=== PATIENT | female | born 1950 | race Caucasian/White ===

== ENCOUNTER 2021-08-01 10:35 | Outpatient (CLI) | payer MEDICARE, SELFPAY ==
[2021-08-01 11:05] VITALS: BP 147/76; PULSE 70; RESP 16; TEMP 36.6; O2SAT 99; BMI 22.4
[2021-08-01 11:41] VITALS: BP 112/75; PULSE 64; RESP 18; TEMP 37.4; O2SAT 98
[2021-08-01 12:38] VITALS: BP 131/86; PULSE 73; RESP 16; TEMP 37.4; O2SAT 98
== END 2021-08-01 12:40 | disposition home or self-care (01) ==
LOC: OPS 10:45
PROVIDERS: Visit Provider Nurse Practitioner Family
DX: U07.1 COVID-19 (principal)
CPT/HCPCS: 96365

== ENCOUNTER 2021-10-12 12:35 | Emergency (ER) | payer MEDICARE, SELFPAY ==
[2021-10-12 12:43] VITALS: BP 178/105; PULSE 69; RESP 16; TEMP 36.4; O2SAT 100; BMI 22.4
--- NOTE | 2021-10-12 12:51 | W.ED.EYEPROB ---
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 Patient states she was cooking maciel when the grease splattered into her eye. She states she initially had pain but this has improved. She states she chronically has very poor vision in her eye stating her vision is 2300 something but states vision does not seem to be any worse than normal. She does not wear glasses or contacts. chief complaint: eye injury Onset (ago): minute(s) Onset description: sudden Location: left eye Place: home Mechanism: other (grease splatter) Severity: mild Associated symptoms: Reports no associated symptoms Treatments Prior to Arrival: none Related Data: Patient tetanus UTD: Yes Review of Systems Eyes: Reports: eye discomfort (mild-improved); Denies: change in vision, blurry vision, photophobia, eye discharge, eye redness, floaters or seeing flashes Physical Exam Const: COMMON NORMALS: no acute distress, average body habitus, patient oriented x3, no limitations, healthy appearing, alert and well nourished HENMT: COMMON NORMALS: normocephalic and atraumatic HEAD & SCALP: normocephalic and atraumatic FACE & SINUS: other (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) Eye: COMMON NORMALS: Equal, round and reactive pupils present, EOMs intact bilaterally and conjunctivae normal GENERAL EYE: appearance normal, both eyes and all related structures and normal light reflex VISUAL ACUITY: Yes acuity normal VISUAL MARTIN: Yes peripheral vision loss PERIORBITAL: periorbital findings normal EYELID: eyelids normal CONJUNCTIVA: Yes conjunctivae normal SCLERA: sclerae normal CORNEA: Yes corneas normal and fluorescein used (do not visualize any abrasions/nova) PUPIL: Yes Equal, round and reactive pupils present DIRECT OPHTHALMOSCOPY: Yes normal light reflex OTHER: no globe injury or obvious nova noted Neuro: COMMON NORMALS: patient oriented x3 SENSORIUM/ORIENTATION: Yes alert Course Vital Signs: Vital signs: Vital Signs Temperature 97.6 F 10/12/21 12:43 Pulse Rate 69 10/12/21 12:43 Respiratory Rate 16 10/12/21 12:43 Blood Pressure 178/105 10/12/21 12:43 Pulse Oximetry 100 10/12/21 12:43 MDM - Eye Problem MDM Narrative: Medical decision making narrative: Patient reports no change in vision. She has mild discomfort. Nothing obvious on on direct visual examination and fluorescein stain exam. Will go ahead and cover with erythromycin ointment. Strict return to ED precautions given. Discharge Plan Discharge Patient Disposition: Home Clinical Impression: Thermal injury to conjunctiva of left eye Qualifiers: Encounter type: initial encounter Qualified Code(s): T26.12XA - Burn of cornea and conjunctival sac, left eye, initial encounter Condition: Stable Prescriptions: New erythromycin 5 mg/gram (0.5 %) ointment 1 applic ophthalmic (eye) Q4H 7 Days Qty: 1 RF: 0 Discharge Orders: Discharge ED (Routine); Ordered 10/12/21 Ordered By: Racheal Amador Coding Level of Care Code ED Graphic Art Sales Representative for Chg Fwd Exam Expanded Problem Focused
[2021-10-12] MEDS: erythromycin Op Oint 1 gm 1 APPLIC EYE-LEFT (13:55)
[2021-10-12] MEDS: fluorescein 1 mg Strip EYE-LEFT (13:57)
[2021-10-12] MEDS: eye irrigation 30 mL Btl EYE-LEFT (13:57)
[2021-10-12] MEDS: tetracaine 0.5% Op Soln 4 mL Btl 1 DROP EYE-LEFT (13:57)
[2021-10-12 14:01] VITALS: BP 151/86; PULSE 59; RESP 15; O2SAT 100
== END 2021-10-12 14:02 | disposition home or self-care (01) ==
PROVIDERS: Emergency Provider Physician Assistant
DX: T26.12XA Burn of cornea and conjunctival sac, left eye, initial encounter (principal); X10.2XXA Contact with fats and cooking oils, initial encounter
CPT/HCPCS: 99283

== ENCOUNTER 2022-01-25 09:42 | Inpatient (IN) | payer MEDICARE, SELFPAY ==
[2022-01-25] VITALS (30 sets, daily range): BP systolic 101–163; BP diastolic 60–110; PULSE 59–128; RESP 13–25; TEMP 36.3–37; O2SAT 92–99; BMI 21.6
--- NOTE | 2022-01-25 10:05 | ECG_ITS ---
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 Measurements Intervals [place] Rate: 126 P: CO: QRS: 35 QRSD: 94 T: 36 QT: 317 QTc: 459 Interpretive Statements ATRIAL FIBRILLATION WITH RAPID VENTRICULAR RESPONSE NONSPECIFIC ST & T-WAVE ABNORMALITY ABNORMAL RHYTHM ECG No previous ECG available for comparison Electronically Signed On 01-26-2022 5:59:51 FRONT OFFICE ASSOCIATE by Julianna Araujo M.D. [id number] f
--- NOTE | 2022-01-25 10:05 | CT_ITS ---
WS: [id number] CT HEAD NONCONTRAST HISTORY: neuro symptoms, RIGHT upper extremity weakness. TECHNIQUE: Contiguous axial imaging performed through the brain in 2.5 mm imaging. Bone and soft tiss ue windows. Sagittal and coronal reformats reviewed. All CT scans at [facility] use at least one of these dose optimization techniques: automated exposure control; mA and/or kV adjustment per pa tient size (includes targeted exams where dose is matched to clinical indication); or iterative recon struction. DLP: 839.24 mGy.cm COMPARISON: None available. No acute intracranial hemorrhage, midline shift or mass effect. Mild atrophy. Diffuse chronic microvascular ischemic changes. There are bilateral areas of more promi nent subcortical low-attenuation which in this age group is probably related to ischemic disease. No loss of the alfonso-white matter differentiation. Ventricles: Normal size with no hydrocephalus. No inferior displacement of the cerebellar tonsils. Paranasal sinuses: Small air-fluid level in the LEFT maxillary sinus and mild mucoperiosteal thickeni ng. The remaining sinuses are clear. Mastoid air cells: Well pneumatized. Calvarium and scalp: Skull is intact with no soft tissue edema or swelling. There is extensive postsurgical changes along the RIGHT face and neck from prior neck dissection. No recurrent mass identified on this examination. CT/CT head wo con* [id number] IMPRESSION: 1. No acute intracranial hemorrhage or edema. 2. Moderate chronic microvascular ischemic disease. Multifocal areas of subcort ical low attenuation. Probably all related to microvascular disease. This can b e further evaluated by MRI brain with contrast on a nonurgent basis. Further di fferentials to consider are vasculitis and demyelination apparent underlying ea rly metastatic sites.
[2022-01-25 10:07] LABS: Glucose Point of Care 99 mg/dL (70-110)
--- NOTE | 2022-01-25 10:12 | W.ED.NEUROSD ---
Documented by User: FANI Hernandez 01/25/22 13:17 HPI - Neuro Symptoms/Deficit General: Chief Complaint: Neuro Symptoms/Deficit Stated Complaint: stroke like symptoms Time Seen by Provider: 01/25/22 10:05 History of Present Illness: Patient complains about shortness of breath. Patient had an episode this morning prior last about 30 seconds where she had some difficulty talking and then that cleared up. Had some possible right arm weakness at that time but it is better now. Patient denies any recent illness. Patient has no medications that she takes in a regular basis. Patient did drink some high acting coffee which she normally does not drink and that occurred this morning. Patient has history of right mandible removal due to cyst. Had muscle from left thigh placed in jaw area to help with talking. Associated symptoms: Deny chest pain, headache(s), nausea or vomiting Review of Systems Const: Denies: fever(s), chills or body aches Eyes: Denies: eye discomfort ENMT: Denies: throat pain Card: Denies: chest pain Resp: Denies: dyspnea GI: Denies: abdominal pain, nausea or vomiting Skin/Breast: Denies: rash Neuro: Reports: other (An episode this morning where she had difficulty talking last about 30 seco); Denies: headache(s) Psych: Denies: depression or suicidal ideation PFSH ED PFSH: Surgical History (Updated 01/25/22 @ 12:17 by Flavio Schuler MD) History of carpal tunnel surgery History of mandibular surgery History of tonsillectomy Family History (Updated 01/25/22 @ 12:18 by Flavio Schuler MD) Other CAD (coronary artery disease) Cancer Social History (Updated 01/25/22 @ 12:18 by Flavio Schuler MD) Smoking and tobacco status: never smoked Alcohol intake: never NIH stroke score Score: Total Score: 2 Physical Exam Const: COMMON NORMALS: no acute distress, patient oriented x3 and alert HENMT: COMMON NORMALS: normocephalic and external ears normal HEAD & SCALP: normocephalic EXTERNAL EAR: Yes external ears normal Eye: COMMON NORMALS: Equal, round and reactive pupils present and EOMs intact bilaterally PUPIL: Yes Equal, round and reactive pupils present Neck/C-Spine: COMMON NORMALS: no JVD Resp: COMMON NORMALS: normal respiratory effort and No use of accessory muscles Cardio: COMMON NORMALS: no JVD RATE: tachycardic GI: INSPECTION: Yes normal to inspection Extremity: COMMON NORMALS: normal to inspection and full ROM Neuro: COMMON NORMALS: patient oriented x3 SENSORIUM/ORIENTATION: Yes alert SPEECH: speech normal MOTOR EXAM: 5/5 motor strength present throughout OTHER: Hews-sb-egpb movements fine, no arm drift. Good equal bilateral patent examiner strength. Psych: COMMON NORMALS: mental status grossly normal Skin: COMMON NORMALS: no rashes or lesions noted GENERAL SKIN EXAM: no rashes or lesions noted Course Vital Signs: Vital signs: Vital Signs Temperature 97.9 F 01/26/22 03:28 Pulse Rate 56 L 01/26/22 05:22 Respiratory Rate 12 01/26/22 03:28 Blood Pressure 129/81 01/26/22 03:28 Pulse Oximetry 99 01/26/22 03:28 MDM - Neuro Symptoms/Deficit Medical Decision Making Report given to Dr. Valdez Lab Data : 01/26/22 04:12 01/26/22 04:[address] 01/25/22 10:05 IMPRESSION: 1. No acute intracranial hemorrhage or edema. 2. Moderate chronic microvascular ischemic disease. Multifocal areas of subcortical low attenuation. Probably all related to microvascular disease. This can be further evaluated by MRI brain with contrast on a nonurgent basis. Further differentials to consider are vasculitis and demyelination apparent underlying early metastatic sites. Chest X-Ray 01/25/22 10:14 IMPRESSION: Unremarkable portable chest. Laboratory Results WBC 5.2 10^3/uL (4.0-10.0) 01/25/22 10:07 RBC 4.90 10^6/uL (4.1-5.3) 01/25/22 10:07 Hgb 13.5 g/dL (11.5-15.3) 01/25/22 10:07 Hct 43.6 % (37.0-47.0) 01/25/22 10:07 MCV 89.0 fl (81-99) 01/25/22 10:07 MCH 27.6 pg (28.0-34.0) L 01/25/22 10:07 MCHC 31.0 g/dL (30.0-36.0) 01/25/22 10:07 RDW 14.0 % (12.1-15.1) 01/25/22 10:07 Plt Count 191 10^3/cmm (130-400) 01/25/22 10:07 MPV 11.0 fL (7.4-10.4) H 01/25/22 10:07 Neut % (Auto) 61.6 % 01/25/22 10:07 Lymph % (Auto) 26.7 % 01/25/22 10:07 Warrick % (Auto) 9.0 % 01/25/22 10:07 Eos % (Auto) 1.5 % 01/25/22 10:07 Baso % (Auto) 1.0 % 01/25/22 10:07 Neut # (Auto) 3.21 10^3/uL (1.8-7.7) 01/25/22 10:07 Lymph # (Auto) 1.4 10^3/uL (0.8-4.8) 01/25/22 10:07 Warrick # (Auto) 0.5 10^3/uL (0.2-0.9) 01/25/22 10:07 Eos # (Auto) 0.1 10^3/uL (0.0-0.8) 01/25/22 10:07 Baso # (Auto) 0.1 10^3/uL (0.0-0.1) 01/25/22 10:07 Nucleated RBC % (auto) 0 % 01/25/22 10:07 Nucleated RBCs # 0.0 /100WBC 01/25/22 10:07 PT Cancelled 01/25/22 10:50 INR Cancelled 01/25/22 10:50 D-Dimer Cancelled 01/25/22 10:50 Sodium Cancelled 01/25/22 10:50 Potassium Cancelled 01/25/22 10:50 Chloride Cancelled 01/25/22 10:50 Carbon Dioxide Cancelled 01/25/22 10:50 Anion Gap Cancelled 01/25/22 10:50 BUN Cancelled 01/25/22 10:50 Creatinine Cancelled 01/25/22 10:50 GFR Calculation Cancelled 01/25/22 10:50 Glucose Cancelled 01/25/22 10:50 POC Glucose 99 mg/dL (70-110) 01/25/22 10:04 Calculated Osmolality Cancelled 01/25/22 10:50 Calcium Cancelled 01/25/22 10:50 Total Bilirubin Cancelled 01/25/22 10:50 AST Cancelled 01/25/22 10:50 ALT Cancelled 01/25/22 10:50 Alkaline Phosphatase Cancelled 01/25/22 10:50 Total Protein Cancelled 01/25/22 10:50 Albumin Cancelled 01/25/22 10:50 Globulin Cancelled 01/25/22 10:50 Discharge Plan Discharge Patient Disposition: Admitted As Inpatient Admit Provider: Flavio Schuler Clinical Impression: Atrial fibrillation, Transient cerebral ischemia Condition: Stable Coding Level of Care Code ED Radio Control Crane Operator for Chg Fwd Exam Comprehensive Documented by User: Jerardo Valdez DO 01/26/22 06:16 HPI - Neuro Symptoms/Deficit General: Chief Complaint: Neuro Symptoms/Deficit Stated Complaint: stroke like symptoms Time Seen by Provider: 01/25/22 10:05 History of Present Illness: Patient complains about shortness of breath. Patient had an episode this morning prior last about 30 seconds where she had some difficulty talking and then that cleared up. Had some possible right arm weakness at that time but it is better now. Patient denies any recent illness. Patient has no medications that she takes in a regular basis. Patient did drink some high acting coffee which she normally does not drink and that occurred this morning. Patient has history of right mandible removal due to cyst. Had muscle from left thigh placed in jaw area to help with talking. 71-year-old female presents to the emergency room with complaint of rapid heart rate. 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 She had a brief episode (lasted approximately 30 seconds) when this first started while she was picking skin things up outside where she felt like she could not speak well and had a little bit of weakness in her right arm that has resolved at this point. She still has the rapid heart rate and has some mild chest discomfort. She has a difficult time articulating words but son at the bedside states her enunciation worsens in public because she is self-conscious of her previous surgery. When seen initially her only complaint is the rapid heart rate and mild chest discomfort. She had some mild shortness of breath whenever she exerts herself like walking back into the house from outside generally does not feel well she is not had any vomiting or diarrhea no diaphoresis. Onset (ago): minute(s) (1) Timing confirmed by: family member Location: speech (Previously compromised underlying chronic medical issue (surgery)) and left arm (Hand) Severity: mild Quality: weak Relieving factors: time Exacerbating factors: none Context: sudden onset Associated symptoms: Reports chest pain, malaise, short of breath and weakness; Deny cough, diaphoresis, fevers/chills, headache(s), anorexia, nausea, seizures, syncope, tingling, vertigo or vomiting Review of Systems Const: Reports: malaise; Denies: fever(s), chills, body aches or diaphoresis Eyes: Denies: eye discomfort ENMT: Reports: hoarseness (Chronic); Denies: throat pain or odynophagia Card: Reports: chest pain; Denies: syncope Resp: Reports: dyspnea GI: Denies: abdominal pain, nausea or vomiting : Denies: flank pain, dysuria, urinary frequency or urinary urgency Skin/Breast: Denies: rash Neuro: Denies: headache(s) or vertigo Psych: Denies: depression PFSH ED PFSH: Surgical History (Updated 01/25/22 @ 12:17 by Flavio Schuler MD) History of carpal tunnel surgery History of mandibular surgery History of tonsillectomy Family History (Updated 01/25/22 @ 12:18 by Flavio Schuler MD) Other CAD (coronary artery disease) Cancer Social History (Updated 01/25/22 @ 12:18 by Flavio Schuler MD) Smoking and tobacco status: never smoked Alcohol intake: never NIH stroke score NIHSS: Level Of Consciousness - 1a: 0 Level Of Consciousness Questions - 1b: Both Correct Level Of Consciousness Commands - 1c: Both Correct Best Gaze - 2: Normal Visual Santamaria - 3: No Visual Loss Facial Palsy - 4: Normal Motor Arm Right - 5: No Drift Motor Arm Left - 5: No Drift Motor Leg Right - 6: No Drift Motor Leg Left - 6: No Drift Limb Ataxia - 7: Present In One Limb Sensory - 8: Normal Best Language - 9: No Aphasia Dysarthia - 10: Mild/Moderate Dysarthia (Subjective patient has underlying difficulty with speech enunciation) Extinction And Inattention - 11: 0 Score: Total Score: 2 Physical Exam Const: COMMON NORMALS: no acute distress GENERAL APPEARANCE: cooperative and comfortable ORIENTATION/CONSCIOUSNESS: Yes awake, Yes oriented to person, Yes oriented to place and Yes oriented to time HENMT: COMMON NORMALS: atraumatic HEAD & SCALP: atraumatic OTHER: Significant deformity of the mandible from previous surgery Eye: COMMON NORMALS: Equal, round and reactive pupils present, EOMs intact bilaterally, conjunctivae normal and no scleral icterus CONJUNCTIVA: Yes conjunctivae normal PUPIL: Yes Equal, round and reactive pupils present Neck/C-Spine: COMMON NORMALS: full ROM, no lymphadenopathy, supple and no JVD Resp: COMMON NORMALS: normal respiratory effort, No retractions, No use of accessory muscles and clear to auscultation bilaterally AUSCULTATION: clear to auscultation bilaterally Cardio: COMMON NORMALS: no JVD, regular rate, regular rhythm and No murmurs present (Cardio) RATE: regular rate RHYTHM: regular rhythm GI: COMMON NORMALS: Soft to palpation and No hepatosplenomegaly present AUSCULTATION: Yes normoactive bowel sounds PALPATION: Yes Soft to palpation, No Tenderness to palpation present (GI), No Guarding due to palpation present (GI) and Yes No hepatosplenomegaly present Extremity: COMMON NORMALS: normal to inspection, capillary refill normal, no clubbing, cyanosis or edema, no calf tenderness and no pedal edema Neuro: SENSORIUM/ORIENTATION: Yes oriented to person, Yes oriented to place and Yes oriented to time Skin: COMMON NORMALS: no rashes or lesions noted GENERAL SKIN EXAM: no rashes or lesions noted Course Vital Signs: Vital signs: Vital Signs Temperature 97.9 F 01/26/22 03:28 Pulse Rate 56 L 01/26/22 05:22 Respiratory Rate 12 01/26/22 03:28 Blood Pressure 129/81 01/26/22 03:28 Pulse Oximetry 99 01/26/22 03:28 MDM - Neuro Symptoms/Deficit Medical Decision Making Report given to Dr. Valdez Initially started Cardizem for rate control. When I first seen the patient she had difficult time speaking son related that this was typical for her. They related that the weakness in the right arm into the speech lasted only [address] Campo seen the patient he was concerned that some of these symptoms were still present. I reexamined the patient she does have some weakness very slight with patent examiner in the right arm. Requestioned the patient regarding her speech as well as her son who is at the bedside. He feels it is at her baseline. I do think it is improved since I first seen the patient. Repeat exam was approximately 2 to 2-1/2 hours after initially seen her. In either event at most.at baseline she has a stroke score of 2 which would not qualify her for intervention and she is already improving. CT of the head was negative. Interestingly the remainder of her stroke score exam was negative, did not feel she had any ataxia in the right arm and no arm drift although there was a very slight weakness in the right arm compared to the left the other point was for speech which is difficult because of her altered anatomy with the mandible. I did call and discussed with Oniel stroke on-call they did not feel that she would qualify did not recommend any kind of intervention. They did recommend not anticoagulating her for atrial fibrillation beyond aspirin until she was discharged. Discussed this with Dr. Schuler. Patient will be admitted on IV Cardizem for rate control and further evaluation and work-up. Oniel also recommended against CTA since her stroke score at very worst was only 2 and she would not be a candidate for any kind of embolectomy. Stroke alert was not initiated when the patient first arrived as the patient was relating there was only 30 seconds of symptoms and they had resolved. Medical Records I reviewed the patient's medical records. Lab Data I reviewed the patient's lab results. : 01/26/22 04:12 01/26/22 04:[address] 01/25/22 10:05 IMPRESSION: 1. No acute intracranial hemorrhage or edema. 2. Moderate chronic microvascular ischemic disease. Multifocal areas of subcortical low attenuation. Probably all related to microvascular disease. This can be further evaluated by MRI brain with contrast on a nonurgent basis. Further differentials to consider are vasculitis and demyelination apparent underlying early metastatic sites. Chest X-Ray 01/25/22 10:14
--- NOTE | 2022-01-25 10:14 | XR_ITS ---
WS: [id number] PORTABLE CHEST HISTORY: sob COMPARISON: 10/14/2013 Lungs are clear and well expanded. No pleural effusion or pneumothorax. Cardiac size: Normal. Mediastinum/Aorta: Minimal atherosclerotic plaque in the thoracic aorta. No osseous abnormality seen. XR/XR chest 1V portable [id number] IMPRESSION: Unremarkable portable chest.
[2022-01-25 10:24] LABS: Basophils # 0.1 10^3/uL (0.0-0.1); Eosinophils # 0.1 10^3/uL (0.0-0.8); Eosinophils % 1.5 %; Hematocrit 43.6 % (37.0-47.0); Hemoglobin 13.5 g/dL (11.5-15.3); Lymphocytes # 1.4 10^3/uL (0.8-4.8); Lymphocytes % 26.7 %; Mean Corpuscular Hemoglobin 27.6 pg (28.0-34.0); Monocytes # 0.5 10^3/uL (0.2-0.9); Neutrophils # 3.21 10^3/uL (1.8-7.7); Neutrophils % 61.6 %; Nucleated Red Blood Cells % 0 %; Platelet Count 191 10^3/cmm (130-400); White Blood Count 5.2 10^3/uL (4.0-10.0)
--- NOTE | 2022-01-25 10:24 | PC.PHAR ---
PT STATES SHE TAKES NO RX MEDICATIONS
--- NOTE | 2022-01-25 11:14 | USCV_ITS ---
Mary Izquierdo Age: 71 Gender: F : 1950 Exam Date: 01/25/2022 14:48 Ordering Phys: Flavio Schuler MD Technologist: Ga Heath [place] [facility] [place]: afib BP: 163 / 87 HR: 74 Rhythm: Atrial fibrillation Technical Quality: Adequate MEASUREMENTS (Male / Female) Normal Values 2D ECHO LV Diastolic Diameter PLAX 3.6 cm 4.2 - 5.9 / 3.9 - 5.3 cm LV Systolic Diameter PLAX 2.4 cm IVS Diastolic Thickness 1.0 cm 0.6 - 1.0 / 0.6 - 0.9 cm IVS Systolic Thickness 1.2 cm LVPW Diastolic Thickness 0.9 cm 0.6 - 1.0 / 0.6 - 0.9 cm LVPW Systolic Thickness 1.2 cm LVOT Diameter 2.0 cm LV Ejection Fraction 2D Teich 62.3 % LV Ejection Fraction MOD 2C 74.0 % LV Ejection Fraction 2C AL 77.6 % LA Diameter 3.0 cm LA Width 3.2 cm LA Height 3.9 cm RA Width 3.6 cm RA Height 4.2 cm Aorta at Sinotubular Diameter 2.1 cm M-MODE Aortic Annulus Diameter 2.9 cm LA Ao Ratio MM 1.1 DOPPLER AV Peak Velocity 104.0 cm/s LVOT Peak Velocity 73.0 cm/s AV Area Cont Eq vti 2.1 cm squared AV Area Cont Eq pk 2.2 cm squared TR Peak Velocity 330.5 cm/s TR Peak Gradient 43.7 mmHg TR Mean Velocity 299.1 cm/s TR Mean Gradient 36.0 mmHg TR Velocity Time Integral 94.7 cm RV Acceleration Time 0.1 s RV Ejection Time 0.3 s RV AcT/ET 0.4 FINDINGS Left Ventricle Normal left ventricular size. LV systolic function is normal with EF of 55-60%. No regional wall motion abnormalities. Diastolic function is indeterminate because of atrial fibrillation Right Ventricle The right ventricle is normal in size and function. Right Atrium The right atrium is normal in size. Left Atrium The left atrium is normal in size. Mitral Valve Structurally normal mitral valve without significant stenosis or prolapse. There is mild mitral regurgitation. Aortic Valve Structurally normal aortic valve without significant sclerosis or stenosis. There is mild aortic regurgitation. Tricuspid Valve Structurally normal tricuspid valve without significant stenosis or regurgitation. Insufficient TR jet to calculate RVSP Pulmonic Valve Not well-visualized Pericardium Normal pericardium without effusion. Aorta Normal ascending aorta dimension. CONCLUSIONS LV systolic function is normal with EF 55 to 60%. Diastolic function is indeterminate because of atrial fibrillation. Mild mitral regurgitation noted. Mild aortic regurgitation. No comparison studies are available Kurt Jimenes MD (Electronically Signed) Final Date: 26 January 2022 11:30 S
[2022-01-25] MEDS: dilTIAZem ER (24HR) 120 mg Capsule PO (11:50)
--- NOTE | 2022-01-25 12:15 | PM.HP ---
Providers/Chief Complaint Admitting Physician: Flavio Schuler MD Chief Complaint: stroke like symptoms History of Present Illness Mary Izquierdo is a 71 year old female who presents to the emergency department with 2 complaints. The first complaint was feelings of palpitations yesterday, as well as today with heart fluttering. She reports at 830 today she also noted difficulty moving her right upper extremity and some difficulty speaking. She states it is since improved with her speaking although her right upper extremity is still weak. She denies any headache, nausea, vomiting, fever. She denies any previous history of atrial fibrillation, heart rhythm abnormality, or heart problems in general. She states overall she is healthy. She denies any chest discomfort. She is not short of breath currently. Blood glucose was checked and normal. In the emergency department he was started on a Cardizem drip. I have ordered for an aspirin to be given. Review of Systems General: Reports: 10 or more systems reviewed and unremarkable except in HPI and below Const: Denies: fever(s) or fatigue ENMT: Denies: throat pain Card: Reports: palpitations; Denies: chest pain or edema Resp: Denies: dyspnea GI: Denies: abdominal pain, nausea, hematochezia or melena : Denies: flank pain Musc: Denies: neck pain or extremity swelling Skin/Breast: Denies: rash Neuro: Reports: weakness in extremities and Slurred speech present; Denies: headache(s) Psych: Denies: anxiety or depression Endo: Denies: polyuria Placido/Lymph: Denies: easy bruising All/Imm: Denies: urticaria Medications/Allergies Home Medications Medication Instructions Recorded Confirmed Last Taken Type acetaminophen 500 mg tablet 1,000 mg PO Q6H PRN 01/25/22 01/25/22 01/24/22 History Allergies Allergy/AdvReac Type Severity Reaction Status Date / Time No Known Allergies Allergy Verified 01/25/22 10:24 PFSH Acute PFSH: Surgical History (Updated 01/25/22 @ 12:17 by Flavio Schuler MD) History of carpal tunnel surgery History of mandibular surgery History of tonsillectomy Family History (Updated 01/25/22 @ 12:18 by Flavio Schuler MD) Other CAD (coronary artery disease) Cancer Social History (Updated 01/25/22 @ 12:18 by Flavio Schuler MD) Smoking and tobacco status: never smoked Alcohol intake: never Other [facility]ESS [facility] information: Supplemental [facility] Information: 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 Right mandibular reconstruction noted. Son is present and reports that facial droop is unchanged. Oropharynx is clear. Neck is supple no lymphadenopathy or thyromegaly Cardiovascular irregular, irregular with accelerated rate, no murmur Lungs clear no wheezing or crackles Abdomen is soft nontender positive bowel sounds. No obvious organomegaly exam is deferred Extremities no cyanosis clubbing or edema, cap refill brisk Skin no rash Neuro: Right facial droop is noted but this is old. Speech is slurred but son present reports some of this is baseline. He reports she is mildly affected currently. Right upper extremity is weak compared to left, 4/5. Lower extremities appear to be of normal strength. I did not check gait. No cerebellar dysfunction. Overall NIH stroke score score of 2 was given by the emergency department physician. Data : 01/25/22 10:07 01/25/22 11:50 Other data: INR 0.99 CMP pending TSH ordered Chest x-ray negative CT head moderate microvascular disease EKG demonstrates atrial fibrillation, rapid ventricular rate, normal axis, nonspecific ST-T wave changes. A&P Assessment and plan (1) CVA (cerebral vascular accident): Patient with acute CVA, new onset atrial fibrillation. Aspirin 325 mg p.o. now on daily Plan on anticoagulation at discharge. This was confirmed through [facility] through emergency department physician. They did not want full anticoagulation started on admission. Check lipid profile, start statin Stroke education Speech therapy evaluation, PT and OT evaluations Echocardiogram, carotid duplex Consider MRI as an outpatient Status: Acute (2) Atrial fibrillation: Cardizem drip initiated in the emergency department Cardizem p.o. was given Wean off Cardizem as tolerated Try to allow permissive hypertension as well. Consider beta-tomas but as she has already had diltiazem CD orally we will hold off on this for now as permissive hypertension needs to be allowed for. Echocardiogram is already ordered Status: Acute Plan Full code Lovenox will suffice for DVT prophylaxis Attestations Medical Necessity Statement*: Will need greater than 2 midnight stay secondary to CVA, atrial fibrillation with rapid ventricular rate Coding Level of Care Code Acute Manager Corporate for [facility] Fwd Diagnoses CVA (cerebral vascular accident) I63.9 Atrial fibrillation I48.91
[2022-01-25 12:19] LABS: INR 0.99 (0.8-1.2)
[2022-01-25 12:20] LABS: Magnesium 2.2 mg/dL (1.7-2.3)
[2022-01-25 12:21] LABS: D Dimer 0.61 ug/mIFEU (0-0.59)
[2022-01-25 12:39] LABS: Add Urine Microscopic? YES; Bilirubin Urine Neg (Negative); Blood Urine 2+ (Negative); Glucose Urine UA Norm (Normal); Ketones Urine Negative (Negative); Leukocyte Esterase Urine Negative (Negative); Nitrate Urine Negative (Negative); Protein Urine Neg (Negative); Sulfosalicylic Acid Urine Negative (Negative); Urine Appearance Clear (CLEAR); Urine Color Yellow (Yellow); Urobilinogen Urine Neg (Negative); pH Urine 8 (5-7)
[2022-01-25 12:40] LABS: Add Urine Culture? Yes; Bacteria Urine 2+ /hpf; RBC Urine 0-4 /hpf (0-2); Squamous Epithelial Cell Urine RARE /hpf (0-5); WBC Urine 0-4 /hpf (0-5)
[2022-01-25 12:42] LABS: Alanine Aminotransferase 10 U/L (0-33); Alkaline Phosphatase 92 IU/L (35-105); Blood Urea Nitrogen 17 mg/dL (8-23); Calcium 9.2 mg/dL (8.5-10.5); Carbon Dioxide 18 mmol/L (22-29); Chloride 108 mmol/L (98-107); Globulin 2.9 g/dL (1.3-4.6); Glomerular Filtration Rate 98.8 mL/min (90-130); Glucose 101 mg/dL (65-115); Osmolality Calculated 292 mOsm/kg (285-295); Sodium 140 mmol/L (136-145); Thyroid Stimulating Hormone 2.42 uIU/mL (0.27-4.20); Total Bilirubin 0.6 mg/dL (0.15-1.2); Total Protein 6.9 g/dL (6.6-8.7)
[2022-01-25 12:43] LABS: Aspartate Amino Transferase 17 U/L (0-32)
[2022-01-25 12:57] LABS: Troponin(5th) Baseline 12 ng/L (0-10)
[2022-01-25] MEDS: aspirin 81 mg Chew Tablet 324 MG PO (13:07)
--- NOTE | 2022-01-25 14:22 | ECG_ITS ---
[facility] Test Date: 2022-01-25 Pat Name: Mary Izquierdo Department: Room: 103 Gender: Female Cat Skinner: : 1950 Requested By: Flavio Erazo Order Number: [id number] Haroon MD: Julianna Araujo M.D. Measurements Intervals [place] Rate: 71 P: [place]: QRS: 27 QRSD: 85 T: 38 QT: 409 QTc: 446 Interpretive Statements ATRIAL FLUTTER/TACHYCARDIA ABNORMAL RHYTHM ECG Compared to ECG 01/25/2022 10:17:39 Atrial fibrillation no longer present T-wave abnormality no longer present Electronically Signed On 01-26-2022 6:05:26 BIOMEDICAL ENGINEERING SUPERVISOR by Julianna Araujo M.D. [id number]
[2022-01-25 14:34] LABS: Troponin 5 2HR 17.25 ng/L (0-10)
[2022-01-25 14:43] LABS: Troponin 5 2HR Delta 5.25 ABS# (0-10)
[2022-01-25] MEDS: enoxaparin 40 mg/0.4 mL Syringe SUBCUT (15:16)
--- NOTE | 2022-01-25 18:22 | ECG_ITS ---
[facility] Test Date: 2022-01-25 Pat Name: Mary Izquierdo Department: Room: 103 Gender: Female Technical Education Teacher: : 1950 Requested By: Flavio Erazo Order Number: [id number] Haroon MD: Julianna Araujo M.D. Measurements Intervals [place] Rate: 74 P: [place]: QRS: 28 QRSD: 93 T: 37 QT: 404 QTc: 450 Interpretive Statements ATRIAL FLUTTER/TACHYCARDIA MODERATE ST DEPRESSION [0.05+ mV ST DEPRESSION] Compared to ECG 01/25/2022 16:42:30 ST (T wave) deviation now present Electronically Signed On 01-26-2022 6:04:11 COMPUTATIONAL THEORY SCIENTIST by Julianna Araujo M.D. [id number]
[2022-01-25 19:30] LABS: Troponin 5 6HR 18.62 ng/L (0-10)
[2022-01-25 19:32] LABS: Troponin 5 6HR Delta 6.62 ng/L (0-12)
[2022-01-25] MEDS: atorvastatin 40 mg Tablet PO (19:37)
--- NOTE | 2022-01-25 22:59 | PC.NURSE ---
Patient is currently in SR heart rate 60s. Cardizem drip shut off at this time per protocol.
[2022-01-26] VITALS (8 sets, daily range): BP systolic 115–142; BP diastolic 70–81; PULSE 55–65; RESP 12–18; TEMP 36.1–36.6; O2SAT 95–99
--- NOTE | 2022-01-26 01:06 | PC.NURSE ---
Patient is currently resting in bed with eyes closed.
[2022-01-26 05:09] LABS: Basophils % 0.7 %; Eosinophils # 0.2 10^3/uL (0.0-0.8); Eosinophils % 2.8 %; Hematocrit 41.6 % (37.0-47.0); Hemoglobin 13.3 g/dL (11.5-15.3); Lymphocytes # 1.5 10^3/uL (0.8-4.8); Lymphocytes % 27.2 %; Mean Corpuscular Hemoglobin 28.5 pg (28.0-34.0); Mean Corpuscular Volume 89.3 fl (81-99); Mean Platelet Volume 10.2 fL (7.4-10.4); Monocytes # 0.6 10^3/uL (0.2-0.9); Monocytes % 11.4 %; Neutrophils # 3.08 10^3/uL (1.8-7.7); Neutrophils % 57.5 %; Nucleated Red Blood Cells % 0 %; Platelet Count 194 10^3/cmm (130-400); Red Blood Count 4.66 10^6/uL (4.1-5.3); Red Cell Distribution Width 14.1 % (12.1-15.1); White Blood Count 5.4 10^3/uL (4.0-10.0)
[2022-01-26 05:24] LABS: Cholesterol 188 mg/dL (0-200); HDL Cholesterol 57 mg/dL (60-100); LDL Cholesterol Calculated 118 mg/dL (50-129); LDL HDL Ratio 2.07 RATIO (0.00-3.22); Triglycerides 63 mg/dL (0-150)
[2022-01-26 05:26] LABS: Estmated Average Glucose 100; Hemoglobin A1C 5.1 % (4.0-6.0)
[2022-01-26 05:27] LABS: Alanine Aminotransferase 9 U/L (0-33); Albumin Level 4.2 g/dL (3.5-5.2); Alkaline Phosphatase 93 IU/L (35-105); Aspartate Amino Transferase 14 U/L (0-32); Blood Urea Nitrogen 16 mg/dL (8-23); Calcium 9.5 mg/dL (8.5-10.5); Carbon Dioxide 27 mmol/L (22-29); Chloride 102 mmol/L (98-107); Globulin 2.7 g/dL (1.3-4.6); Glomerular Filtration Rate 61.9 mL/min (90-130); Glucose 98 mg/dL (65-115); Osmolality Calculated 285 mOsm/kg (285-295); Sodium 137 mmol/L (136-145); Total Protein 6.9 g/dL (6.6-8.7)
--- NOTE | 2022-01-26 06:00 | USCV_ITS ---
FeleciaMary pepe Age: 71 Gender: F : 1950 Exam Date: 01/26/2022 13:00 Ordering Phys: Flavio Schuler MD Technologist: Rachell Jordan Exam Location: [facility] Indication: CVA Risk Factors: Previous Vascular Surgery: Right Brachial BP: / Left Brachial BP: / Right Left Velocity (cm/s) Spectral Plaque Velocity (cm/s) Spectral Plaque Syst/Diast Broadening Syst/Diast Broadening 70.60/ 18.70 Prox CCA 91.40 / 22.20 71.70/ 17.60 Mid CCA 81.20 / 18.80 52.50/ 14.10 Distal CCA 70.90 / 16.20 56.20/ 13.30 Prox ICA 57.90 / 19.30 69.50/ 24.90 Mid ICA 60.90 / 17.50 77.40/ 20.60 Distal ICA 69.90 / 24.20 52.60 ECA 49.10 1.08 ICA/CCA 0.83 Antegrade Vertebral Antegrade 48.10/ 16.20 cm/s 34.10/ 5.90 cm/s Tri Subclavian Bi 51.60 92.00 FINDINGS Comparison: none available. No significant elevation of systolic or diastolic velocities. Waveforms are normal. Mild bilateral scattered calcified plaque and intimal thickening throughout the common carotid arteries and extending through the bifurcation. Antegrade vertebral arteries. CONCLUSIONS Bilateral ICA stenosis less than 50%. Dr. Alyx Francisco DO (Electronically Signed) Final Date: 26 January 2022 13:37 S
[2022-01-26] MEDS: aspirin 325 mg Tablet PO (08:24)
[2022-01-26] MEDS: metoprolol succinate ER (24 HR) 25 mg Tablet 12.5 MG PO (08:24)
--- NOTE | 2022-01-26 09:06 | P.PN_ITS ---
Subjective Subjective: Mary reports she is doing okay today. No palpitations or chest discomfort. Thinks her right upper extremity may be moving a little bit better. Denies any speech difficulties this morning. Medications: Reviewed: Yes Vitals/I&O/Wt Last Vital Signs Temp 97.8 F 01/26/22 07:54 Pulse 59 L 01/26/22 07:54 Resp 18 01/26/22 07:54 BP 142/77 01/26/22 07:54 Pulse Ox 99 01/26/22 07:54 01/25/22 01/26/22 01/26/22 22:59 06:59 14:59 Intake Total 346.834 / 371.859 240 / 240 Balance 346.834 / 371.859 240 / 240 Weight last 48 hrs Weight 58.967 kg Weight 58.967 kg Physical Exam Narrative: General exam is a white female, no distress alert and conversive. Telemetry indicates she is converted to sinus rhythm Neck is supple no lymphadenopathy or thyromegaly Cardiovascular regular rate and rhythm without murmur Lungs clear no wheezing or crackles Abdomen is soft nontender positive bowel sounds. No obvious organomegaly Extremities no cyanosis clubbing or edema, cap refill brisk Neurologic: Strength slightly reduced right upper extremity, otherwise normal. Any facial droop is hard to estimate considering her prior surgery. Certainly her speech is more clear than yesterday. Data : 01/26/22 04:12 01/26/22 04:12 Micro: Microbiology 01/25/22 11:58 Urine Culture - Preliminary Urine,Clean Catch Gram Negative Rods A&P Assessment and plan (1) CVA (cerebral vascular accident): Patient with acute CVA, new onset atrial fibrillation. Aspirin 325 mg p.o. now on daily Plan on anticoagulation at discharge. This was confirmed through [place] neurology through emergency department physician. They did not want full anticoagulation started on admission. Continue statin Stroke education Speech therapy evaluation, PT and OT evaluations Echocardiogram, carotid duplex pending Consider MRI as an outpatient. This can be done through neurology clinic. She should follow-up within 2 weeks. TSH was checked and normal Troponin slightly elevated as expected with atrial fibrillation with rapid ventricular rate Status: Acute (2) Atrial fibrillation: Cardizem drip initiated in the emergency department Cardizem p.o. was given She has now converted and Cardizem was discontinued Will place on Toprol-XL 12.5 mg once daily. This dose should be increased as tolerated by heart rate and blood pressure to 25 mg daily. Since she is just now 24 hours out from CVA, still trying to allow some permissive hypertension. Await echocardiogram Status: Acute Plan It appears her urine is growing gram-negative rods. On review of systems yesterday I did not hear about any symptomatology for UTI. I will confirm this with the patient today and if she is not symptomatic we will not start antibiotics. Full code Lovenox will suffice for DVT prophylaxis Attestations Medical Necessity Statement*: Needs continued hospitalization for adjustment of medication and close monitoring of atrial fibrillation with rapid ventricular rate, further evaluation of stroke with echocardiogram and carotid duplex and therapy evaluations. Coding Level of Care Code Acute Precast Concrete Ironworker for [facility] Paredes Diagnoses CVA (cerebral vascular accident) I63.9 Atrial fibrillation I48.91
[2022-01-26] MEDS: enoxaparin 40 mg/0.4 mL Syringe SUBCUT (15:12)
[2022-01-26] MEDS: atorvastatin 40 mg Tablet PO (20:42)
[2022-01-27] VITALS (7 sets, daily range): BP systolic 113–143; BP diastolic 71–76; PULSE 58–69; RESP 10–23; O2SAT 98–100
--- NOTE | 2022-01-27 01:28 | PC.NURSE ---
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
[2022-01-27 04:50] LABS: Basophils # 0.1 10^3/uL (0.0-0.1); Basophils % 1.1 %; Eosinophils # 0.2 10^3/uL (0.0-0.8); Eosinophils % 3.3 %; Hemoglobin 12.6 g/dL (11.5-15.3); Lymphocytes # 1.6 10^3/uL (0.8-4.8); Lymphocytes % 35.7 %; Mean Corpuscular HGB Conc 31.5 g/dL (30.0-36.0); Mean Corpuscular Volume 88.9 fl (81-99); Mean Platelet Volume 10.8 fL (7.4-10.4); Monocytes # 0.5 10^3/uL (0.2-0.9); Monocytes % 11.5 %; Neutrophils # 2.19 10^3/uL (1.8-7.7); Neutrophils % 48.2 %; Nucleated Red Blood Cells % 0 %; Platelet Count 186 10^3/cmm (130-400); Red Cell Distribution Width 13.9 % (12.1-15.1); White Blood Count 4.5 10^3/uL (4.0-10.0)
[2022-01-27 05:14] LABS: Anion Gap 11.8 (5-19); Blood Urea Nitrogen 23 mg/dL (8-23); Calcium 8.9 mg/dL (8.5-10.5); Carbon Dioxide 27 mmol/L (22-29); Chloride 107 mmol/L (98-107); Glomerular Filtration Rate 61.9 mL/min (90-130); Glucose 94 mg/dL (65-115); Osmolality Calculated 295 mOsm/kg (285-295); Potassium 4.8 mmol/L (3.5-5.1); Sodium 141 mmol/L (136-145)
--- NOTE | 2022-01-27 07:59 | PC.NURSE ---
Patient right facial droop and garbled speech related to previously removed right mandible
[2022-01-27] MEDS: aspirin 325 mg Tablet PO (09:00)
[2022-01-27] MEDS: metoprolol succinate ER (24 HR) 25 mg Tablet 12.5 MG PO (09:00)
--- NOTE | 2022-01-27 10:53 | P.DS_ITS ---
Discharge Providers Date of Admission: 01/25/22 11:18 Date of Discharge: January 27, 2022 Attending Provider at Admission: Flavio Schuler MD Attending Provider at Discharge: Carlos Hawk MD Consults: Tele Neurology Diagnoses at Discharge Discharge Diagnosis (1) CVA (cerebral vascular accident): Status: Acute (2) Atrial fibrillation: Status: Acute Reason for Visit Reason for Visit: stroke like symptoms Brief History: History as per HPI: Mary Izquierdo is a 71 year old female who presents to the emergency department with 2 complaints.? The first complaint was feelings of palpitations yesterday, as well as today with heart fluttering.? She reports at 830 today she also noted difficulty moving her right upper extremity and some difficulty speaking.? She states it is since improved with her speaking although her right upper extremity is still weak.? She denies any headache, nausea, vomiting, fever.? She denies any previous history of atrial fibrillation, heart rhythm abnormality, or heart problems in general.? She states overall she is healthy.? She denies any chest discomfort.? She is not short of breath currently.? Blood glucose was checked and normal. Hospital Course Hospital Course Patient went to the hospital for further evaluation and management of acute CVA, atrial fibrillation with rapid ventricular response. On admission she was sta rted on Cardizem drip which was later transitioned over to oral rate limiting metoprolol. She worked well with physical therapy and has been constantly improving. Patient is back to baseline neurologically. Her hospitalization was otherwise unremarkable. She is been discharged hemodynamically stable condition with home exercise program. She is advised to take aspirin 325 mg daily for next 1 week. From 02/03 she is to stop aspirin and take Eliquis 5 mg twice daily. She is advised to follow-up with neurology within next 2 weeks. She is also advised to follow-up with primary care provider within next 1 week. Physical Exam Narrative: General exam is a white female, no distress alert and conversive. Telemetry indicates she is converted to sinus rhythm Neck is supple no lymphadenopathy or thyromegaly Cardiovascular regular rate and rhythm without murmur Lungs clear no wheezing or crackles Abdomen is soft nontender positive bowel sounds. No obvious organomegaly Extremities no cyanosis clubbing or edema, cap refill brisk Neurologic: Strength slightly reduced right upper extremity, otherwise normal. Any facial droop is hard to estimate considering her prior surgery. Certainly her speech is more clear than yesterday. Discharge Data Studies Completed and Pending Completed Studies During Hospitalization Category Date Time Status CT head wo con* [id number] Stat Cat Scan 01/25/22 10:05 Completed CXRP [XR chest 1V portable [id number]] Stat Exams 01/25/22 10:14 Completed CV carotid duplex BI* [id number] Routine Ultrasound 01/26/22 06:00 Completed CV. echo complete* [id number] Routine Ultrasound 01/25/22 11:14 Completed Pending at discharge Category Date Time Status Urine Culture Stat Lab 01/25/22 11:58 Results Radiology Impressions Head CT 01/25/22 10:05 IMPRESSION: 1. No acute intracranial hemorrhage or edema. 2. Moderate chronic microvascular ischemic disease. Multifocal areas of subcortical low attenuation. Probably all related to microvascular disease. This can be further evaluated by MRI brain with contrast on a nonurgent basis. Further differentials to consider are vasculitis and demyelination apparent underlying early metastatic sites. Chest X-Ray 01/25/22 10:14 IMPRESSION: Unremarkable portable chest. Laboratory Results WBC 4.5 10^3/uL (4.0-10.0) 01/27/22 04:08 RBC 4.50 10^6/uL (4.1-5.3) 01/27/22 04:08 Hgb 12.6 g/dL (11.5-15.3) 01/27/22 04:08 Hct 40.0 % (37.0-47.0) 01/27/22 04:08 MCV 88.9 fl (81-99) 01/27/22 04:08 MCH 28.0 pg (28.0-34.0) 01/27/22 04:08 MCHC 31.5 g/dL (30.0-36.0) 01/27/22 04:08 RDW 13.9 % (12.1-15.1) 01/27/22 04:08 Plt Count 186 10^3/cmm (130-400) 01/27/22 04:08 MPV 10.8 fL (7.4-10.4) H 01/27/22 04:08 Neut % (Auto) 48.2 % 01/27/22 04:08 Lymph % (Auto) 35.7 % 01/27/22 04:08 [place] % (Auto) 11.5 % 01/27/22 04:08 Eos % (Auto) 3.3 % 01/27/22 04:08 Baso % (Auto) 1.1 % 01/27/22 04:08 Neut # (Auto) 2.19 10^3/uL (1.8-7.7) 01/27/22 04:08 Lymph # (Auto) 1.6 10^3/uL (0.8-4.8) 01/27/22 04:08 [place] # (Auto) 0.5 10^3/uL (0.2-0.9) 01/27/22 04:08 Eos # (Auto) 0.2 10^3/uL (0.0-0.8) 01/27/22 04:08 Baso # (Auto) 0.1 10^3/uL (0.0-0.1) 01/27/22 04:08 Nucleated RBC % (auto) 0 % 01/27/22 04:08 Nucleated RBCs # 0.0 /100WBC 01/27/22 04:08 PT 13.40 SECONDS (12.1-14.9) 01/25/22 11:50 INR 0.99 (0.8-1.2) 01/25/22 11:50 D-Dimer 0.61 ug/mIFEU (0-0.59) H 01/25/22 11:50 Sodium 141 mmol/L (136-145) 01/27/22 04:08 Potassium 4.8 mmol/L (3.5-5.1) 01/27/22 04:08 Chloride 107 mmol/L (98-107) 01/27/22 04:08 Carbon Dioxide 27 mmol/L (22-29) 01/27/22 04:08 Anion Gap 11.8 (5-19) 01/27/22 04:08 BUN 23 mg/dL (8-23) 01/27/22 04:08 Creatinine 0.9 mg/dL (0.5-0.9) 01/27/22 04:08 GFR Calculation 61.9 mL/min (90-130) L 01/27/22 04:08 Glucose 94 mg/dL (65-115) 01/27/22 04:08 POC Glucose 99 mg/dL (70-110) 01/25/22 10:04 Estimat Average Glucose 100 01/26/22 04:12 Hemoglobin A1c 5.1 % (4.0-6.0) 01/26/22 04:12 Calculated Osmolality 295 mOsm/kg (285-295) 01/27/22 04:08 Calcium 8.9 mg/dL (8.5-10.5) 01/27/22 04:08 Magnesium 2.2 mg/dL (1.7-2.3) 01/25/22 11:50 Total Bilirubin 1.0 mg/dL (0.15-1.2) 01/26/22 04:12 AST 14 U/L (0-32) 01/26/22 04:12 ALT 9 U/L (0-33) 01/26/22 04:12 Alkaline Phosphatase 93 IU/L (35-105) 01/26/22 04:12 Troponin T Baseline 12 ng/L (0-10) H 01/25/22 11:50 Troponin T 120 Minute 17.25 ng/L (0-10) H 01/25/22 13:56 Delta Troponin T 5.25 ABS# (0-10) 01/25/22 13:56 Troponin T Hi Sens 6Hr 18.62 ng/L (0-10) H 01/25/22 18:59 Troponin T Hi Sens 6Hr Delta 6.62 ng/L (0-12) 01/25/22 18:59 Total Protein 6.9 g/dL (6.6-8.7) 01/26/22 04:12 Albumin 4.2 g/dL (3.5-5.2) 01/26/22 04:12 Globulin 2.7 g/dL (1.3-4.6) 01/26/22 04:12 Triglycerides 63 mg/dL (0-150) 01/26/22 04:12 Cholesterol 188 mg/dL (0-200) 01/26/22 04:12 LDL Cholesterol, Calc 118 mg/dL (50-129) 01/26/22 04:12 HDL Cholesterol 57 mg/dL (60-100) L 01/26/22 04:12 LDL/HDL Ratio 2.07 RATIO (0.00-3.22) 01/26/22 04:12 Cholesterol/HDL Ratio 3.30 mg/dL (0.0-4.40) 01/26/22 04:12 TSH 2.42 uIU/mL (0.27-4.20) 01/25/22 11:50 Urine Color Yellow (Yellow) 01/25/22 11:58 Urine Appearance Clear (CLEAR) 01/25/22 11:58 Urine pH 8 (5-7) H 01/25/22 11:58 Ur Specific [place] 1.010 (1.005-1.030) 01/25/22 11:58 Urine Protein Neg (Negative) 01/25/22 11:58 Urine Glucose (UA) Norm (Normal) 01/25/22 11:58 Urine Ketones Negative (Negative) 01/25/22 11:58 Urine Blood 2+ (Negative) H 01/25/22 11:58 Urine Nitrate Negative (Negative) 01/25/22 11:58 Urine Bilirubin Neg (Negative) 01/25/22 11:58 Prot Sulfosalicylic Acd Negative (Negative) 01/25/22 11:58 Urine Urobilinogen Neg mg/dL (Negative) 01/25/22 11:58 Ur Leukocyte Esterase Negative (Negative) 01/25/22 11:58 Urine RBC 0-4 /hpf (0-2) H 01/25/22 11:58 Urine WBC 0-4 /hpf (0-5) H 01/25/22 11:58 Ur Squamous Epith Cells Rare /hpf (0-5) 01/25/22 11:58 Amorphous Sediment Not Reportable 01/25/22 11:58 Urine Bacteria 2+ /hpf (NONE) H 01/25/22 11:58 Vitals Last Vital Signs Temp 97.0 F L 01/26/22 16:06 Pulse 69 01/27/22 07:58 Resp 14 01/27/22 07:58 BP 128/76 01/27/22 07:58 Pulse Ox 100 01/27/22 07:58 Discharge Plan Discharge Patient Disposition: Home Condition: Stable Prescriptions: New atorvastatin 40 mg Tablet 40 mg PO BEDTIME 30 Days Qty: 30 0RF aspirin 325 mg Tablet 325 mg PO DAILY 7 Days Qty: 7 0RF metoprolol succinate 25 mg Tablet Extended Release 24 Hr 12.5 mg PO DAILY 30 Days Qty: 30 0RF Eliquis 5 mg tablet 5 mg PO BID Qty: 60 0RF Continued Tylenol Ex Str Rapid Release 500 mg Tablet 1,000 mg PO Q6H PRN (Reason: Pain) 0RF Discharge Orders: Discharge Order (Routine); Ordered 01/27/22 Ordered By: Carlos Hawk Referrals: Yasmin Escobedo MD [Physician] - 2 weeks Discharge Diet: Cardiac Discharge Activity: Resume usual activity Patient Instructions: Opioid Safety Activity Restrictions/Additional Instructions: Take aspirin 325 mg daily for 1 week. Take till 02/02. From 02/03 stop aspirin take Eliquis 5 mg once morning once evening. Follow-up with neurologist within next 2 weeks. Discharge Attestations Time Spent in Discharge Care*: greater than 30 min Specific Discharge Activities: educating patient, discussing with pcp/other providers, discussing with rifle case repairer/social workers/dc planners, documenting/other paperwork and evaluating patient/reviewing data Status at Discharge: Cognitive status at discharge: cognitively intact , Behavioral status at discharge: cooperative , Functional status at discharge: independent ambulation , Overall status at discharge: patient is back to baseline Quality Metrics Clinical Quality Measures [ No reported AMI, CVA or VTE this stay] Coding Level of Care Code Acute Chg FW DC note Diagnoses CVA (cerebral vascular accident) I63.9 Atrial fibrillation I48.91
--- NOTE | 2022-01-27 14:00 | PC.NURSE ---
This nurse agrees with all documentation and medication administration by Swathi SINHA
--- NOTE | 2022-01-27 14:30 | PC.NURSE ---
Discharge Note Patient discharged to home via private vehicle accompanied by family. Discharge instructions reviewed with patient and/or motor vehicle representative. Mobile pharmacy medications and/or prescriptions provided. Belongings/home medications returned.
== END 2022-01-27 14:32 | disposition home or self-care (01) | DRG 308 ==
LOC: ER 10:22 → CSU 12:12
PROVIDERS: Nurse Practitioner Family; Admitting Provider Internal Medicine; Emergency Provider Family Medicine; Visit Provider Student in an Organized Health Care Education/Training Program
DX: I48.91 Unspecified atrial fibrillation (principal); I63.9 Cerebral infarction, unspecified; R29.702 NIHSS score 2
CPT/HCPCS: 36415; 36416; 70450; 71045; 80048; 80053; 80061; 81001; 82962; 83036; 83735; 84443; 84484; 85025; 85378; 85610; 87077; 87086; 87186; 92523; 92610; 93005; 93306; 93880; 96365; 96366; 96372; 96375; 97116; 97161; 97165; 99285; J1650; J3490

== ENCOUNTER → 2022-02-05 13:56 | Outpatient (BNVA) | payer MEDICARE, SELFPAY | PROVIDERS: PCP Family Medicine; Visit Provider Nurse Practitioner | DX: I48.91 Unspecified atrial fibrillation (principal); Z86.73 Personal history of transient ischemic attack (TIA), and cerebral infarction without residual deficits; Z79.01 Long term (current) use of anticoagulants | CPT/HCPCS: 99204 ==

== ENCOUNTER 2022-04-26 10:01 | Emergency (ER) | payer MEDICARE, SELFPAY ==
[2022-04-26 10:12] VITALS: PULSE 57; RESP 16; O2SAT 100; BMI 23.0
[2022-04-26 10:25] VITALS: BP 188/87
--- NOTE | 2022-04-26 10:29 | ECG_ITS ---
[facility] Test Date: 2022-04-26 Pat Name: Mary Izquierdo Department: Room: Gender: Female Critical Care Unit Manager: : 1950 Requested By: Racheal Amador Order Number: [id number] Haroon MD: Norris Brown M.D. Measurements Intervals [place] Rate: 47 P: 73 OR: 150 QRS: 43 QRSD: 96 T: 45 QT: 456 QTc: 405 Interpretive Statements SINUS BRADYCARDIA POSSIBLE RIGHT VENTRICULAR CONDUCTION DELAY [RSR (QR) IN V1/V2] Compared to ECG 01/25/2022 18:32:04 Atrial flutter no longer present ST (T wave) deviation no longer present Electronically Signed On 04-26-2022 15:20:10 CDT by Norris Brown M.D. [id number]
--- NOTE | 2022-04-26 10:29 | XRR_ITS ---
PROCEDURE INFORMATION: Exam: XR Chest Exam date and time: 04/26/2022 10:37 AM Age: 71 years old Clinical indication: Pain; Angina pectoris; Additional info: Chest pain TECHNIQUE: Imaging protocol: XR of the chest. Views: 1 view. COMPARISON: CR XR chest 1V portable [id number] 01/25/2022 10:27 AM FINDINGS: Lungs: No focal airspace disease. Pleural spaces: Unremarkable. No pleural effusion. No pneumothorax. Heart/Mediastinum: Cardiomediastinal silhouette is within normal limits. Bones/joints: Unremarkable. XR/XR chest 1V portable [id number] IMPRESSION: No acute cardiopulmonary abnormality.
--- NOTE | 2022-04-26 10:29 | W.ED.GENADLT ---
Documented by User: MIHIR Shotr 04/26/22 13:23 HPI - General Adult General: Chief complaint: General Medical Stated complaint: states to have high bp Time Seen by Provider: 04/26/22 10:22 Source: patient Mode of arrival: ambulatory Limitations: no limitations History of Present Illness: Patient is a 71-year-old female who presents to ED today with a complaint of elevated blood pressure readings. Patient states has a history of hypertension and states she treats with metoprolol 25mg daily. She states her blood pressure normally runs roughly 120s/70s. She states last night she felt like crap thus decided to take her blood pressure and states systolic readings were in the 170s. She states she woke up this morning and they were in the 180s. Patient does not complain of any headache or visual changes. She does report some chest pains last night and some shortness of breath. No complaints of swelling, orthopnea, or PND. PMH is significant for atrial fibrillation, HTN, and previous CVA. Associated symptoms: Reports chest pain and dyspnea; Deny headache(s), malaise, nausea, rash, palpitations, syncope or vomiting Review of Systems Const: Reports: fatigue; Denies: fever(s), chills, body aches or malaise Eyes: Denies: change in vision, blurry vision, blind spots, photophobia, floaters or seeing flashes Card: Reports: chest pain; Denies: palpitations, irregular heart rhythm, edema, swelling of feet/ankles, lightheadedness, syncope or pre-syncope Resp: Reports: dyspnea; Denies: productive cough, non-productive cough, wheezing, pain on inspiration, hemoptysis or chest congestion GI: Denies: abdominal pain, nausea or vomiting Musc: Denies: neck pain, back pain, extremity pain or joint pain Skin/Breast: Denies: rash Neuro: Denies: headache(s), sensory changes or dizziness PFSH ED PFSH: Surgical History History of carpal tunnel surgery History of mandibular surgery History of tonsillectomy Family History Other CAD (coronary artery disease) Cancer Social History Smoking and tobacco status: never smoked Alcohol intake: never Physical Exam Const: COMMON NORMALS: no acute distress, patient oriented x3, no limitations, alert and well nourished GENERAL APPEARANCE: cooperative ORIENTATION/CONSCIOUSNESS: Yes awake, Yes oriented to person, Yes oriented to place and Yes oriented to time HENMT: COMMON NORMALS: normocephalic and atraumatic HEAD & SCALP: normal to inspection, normocephalic and atraumatic FACE & SINUS: other (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) OTHER: R eye drooping, 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 Neck/C-Spine: COMMON NORMALS: full ROM and no lymphadenopathy GENERAL: Yes normal visual inspection Chest: COMMONS NORMALS: normal inspection of the chest and normal palpation of entire chest wall Resp: COMMON NORMALS: normal respiratory effort and clear to auscultation bilaterally AUSCULTATION: clear to auscultation bilaterally Cardio: COMMON NORMALS: regular rate and regular rhythm RATE: regular rate RHYTHM: regular rhythm GI: COMMON NORMALS: Normal to inspection, nondistended, normoactive bowel sounds present, Soft to palpation and non-tender PALPATION: Yes Soft to palpation : COMMON NORMALS: Yes no CVA tenderness BLADDER/KIDNEY EXAM: Yes no CVA tenderness Back/Pelvis: COMMON NORMALS: no CVA tenderness, thoracic and lumbar spine normal to inspection, no thoracic nor lumbar tenderness and thoraco-lumbar ROM normal Extremity: COMMON NORMALS: normal to inspection and full ROM GENERAL: Yes normal exam except as noted Neuro: BRITTANY COMA SCALE: document GCS findings Shushan coma scale eye opening: Spontaneous Shushan coma scale verbal response: Orientated Brittany coma scale motor response: Obey commands Shushan coma scale total score: 15 COMMON NORMALS: patient oriented x3 and moves all extremities SENSORIUM/ORIENTATION: Yes alert, Yes oriented to person, Yes oriented to place and Yes oriented to time OTHER: reports some mild chronic R UE sensory changes from previous CVA Skin: COMMON NORMALS: no rashes or lesions noted GENERAL SKIN EXAM: no rashes or lesions noted Course Vital Signs: Vital signs: Vital Signs Pulse Rate 58 L 04/26/22 13:37 Respiratory Rate 14 04/26/22 13:37 Blood Pressure 161/78 04/26/22 13:37 Pulse Oximetry 100 04/26/22 13:37 MDM - General Adult Medical Decision Making Patient is not having any chest pain or shortness of breath here. She arrives with a blood pressure of 188/87. She was given a small amount of IV medications and upon re-examination blood pressure is down in the 150s/80s. Patient feels good and would like to go home. Her blood work is unremarkable. Her baseline troponin is 9 with a 2 hr of 9.02. CXR is normal. UA is suspicious for a UTI with 3+ blood, 2+ leuks, 5-10 WBCs, and 1+ bacteria. We will culture and place patient on antibiotics. Recommend she continue her normal dose of the metoprolol. I do not want to make any adjustments to this as she is mildly bradycardic here. Discussed with patient extensively if her blood pressure continues to run high at home I want her to begin taking 2.5mg enlapril. I want her to keep a detailed BP log to discuss with PCP. Patient verbalizes understanding of current plan. Lab Data : 04/26/22 10:30 04/26/22 10:30 Radiology Impressions Chest X-Ray 04/26/22 10:29 IMPRESSION: No acute cardiopulmonary abnormality. Laboratory Results WBC 4.8 10^3/uL (4.0-10.0) 04/26/22 10:30 RBC 4.24 10^6/uL (4.1-5.3) 04/26/22 10:30 Hgb 12.2 g/dL (11.5-15.3) 04/26/22 10:30 Hct 36.1 % (37.0-47.0) L 04/26/22 10:30 MCV 85.1 fl (81-99) 04/26/22 10:30 MCH 28.8 pg (28.0-34.0) 04/26/22 10:30 MCHC 33.8 g/dL (30.0-36.0) 04/26/22 10:30 RDW 13.7 % (12.1-15.1) 04/26/22 10:30 Plt Count 153 10^3/cmm (130-400) 04/26/22 10:30 MPV 10.7 fL (7.4-10.4) H 04/26/22 10:30 Neut % (Auto) 57.3 % 04/26/22 10:30 Lymph % (Auto) 31.2 % 04/26/22 10:30 [place] % (Auto) 9.4 % 04/26/22 10:30 Eos % (Auto) 1.3 % 04/26/22 10:30 Baso % (Auto) 0.6 % 04/26/22 10:30 Neut # (Auto) 2.73 10^3/uL (1.8-7.7) 04/26/22 10:30 Lymph # (Auto) 1.5 10^3/uL (0.8-4.8) 04/26/22 10:30 [place] # (Auto) 0.5 10^3/uL (0.2-0.9) 04/26/22 10:30 Eos # (Auto) 0.1 10^3/uL (0.0-0.8) 04/26/22 10:30 Baso # (Auto) 0.0 10^3/uL (0.0-0.1) 04/26/22 10:30 Nucleated RBC % (auto) 0 % 04/26/22 10:30 Nucleated RBCs # 0.0 /100WBC 04/26/22 10:30 Sodium 140 mmol/L (136-145) 04/26/22 10:30 Potassium 4.1 mmol/L (3.5-5.1) 04/26/22 10:30 Chloride 106 mmol/L (98-107) 04/26/22 10:30 Carbon Dioxide 18 mmol/L (22-29) L 04/26/22 10:30 Anion Gap 20.1 (5-19) H 04/26/22 10:30 BUN 19 mg/dL (8-23) 04/26/22 10:30 Creatinine 0.7 mg/dL (0.5-0.9) 04/26/22 10:30 GFR Calculation 82.7 mL/min (90-130) L 04/26/22 10:30 Glucose 81 mg/dL (65-115) 04/26/22 10:30 Calculated Osmolality 291 mOsm/kg (285-295) 04/26/22 10:30 Calcium 9.0 mg/dL (8.5-10.5) 04/26/22 10:30 Total Bilirubin 1.1 mg/dL (0.15-1.2) 04/26/22 10:30 AST 18 U/L (0-32) 04/26/22 10:30 ALT 10 U/L (0-33) 04/26/22 10:30 Alkaline Phosphatase 96 IU/L (35-105) 04/26/22 10:30 Troponin T Baseline 9 ng/L (0-10) 04/26/22 10:30 Troponin T 120 Minute 9.02 ng/L (0-10) 04/26/22 12:48 Delta Troponin T 0.02 ABS# (0-10) 04/26/22 12:48 Total Protein 7.0 g/dL (6.6-8.7) 04/26/22 10:30 Albumin 4.0 g/dL (3.5-5.2) 04/26/22 10:30 Globulin 3.0 g/dL (1.3-4.6) 04/26/22 10:30 Urine Color Yellow (Yellow) 04/26/22 12:23 Urine Appearance Clear (CLEAR) 04/26/22 12:23 Urine pH 7 (5-7) 04/26/22 12:23 Ur Specific [place] 1.005 (1.005-1.030) 04/26/22 12:23 Urine Protein Neg (Negative) 04/26/22 12:23 Urine Glucose (UA) Norm (Normal) 04/26/22 12:23 Urine Ketones Negative (Negative) 04/26/22 12:23 Urine Blood 3+ (Negative) H 04/26/22 12:23 Urine Nitrate Negative (Negative) 04/26/22 12:23 Urine Bilirubin Neg (Negative) 04/26/22 12:23 Urine Urobilinogen Norm mg/dL (Negative) 04/26/22 12:23 Ur Leukocyte Esterase 2+ (Negative) H 04/26/22 12:23 Urine RBC 0-4 /hpf (0-2) H 04/26/22 12:23 Urine WBC 5-10 /hpf (0-5) H 04/26/22 12:23 Ur Squamous Epith Cells 0-4 /hpf (0-5) H 04/26/22 12:23 Amorphous Sediment Not Reportable 04/26/22 12:23 Urine Bacteria 1+ /hpf (NONE) H 04/26/22 12:23 EKG Data EKG 1: EKG interpretation date: 04/26/22 EKG interpretation time: 10:48 Interpretation: Sinus bradycardia Rate [address] elevation or depression changes noted Computer generated interpretation: Chest X-Ray 04/26/22 10:29 IMPRESSION: No acute cardiopulmonary abnormality. EKG 2: EKG interpretation date: 04/26/22 EKG interpretation time: 12:18 Interpretation: Sinus bradycardia Rate 50 No acute changes were noted from EKG performed earlier on same visit Computer generated interpretation: Chest X-Ray 04/26/22 10:29 IMPRESSION: No acute cardiopulmonary abnormality. Discharge Plan Discharge Patient Disposition: Home Clinical Impression: Acute cystitis with hematuria Hypertension Qualifiers: Hypertension type: unspecified Qualified Code(s): I10 - Essential (primary) hypertension Condition: Stable Prescriptions: New enalapril maleate 2.5 mg tablet 2.5 mg PO DAILY Qty: 20 0RF cephalexin 500 mg capsule 500 mg PO Q6H 7 Days Qty: 28 0RF No Action Eliquis 5 mg tablet 5 mg PO BID Qty: 60 2RF atorvastatin 40 mg tablet 40 mg PO BEDTIME 30 Days Qty: 30 2RF metoprolol succinate 25 mg tablet extended release 24 hr 12.5 mg PO DAILY 30 Days Qty: 30 2RF Discharge Orders: Discharge ED (Routine); Ordered 04/26/22 Ordered By: Racheal Amador Referrals: Murali Ryan DO [Primary Care Provider] - Patient Instructions: Urinary Tract Infection in Women (DC), Hypertension (ED) Activity Restrictions/Additional Instructions: As we discussed please contact your primary care provider as soon as possible to schedule a follow-up visit for further evaluation. Please keep a detailed blood pressure log checking your blood pressure 2-3 times daily. If blood pressure continues to run over 140 systolic (top number) or over 90 diastolic (bottom number) you can begin taking 2.5mg of the enalapril you were prescribed today in addition to your normal medications. If blood pressure is lower than this just continue your normal medication regimen. We will start you on antibiotics as your UA was suspicious for a urinary tract infection. As we discussed we will culture urine for definitive results. Coding Level of Care Code ED Barrel Rifler Broach for Chg Fwd Exam Comprehensive Documented by User: Jerardo Valdez DO 04/26/22 16:56 HPI - General Adult General: Chief complaint: General Medical Stated complaint: states to have high bp Time Seen by Provider: 04/26/22 10:22 PFSH ED PFSH: Surgical History History of carpal tunnel surgery History of mandibular surgery History of tonsillectomy Family History Other CAD (coronary artery disease) Cancer Social History Smoking and tobacco status: never smoked Alcohol intake: never Physical Exam Neuro: BRITTANY COMA SCALE: document GCS findings Brittany coma scale total score: 15 Course Vital Signs: Vital signs: Vital Signs Pulse Rate 58 L 04/26/22 13:37 Respiratory Rate 14 04/26/22 13:37 Blood Pressure 161/78 04/26/22 13:37 Pulse Oximetry 100 04/26/22 13:37 MDM - General Adult Medical Decision Making Patient is not having any chest pain or shortness of breath here. She arrives with a blood pressure of 188/87. She was given a small amount of IV medications and upon re-examination blood pressure is down in the 150s/80s. Patient feels good and would like to go home. Her blood work is unremarkable. Her baseline troponin is 9 with a 2 hr of 9.02. CXR is normal. UA is suspicious for a UTI with 3+ blood, 2+ leuks, 5-10 WBCs, and 1+ bacteria. We will culture and place patient on antibiotics. Recommend she continue her normal dose of the metoprolol. I do not want to make any adjustments to this as she is mildly bradycardic here. Discussed with patient extensively if her blood pressure continues to run high at home I want her to begin taking 2.5mg enlapril. I want her to keep a detailed BP log to discuss with PCP. Patient verbalizes understanding of current plan. Chart reviewed and patient discussed with midlevel. Agree with assessment and plan. Lab Data : 04/26/22 10:30 04/26/22 10:30 Radiology Impressions Chest X-Ray 04/26/22 10:29 IMPRESSION: No acute cardiopulmonary abnormality. Laboratory Results WBC 4.8 10^3/uL (4.0-10.0) 04/26/22 10:30 RBC 4.24 10^6/uL (4.1-5.3) 04/26/22 10:30 Hgb 12.2 g/dL (11.5-15.3) 04/26/22 10:30 Hct 36.1 % (37.0-47.0) L 04/26/22 10:30 MCV 85.1 fl (81-99) 04/26/22 10:30 MCH 28.8 pg (28.0-34.0) 04/26/22 10:30 MCHC 33.8 g/dL (30.0-36.0) 04/26/22 10:30 RDW 13.7 % (12.1-15.1) 04/26/22 10:30 Plt Count 153 10^3/cmm (130-400) 04/26/22 10:30 MPV 10.7 fL (7.4-10.4) H 04/26/22 10:30 Neut % (Auto) 57.3 % 04/26/22 10:30 Lymph % (Auto) 31.2 % 04/26/22 10:30 [place] % (Auto) 9.4 % 04/26/22 10:30 Eos % (Auto) 1.3 % 04/26/22 10:30 Baso % (Auto) 0.6 % 04/26/22 10:30 Neut # (Auto) 2.73 10^3/uL (1.8-7.7) 04/26/22 10:30 Lymph # (Auto) 1.5 10^3/uL (0.8-4.8) 04/26/22 10:30 [place] # (Auto) 0.5 10^3/uL (0.2-0.9) 04/26/22 10:30 Eos # (Auto) 0.1 10^3/uL (0.0-0.8) 04/26/22 10:30 Baso # (Auto) 0.0 10^3/uL (0.0-0.1) 04/26/22 10:30 Nucleated RBC % (auto) 0 % 04/26/22 10:30 Nucleated RBCs # 0.0 /100WBC 04/26/22 10:30 Sodium 140 mmol/L (136-145) 04/26/22 10:30 Potassium 4.1 mmol/L (3.5-5.1) 04/26/22 10:30 Chloride 106 mmol/L (98-107) 04/26/22 10:30 Carbon Dioxide 18 mmol/L (22-29) L 04/26/22 10:30 Anion Gap 20.1 (5-19) H 04/26/22 10:30 BUN 19 mg/dL (8-23) 04/26/22 10:30 Creatinine 0.7 mg/dL (0.5-0.9) 04/26/22 10:30 GFR Calculation 82.7 mL/min (90-130) L 04/26/22 10:30 Glucose 81 mg/dL (65-115) 04/26/22 10:30 Calculated Osmolality 291 mOsm/kg (285-295) 04/26/22 10:30 Calcium 9.0 mg/dL (8.5-10.5) 04/26/22 10:30 Total Bilirubin 1.1 mg/dL (0.15-1.2) 04/26/22 10:30 AST 18 U/L (0-32) 04/26/22 10:30 ALT 10 U/L (0-33) 04/26/22 10:30 Alkaline Phosphatase 96 IU/L (35-105) 04/26/22 10:30 Troponin T Baseline 9 ng/L (0-10) 04/26/22 10:30 Troponin T 120 Minute 9.02 ng/L (0-10) 04/26/22 12:48 Delta Troponin T 0.02 ABS# (0-10) 04/26/22 12:48 Total Protein 7.0 g/dL (6.6-8.7) 04/26/22 10:30 Albumin 4.0 g/dL (3.5-5.2) 04/26/22 10:30 Globulin 3.0 g/dL (1.3-4.6) 04/26/22 10:30 Urine Color Yellow (Yellow) 04/26/22 12:23 Urine Appearance Clear (CLEAR) 04/26/22 12:23 Urine pH 7 (5-7) 04/26/22 12:23 Ur Specific [place] 1.005 (1.005-1.030) 04/26/22 12:23 Urine Protein Neg (Negative) 04/26/22 12:23 Urine Glucose (UA) Norm (Normal) 04/26/22 12:23 Urine Ketones Negative (Negative) 04/26/22 12:23 Urine Blood 3+ (Negative) H 04/26/22 12:23 Urine Nitrate Negative (Negative) 04/26/22 12:23 Urine Bilirubin Neg (Negative) 04/26/22 12:23 Urine Urobilinogen Norm mg/dL (Negative) 04/26/22 12:23 Ur Leukocyte Esterase 2+ (Negative) H 04/26/22 12:23 Urine RBC 0-4 /hpf (0-2) H 04/26/22 12:23 Urine WBC 5-10 /hpf (0-5) H 04/26/22 12:23 Ur Squamous Epith Cells 0-4 /hpf (0-5) H 04/26/22 12:23 Amorphous Sediment Not Reportable 04/26/22 12:23 Urine Bacteria 1+ /hpf (NONE) H 04/26/22 12:23 EKG Data EKG 1: Computer generated interpretation: Chest X-Ray 04/26/22 10:29 IMPRESSION: No acute cardiopulmonary abnormality. EKG 2: Computer generated interpretation: Chest X-Ray 04/26/22 10:29 IMPRESSION: No acute cardiopulmonary abnormality. Discharge Plan Discharge Patient Disposition: Home Clinical Impression: Acute cystitis with hematuria Hypertension Qualifiers: Hypertension type: unspecified Qualified Code(s): I10 - Essential (primary) hypertension Condition: Stable Prescriptions: New enalapril maleate 2.5 mg tablet 2.5 mg PO DAILY Qty: 20 0RF cephalexin 500 mg capsule 500 mg PO Q6H 7 Days Qty: 28 0RF No Action Eliquis 5 mg tablet 5 mg PO BID Qty: 60 2RF atorvastatin 40 mg tablet 40 mg PO BEDTIME 30 Days Qty: 30 2RF metoprolol succinate 25 mg tablet extended release 24 hr 12.5 mg PO DAILY 30 Days Qty: 30 2RF Discharge Orders: Discharge ED (Routine); Ordered 04/26/22 Ordered By: Racheal Amador Referrals: Murali Ryan, [Primary Care Provider] - Patient Instructions: Urinary Tract Infection in Women (DC), Hypertension (ED) Activity Restrictions/Additional Instructions: As we discussed please contact your primary care provider as soon as possible to schedule a follow-up visit for further evaluation. Please keep a detailed blood pressure log checking your blood pressure 2-3 times daily. If blood pressure continues to run over 140 systolic (top number) or over 90 diastolic (bottom number) you can begin taking 2.5mg of the enalapril you were prescribed today in addition to your normal medications. If blood pressure is lower than this just continue your normal medication regimen. We will start you on antibiotics as your UA was suspicious for a urinary tract infection. As we discussed we will culture urine for definitive results. Coding Level of Care Code ED Barrel Rifler Broach for Jonhg Fwd Exam Comprehensive
[2022-04-26 10:40] VITALS: BP 166/80
[2022-04-26 10:45] LABS: Basophils % 0.6 %; Eosinophils # 0.1 10^3/uL (0.0-0.8); Eosinophils % 1.3 %; Hematocrit 36.1 % (37.0-47.0); Hemoglobin 12.2 g/dL (11.5-15.3); Lymphocytes # 1.5 10^3/uL (0.8-4.8); Lymphocytes % 31.2 %; Mean Corpuscular HGB Conc 33.8 g/dL (30.0-36.0); Mean Corpuscular Hemoglobin 28.8 pg (28.0-34.0); Mean Corpuscular Volume 85.1 fl (81-99); Mean Platelet Volume 10.7 fL (7.4-10.4); Monocytes # 0.5 10^3/uL (0.2-0.9); Monocytes % 9.4 %; Neutrophils # 2.73 10^3/uL (1.8-7.7); Neutrophils % 57.3 %; Nucleated Red Blood Cells % 0 %; Platelet Count 153 10^3/cmm (130-400); Red Blood Count 4.24 10^6/uL (4.1-5.3); Red Cell Distribution Width 13.7 % (12.1-15.1); White Blood Count 4.8 10^3/uL (4.0-10.0)
[2022-04-26 11:14] LABS: Troponin(5th) Baseline 9 ng/L (0-10)
[2022-04-26 12:15] LABS: Alanine Aminotransferase 10 U/L (0-33); Alkaline Phosphatase 96 IU/L (35-105); Anion Gap 20.1 (5-19); Aspartate Amino Transferase 18 U/L (0-32); Blood Urea Nitrogen 19 mg/dL (8-23); Carbon Dioxide 18 mmol/L (22-29); Chloride 106 mmol/L (98-107); Glomerular Filtration Rate 82.7 mL/min (90-130); Glucose 81 mg/dL (65-115); Osmolality Calculated 291 mOsm/kg (285-295); Potassium 4.1 mmol/L (3.5-5.1); Sodium 140 mmol/L (136-145); Total Bilirubin 1.1 mg/dL (0.15-1.2)
--- NOTE | 2022-04-26 12:29 | ECG_ITS ---
[facility] Test Date: 2022-04-26 Pat Name: Mary Izquierdo Department: Room: Gender: Female Quality Inspector: : 1950 Requested By: Racheal Amador Order Number: [id number] Haroon MD: Norris Brown M.D. Measurements Intervals [place] Rate: 50 P: 70 MT: 152 QRS: 41 QRSD: 96 T: 52 QT: 464 QTc: 426 Interpretive Statements SINUS BRADYCARDIA POSSIBLE RIGHT VENTRICULAR CONDUCTION DELAY [RSR (QR) IN V1/V2] Compared to ECG 04/26/2022 10:48:18 No significant changes Electronically Signed On 04-26-2022 15:24:57 CDT by Norris Brown M.D. [email or web address]
[2022-04-26] MEDS: enalaprilat 1.25 mg/mL Inj 0.625 MG IVP (12:30)
[2022-04-26 12:31] VITALS: BP 168/83; PULSE 57; O2SAT 99
[2022-04-26 13:02] VITALS: BP 156/84; PULSE 52; O2SAT 100
[2022-04-26 13:04] LABS: Glucose Urine UA Norm (Normal); Ketones Urine Negative (Negative); Protein Urine Neg (Negative); Specific Gravity, Urine 1.005 (1.005-1.030); Urine Appearance Clear (CLEAR); Urine Color Yellow (Yellow); pH Urine 7 (5-7)
[2022-04-26 13:05] LABS: Add Urine Microscopic? YES; Bilirubin Urine Neg (Negative); Blood Urine 3+ (Negative); Leukocyte Esterase Urine 2+ (Negative); Nitrate Urine Negative (Negative); RBC Urine 0-4 /hpf (0-2); Squamous Epithelial Cell Urine 0-4 /hpf (0-5); Urobilinogen Urine Norm (Negative)
[2022-04-26 13:06] LABS: Add Urine Culture? Yes; Bacteria Urine 1+ /hpf
[2022-04-26 13:18] LABS: Troponin 5 2HR 9.02 ng/L (0-10)
[2022-04-26 13:37] VITALS: BP 161/78; PULSE 58; RESP 14; O2SAT 100
[2022-04-26 13:54] LABS: Troponin 5 2HR Delta 0.02 ABS# (0-10)
== END 2022-04-26 13:43 | disposition home or self-care (01) ==
PROVIDERS: Emergency Provider Physician Assistant; PCP Family Medicine
DX: N30.01 Acute cystitis with hematuria (principal); I10 Essential (primary) hypertension; Z79.01 Long term (current) use of anticoagulants
CPT/HCPCS: 36415; 71045; 80053; 81001; 84484; 85025; 87077; 87086; 87186; 93005; 96374; 99284; J3490

== ENCOUNTER → 2022-04-30 16:40 | Outpatient (BNVA) | payer MEDICARE, SELFPAY | PROVIDERS: PCP Family Medicine; Visit Provider Family Medicine | DX: I48.91 Unspecified atrial fibrillation (principal); I63.9 Cerebral infarction, unspecified; N30.01 Acute cystitis with hematuria; I10 Essential (primary) hypertension | CPT/HCPCS: 81000 ==

== ENCOUNTER 2022-06-27 12:26 | Outpatient (CLI) | payer MEDICARE, SELFPAY ==
--- NOTE | 2022-06-27 13:30 | MR_ITS ---
WS: [id number] MRA HEAD TECHNIQUE: Axial 3-D TOF images obtained with axial images and axial, sagittal, and coronal 2-D refor matted images. CLINICAL INFORMATION: I63.9 - Cerebral infarction, unspecified COMPARISON: None. FINDINGS: Dominant RIGHT distal vertebral artery. Distal LEFT vertebral artery is not visualized. Basilar arter y is patent. Normal vascularity to the VARITYPE OPERATOR territory bilaterally. Both ICAs are patent at the skull base. Normal vascularity to the AKSHAT and MCA territories bilaterally . No evidence of flow-limiting stenosis or aneurysm. MR/MR angio head wo con [id number] IMPRESSION: 1. Normal intracranial MRA. 2. No flow-limiting stenosis or aneurysm. 3. RIGHT dominant vertebral artery. Distal LEFT vertebral artery is not visual ized.
--- NOTE | 2022-06-27 13:45 | MR_ITS ---
WS: [id number] MRI HEAD WITHOUT CONTRAST TECHNIQUE: Sagittal T1, T2 axial, T2 axial FLAIR, axial and coronal T1 images, axial susceptibility w eighted imaging, axial diffusion weighted images, and coronal T2 images were obtained. CLINICAL INFORMATION: I63.9 - Cerebral infarction, unspecified COMPARISON: CT January 25, 2022 FINDINGS: Prior postoperative changes radical neck dissection with resection of the RIGHT mandible. 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 Surgical clips result in susceptibility artifact in the infratemp oral fossa and graduate nurse space. Paranasal sinuses are well aerated. Mild mucosal thickening RIGHT ma stoid air cells. No evidence of restricted diffusion to suggest acute ischemia. Ventricular system and basal cisterns are patent. Some images degraded by susceptibility artifact from surgical clips. Moderate patchy supratentorial white matter changes in a periventricular and subcortical distribution as described on the prior CT. This is nonspecific in a patient this age but differential considerati ons include hypertension, diabetes, vasculitis, prior sequela of radiation therapy and less likely de myelinating disease. Normal corpus callosum. No thinning of the corpus callosum. Mild small vessel ch anges in the evelyne. Normal posterior fossa. Normal vascular flow voids at the skull base. No extra-axi al fluid collections. No mass or mass effect. No hemosiderin on susceptibly weighted images. Normal optic chiasm and pituitary infundibulum. Mild s ymmetric atrophy temporal lobes and hippocampal formations. MR/MR head wo con* [id number] IMPRESSION: 1. No evidence of restricted diffusion to suggest acute ischemia. 2. Moderate patchy supratentorial subcortical and periventricular white matter changes nonspecific but can be seen with hypertension, diabetes, small vessel disease, vasculitis, sequelae of prior radiation therapy, and less likely demye linating disease. 3. Mild parenchymal volume loss. No atrophy of the corpus callosum. 4. Prior postoperative changes resection of the RIGHT mandible with history of prior neck dissection. Surgical clips infratemporal fossa degrades some images due to susceptibility artifact. 5. No hemosiderin on susceptibly weighted images. 6. No other remarkable findings.
== END 2022-06-27 12:27 | disposition home or self-care (01) ==
LOC: RAD 12:27
PROVIDERS: PCP Family Medicine; Visit Provider Nurse Practitioner
DX: I63.9 Cerebral infarction, unspecified (principal)
CPT/HCPCS: 70544; 70551

== ENCOUNTER → 2023-03-19 09:01 | Outpatient (BNVA) | payer MEDICARE, SELFPAY | PROVIDERS: PCP Family Medicine; Visit Provider Family Medicine | DX: I10 Essential (primary) hypertension (principal); I48.91 Unspecified atrial fibrillation; E78.2 Mixed hyperlipidemia | CPT/HCPCS: 80053; 80061; 84439; 84443; 85025 ==

== ENCOUNTER → 2023-05-22 11:19 | Outpatient (BNVA) | payer MEDICARE, SELFPAY | PROVIDERS: PCP Family Medicine; Visit Provider Family Medicine | DX: R74.8 Abnormal levels of other serum enzymes (principal); R79.89 Other specified abnormal findings of blood chemistry | CPT/HCPCS: 80053; 84439; 84443 ==

== ENCOUNTER 2023-10-14 13:11 | Outpatient (CLI) | payer MEDICARE, SELFPAY ==
--- NOTE | 2023-10-14 13:18 | MM_ITS ---
WS: [id number] BILATERAL 3D TOMOSYNTHESIS DIGITAL SCREENING MAMMOGRAPHY WITH CAD CLINICAL INFORMATION: Z12.39 - Encounter for other screening for malignant neop... HISTORY: Screening mammogram. No current complaints. COMPARISON: New baseline TECHNIQUE: Bilateral CC and MLO views. FINDINGS: Scattered fibroglandular densities bilaterally. No suspicious focal mass, asymmetry, calcifications, or architectural distortion. No evidence of malignancy. Vascular calcifications. Incidental punctate calcifications. IMPRESSION: MM/[place] [id number] BI-RADS: 2-Benign FOLLOW UP: 1 Year Follow-up Recommend return to annual screening mammography.
== END 2023-10-14 13:12 | disposition home or self-care (01) ==
LOC: RAD 13:12
PROVIDERS: PCP Family Medicine; Visit Provider Family Medicine
DX: Z12.31 Encounter for screening mammogram for malignant neoplasm of breast (principal)
CPT/HCPCS: 77063; 77067

== ENCOUNTER 2024-02-14 10:27 | Emergency (ER) | payer MEDICARE, SELFPAY ==
[2024-02-14 10:32] VITALS: BP 117/91; PULSE 115; RESP 17; O2SAT 98
--- NOTE | 2024-02-14 10:40 | XR_ITS ---
WS: [id number] Exam: XR chest 1V [id number] Date/Time of Exam: 02/14/2024 10:45 AM Reason For Exam: shortness of breath Comparison 04/26/2022. The lungs are hyperinflated and clear. Normal cardiomediastinal silhouette. No pleural effusions. IMPRESSION: 1. No acute cardiopulmonary process. 2. Pulmonary hyperinflation.
--- NOTE | 2024-02-14 10:41 | ED_ITS ---
HPI - Arrhythmia/Palpitations 2 General: Chief Complaint: Arrhythmia/Palpitations Stated Complaint: High HR Time Seen by Provider: 02/14/24 10:37 History of Present Illness: 73-year-old female with a history of hea d neck cancer status post surgery (she says this was a benign tumor that required surgery only) and atrial fibrillation on Eliquis and metoprolol who presents to the emergency room with a high heart rate. She says heart rate was as high as the 180s earlier. Down into the 1 teens on presentation here. She says she does have some trouble drinking and might be a little bit dehydrated. She has had some congestion and mild cough. No fevers. No malaise. No chest pain. No shortness of breath. No abdominal pain. No nausea, no vomiting or diarrhea. Review of Systems 2 Narrative: Constitutional symptoms: Negative except as documented in HPI. Skin symptoms: Negative except as documented in HPI. Eye symptoms: Negative except as documented in HPI. ENMT symptoms: Negative except as documented in HPI. Respiratory symptoms: Negative except as documented in HPI. Cardiovascular symptoms: Negative except as documented in HPI. Gastrointestinal symptoms: Negative except as documented in HPI. Genitourinary symptoms: Negative except as documented in HPI. Musculoskeletal symptoms: Negative except as documented in HPI. Neurologic symptoms: Negative except as documented in HPI. Psychiatric symptoms: Negative except as documented in HPI. Endocrine symptoms: Negative except as documented in HPI. PFSH ED 2 PFSH: Medical History CVA (cerebral vascular accident) Transient cerebral ischemia Surgical History History of carpal tunnel surgery History of mandibular surgery History of tonsillectomy Family History Other CAD (coronary artery disease) Cancer Social History Smoking and tobacco/nicotine status: never used tobacco/nicotine Alcohol intake: never Female Reproductive History: Spontaneous abortions: No Physical Exam 2 Narrative: EXAM NARRATIVE: General: Alert, no acute distress. Skin: Warm, dry. Head: Normocephalic, atraumatic. Neck: Supple, trachea midline. Eye: Extraocular movements are intact. Ears, nose, mouth and throat: mucosa moist. Cardiovascular: Tachycardic, irregularly irregular, Normal peripheral perfusion. Respiratory: Lungs are clear to auscultation, respirations are non-labored, breath sounds are equal, Symmetrical chest wall expansion. Gastrointestinal: Soft, Nontender, Non distended, Normal bowel sounds. Musculoskeletal: Normal ROM, no deformity. Neurological: Alert and oriented, No focal neurological deficit observed. Psychiatric: Cooperative, appropriate mood & affect. Course 2 Vital Signs: Vital signs: Vital Signs Pulse Rate 115 H 02/14/24 10:32 Respiratory Rate 17 02/14/24 10:32 Blood Pressure 117/91 02/14/24 10:32 Pulse Oximetry 98 02/14/24 10:32 Oxygen Delivery Me thod Room Air 02/14/24 10:32 MDM - Arrhythmia/Palpitations Medical Decision Making Medical decision making: Differential diagnosis including but not limited to and based on the above HPI, review of systems and physical exam: In this patient with atrial fibrillation and tachycardia would have concern for underlying infection causing the tachycardia also dehydration given her limited p.o. intake of fluids secondary to her head neck cancer. Also rule out any cardiac strain. EKG, chest x-ray, basic lab work and urinalysis were ordered. Orders placed to evaluate differential diagnosis based on the above differential, HPI and physical exam Lab Review: Laboratory results were reviewed and interpreted by myself the emergency room physician. White count is 4.6. Hemoglobin is 13.5. All within normal limits. BUN and creatinine are 16 and 0.7. This might indicate some mild dehydration. Fluids were given. Patient has influenza. She has been sick for about 2 days she said. Urinalysis positive for infection. Chest x-ray: No acute process. No infiltrate. No pneumothorax. No cardiomegaly. This was reviewed and interpreted by myself the ER physician. EKG: Time 10:37 AM rate 118. Atrial fibrillation with rapid ventricular response, No ST-T changes, no ectopy, This was reviewed and interpreted by myself the ER physician at 10:42 AM. Cardiac monitoring. 1300 p.m. Patient has converted to sinus rhythm. Heart rate is around 60. Reexamination: Patient says she feels much better. Heart rate is down in the 60s and sinus. No increased work of breathing. Lab Data 02/14/24 11:21 02/14/24 11:21 Laboratory Results WBC 4.60 10^3/uL (3.29-11.43) 02/14/24 11:21 RBC 4.73 10^6/uL (3.85-5.65) 02/14/24 11:21 Hgb 13.50 g/dL (11.27-16.99) 02/14/24 11:21 Hct 42.1 % (36-47) 02/14/24 11:21 MCV 89.0 fl (85-98) 02/14/24 11:21 MCH 28.5 pg (27-33) 02/14/24 11:21 MCHC 32.1 g/dL (30-55) 02/14/24 11:21 RDW 14.0 % (12.1-15.1) 02/14/24 11:21 Plt Count 134 10^3/cmm (157-399) L 02/14/24 11:21 MPV 10.1 fL (7.4-10.4) 02/14/24 11:21 Neut % (Auto) 65.7 % 02/14/24 11:21 Lymph % (Auto) 14.8 % 02/14/24 11:21 Canadian % (Auto) 18.9 % 02/14/24 11:21 Eos % (Auto) 0.2 % 02/14/24 11:21 Baso % (Auto) 0.4 % 02/14/24 11:21 Neut # (Auto) 3.02 10^3/uL (1.8-7.7) 02/14/24 11:21 Lymph # (Auto) 0.7 10^3/uL (0.8-4.8) L 02/14/24 11:21 [place] # (Auto) 0.9 10^3/uL (0.2-0.9) 02/14/24 11:21 Eos # (Auto) 0.0 10^3/uL (0.0-0.8) 02/14/24 11:21 Baso # (Auto) 0.0 10^3/uL (0.0-0.1) 02/14/24 11:21 Nucleated RBC % (auto) 0 % 02/14/24 11:21 Nucleated RBCs # 0.0 /100WBC 02/14/24 11:21 Sodium 137 mmol/L (136-145) 02/14/24 11:21 Potassium 3.9 mmol/L (3.5-5.1) 02/14/24 11:21 Chloride 101 mmol/L (98-107) 02/14/24 11:21 Carbon Dioxide 24 mmol/L (22-29) 02/14/24 11:21 Anion Gap 15.9 (5-19) 02/14/24 11:21 BUN 16 mg/dL (8-23) 02/14/24 11:21 Creatinine 0.7 mg/dL (0.5-0.9) 02/14/24 11:21 GFR Calculation Not Reportable 02/14/24 11:21 Glucose 93 mg/dL (65-115) 02/14/24 11:21 Calculated Osmolality 285 mOsm/kg (285-295) 02/14/24 11:21 Calcium 9.1 mg/dL (8.5-10.5) 02/14/24 11:21 Magnesium 1.8 mg/dL (1.7-2.3) 02/14/24 11:21 TSH 0.81 uIU/mL (0.27-4.20) 02/14/24 11:21 Urine Color Yellow (Yellow) 02/14/24 12:53 Urine Appearance Sl hazy (CLEAR) A 02/14/24 12:53 Urine pH 6.5 (5-7) 02/14/24 12:53 Ur Specific Webber 1.005 (1.005-1.030) 02/14/24 12:53 Urine Protein Neg (Negative) 02/14/24 12:53 Urine Glucose (UA) Norm (Normal) 02/14/24 12:53 Urine Ketones 1+ (Negative) H 02/14/24 12:53 Urine Blood 3+ (Negative) H 02/14/24 12:53 Urine Nitrate Negative (Negative) 02/14/24 12:53 Urine Bilirubin Neg (Negative) 02/14/24 12:53 Urine Urobilinogen Neg mg/dL (Negative) 02/14/24 12:53 Ur Leukocyte Esterase Negative (Negative) 02/14/24 12:53 Urine RBC 5-10 /hpf (0-2) H 02/14/24 12:53 Urine WBC 10-15 /hpf (0-5) H 02/14/24 12:53 Ur Squamous Epith Cells 0-4 /hpf (0-5) H 02/14/24 12:53 Amorphous Sediment Not Reportable 02/14/24 12:53 Urine Bacteria 3+ /hpf (NONE) H 02/14/24 12:53 Influenza Type A Ag positive (Negative) H 02/14/24 12:15 Influenza Type B Ag negative (Negative) 02/14/24 12:15 All radiology interpretation(s) finalized by discharge Other Data Assessment and plan: Atrial fibrillation with rapid ventricular response -Patient has converted to sinus rhythm with fluids only. Did not require medications. Influenza A -Home on Tamiflu. Dehydration -1 L normal saline bolus in the emergency room. Urinary tract infection -IV Rocephin in the emergency room. Home on Omnicef. Discharge - Discharged home - Discussed findings and plan with patient. Answered any questions. - All laboratory values were reviewed and interpreted personally by myself, the ER physician - All imaging was reviewed and interpreted personally by myself, the ER physician. - Evaluation and treatment of this problem were appropriate in the emergency setting Discharge Plan Discharge Patient Disposition: Home Clinical Impression: Atrial fibrillation with rapid ventricular response, Influenza A, Dehydration, Urinary tract infection Condition: Stable Prescriptions: New Tamiflu 75 mg capsule 75 mg PO BID 5 Days Qty: 10 0RF cefdinir 300 mg capsule 300 mg PO BID 5 Days Qty: 10 0RF No Action Vitamin C 500 mg Tablet 500 mg PO DAILY atorvastatin 40 mg tablet 40 mg PO BEDTIME metoprolol succinate 25 mg tablet extended release 24 hr 12.5 mg PO DAILY Eliquis 5 mg tablet 5 mg PO BID Discharge Orders: Discharge ED (Routine); Ordered 02/14/24 Ordered By: Dariana Negrete Referrals: Murali Ryan DO [Primary Care Provider] - (You have been screened and evaluated and felt safe for discharge. Health conditions do change or evolve sometimes and as such it is important that you follow up with your Primary Doctor to be re checked, 3-5 days is a general good time frame for follow up. You are always welcome to return to the ED for re assessment if your symptoms are worsening or you have new concerns) Discharge Diet: Usual diet Discharge Activity: Resume usual activity Patient Instructions: A-fib (Atrial Fibrillation) (ED), Influenza (ED), Opioid Safety, Pain Management Coding Level of Care Code ED Regular Senior Care Provider for Remi Paredes
[2024-02-14 11:28] LABS: Basophils % 0.4 %; Eosinophils % 0.2 %; Hematocrit 42.1 % (36-47); Lymphocytes # 0.7 10^3/uL (0.8-4.8); Lymphocytes % 14.8 %; Mean Corpuscular HGB Conc 32.1 g/dL (30-55); Mean Corpuscular Hemoglobin 28.5 pg (27-33); Mean Platelet Volume 10.1 fL (7.4-10.4); Monocytes # 0.9 10^3/uL (0.2-0.9); Monocytes % 18.9 %; Neutrophils # 3.02 10^3/uL (1.8-7.7); Neutrophils % 65.7 %; Nucleated Red Blood Cells % 0 %; Platelet Count 134 10^3/cmm (157-399); Red Blood Count 4.73 10^6/uL (3.85-5.65)
[2024-02-14 11:58] LABS: Anion Gap 15.9 (5-19); Blood Urea Nitrogen 16 mg/dL (8-23); Calcium 9.1 mg/dL (8.5-10.5); Carbon Dioxide 24 mmol/L (22-29); Chloride 101 mmol/L (98-107); Creatinine Clr Calc Pharmacy 59.3337; Glucose 93 mg/dL (65-115); Magnesium 1.8 mg/dL (1.7-2.3); Osmolality Calculated 285 mOsm/kg (285-295); Potassium 3.9 mmol/L (3.5-5.1); Sodium 137 mmol/L (136-145); Thyroid Stimulating Hormone 0.81 uIU/mL (0.27-4.20)
[2024-02-14] MEDS: sodium chloride 0.9% 1,000 ML 999 ML IV (12:01)
[2024-02-14 12:36] LABS: Influenza A by IFA positive (Negative); Influenza B by IFA negative (Negative)
[2024-02-14 13:37] LABS: Protein Urine Neg (Negative); Specific Gravity, Urine 1.005 (1.005-1.030); Urine Appearance SL Hazy (CLEAR); Urine Color Yellow (Yellow); pH Urine 6.5 (5-7)
[2024-02-14 13:38] LABS: Add Urine Culture? Yes; Bacteria Urine 3+ /hpf; Bilirubin Urine Neg (Negative); Blood Urine 3+ (Negative); Glucose Urine UA Norm (Normal); Ketones Urine 1+ (Negative); Leukocyte Esterase Urine Negative (Negative); Nitrate Urine Negative (Negative); Squamous Epithelial Cell Urine 0-4 /hpf (0-5); Urobilinogen Urine Neg (Negative)
[2024-02-14 14:29] LABS: Adenovirus Not Detected (NOT DETECT); Chlamydia Pneumoniae Not Detected (NOT DETECT); Coronavirus 229E,HKU1,NL63,OC4 Not Detected (NOT DETECT); Human Metapneumovirus Not Detected (NOT DETECT); Human Rhinovirus/Enterovirus Not Detected (NOT DETECT); Influenza A Detected (NOT DETECT); Influenza A H1 Not Detected (NOT DETECT); Influenza A H1-2009 Not Detected (NOT DETECT); Influenza A H3 Detected (NOT DETECT); Influenza B Not Detected (NOT DETECT); Mycoplasma Pneumoniae Not Detected (NOT DETECT); Parainfluenza Virus Type 1 Not Detected (NOT DETECT); Parainfluenza Virus Type 2 Not Detected (NOT DETECT); Parainfluenza Virus Type 3 Not Detected (NOT DETECT); Parainfluenza Virus Type 4 Not Detected (NOT DETECT); Respiratory Syncytial Virus A Not Detected (NOT DETECT); Respiratory Syncytial Virus B Not Detected (NOT DETECT); SARS-COV-2 Not Detected (NOT DETECT)
[2024-02-14 14:44] LABS: Influenza A Detected (NOT DETECT); Influenza A H1 Not Detected (NOT DETECT); Influenza A H1-2009 Not Detected (NOT DETECT); Influenza A H3 Detected (NOT DETECT); Influenza B Not Detected (NOT DETECT); Results from Genmark
[2024-02-14 15:18] VITALS: BP 131/82; PULSE 63; RESP 18; O2SAT 100
== END 2024-02-14 15:23 | disposition home or self-care (01) ==
PROVIDERS: Emergency Provider Emergency Medicine; PCP Family Medicine
DX: I48.20 Chronic atrial fibrillation, unspecified (principal); J10.1 Influenza due to other identified influenza virus with other respiratory manifestations; E86.0 Dehydration; N39.0 Urinary tract infection, site not specified; Z79.01 Long term (current) use of anticoagulants; Z86.73 Personal history of transient ischemic attack (TIA), and cerebral infarction without residual deficits; Z11.52 Encounter for screening for COVID-19
CPT/HCPCS: 71045; 80048; 81001; 83735; 84443; 85025; 87077; 87086; 87186; 87631; 87635; 87804; 96365; 99284; J0696; J7030

== ENCOUNTER 2024-07-06 22:39 | Emergency (ER) | payer MEDICARE, SELFPAY ==
[2024-07-06 22:51] VITALS: BP 156/93; PULSE 68; RESP 16; TEMP 36.5; O2SAT 98; BMI 23.0
--- NOTE | 2024-07-06 22:54 | ECG_ITS ---
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 Measurements Intervals [place] Rate: 64 P: 50 TN: 158 QRS: 53 QRSD: 89 T: 52 QT: 380 QTc: 394 Interpretive Statements SINUS RHYTHM Compared to ECG 04/26/2022 12:18:06 Sinus bradycardia no longer present Electronically Signed On 07-07-2024 23:36:32 CDT by Cb Clark M.D. [id number]
--- NOTE | 2024-07-06 22:58 | XRR_ITS ---
PROCEDURE INFORMATION: Exam: XR Chest Exam date and time: 07/06/2024 11:23 PM Age: 74 years old Clinical indication: Other: Palpatations; Additional info: Palpitations TECHNIQUE: Imaging protocol: Radiologic exam of the chest. Views: 1 view. COMPARISON: CR XR chest 1V [id number] 02/14/2024 11:02 AM FINDINGS: Lungs: No consolidation. Pleural spaces: No large pleural effusion. No pneumothorax. Heart/Mediastinum: No cardiomegaly. Bones/joints: No acute abnormality. XR/XR chest 1V portable [id number] IMPRESSION: No acute findings.
--- NOTE | 2024-07-06 23:13 | ED_ITS ---
HPI - Arrhythmia/Palpitations 2 General: Chief Complaint: Arrhythmia/Palpitations Stated Complaint: High heart rate Time Seen by Provider: 07/06/24 22:51 Source: patient Mode of arrival: ambulatory Limitations: no limitations History of Present Illness: Patient is a 74-year-old female with past medical history of atrial fibrillation who presents the emergency department complaining of palpitations beginning tonight. Beginning at around 1999, patient began taking her heart rate as she was having palpitations, found readings to be anywhere between 80-193. She states that she had been working outside previously all day. She is not having any chest pain, shortness of breath, or any symptoms other than the palpitations. She has not had any recent new medications or medication changes. She does see cardiology and is on anticoagulation. MD complaint: rapid heart beat Onset (ago): hour(s) Duration: intermittent Context: other (Exertion earlier today) Arrhythmia history: atrial fibrillation Associated symptoms: Reports no associated symptoms; Deny nausea or vomiting Related Data Home Medications Medication Instructions Recorded Confirmed ascorbic acid (vitamin C) 500 mg 500 mg PO DAILY 02/14/24 05/20/24 tablet (Vitamin C) Previous Rx's Medication Instructions Recorded apixaban 5 mg tablet (Eliquis) 5 mg PO BID #30 tabs 05/20/24 atorvastatin 40 mg tablet 40 mg PO BEDTIME #90 tabs 05/20/24 metoprolol succinate 25 mg 12.5 mg (1/2 x 25 mg) PO DAILY #45 05/20/24 tablet,extended release 24 hr tabs Allergies Allergy/AdvReac Type Severity Reaction Status Date / Time No Known Allergies Allergy Verified 05/20/24 08:10 Review of Systems 2 General: Reports: 10 or more systems reviewed and unremarkable except in HPI and below Const: Denies: fever(s), chills or fatigue Eyes: Denies: change in vision ENMT: Denies: throat pain, ear or mastoid pain or nasal discharge Card: Reports: palpitations; Denies: chest pain, swelling of feet/ankles or lightheadedness Resp: Denies: dyspnea, productive cough or wheezing GI: Denies: abdominal pain, nausea, vomiting, diarrhea or constipation : Denies: flank pain, difficulty voiding, dysuria or urinary frequency Musc: Denies: neck pain, back pain or joint pain Skin/Breast: Denies: rash Neuro: Denies: headache(s), numbness in extremities or weakness in extremities PFSH ED 2 PFSH: Medical History Transient cerebral ischemia CVA (cerebral vascular accident) Surgical History History of carpal tunnel surgery History of mandibular surgery History of tonsillectomy Family History Other CAD (coronary artery disease) Cancer Social History Smoking and tobacco/nicotine status: never used tobacco/nicotine Alcohol intake: never Female Reproductive History: Spontaneous abortions: No Physical Exam 2 Const: COMMON NORMALS: no acute distress and no limitations GENERAL APPEARANCE: cooperative, comfortable and well developed O RIENTATION/CONSCIOUSNESS: Yes awake HENMT: COMMON NORMALS: normocephalic, atraumatic and hearing grossly normal bilaterally HEAD & SCALP: normocephalic and atraumatic Eye: COMMON NORMALS: Equal, round and reactive pupils present, EOMs intact bilaterally and conjunctivae normal CONJUNCTIVA: Yes conjunctivae normal P UPIL: Yes Equal, round and reactive pupils present Neck/C-Spine: COMMON NORMALS: full ROM, supple and no JVD Resp: COMMON NORMALS: normal respiratory effort, No retractions, No use of accessory muscles and clear to auscultation bilaterally AUSCULTATION: clear to auscultation bilaterally Cardio: COMMON NORMALS: no JVD, regular rate, regular rhythm, No clicks present (Cardio), No murmurs present (Cardio) and No rub (Cardio) RATE: r egular rate RHYTHM: regular rhythm GI: COMMON NORMALS: Normal to inspection, nondistended, normoactive bowel sounds present, Soft to palpation and non-tender AUSCULTATION: Yes normoactive bowel sounds PALPATION: Yes Soft to palpation RECTAL EXAM: d eferred Extremity: COMMON NORMALS: normal to inspection, full ROM and capillary refill normal Psych: COMMON NORMALS: mental status grossly normal and Normal thought process present THOUGHT PROCESS: Normal thought process present Skin: COMMON NORMALS: no rashes or lesions noted GENERAL SKIN EXAM: no rashes or lesions noted Course 2 Vital Signs: Vital signs: Vital Signs Temperature 97.7 F 07/06/24 22:51 Pulse Rate 67 07/06/24 23:16 Respiratory Rate 18 07/06/24 23:16 Blood Pressure 156/93 07/06/24 23:16 Pulse Oximetry 100 07/06/24 23:16 Oxygen Delivery Me thod Room Air 07/06/24 23:16 MDM - Arrhythmia/Palpitations Medical Decision Making Patient presented to the emergency department with palpitations beginning tonight. History of A-fib, on blood thinner and reports history of stroke. On arrival her heart rate was noted to be normal in the 60s, and actually did appear to be in normal sinus rhythm. Her EKG on arrival was reviewed with Dr. Centeno, did show normal sinus rhythm rate of 64 with no arrhythmias or acute ST segment changes. She showed me a log of her heart rates she had been taken at home, and over the span of an hour or so found it to range anywhere from 80-193. Other than the palpitations, she had no other accompanying symptoms. Along with the EKG, basic blood work was obtained and essentially unremarkable, TSH was noted to be slightly elevated. Chest x-ray unremarkable at this time. Magnesium was also normal. She has no recent medication changes to note. Due to her negative workup, she is to follow-up with primary care later this week to go over her visit and discuss any necessary medication changes. Additionally, she is given very strict return precautions such that if she has worsening of her palpitations or any accompanying symptoms whatsoever to come back for further evaluation here in the emergency department. Otherwise she is to continue her meds at home, and will be discharged home at this time. Lab Data 07/06/24 23:20 07/06/24 23:20 Laboratory Results WBC 6.19 10^3/uL (3.29-11.43) 07/06/24 23:20 RBC 4.13 10^6/uL (3.85-5.65) 07/06/24 23:20 Hgb 12.00 g/dL (11.27-16.99) 07/06/24 23:20 Hct 38.4 % (36-47) 07/06/24 23:20 MCV 93.0 fl (85-98) 07/06/24 23:20 MCH 29.1 pg (27-33) 07/06/24 23:20 MCHC 31.3 g/dL (30-55) 07/06/24 23:20 RDW 13.9 % (12.1-15.1) 07/06/24 23:20 Plt Count 158 10^3/cmm (157-399) 07/06/24 23:20 MPV 10.6 fL (7.4-10.4) H 07/06/24 23:20 Neut % (Auto) 54.5 % 07/06/24 23:20 Lymph % (Auto) 29.1 % 07/06/24 23:20 Bath % (Auto) 13.1 % 07/06/24 23:20 Eos % (Auto) 2.3 % 07/06/24 23:20 Baso % (Auto) 0.8 % 07/06/24 23:20 Neut # (Auto) 3.38 10^3/uL (1.8-7.7) 07/06/24 23:20 Lymph # (Auto) 1.8 10^3/uL (0.8-4.8) 07/06/24 23:20 Bath # (Auto) 0.8 10^3/uL (0.2-0.9) 07/06/24 23:20 Eos # (Auto) 0.1 10^3/uL (0.0-0.8) 07/06/24 23:20 Baso # (Auto) 0.1 10^3/uL (0.0-0.1) 07/06/24 23:20 Nucleated RBC % (auto) 0 % 07/06/24 23:20 Nucleated RBCs # 0.0 /100WBC 07/06/24 23:20 Sodium 139 mmol/L (136-145) 07/06/24 23:20 Potassium 3.7 mmol/L (3.5-5.1) 07/06/24 23:20 Chloride 106 mmol/L (98-107) 07/06/24 23:20 Carbon Dioxide 23 mmol/L (22-29) 07/06/24 23:20 Anion Gap 13.7 (5-19) 07/06/24 23:20 BUN 20 mg/dL (8-23) 07/06/24 23:20 Creatinine 1.0 mg/dL (0.5-0.9) H 07/06/24 23:20 GFR Calculation Not Reportable 07/06/24 23:20 Glucose 92 mg/dL (65-115) 07/06/24 23:20 Calculated Osmolality 290 mOsm/kg (285-295) 07/06/24 23:20 Calcium 8.6 mg/dL (8.5-10.5) 07/06/24 23:20 Magnesium 2.2 mg/dL (1.7-2.3) 07/06/24 23:20 Total Bilirubin 0.7 mg/dL (0.15-1.2) 07/06/24 23:20 AST 34 U/L (0-32) H 07/06/24 23:20 ALT 21 U/L (0-33) 07/06/24 23:20 Alkaline Phosphatase 107 U/L (35-105) H 07/06/24 23:20 Total Protein 6.8 g/dL (6.6-8.7) 07/06/24 23:20 Albumin 3.8 g/dL (3.5-5.2) 07/06/24 23:20 Globulin 3.0 g/dL (1.3-4.6) 07/06/24 23:20 TSH 5.23 uIU/mL (0.27-4.20) H 07/06/24 23:20 All radiology interpretation(s) finalized by discharge Discharge Plan Discharge Patient Disposition: Home Clinical Impression: Atrial fibrillation Qualifiers: Atrial fibrillation type: longstanding persistent Qualified Code(s): I48.11 - Longstanding persistent atrial fibrillation Condition: Stable Prescriptions: No Action Eliquis 5 mg tablet 5 mg PO BID Qty: 30 11RF atorvastatin 40 mg tablet 40 mg PO BEDTIME Qty: 90 3RF metoprolol succinate 25 mg tablet extended release 24 hr 12.5 mg PO DAILY Qty: 45 3RF Vitamin C 500 mg Tablet 500 mg PO DAILY Discharge Orders: Discharge ED (Routine); Ordered 07/07/24 Ordered By: Jv Andrew Referrals: Murali Ryan DO [Primary Care Provider] - Discharge Diet: Usual diet Discharge Activity: Increase activity as tolerated Patient Instructions: A-fib (Atrial Fibrillation) (ED) Activity Restrictions/Additional Instructions: Continue medications at home. Please follow-up with primary care later this week as discussed to go over your ED visit and lab results. Return if you develop any recurrence of palpitations, chest pain, breathing difficulties, or other concerning symptoms you may have. Coding Level of Care Code ED Crm Coordinator for Remi Paredes
[2024-07-06 23:16] VITALS: BP 156/93; PULSE 67; RESP 18; O2SAT 100
[2024-07-06 23:27] LABS: Basophils # 0.1 10^3/uL (0.0-0.1); Basophils % 0.8 %; Eosinophils # 0.1 10^3/uL (0.0-0.8); Eosinophils % 2.3 %; Hematocrit 38.4 % (36-47); Lymphocytes # 1.8 10^3/uL (0.8-4.8); Lymphocytes % 29.1 %; Mean Corpuscular HGB Conc 31.3 g/dL (30-55); Mean Corpuscular Hemoglobin 29.1 pg (27-33); Mean Platelet Volume 10.6 fL (7.4-10.4); Monocytes # 0.8 10^3/uL (0.2-0.9); Monocytes % 13.1 %; Neutrophils # 3.38 10^3/uL (1.8-7.7); Neutrophils % 54.5 %; Nucleated Red Blood Cells % 0 %; Platelet Count 158 10^3/cmm (157-399); Red Blood Count 4.13 10^6/uL (3.85-5.65); Red Cell Distribution Width 13.9 % (12.1-15.1); White Blood Count 6.19 10^3/uL (3.29-11.43)
[2024-07-07 00:01] LABS: Alanine Aminotransferase 21 U/L (0-33); Albumin Level 3.8 g/dL (3.5-5.2); Alkaline Phosphatase 107 U/L (35-105); Anion Gap 13.7 (5-19); Aspartate Amino Transferase 34 U/L (0-32); Blood Urea Nitrogen 20 mg/dL (8-23); Calcium 8.6 mg/dL (8.5-10.5); Carbon Dioxide 23 mmol/L (22-29); Chloride 106 mmol/L (98-107); Creatinine Clr Calc Pharmacy 45.1901; Glucose 92 mg/dL (65-115); Magnesium 2.2 mg/dL (1.7-2.3); Osmolality Calculated 290 mOsm/kg (285-295); Potassium 3.7 mmol/L (3.5-5.1); Sodium 139 mmol/L (136-145); Thyroid Stimulating Hormone 5.23 uIU/mL (0.27-4.20); Total Bilirubin 0.7 mg/dL (0.15-1.2); Total Protein 6.8 g/dL (6.6-8.7)
[2024-07-07 00:30] VITALS: BP 152/90; PULSE 66; RESP 16; TEMP 36.5; O2SAT 98
== END 2024-07-07 00:31 | disposition home or self-care (01) ==
PROVIDERS: Emergency Provider Physician Assistant; PCP Family Medicine
DX: I48.11 Longstanding persistent atrial fibrillation (principal); Z79.01 Long term (current) use of anticoagulants; Z86.73 Personal history of transient ischemic attack (TIA), and cerebral infarction without residual deficits
CPT/HCPCS: 71045; 80053; 83735; 84443; 85025; 93005; 99284

== ENCOUNTER 2024-09-01 13:32 | Emergency (ER) | payer MEDICARE, SELFPAY ==
--- NOTE | 2024-09-01 13:38 | XRR_ITS ---
PROCEDURE INFORMATION: Exam: XR Chest Exam date and time: 09/01/2024 2:10 PM Age: 74 years old Clinical indication: Cough and dyspnea; Additional info: Dyspnea/cough TECHNIQUE: Imaging protocol: Radiologic exam of the chest. Views: 1 view. COMPARISON: CR XR chest 1V portable [id number] 07/06/2024 11:23 PM FINDINGS: Lungs: Similar increased lung volumes. No consolidation. Pleural spaces: No pleural effusion. No pneumothorax. Heart/Mediastinum: No cardiomegaly. Bones/joints: No acute findings. XR/XR chest 1V portable [id number] IMPRESSION: No acute chest findings.
[2024-09-01 13:42] VITALS: BP 152/85; PULSE 72; RESP 16; TEMP 36.6; O2SAT 100; BMI 23.0
--- NOTE | 2024-09-01 13:45 | ECG_ITS ---
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 Measurements Intervals [place] Rate: 67 P: 66 MT: 161 QRS: 65 QRSD: 85 T: 59 QT: 388 QTc: 410 Interpretive Statements SINUS RHYTHM POSSIBLE RIGHT VENTRICULAR CONDUCTION DELAY [RSR (QR) IN V1/V2] Compared to ECG 07/06/2024 22:54:14 No significant changes Electronically Signed On 09-02-2024 01:08:13 CDT by Cb Clark M.D. [id number]
[2024-09-01 14:27] LABS: Basophils % 0.5 %; Eosinophils # 0.1 10^3/uL (0.0-0.8); Eosinophils % 1.5 %; Hematocrit 42.8 % (36-47); Lymphocytes # 1.4 10^3/uL (0.8-4.8); Lymphocytes % 23.5 %; Mean Corpuscular HGB Conc 30.1 g/dL (30-55); Mean Corpuscular Hemoglobin 28.5 pg (27-33); Mean Corpuscular Volume 94.5 fl (85-98); Mean Platelet Volume 10.4 fL (7.4-10.4); Monocytes # 0.7 10^3/uL (0.2-0.9); Monocytes % 11.2 %; Neutrophils # 3.82 10^3/uL (1.8-7.7); Neutrophils % 63.1 %; Nucleated Red Blood Cells % 0 %; Platelet Count 169 10^3/cmm (157-399); Red Blood Count 4.53 10^6/uL (3.85-5.65); Red Cell Distribution Width 13.9 % (12.1-15.1); White Blood Count 6.05 10^3/uL (3.29-11.43)
[2024-09-01 14:50] LABS: Alanine Aminotransferase 28 U/L (0-33); Albumin Level 4.1 g/dL (3.5-5.2); Alkaline Phosphatase 136 U/L (35-105); Anion Gap 12.6 (5-19); Aspartate Amino Transferase 34 U/L (0-32); Blood Urea Nitrogen 16 mg/dL (8-23); Calcium 8.6 mg/dL (8.5-10.5); Carbon Dioxide 25 mmol/L (22-29); Chloride 107 mmol/L (98-107); Creatinine Clr Calc Pharmacy 56.4877; Globulin 3.3 g/dL (1.3-4.6); Glucose 95 mg/dL (65-115); Osmolality Calculated 293 mOsm/kg (285-295); Potassium 3.6 mmol/L (3.5-5.1); Sodium 141 mmol/L (136-145); Total Bilirubin 1.1 mg/dL (0.15-1.2); Total Protein 7.4 g/dL (6.6-8.7)
[2024-09-01 16:38] VITALS: BP 167/84; PULSE 57; RESP 15; O2SAT 100
--- NOTE | 2024-09-01 16:41 | ED_ITS ---
HPI - Arrhythmia/Palpitations 2 General: Chief Complaint: Arrhythmia/Palpitations Stated Complaint: high BP - has a fib Time Seen by Provider: 09/01/24 16:05 History of Present Illness: 74-year-old female presents emergency ro om complaining of rapid heart rate has a history of atrial fibrillation. She is on metoprolol 12 and half milligrams once daily she has not changed the dose recently. She takes in the morning she is also on Eliquis. Earlier today she had heart rate up in the 160s and 180s it resolved spontaneously and on arrival here heart rate is controlled in the 60s. She is asymptomatic she never had any chest pain with that blood pressure is slightly elevated today. Related Data Home Medications Medication Instructions Recorded Confirmed ascorbic acid (vitamin C) 500 mg 500 mg PO DAILY 02/14/24 07/21/24 tablet (Vitamin C) Previous Rx's Medication Instructions Recorded apixaban 5 mg tablet (Eliquis) 5 mg PO BID #30 tabs 05/20/24 atorvastatin 40 mg tablet 40 mg PO BEDTIME #90 tabs 05/20/24 metoprolol succinate 25 mg 12.5 mg (1/2 x 25 mg) PO DAILY #45 05/20/24 tablet,extended release 24 hr tabs amlodipine 2.5 mg tablet 2.5 mg PO DAILY #30 tabs 09/01/24 Allergies Allergy/AdvReac Type Severity Reaction Status Date / Time No Known Allergies Allergy Verified 07/21/24 09:55 Review of Systems 2 Const: Denies: fever(s) or chills Card: Reports: palpitations; Denies: chest pain Resp: Denies: dyspnea GI: Denies: abdominal pain : Denies: dysuria, urinary frequency or urinary urgency Musc: Denies: neck pain or back pain Skin/Breast: Denies: rash PFSH ED 2 PFSH: Medical History Transient cerebral ischemia CVA (cerebral vascular accident) Surgical History History of carpal tunnel surgery History of mandibular surgery History of tonsillectomy Family History Other CAD (coronary artery disease) Cancer Social History Smoking and tobacco/nicotine status: never used tobacco/nicotine Alcohol intake: never Female Reproductive History: Spontaneous abortions: No Physical Exam 2 Const: GENERAL APPEARANCE: cooperative ORIENTATION/CONSCIOUSNESS: Yes awake, Yes oriented to person, Yes oriented to place and Yes oriented to time HENMT: COMMON NORMALS: normocephalic, atraumatic and hearing grossly normal bilaterally HEAD & SCALP: normocephalic and atraumatic Resp: COMMON NORMALS: normal respiratory effort, No retractions, No use of accessory muscles and clear to auscultation bilaterally AUSCULTATION: clear to auscultation bilaterally Cardio: COMMON NORMALS: regular rate, regular rhythm and No murmurs present (Cardio) RATE: regular rate RHYTHM: regular rhythm GI: COMMON NORMALS: Soft to palpation and No hepatosplenomegaly present A USCULTATION: Yes normoactive bowel sounds PALPATION: Yes Soft to palpation, No Tenderness to palpation present (GI), No Guarding due to palpation present (GI) and Yes No hepatosplenomegaly present Extremity: COMMON NORMALS: normal to inspection, capillary refill normal, no clubbing, cyanosis or edema, no calf tenderness and no pedal edema Neuro: SENSORIUM/ORIENTATION: Yes oriented to person, Yes oriented to place and Yes oriented to time Skin: COMMON NORMALS: no rashes or lesions noted GENERAL SKIN EXAM: no rashes or lesions noted Course 2 Vital Signs: Vital signs: Vital Signs Temperature 97.9 F 09/01/24 13:42 Pulse Rate 56 L 09/01/24 17:12 Respiratory Rate 16 09/01/24 17:12 Blood Pressure 149/83 09/01/24 17:12 Pulse Oximetry 100 09/01/24 17:12 Oxygen Delivery Me thod Room Air 09/01/24 16:38 MDM - Arrhythmia/Palpitations Medical Decision Making Rate well-controlled at this time she has not had any chest pain. She has known history of atrial fibrillation she is actually bradycardic at this time but still remains mildly hypertensive will start on amlodipine 2.5 mg once daily continue the same dose of metoprolol. Set her up for an outpatient 72-hour Holter monitor and follow-up with her primary care doctor. Return if she has further problems. Medical Records I reviewed the patient's medical records. Lab Data I reviewed the patient's lab results. 09/01/24 14:18 09/01/24 14:18 Radiology Impressions Chest X-Ray 09/01/24 13:38 IMPRESSION: No acute chest findings. Laboratory Results WBC 6.05 10^3/uL (3.29-11.43) 09/01/24 14:18 RBC 4.53 10^6/uL (3.85-5.65) 09/01/24 14:18 Hgb 12.90 g/dL (11.27-16.99) 09/01/24 14:18 Hct 42.8 % (36-47) 09/01/24 14:18 MCV 94.5 fl (85-98) 09/01/24 14:18 MCH 28.5 pg (27-33) 09/01/24 14:18 MCHC 30.1 g/dL (30-55) 09/01/24 14:18 RDW 13.9 % (12.1-15.1) 09/01/24 14:18 Plt Count 169 10^3/cmm (157-399) 09/01/24 14:18 MPV 10.4 fL (7.4-10.4) 09/01/24 14:18 Neut % (Auto) 63.1 % 09/01/24 14:18 Lymph % (Auto) 23.5 % 09/01/24 14:18 [place] % (Auto) 11.2 % 09/01/24 14:18 Eos % (Auto) 1.5 % 09/01/24 14:18 Baso % (Auto) 0.5 % 09/01/24 14:18 Neut # (Auto) 3.82 10^3/uL (1.8-7.7) 09/01/24 14:18 Lymph # (Auto) 1.4 10^3/uL (0.8-4.8) 09/01/24 14:18 [place] # (Auto) 0.7 10^3/uL (0.2-0.9) 09/01/24 14:18 Eos # (Auto) 0.1 10^3/uL (0.0-0.8) 09/01/24 14:18 Baso # (Auto) 0.0 10^3/uL (0.0-0.1) 09/01/24 14:18 Nucleated RBC % (auto) 0 % 09/01/24 14:18 Nucleated RBCs # 0.0 /100WBC 09/01/24 14:18 Sodium 141 mmol/L (136-145) 09/01/24 14:18 Potassium 3.6 mmol/L (3.5-5.1) 09/01/24 14:18 Chloride 107 mmol/L (98-107) 09/01/24 14:18 Carbon Dioxide 25 mmol/L (22-29) 09/01/24 14:18 Anion Gap 12.6 (5-19) 09/01/24 14:18 BUN 16 mg/dL (8-23) 09/01/24 14:18 Creatinine 0.8 mg/dL (0.5-0.9) 09/01/24 14:18 GFR Calculation Not Reportable 09/01/24 14:18 Glucose 95 mg/dL (65-115) 09/01/24 14:18 Calculated Osmolality 293 mOsm/kg (285-295) 09/01/24 14:18 Calcium 8.6 mg/dL (8.5-10.5) 09/01/24 14:18 Total Bilirubin 1.1 mg/dL (0.15-1.2) 09/01/24 14:18 AST 34 U/L (0-32) H 09/01/24 14:18 ALT 28 U/L (0-33) 09/01/24 14:18 Alkaline Phosphatase 136 U/L (35-105) H 09/01/24 14:18 Total Protein 7.4 g/dL (6.6-8.7) 09/01/24 14:18 Albumin 4.1 g/dL (3.5-5.2) 09/01/24 14:18 Globulin 3.3 g/dL (1.3-4.6) 09/01/24 14:18 All radiology interpretation(s) finalized by discharge Discharge Plan Discharge Patient Disposition: Home Clinical Impression: Essential hypertension Atrial fibrillation Qualifiers: Atrial fibrillation type: longstanding persistent Qualified Code(s): I48.11 - Longstanding persistent atrial fibrillation Condition: Stable Prescriptions: New amlodipine 2.5 mg tablet 2.5 mg PO DAILY Qty: 30 0RF No Action Eliquis 5 mg tablet 5 mg PO BID Qty: 30 11RF atorvastatin 40 mg tablet 40 mg PO BEDTIME Qty: 90 3RF metoprolol succinate 25 mg tablet extended release 24 hr 12.5 mg PO DAILY Qty: 45 3RF Vitamin C 500 mg Tablet 500 mg PO DAILY Discharge Orders: Discharge ED (Routine); Ordered 09/01/24 Ordered By: Jerardo Valdez Referrals: Murali Ryan, DO [Primary Care Provider] - Discharge Diet: Usual diet Discharge Activity: Resume usual activity Patient Instructions: Opioid Safety, Pain Management Activity Restrictions/Additional Instructions: Thank you for choosing [facility] for your healthcare needs today. It is very important that you follow up as instructed or that you return to the Emergency Department should you have concerns or if your condition changes or worsens in any way. You were seen today with complaint of rapid heart rate and elevated blood pressure. Blood pressures time you were seen was elevated your heart rate was actually low. You reported earlier in the day having a markedly elevated heart rate in 160s to 180s. This can happen occasionally people with atrial fibrillation we need to monitor you. Will put you on a 72-hour Holter monitor and follow-up with your primary care doctor. For now would keep on the same dose of metoprolol since increasing it may make you heart rate goes too slow. Will add amlodipine 2.5 mg once daily to help control your blood pressure better you should follow-up with your primary care doctor within the week. Case management make arrangements for the Holter monitor. Coding Level of Care Code ED Graphics Coordinator for Remi Paredes
[2024-09-01 17:12] VITALS: BP 149/83; PULSE 56; RESP 16; O2SAT 100
--- NOTE | 2024-09-03 07:48 | DCPLANNER ---
messaged heart care for er f/u
== END 2024-09-01 17:16 | disposition home or self-care (01) ==
PROVIDERS: Emergency Provider Family Medicine; PCP Family Medicine
DX: I48.11 Longstanding persistent atrial fibrillation (principal); I10 Essential (primary) hypertension; Z79.01 Long term (current) use of anticoagulants; Z86.73 Personal history of transient ischemic attack (TIA), and cerebral infarction without residual deficits
CPT/HCPCS: 36415; 71045; 80053; 85025; 93005; 99285

== ENCOUNTER → 2024-09-07 14:00 | Outpatient (BNVA) | payer MEDICARE, SELFPAY | PROVIDERS: PCP Family Medicine; Visit Provider Internal Medicine Cardiovascular Disease | DX: I48.11 Longstanding persistent atrial fibrillation (principal); I48.92 Unspecified atrial flutter; I48.91 Unspecified atrial fibrillation; I49.1 Atrial premature depolarization; I49.3 Ventricular premature depolarization; I47.10 Supraventricular tachycardia, unspecified | CPT/HCPCS: 93242 ==

== ENCOUNTER 2024-11-02 08:57 | Inpatient (IN) | payer MEDICARE, SELFPAY ==
[2024-11-02] VITALS (14 sets, daily range): BP systolic 118–157; BP diastolic 72–107; PULSE 64–125; RESP 13–21; TEMP 36.5–36.9; O2SAT 96–100; BMI 23.1
--- NOTE | 2024-11-02 09:09 | XRR_ITS ---
PROCEDURE INFORMATION: Exam: XR Chest Exam date and time: 11/02/2024 9:24 AM Age: 74 years old Clinical indication: Pain; Angina pectoris; Additional info: Chest pain TECHNIQUE: Imaging protocol: Radiologic exam of the chest. Views: 1 view. COMPARISON: CR XR chest 1V portable [id number] 09/01/2024 2:10 PM FINDINGS: Lungs: The lungs are hyperinflated. No focal consolidation is appreciated. Pleural spaces: Unremarkable. No pleural effusion. No pneumothorax. Heart/Mediastinum: Heart size is normal. There is calcified plaque involving the aorta. Bones/joints: Unremarkable. XR/XR chest 1V portable [id number] IMPRESSION: 1. Lung hyperinflation.
--- NOTE | 2024-11-02 09:12 | ECG_ITS ---
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 Measurements Intervals [place] Rate: 125 P: 0 DC: 0 QRS: 48 QRSD: 84 T: 44 QT: 293 QTc: 422 Interpretive Statements ATRIAL FLUTTER/TACHYCARDIA WITH RAPID VENTRICULAR RESPONSE ABNORMAL RHYTHM ECG Compared to ECG 09/01/2024 13:35:43 Sinus rhythm no longer present Electronically Signed On 11-02-2024 19:23:02 JAVA SUPPORT ENGINEER by Cb Clark M.D. [id number]
--- NOTE | 2024-11-02 10:33 | ED_ITS ---
HPI - Arrhythmia/Palpitations 2 General: Chief Complaint: Arrhythmia/Palpitations Stated Complaint: high heart rate Time Seen by Provider: 11/02/24 09:49 History of Present Illness: 71-year-old female presents emergency ro om with complaint of rapid irregular heart rate. Has had similar problems in the past she has history of atrial fibrillation is on metoprolol and Eliquis. She has not had any recent medication changes, has not missed any doses. She denies any chest pain. No shortness of breath or leg swelling Related Data Home Medications Medication Instructions Recorded Confirmed ascorbic acid (vitamin C) 500 mg 500 mg PO DAILY 02/14/24 11/02/24 tablet (Vitamin C) Previous Rx's Medication Instructions Recorded apixaban 5 mg tablet (Eliquis) 5 mg PO BID #30 tabs 05/20/24 atorvastatin 40 mg tablet 40 mg PO BEDTIME #90 tabs 05/20/24 metoprolol succinate 25 mg 12.5 mg (1/2 x 25 mg) PO DAILY #45 05/20/24 tablet,extended release 24 hr tabs Allergies Allergy/AdvReac Type Severity Reaction Status Date / Time No Known Allergies Allergy Verified 09/09/24 08:38 Review of Systems 2 Const: Denies: fever(s) or chills Card: Reports: palpitations and irregular heart rhythm; Denies: chest pain, edema, swelling of feet/ankles, dyspnea on exertion or orthopnea Resp: Denies: dyspnea GI: Denies: abdominal pain : Denies: dysuria, urinary frequency or urinary urgency Musc: Denies: neck pain or back pain Skin/Breast: Denies: rash PFSH ED 2 PFSH: Medical History Transient cerebral ischemia CVA (cerebral vascular accident) Surgical History History of carpal tunnel surgery History of mandibular surgery History of tonsillectomy Family History Other CAD (coronary artery disease) Cancer Social History Smoking and tobacco/nicotine status: never used tobacco/nicotine Alcohol intake: never Female Reproductive History: Spontaneous abortions: No Physical Exam 2 Const: COMMON NORMALS: no acute distress GENERAL APPEARANCE: cooperative and comfortable ORIENTATION/CONSCIOUSNESS: Yes awake, Yes oriented to person, Yes oriented to place and Yes oriented to time HENMT: COMMON NORMALS: normocephalic, atraumatic and hearing grossly normal bilaterally HEAD & SCALP: normocephalic and atraumatic Resp: COMMON NORMALS: normal respiratory effort, No retractions, No use of accessory muscles and clear to auscultation bilaterally AUSCULTATION: clear to auscultation bilaterally Cardio: COMMON NORMALS: No murmurs present (Cardio) RATE: tachycardic R HYTHM: abnormal rhythm irregularly irregular GI: COMMON NORMALS: Soft to palpation and No hepatosplenomegaly present A USCULTATION: Yes normoactive bowel sounds PALPATION: Yes Soft to palpation, No Tenderness to palpation present (GI), No Guarding due to palpation present (GI) and Yes No hepatosplenomegaly present Extremity: COMMON NORMALS: normal to inspection, capillary refill normal, no clubbing, cyanosis or edema, no calf tenderness and no pedal edema Neuro: SENSORIUM/ORIENTATION: Yes oriented to person, Yes oriented to place and Yes oriented to time Skin: COMMON NORMALS: no rashes or lesions noted GENERAL SKIN EXAM: no rashes or lesions noted Course 2 Vital Signs: Vital signs: Vital Signs Temperature 98.1 F 11/02/24 09:14 Pulse Rate 64 11/02/24 11:37 Respiratory Rate 17 11/02/24 11:37 Blood Pressure 121/84 11/02/24 11:37 Pulse Oximetry 99 11/02/24 11:37 Oxygen Delivery Me thod Room Air 11/02/24 09:14 MDM - Arrhythmia/Palpitations Medical Decision Making Persistent a flutter. Rate did improved with Cardizem will admit the patient for medication adjustments. Currently on Cardizem 5 mg an hour discussed with hospitalist orders written Medical Records I reviewed the patient's medical records. Lab Data I reviewed the patient's lab results. 11/02/24 10:42 11/02/24 10:50 Radiology Impressions Chest X-Ray 11/02/24 09:09 IMPRESSION: 1. Lung hyperinflation. Laboratory Results WBC 5.42 10^3/uL (3.29-11.43) 11/02/24 10:42 RBC 4.48 10^6/uL (3.85-5.65) 11/02/24 10:42 Hgb 12.80 g/dL (11.27-16.99) 11/02/24 10:42 Hct 40.2 % (36-47) 11/02/24 10:42 MCV 89.7 fl (85-98) 11/02/24 10:42 MCH 28.6 pg (27-33) 11/02/24 10:42 MCHC 31.8 g/dL (30-55) 11/02/24 10:42 RDW 13.9 % (12.1-15.1) 11/02/24 10:42 Plt Count 157 10^3/cmm (157-399) 11/02/24 10:42 MPV 10.1 fL (7.4-10.4) 11/02/24 10:42 Neut % (Auto) 64.9 % 11/02/24 10:42 Lymph % (Auto) 19.6 % 11/02/24 10:42 [place] % (Auto) 11.1 % 11/02/24 10:42 Eos % (Auto) 3.5 % 11/02/24 10:42 Baso % (Auto) 0.7 % 11/02/24 10:42 Neut # (Auto) 3.52 10^3/uL (1.8-7.7) 11/02/24 10:42 Lymph # (Auto) 1.1 10^3/uL (0.8-4.8) 11/02/24 10:42 [place] # (Auto) 0.6 10^3/uL (0.2-0.9) 11/02/24 10:42 Eos # (Auto) 0.2 10^3/uL (0.0-0.8) 11/02/24 10:42 Baso # (Auto) 0.0 10^3/uL (0.0-0.1) 11/02/24 10:42 Nucleated RBC % (auto) 0 % 11/02/24 10:42 Nucleated RBCs # 0.0 /100WBC 11/02/24 10:42 Sodium 142 mmol/L (136-145) 11/02/24 10:50 Potassium 4.2 mmol/L (3.5-5.1) 11/02/24 10:50 Chloride 108 mmol/L (98-107) H 11/02/24 10:50 Carbon Dioxide 25 mmol/L (22-29) 11/02/24 10:50 Anion Gap 13.2 (5-19) 11/02/24 10:50 BUN 19 mg/dL (8-23) 11/02/24 10:50 Creatinine 0.8 mg/dL (0.5-0.9) 11/02/24 10:50 GFR Calculation Not Reportable 11/02/24 10:50 Glucose 90 mg/dL (65-115) 11/02/24 10:50 Calculated Osmolality 296 mOsm/kg (285-295) H 11/02/24 10:50 Calcium 9.1 mg/dL (8.5-10.5) 11/02/24 10:50 Total Bilirubin 0.9 mg/dL (0.15-1.2) 11/02/24 10:50 AST 33 U/L (0-32) H 11/02/24 10:50 ALT 23 U/L (0-33) 11/02/24 10:50 Alkaline Phosphatase 113 U/L (35-105) H 11/02/24 10:50 Troponin T Baseline 15 ng/L (0-10) H 11/02/24 10:50 Troponin T 120 Minute 14.35 ng/L (0-10) H 11/02/24 13:01 Delta Troponin T -0.65 ABS# (0-10) L 11/02/24 13:01 NT-Pro-B Natriuret Pep 3352 pg/mL (0-125) H 11/02/24 10:50 Total Protein 6.3 g/dL (6.6-8.7) L 11/02/24 10:50 Albumin 3.8 g/dL (3.5-5.2) 11/02/24 10:50 Globulin 2.5 g/dL (1.3-4.6) 11/02/24 10:50 All radiology interpretation(s) finalized by discharge Discharge Plan Discharge Patient Disposition: Admitted As Inpatient Clinical Impression: Atrial fibrillation Condition: Stable Prescriptions: No Action Eliquis 5 mg tablet 5 mg PO BID Qty: 30 11RF atorvastatin 40 mg tablet 40 mg PO BEDTIME Qty: 90 3RF metoprolol succinate 25 mg tablet extended release 24 hr 12.5 mg PO DAILY Qty: 45 3RF ascorbic acid (vitamin C) [Vitamin C] 500 mg Tablet 500 mg PO DAILY Referrals: Murali Ryan DO [Primary Care Provider] - Patient Instructions: Opioid Safety, Pain Management Coding Level of Care Code ED Secretary Bookkeeper for Remi Paredes
[2024-11-02 11:04] LABS: Basophils % 0.7 %; Eosinophils # 0.2 10^3/uL (0.0-0.8); Eosinophils % 3.5 %; Hematocrit 40.2 % (36-47); Lymphocytes # 1.1 10^3/uL (0.8-4.8); Lymphocytes % 19.6 %; Mean Corpuscular HGB Conc 31.8 g/dL (30-55); Mean Corpuscular Hemoglobin 28.6 pg (27-33); Mean Corpuscular Volume 89.7 fl (85-98); Mean Platelet Volume 10.1 fL (7.4-10.4); Monocytes # 0.6 10^3/uL (0.2-0.9); Monocytes % 11.1 %; Neutrophils # 3.52 10^3/uL (1.8-7.7); Neutrophils % 64.9 %; Nucleated Red Blood Cells % 0 %; Platelet Count 157 10^3/cmm (157-399); Red Blood Count 4.48 10^6/uL (3.85-5.65); Red Cell Distribution Width 13.9 % (12.1-15.1); White Blood Count 5.42 10^3/uL (3.29-11.43)
[2024-11-02] MEDS: dilTIAZem 5 mg/mL SDV 5 mL 20 MG IVP (11:06)
[2024-11-02] MEDS: dilTIAZem 100 MG in sodium chloride 0.9% (add-van) 100 ML IV (11:15)
[2024-11-02 11:26] LABS: Troponin(5th) Baseline 15 ng/L (0-10)
[2024-11-02 11:35] LABS: Alanine Aminotransferase 23 U/L (0-33); Albumin Level 3.8 g/dL (3.5-5.2); Alkaline Phosphatase 113 U/L (35-105); Anion Gap 13.2 (5-19); Aspartate Amino Transferase 33 U/L (0-32); Blood Urea Nitrogen 19 mg/dL (8-23); Calcium 9.1 mg/dL (8.5-10.5); Carbon Dioxide 25 mmol/L (22-29); Chloride 108 mmol/L (98-107); Creatinine Clr Calc Pharmacy 56.6672; Globulin 2.5 g/dL (1.3-4.6); Glucose 90 mg/dL (65-115); NT Pro B Type Natriuretic Pept 3352 pg/mL (0-125); Osmolality Calculated 296 mOsm/kg (285-295); Potassium 4.2 mmol/L (3.5-5.1); Sodium 142 mmol/L (136-145); Total Bilirubin 0.9 mg/dL (0.15-1.2); Total Protein 6.3 g/dL (6.6-8.7)
--- NOTE | 2024-11-02 12:22 | ECG_ITS ---
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 Measurements Intervals [place] Rate: 76 P: 0 CT: 0 QRS: 30 QRSD: 86 T: 28 QT: 382 QTc: 431 Interpretive Statements normal sinus rhythm with a borderline first-degree block POSSIBLE RIGHT VENTRICULAR CONDUCTION DELAY [RSR (QR) IN V1/V2] MODERATE ST DEPRESSION [0.05+ mV ST DEPRESSION] Compared to ECG 11/02/2024 09:12:09 ST (T wave) deviation now present Electronically Signed On 11-02-2024 19:30:49 FREIGHT CAR REPAIRER by Cb Clark M.D. [id number]
[2024-11-02 13:31] LABS: Troponin 5 2HR 14.35 ng/L (0-10)
[2024-11-02 13:32] LABS: Troponin 5 2HR Delta -0.65 ABS# (0-10)
--- NOTE | 2024-11-02 15:13 | ECG_ITS ---
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 Measurements Intervals [place] Rate: 88 P: 81 [place]: 221 QRS: 20 QRSD: 90 T: 36 QT: 381 QTc: 462 Interpretive Statements SINUS RHYTHM WITH FIRST DEGREE AV BLOCK WITH OCCASIONAL SUPRAVENTRICULAR PREMATURE COMPLEXES POSSIBLE RIGHT VENTRICULAR CONDUCTION DELAY [RSR (QR) IN V1/V2] MODERATE ST DEPRESSION [0.05+ mV ST DEPRESSION] Compared to ECG 11/02/2024 12:22:34 First degree AV block now present Atrial flutter no longer present ST (T wave) deviation still present Electronically Signed On 11-02-2024 19:31:00 CHANNEL REBUILDER by Cb Clark M.D. [email or web address]/[id number]
[2024-11-02 17:22] LABS: Procalcitonin 0.04 ng/mL (0-0.5); Thyroid Stimulating Hormone 2.22 uIU/mL (0.27-4.20); Vitamin B12 354 pg/mL (232-1245)
[2024-11-02] MEDS: apixaban 5 mg Tablet PO (17:22)
[2024-11-02] MEDS: metoprolol tartrate 25 mg Tablet PO (17:22)
--- NOTE | 2024-11-02 17:24 | P.HP_ITS ---
Providers/Chief Complaint 2 Admitting Physician: Carlos Hawk MD Primary Care Provider: Murali Ryan DO Chief Complaint: high heart rate History of Present Illness Mary Izquierdo is a 74 year old female with past medical history of atrial fibrillation on Eliquis, hypertension presents to the ER today because of palpitations was started earlier today morning afflicted with difficulty in breathing. Patient states usually her heart rate runs in 60s but on and off she gets palpitations from before. She denies of any nausea, vomiting, headache. Has never had a formal diagnosis of COPD as she is never able to complete a pulmonary function test but does complain of difficulty in breathing on exertion specially going up stairs. In the ER she was started on Cardizem drip. Currently on Cardizem drip of 10 with a heart rate of 80 bpm saturating 100% on room air. Review of Systems 2 General: Reports: 10 or more systems reviewed and unremarkable except in HPI and below Const: Denies: fever(s), chills, body aches, change in appetite, change in weight, malaise, night sweats, diaphoresis, change in sleep pattern, daytime sleepiness or snoring Eyes: Denies: change in vision, blurry vision, photophobia, eye discomfort or eye discharge ENMT: Denies: throat pain, enlarged tonsils, hoarseness, mouth pain, oral sores, dry mouth, tinnitus, nasal congestion or post nasal drip Card: Denies: chest pain, palpitations, irregular heart rhythm, edema, swelling of feet/ankles, lightheadedness, syncope, pre-syncope, dyspnea on exertion, orthopnea, leg pain with exertion or acrocyanosis Resp: Denies: dyspnea, productive cough, non-productive cough, wheezing, stridor, pain on inspiration, change in phlegm color, hemoptysis or chest congestion GI: Denies: abdominal pain, nausea, vomiting, hematemesis, coffee ground emesis, dysphagia, heartburn, diarrhea, constipation, bloating, GI cramping, change in bowel habits, pain on defecation, hematochezia or melena : Denies: flank pain, dysuria, urinary frequency, urinary urgency, urinary hesitancy, nocturia or hematuria Musc: Denies: neck pain, back pain, extremity pain, joint pain, joint swelling, joint redness, joint stiffness or limited range of motion Neuro: Denies: headache(s), numbness in extremities, weakness in extremities, sensory changes, lack of coordination, difficulty walking, frequent falls, dizziness, vertigo, confusion, Slurred speech present, difficulty communicating thoughts or seizure-like activity Psych: Denies: anxiety, depression, mood swings, panic attacks, hopelessness or irritability Endo: Denies: polyuria, polydipsia, tired all the time, cold intolerance, excessive sweating, flushing or heat intolerance Placido/Lymph: Denies: easy bruising or easy bleeding All/Imm: Denies: tongue swelling, facial swelling or acute wheezing Medications/Allergies Home Medications Medication Instructions Recorded Confirmed Last Taken Type ascorbic acid (vitamin C) 500 mg 500 mg PO DAILY 02/14/24 11/02/24 11/01/24 History tablet (Vitamin C) apixaban 5 mg tablet (Eliquis) 5 mg PO BID #30 tabs 05/20/24 11/02/24 11/02/24 Rx atorvastatin 40 mg tablet 40 mg PO BEDTIME #90 tabs 05/20/24 11/02/24 11/01/24 Rx metoprolol succinate 25 mg 12.5 mg (1/2 x 25 mg) PO DAILY #45 05/20/24 11/02/24 11/02/24 Rx tablet,extended release 24 hr tabs Allergies Allergy/AdvReac Type Severity Reaction Status Date / Time No Known Allergies Allergy Verified 09/09/24 08:38 PFSH Acute 2 PFSH: Medical History (Updated 11/02/24 @ 17:27 by Carlos Hawk MD) Atrial fibrillation with rapid ventricular response Transient cerebral ischemia CVA (cerebral vascular accident) Surgical History History of carpal tunnel surgery History of mandibular surgery History of tonsillectomy Family History Other CAD (coronary artery disease) Cancer Social History Smoking and tobacco/nicotine status: never used tobacco/nicotine Alcohol intake: never Female Reproductive History: Spontaneous abortions: No Vitals/I&O/Wt Last Vital Signs Temp 97.7 F 11/02/24 16:34 Pulse 120 H 11/02/24 16:34 Resp 20 H 11/02/24 16:34 BP 142/95 11/02/24 16:34 Pulse Ox 100 11/02/24 16:34 O2 Del Method Room Air 11/02/24 16:34 11/02/24 11/02/24 11/02/24 06:59 14:59 22:59 Intake Total 3.375 / 3.375 15.25 / 18.625 Balance 3.375 / 3.375 15..625 Weight last 48 hrs Weight 61.235 kg Physical Exam 2 Narrative: General: No acute distress, AO x3, dehydrated HEENT: PERRLA, pupils bilaterally equal and reactive Chest: Normal vesicular breath sounds, no added sounds, equal good air entry bilaterally CVS: S1-S2 irregularly irregular, soft pansystolic murmur at apex, no tachycardia, no gallops, no rubs Abdomen: Soft, nontender, no organomegaly, bowel sounds present Neuro: No focal deficits, no facial deformity, AO x3, power 5/5 in all limbs Data 11/02/24 10:42 11/02/24 10:50 A&P Assessment and plan (1) Atrial fibrillation with rapid ventricular response: Currently rate controlled on Cardizem drip. Restart home dose of metoprolol 25 mg twice daily. Wean down Cardizem drip keeping heart rate below 100. Will try to uptitrate dose of metoprolol depending on blood pressures to control A-fib. Check TSH, echocardiogram. Continue with Eliquis 5 mg twice daily. (2) Essential hypertension: Goal blood pressure less than 140/90 mmHg. Metoprolol as above. Will try to uptitrate keeping blood pressures below goal. (3) Dyspnea on exertion: Past history. Most likely undiagnosed COPD. Patient unable to do PFT because of her facial deformity. Check echocardiogram as above. Supplementation keeping saturation over 88%. Plan Full code Eliquis will be sufficient for DVT prophylaxis Protonix OPD prophylaxis Cardiac diet Attestations 2 Medical Necessity Statement*: admission for than 2 midnights for management of A-fib with RVR as patient remains on Cardizem drip. Diagnoses Atrial fibrillation with rapid ventricular response I48.91 Essential hypertension I10 Dyspnea on exertion R06.09
[2024-11-02 17:33] LABS: Iron 56 ug/dL (37-145); Percent Saturation 17.3 % (20-50); Total Iron Binding Capacity 323 mcg/dl; Unsaturated Iron Binding 267 ug/dL (112-347)
[2024-11-02 17:34] LABS: Troponin 5 6HR 12.22 ng/L (0-10); Troponin 5 6HR Delta -2.78 ng/L (0-12)
[2024-11-02] MEDS: atorvastatin 40 mg Tablet PO (20:41)
[2024-11-03] VITALS: BP 111/74; PULSE 61; RESP 16; TEMP 36.4; O2SAT 98
[2024-11-03 04:00] VITALS: BP 105/71; PULSE 68; RESP 21; TEMP 36.7; O2SAT 98
[2024-11-03 04:41] LABS: Basophils % 0.5 %; Eosinophils # 0.2 10^3/uL (0.0-0.8); Eosinophils % 4.3 %; Hematocrit 39.8 % (36-47); Lymphocytes # 1.4 10^3/uL (0.8-4.8); Mean Corpuscular HGB Conc 31.7 g/dL (30-55); Mean Corpuscular Hemoglobin 28.4 pg (27-33); Mean Corpuscular Volume 89.6 fl (85-98); Mean Platelet Volume 10.8 fL (7.4-10.4); Monocytes # 0.9 10^3/uL (0.2-0.9); Neutrophils # 3.01 10^3/uL (1.8-7.7); Nucleated Red Blood Cells % 0 %; Platelet Count 180 10^3/cmm (157-399); Red Blood Count 4.44 10^6/uL (3.85-5.65); White Blood Count 5.57 10^3/uL (3.29-11.43)
[2024-11-03 04:56] LABS: Estmated Average Glucose 100; Hemoglobin A1C 5.1 % (4.0-6.0)
[2024-11-03 05:02] LABS: Chol HDL Ratio 2.74 mg/dL (0.0-4.40); Cholesterol 115 mg/dL (0-200); HDL Cholesterol 42 mg/dL (60-100); LDL Cholesterol Calculated 63 mg/dL (50-129); Triglycerides 49 mg/dL (0-150)
[2024-11-03 05:05] LABS: Alanine Aminotransferase 20 U/L (0-33); Albumin Level 3.5 g/dL (3.5-5.2); Alkaline Phosphatase 108 U/L (35-105); Anion Gap 13.1 (5-19); Aspartate Amino Transferase 31 U/L (0-32); Blood Urea Nitrogen 19 mg/dL (8-23); Calcium 9.2 mg/dL (8.5-10.5); Carbon Dioxide 26 mmol/L (22-29); Chloride 108 mmol/L (98-107); Creatinine Clr Calc Pharmacy 50.3709; Glucose 98 mg/dL (65-115); Osmolality Calculated 298 mOsm/kg (285-295); Phosphorus 4.4 mg/dL (2.5-4.5); Potassium 4.1 mmol/L (3.5-5.1); Sodium 143 mmol/L (136-145); Total Bilirubin 1.1 mg/dL (0.15-1.2); Total Protein 6.5 g/dL (6.6-8.7)
[2024-11-03 05:22] LABS: Folate Level 15.7 ng/mL (4.8-37.3)
[2024-11-03 05:55] VITALS: PULSE 61
[2024-11-03 07:18] VITALS: BP 110/70; PULSE 66; RESP 15; TEMP 36.8; O2SAT 100
[2024-11-03] MEDS: pantoprazole DR 40 mg Tablet PO (07:59)
[2024-11-03] MEDS: metoprolol tartrate 25 mg Tablet PO (07:59)
[2024-11-03] MEDS: apixaban 5 mg Tablet PO (07:59)
--- NOTE | 2024-11-03 08:22 | USCV_ITS ---
Mary Izquierdo Age: 74 Gender: F : 1950 Exam Date: 11/03/2024 09:24 Ordering Phys: Carlos Hawk MD Technologist: [place] [facility] [place]: chest pain afib BP: 110 / 70 HR: 75 Rhythm: Sinus Technical Quality: Adequate MEASUREMENTS (Male / Female) Normal Values 2D ECHO LV Diastolic Diameter PLAX 3.6 cm 4.2 - 5.9 / 3.9 - 5.3 cm IVS Diastolic Thickness 1.3 cm 0.6 - 1.0 / 0.6 - 0.9 cm IVS Systolic Thickness 1.4 cm LVPW Diastolic Thickness 1.3 cm 0.6 - 1.0 / 0.6 - 0.9 cm LVPW Systolic Thickness 1.5 cm LVOT Diameter 2.5 cm LV Ejection Fraction 2D Teich 62.6 % LV Ejection Fraction MOD 4C 61.3 % LV Ejection Fraction MOD 2C 74.0 % LV Ejection Fraction 2C AL 74.7 % LA Diameter 3.9 cm RA Systolic Volume 4C AL 47.1 ml RA Systolic Volume 4C MOD 47.1 ml LA Sys Volume AL 98.0 cm cubed LA Sys Volume Index AL 58.6 cm cubed/m squared Aorta at Sinotubular Diameter 3.1 cm M-MODE LA Ao Ratio MM 1.1 AV Cusp Separation MM 1.9 cm DOPPLER LVOT Peak Velocity 75.0 cm/s MV Peak Velocity 119.0 cm/s MV Area PHT 4.5 cm squared Mitral E to A Ratio 2.9 TV Peak Velocity 286.5 cm/s TR Peak Velocity 305.0 cm/s TR Peak Gradient 37.2 mmHg TV Peak E Velocity 117.0 cm/s PV Peak Velocity 72.0 cm/s FINDINGS Left Ventricle Normal left ventricular size and systolic function, EF 68%.no regional wall motion abnormalities. Right Ventricle The right ventricle is normal in size and function. Right Atrium Mildly increased right atrial size. Left Atrium Severe left atrial enlargement Mitral Valve Mild mitral valve regurgitation. Aortic Valve Thickened aortic valve. Mild aortic valve regurgitation. Tricuspid Valve Trace tricuspid valve regurgitation. Estimated pulmonary artery peak systolic pressure 40 mmHg Pulmonic Valve No gross abnormalities noted Pericardium Normal pericardium without effusion. Aorta Normal ascending aorta dimension. IVC Inferior vena cava not visualized. CONCLUSIONS Normal left ventricular size and systolic function, EF 68%.no regional wall motion abnormalities. Severe left atrial enlargement. Mildly increased right atrial size. Mild mitral valve regurgitation. Thickened aortic valve. Mild aortic valve regurgitation. Trace tricuspid valve regurgitation. Estimated pulmonary artery peak systolic pressure 40 mmHg. There is no pericardial effusion. There are no intracardiac masses. Compared to the study from 02/04/2022, there is significant increase in the size of the left atrium. Dr Cb Clark MD [facility] (Electronically Signed) Final Date: 03 November 2024 22:34 S
--- NOTE | 2024-11-03 10:01 | PC.CHAP ---
Pastoral Care Encounter/Spiritual Assessment Type of Contact [] Declined systems testing laboratory technician visit [] Patient/Family/Request visit [] Outpatient visit [] Follow-up visit [] Physician referral [] Code/Alert [x] Routine visit [] Staff referral [] Actively dying [] Patient sleeping [] Family support [] [] Out of room [] Palliative care [] [] Receiving care in room [] Pre-surgical visit [] Trauma [] Long length of stay [] ICU visit [] Other: Relational/Emotional Strength [x] Patient feels connected with others/family/visitors/staff [] Distress [] Loneliness/isolation [] Abandonment Spirituality of Patient [x] Person of Anat [] Attends Rastafari of their Anat [x] Believes in Prayer [] Reads Bible or Mandaeism materials [] There are Spiritual issues to be addressed Building Rental Manager Interventions [x] Prayer [x] Active listening [] Non-anxious presence [x] Spiritual/emotional support [] Crisis/trauma care [] Spiritual counseling [] Bereavement support [] Provided bereavement packet [] Provided Bible/devotional materials [] Provided toy/stuffed animal, coloring book to patient or family member [] Provided Communion [] Anointing/[place] [] Salvation [x] Completed spiritual assessment [] Other: Impact on Illness or Injury [] Angry [] Fearful [] Anxious [] Often cries [] Exhaustion [] Unable to work [] Unable to attend gnosticist [] Unable to walk/stand [] Unable to read [] Unable to drive [] Unable to eat/drink [] Unable to sleep [] Unable to be with family [] Patient intubated [] Other: Summary Time spent with patient 5 min
--- NOTE | 2024-11-03 10:43 | P.DS_ITS ---
Discharge Providers Date of Admission: 11/02/24 14:21 Date of Discharge: November 03, 2024 Attending Provider at Admission: Carlos Hawk MD Attending Provider at Discharge: Carlos Hawk MD Primary Care Provider: Murali Ryan DO Diagnoses at Discharge Discharge Diagnosis (1) Atrial fibrillation with rapid ventricular response: Status: Acute (2) Essential hypertension: Status: Acute (3) Dyspnea on exertion: Status: Acute Reason for Visit Reason for Visit: high heart rate Hospital Course Hospital Course Mary Izquierdo is a 74 year old female with past medical history of atrial fibrillation on Eliquis, hypertension presents to the ER today because of palpitations was started earlier today morning afflicted with difficulty in br eathing. Patient states usually her heart rate runs in 60s but on and off she gets palpitations from before. She denies of any nausea, vomiting, headache. Has never had a formal diagnosis of COPD as she is never able to complete a pulmonary function test but does complain of difficulty in breathing on exertion specially going up stairs. In the ER she was started on Cardizem drip. Currently on Cardizem drip of 10 with a heart rate of 80 bpm saturating 100% on room air. Patient was started on a higher dose of metoprolol which she takes at home. Patient improved faster than expected and after initiation of metoprolol her heart rate improved and Cardizem drip was weaned off. Her heart rate has remained stable on oral metoprolol. She denies of having any difficulty in breathing or cough. Echocardiogram has been done but results are awaited. She has been discharged hemodynamically stable condition on higher dose of metoprolol 25 mg twice daily daily. She is to follow-up with a primary care provider within next 1 week to 10 days. Physical Exam Narrative: General: No acute distress, AO x3, HEENT: PERRLA, pupils bilaterally equal and reactive Chest: Normal vesicular breath sounds, no added sounds, equal good air entry bilaterally CVS: S1-S2 irregularly irregular, soft pansystolic murmur at apex, no tachycardia, no gallops, no rubs Abdomen: Soft, nontender, no organomegaly, bowel sounds present Neuro: No focal deficits, no facial deformity, AO x3, power 5/5 in all limbs Discharge Data Studies Completed and Pending Completed Studies During Hospitalization Category Date Time Status XR chest 1V portable [id number] Urgent Exams 11/02/24 09:09 Completed Pending at discharge Category Date Time Status Urinalysis Routine Lab 11/03/24 06:39 Ordered CV. echo complete* [id number] Routine Ultrasound 11/03/24 08:22 Taken Radiology Impressions Chest X-Ray 11/02/24 09:09 IMPRESSION: 1. Lung hyperinflation. Laboratory Results WBC 5.57 10^3/uL (3.29-11.43) 11/03/24 03:40 RBC 4.44 10^6/uL (3.85-5.65) 11/03/24 03:40 Hgb 12.60 g/dL (11.27-16.99) 11/03/24 03:40 Hct 39.8 % (36-47) 11/03/24 03:40 MCV 89.6 fl (85-98) 11/03/24 03:40 MCH 28.4 pg (27-33) 11/03/24 03:40 MCHC 31.7 g/dL (30-55) 11/03/24 03:40 RDW 14.0 % (12.1-15.1) 11/03/24 03:40 Plt Count 180 10^3/cmm (157-399) 11/03/24 03:40 MPV 10.8 fL (7.4-10.4) H 11/03/24 03:40 Neut % (Auto) 54.0 % 11/03/24 03:40 Lymph % (Auto) 25.0 % 11/03/24 03:40 Blair % (Auto) 16.0 % 11/03/24 03:40 Eos % (Auto) 4.3 % 11/03/24 03:40 Baso % (Auto) 0.5 % 11/03/24 03:40 Neut # (Auto) 3.01 10^3/uL (1.8-7.7) 11/03/24 03:40 Lymph # (Auto) 1.4 10^3/uL (0.8-4.8) 11/03/24 03:40 Blair # (Auto) 0.9 10^3/uL (0.2-0.9) 11/03/24 03:40 Eos # (Auto) 0.2 10^3/uL (0.0-0.8) 11/03/24 03:40 Baso # (Auto) 0.0 10^3/uL (0.0-0.1) 11/03/24 03:40 Nucleated RBC % (auto) 0 % 11/03/24 03:40 Nucleated RBCs # 0.0 /100WBC 11/03/24 03:40 Sodium 143 mmol/L (136-145) 11/03/24 03:40 Potassium 4.1 mmol/L (3.5-5.1) 11/03/24 03:40 Chloride 108 mmol/L (98-107) H 11/03/24 03:40 Carbon Dioxide 26 mmol/L (22-29) 11/03/24 03:40 Anion Gap 13.1 (5-19) 11/03/24 03:40 BUN 19 mg/dL (8-23) 11/03/24 03:40 Creatinine 0.9 mg/dL (0.5-0.9) 11/03/24 03:40 GFR Calculation Not Reportable 11/03/24 03:40 Glucose 98 mg/dL (65-115) 11/03/24 03:40 Estimat Average Glucose 100 11/03/24 03:40 Hemoglobin A1c 5.1 % (4.0-6.0) 11/03/24 03:40 Calculated Osmolality 298 mOsm/kg (285-295) H 11/03/24 03:40 Calcium 9.2 mg/dL (8.5-10.5) 11/03/24 03:40 Phosphorus 4.4 mg/dL (2.5-4.5) 11/03/24 03:40 Magnesium 2.0 mg/dL (1.7-2.3) 11/03/24 03:40 Iron 56 ug/dL (37-145) 11/02/24 10:50 TIBC 323 mcg/dl 11/02/24 10:50 % Saturation 17.3 % (20-50) L 11/02/24 10:50 Unsat Iron Binding 267 ug/dL (112-347) 11/02/24 10:50 Total Bilirubin 1.1 mg/dL (0.15-1.2) 11/03/24 03:40 AST 31 U/L (0-32) 11/03/24 03:40 ALT 20 U/L (0-33) 11/03/24 03:40 Alkaline Phosphatase 108 U/L (35-105) H 11/03/24 03:40 Troponin T Baseline 15 ng/L (0-10) H 11/02/24 10:50 Troponin T 120 Minute 14.35 ng/L (0-10) H 11/02/24 13:01 Delta Troponin T -0.65 ABS# (0-10) L 11/02/24 13:01 Troponin T Hi Sens 6Hr 12.22 ng/L (0-10) H 11/02/24 17:01 Troponin T Hi Sens 6Hr Delta -2.78 ng/L (0-12) L 11/02/24 17:01 NT-Pro-B Natriuret Pep 3352 pg/mL (0-125) H 11/02/24 10:50 Total Protein 6.5 g/dL (6.6-8.7) L 11/03/24 03:40 Albumin 3.5 g/dL (3.5-5.2) 11/03/24 03:40 Globulin 3.0 g/dL (1.3-4.6) 11/03/24 03:40 Triglycerides 49 mg/dL (0-150) 11/03/24 03:40 Cholesterol 115 mg/dL (0-200) 11/03/24 03:40 LDL Cholesterol, Calc 63 mg/dL (50-129) 11/03/24 03:40 HDL Cholesterol 42 mg/dL (60-100) L 11/03/24 03:40 LDL/HDL Ratio 1.50 RATIO (0.00-3.22) 11/03/24 03:40 Cholesterol/HDL Ratio 2.74 mg/dL (0.0-4.40) 11/03/24 03:40 Vitamin B12 354 pg/mL (232-1245) 11/02/24 10:50 Folate 15.7 ng/mL (4.8-37.3) 11/03/24 03:40 Procalcitonin 0.04 ng/mL (0-0.5) 11/02/24 10:50 TSH 2.22 uIU/mL (0.27-4.20) 11/02/24 10:50 Vitals Last Vital Signs Temp 98.2 F 11/03/24 07:18 Pulse 66 11/03/24 07:18 Resp 15 11/03/24 07:18 BP 110/70 11/03/24 07:18 Pulse Ox 100 11/03/24 07:18 O2 Del Method Room Air 11/03/24 07:18 Discharge Plan Discharge Patient Disposition: Home Condition: Stable Prescriptions: New metoprolol tartrate 25 mg Tablet 25 mg PO BID@0900,2100 Qty: 60 0RF Continued Eliquis 5 mg tablet 5 mg PO BID Qty: 30 11RF atorvastatin 40 mg tablet 40 mg PO BEDTIME Qty: 90 3RF ascorbic acid (vitamin C) [Vitamin C] 500 mg Tablet 500 mg PO DAILY Discontinued metoprolol succinate 25 mg tablet extended release 24 hr 12.5 mg PO DAILY Qty: 45 3RF Discharge Orders: Discharge Order (Routine); Ordered 11/03/24 Ordered By: Carlos Hawk Referrals: Murali Ryan DO [Primary Care Provider] - 7-10 days (We have notified your physician's clinic of the need for a follow-up appointment to be scheduled. If you have not heard from them within the next 2 business days, please call them directly. ) Discharge Diet: Cardiac Discharge Activity: Resume usual activity and Increase activity as tolerated Patient Instructions: Metoprolol (By mouth) (Lopressor, Toprol XL), A-fib (Atrial Fibrillation) (DC), Dyspnea (DC), Hypertension (DC), Opioid Safety, Pain Management Discharge Attestations Time Spent in Discharge Care*: greater than 30 min Specific Discharge Activities: educating patient, discussing with pcp/other providers, discussing with case packer and sealer/social workers/dc planners, documenting/other paperwork and evaluating patient/reviewing data Status at Discharge: Cognitive status at discharge: cognitively intact , Behavioral status at discharge: cooperative , Functional status at discharge: independent ambulation , Overall status at discharge: patient is back to baseline Quality Metrics Clinical Quality Measures [ No reported AMI, CVA or VTE this stay] Coding Level of Care Code 95342 Total time (in minutes) for Discharge: 60 Diagnoses Atrial fibrillation with rapid ventricular response I48.91 Essential hypertension I10 Dyspnea on exertion R06.09
[2024-11-03 10:52] VITALS: BP 113/68; PULSE 68; RESP 12; TEMP 36.4; O2SAT 99
[2024-11-03 11:30] VITALS: BP 113/68; PULSE 64; RESP 18; O2SAT 99
--- NOTE | 2024-11-03 11:32 | PC.NURSE ---
Patient discharged to home. Instruction provided regarding follow up needs and medication changes. New Rx transmitted to [facility]. Patient verbalized complete understanding. Patient taken by wheelchair to private vehicle. Patient denies pain or needs. No distress observed.
== END 2024-11-03 11:31 | disposition home or self-care (01) | DRG 310 ==
LOC: ER 14:09 → ER IP 14:22 → CSU 15:10
PROVIDERS: Physician Assistant; Admitting Provider Student in an Organized Health Care Education/Training Program; Emergency Provider Family Medicine; PCP Family Medicine; Visit Provider Student in an Organized Health Care Education/Training Program
DX: I48.91 Unspecified atrial fibrillation (principal); I10 Essential (primary) hypertension; J44.9 Chronic obstructive pulmonary disease, unspecified; Z79.01 Long term (current) use of anticoagulants; Z86.73 Personal history of transient ischemic attack (TIA), and cerebral infarction without residual deficits
CPT/HCPCS: 36415; 71045; 80053; 80061; 82607; 82746; 83036; 83540; 83550; 83735; 83880; 84100; 84145; 84443; 84484; 85025; 93005; 93306; 94664; 96365; 96375; 99285; J3490

== ENCOUNTER → 2024-11-24 15:04 | Outpatient (BNVA) | payer MEDICARE, SELFPAY | PROVIDERS: PCP Family Medicine; Visit Provider Internal Medicine Cardiovascular Disease | DX: I48.11 Longstanding persistent atrial fibrillation (principal); I10 Essential (primary) hypertension; I08.0 Rheumatic disorders of both mitral and aortic valves; I27.20 Pulmonary hypertension, unspecified; R13.10 Dysphagia, unspecified | CPT/HCPCS: 99214 ==

== ENCOUNTER 2025-05-24 12:59 | Observation (INO) | payer MEDICARE, SELFPAY ==
[2025-05-24] VITALS (12 sets, daily range): BP systolic 102–171; BP diastolic 60–98; PULSE 42–170; RESP 17–23; TEMP 36.3–36.8; O2SAT 98–100; BMI 24.9
--- OUTSIDE RECORDS SUMMARY | 2025-05-24 13:07 | XMS_ITS | Clinical Summary ---
Author Organization [facility] Address [address] Pretty: Epic Prelude ADT ENDY STRONG [address] Care Team Providers Care Client Support Manager Name Role Phone Unavailable Primary Care Provider Unavailabl e Allergies No known active allergies Medications Eliquis 5 mg tablet Take 5 mg by mouth 2 times daily. 05/22/2023 Active atorvastatin (LIPITOR) 40 mg tablet Take 40 mg by mouth. 04/30/2022 Active metoprolol succinate (TOPROL XL) 25 mg Extended Release 24 hour tablet Take 12.5 mg by mouth. 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 SVT (supraventricular tachycardia) 09/27/2013 Oliguria 09/27/2013 Resolved Problems Problem Noted Date Diagnosed Date Resolved Date Fistula 07/12/2014 10/31/2017 Ameloblastoma, malignant 09/10/2013 Immunizations Immunization Administration Dates Next Due Influenza Seasonal Unspecified Formulation IM Influenza Vaccine Split 3+ Yrs PF IM 10/06/2013 Pneumococcal conjugate, unspecified formulation 08/19/2014 Family History Medical History Relation Name Comments Heart Disease Father Heart Failure Father High Cholesterol Father Hypertension Father Stroke Father Arthritis-rheumatoid Mother Relation Name Status Comments Father Mother Social History Tobacco Use Types Packs/Day Years Used Date Smoking Tobacco: Never Smokeless Tobacco: Never Alcohol Use Standard Drinks/Week Comments No 0 (1 standard drink = 0.6 oz pur e alcohol) Comments Unknown Sex and Gender Information Value Date Recorded Sex Assigned at Not on file Legal Sex Female 1:00 AM CRIMINAL INVESTIGATIVE AGENT Gender Identity Not on file Sexual Orientation Not on file Last Filed Vital Signs Vital Sign Reading Time Taken Comments Blood Pressure 112/70 08/15/2023 10:53 AM CDT Pulse 60 08/15/2023 10:53 AM CDT Temperature 36.4 C (97.6 F) 10/24/2017 2:51 PM CRIMINAL INVESTIGATIVE AGENT Respiratory Rate 16 10/24/2017 4:00 PM CRIMINAL INVESTIGATIVE AGENT Oxygen Saturation 99% 08/15/2023 10:53 AM CDT Inhaled Oxygen Concentration - - Weight 63.5 kg (140 lb) 08/15/2023 10:53 AM CDT Height 170.2 cm (5' 7 ) 08/15/2023 10:53 AM CDT Body Mass Index 21.93 08/15/2023 10:53 AM CDT Plan of Treatment Health Maintenance Due Date Last Done Comments DTAP/TDAP/TD VACCINES (1 - Tdap) 1970 BREAST CANCER SCREENING 1991 COLORECTAL SCREENING 1996 Colorectal Cancer Screening 1996 FIT-DNA Q 3 years 1996 FIT/FOBT Q 1 year 1996 Flex Sig/CT Colonography Q 5 years 1996 ZOSTER VACCINE (1 of 2) 2001 OSTEOPOROSIS SCREENING 2016 PNEUMOCOCCAL VACCINE 50+ YEA RS (2 of 2 - PPSV23) 09/03/2019 09/03/2018, 08/19/2014 INFLUENZA VACCINE (#1) 2025 8, 08/19/2014, 10/06/2013 RSV VACCINE (60+ or ) (1 - 1-dose 75+ series) 2026 Medical Devices Implanted Type Area Steel Rod Buster Device Identifier Shelf Expiration Date Model / Serial / Lot Tube Vent Sanders Modified-T 1.32x4.80mm [id number] - [id number] Implanted:Qty: 1 on 03/19/2014 by Harpal Hills MD Ear Right: Ear GYRUS E[employer] 11/19/2022 [id number] / / [id number] Weight Gold Eyelid 1.2 Gm Gold-12 - Sna Implanted:Qty: 1 on 12/30/2013 by Harpal Hills MD Eye Right: Eyelid [employer] 07/19/2017 GOLD-12 / NA / [id number] Description:upper eyelid Tube Feed Kangaroo 12fr 45in [id number] - [id number] Implanted:Qty: 1 on 09/23/2013 Feeding Device [employer] [id number] / / [id number] 16 Fr Peter G Tube-10/04/2013 Implanted:10/04 by Ming Davila MD (Quantity not on file) Feeding Device N/A: Stomach LEIDY TRISTAN [facility] 07/04/2016 / / [id number] Dermamatrix Acelluar 4x7cm 86065 - [id number] Implanted:Qty: 1 on 12/08/2015 by Lon Barragan MD Other Right: Face MUSCULOSKELETAL TRANSPLANT FOU 01/22/2016 [id number] / [id number] / N/A Description:free implant per rep. Plate Adaption Matrixmidface .503.316 - [id number] Implanted:Qty: 1 on 09/23/2013 by Harpal Hills MD Plate Right: Mandible SYNTHES-STRATEC- MAXIFACIAL 04.503.316 / / [id number] Description:pricing per invo ice recd 09/28 Screw Matrixmidface Sd 8mm .503.228 - [id number] Implanted:Qty: 6 on 09/23/2013 by Harpal Hills MD Screw Right: Mandible SYNTHES-STRATEC- MAXIFACIAL 04.503.228. 01 / / [id number] Sealant Floseal W/ Adptr 10ml [id number] - [id number] Implanted:Qty: 1 on 11/13/2013 by Harpal Hills MD Sealant Right: Nose PARNELL- BIOSCIENCE 12/19/2014 [id number] / / [id number] Tube Trach Cuf Lopre Sz 6 6dct - [id number] Implanted:Qty: 1 on 09/23/2013 Trach Neck COVIDIEN- MALLINCKRODT CHEM 03/22/2018 6DCT / / [id number] Explanted Type Area Steel Rod Buster Device Identifier Shelf Expiration Date Model / Serial / Lot Plate Box Matrixmidface .503.361 - [id number] Implanted:Qty: 1 on 09/23/2013 by Harpal Hills MD Explanted:Qty: 1 on 10/24/2017 by Lon Barragan MD Plate Right: Mandible SYNTHES-STRATEC - MAXIFACIAL 04.503.36 50 [id number] Screw Matrixmidface Sd 6mm 04503. - [id number] Explanted:Qty: 1 Screw SYNTHES-STRATEC - MAXIFACIAL .503.22 6.01 / Screw Matrixmidface Sd 6mm [id number] - [id number] Implanted:Qty: 2 on 09/23/2013 by Harpal Hills MD Explanted:Qty: 2 on 10/24/2017 by Lon Barragan MD Screw Right: Mandible SYNTHES-STRATEC - MAXIFACIAL .503.22 6.50 [id number] Insurance MEDICARE PART A AND B Advance Directives For more information, please contact: [phone] Documents on File Type Date Recorded Patient Software Developer Consultant Expl anation Advance Directive POA 09/23/2013 6:03 AM
--- OUTSIDE RECORDS SUMMARY | 2025-05-24 13:07 | XMS_ITS | Encounter Summary ---
Author Organization [facility] Address [address] [place] [address] Care Team Providers Care Butcher Meat Name Role Phone Najma, Kaleigh Uziel BURGOS Primary Care Provider [phone] Reason for Referral * Outpatient Services (Routine) - Closed Specialty Diagnoses / Procedures Referred By Contac t Referred To Contact Diagnoses Mass of mandible Procedures MRI SOFT TISSUE NECK W WO CONTRAST Harpal Hills MD NO ADDRESS ON FILE [employer] [place] [address] [place] [address] Phone: tel: fax: Referral ID Status Reason Start Date Expiration Date V isits Requested Visits Authorized [id number] Closed MON View CTS to Schedule (SGF) 09/07/2013 10/08/2014 1 1 Encounter Details Date Type Department Care Team (Late st Contact Info) Description 09/07/2013 Ancillary Orders [facility] [place] [address] [place] [address] Harpal Hills MD NO ADDRESS ON FILE Mass of mandible (Primary Dx) Social History Tobacco Use Types Packs/Day Years Used Date Smoking Tobacco: Never Alcohol Use Standard Drinks/Week Comments No 0 (1 standard drink = 0.6 oz pur e alcohol) Comments Unknown Sex and Gender Information Value Date Recorded Sex Assigned at Not on file Legal Sex Female 9:54 AM CDT Gender Identity Not on file Sexual Orientation Not on file Occupation Industry Job Start Date Job End Date Not on file Not on file Not on file Not on file documented as of this encounter Plan of Treatment Not on file documented as of this encounter Results * MRI SOFT TISSUE NECK W WO CONTRAST (09/07/2013 11:11 AM CDT) Anatomical Region Laterality Modality Neck Magnetic Resonan ce 09/07/2013 10:1 0 AM CDT Impressions 09/08/2013 12:58 AM CDT IMPRESSION: See report below. Exam: MRI SOFT TISSUE NECK W WO CONTRAST Date/Time of Exam: Sep 07, 2013 11:11:30 AM Reason For Exam: Swelling, mass, or lump in head and neck. Technique: MRI of the soft tissues of the neck was performed prior to and following the administration of intravenous contrast. Contrast: 7.5 mL of Gadavist were given. Correlation is made to CT from 09/02/2013. A large mass is again seen in the right director toxicology space noted to be both medial and lateral to the right mandibular ramus. There is some erosion of the anterior ramus in greatest dimensions, the mass measures approximately 7.0 cm AP x 4.0 cm transverse x 8 cm in height. Lesion shows heterogeneous enhancement. The lesion erodes into the posterolateral wall of the right maxillary sinus. The lesion has a multiseptated appearance with what appears to represent multiple fibrous bands creating septi within the lesion. Correlation with CT shows that the cortex of the right maxillary sinus appears maintained suggesting that this lesion is slow growing. Additionally, CT suggests expansion of the right mandible suggesting that the lesion may arise from the mandible. No extension into the skull base or along the trigeminal nerve is seen. The mandibular body appears spared. No adenopathy is seen in the neck. Remainder of the neck is unremarkable. Impression: Heterogeneous mass involving the right director toxicology space and mandible. The appearance suggests that the lesion is slow growing. A plexiform neurofibroma is a strong consideration. Schwannoma should also be considered. This does not have the appearance typical appearance of lymphoma. A lymphangioma/hemangioma lesion would be unlikely in a patient of this age. PHYLICIA/yolanda - uploaded from [employer] - Narrative Procedure Note Levy Dodge MD - 09/08/2013 IMPRESSION IMPRESSION: See report below. Exam: MRI SOFT TISSUE NECK W WO CONTRAST Date/Time of Exam: Sep 07, 2013 11:11:30 AM Reason For Exam: Swelling, mass, or lump in head and neck. Technique: MRI of the soft tissues of the neck was performed prior to and following the administration of intravenous contrast. Contrast: 7.5 mL of Gadavist were given. Correlation is made to CT from 09/02/2013. A large mass is again seen in the right director toxicology space noted to be both medial and lateral to the right mandibular ramus. There is some erosion of the anterior ramus in greatest dimensions, the mass measures approximately 7.0 cm AP x 4.0 cm transverse x 8 cm in height. Lesion shows heterogeneous enhancement. The lesion erodes into the posterolateral wall of the right maxillary sinus. The lesion has a multiseptated appearance with what appears to represent multiple fibrous bands creating septi within the lesion. Correlation with CT shows that the cortex of the right maxillary sinus appears maintained suggesting that this lesion is slow growing. Additionally, CT suggests expansion of the right mandible suggesting that the lesion may arise from the mandible. No extension into the skull base or along the trigeminal nerve is seen. The mandibular body appears spared. No adenopathy is seen in the neck. Remainder of the neck is unremarkable. Impression: Heterogeneous mass involving the right director toxicology space and mandible. The appearance suggests that the lesion is slow growing. A plexiform neurofibroma is a strong consideration. Schwannoma should also be considered. This does not have the appearance typical appearance of lymphoma. A lymphangioma/hemangioma lesion would be unlikely in a patient of this age. PHYLICIA/yolanda - uploaded from [employer] - us Harpal Hills MD MR ORDERABLES Final R esult documented in this encounter Visit Diagnoses Diagnosis Mass of mandible- Primary Swelling, mass, or lump in head and neck Mass of mandible Swelling, mass, or lump in head and neck documented in this encounter Care Teams Butcher Meat Relationship Specialty Start Date End Date Kaleigh Yao DO [address] [place] [address] PCP - General Family Practice 1/16/14 10/9/19 documented as of this encounter
--- OUTSIDE RECORDS SUMMARY | 2025-05-24 13:07 | XMS_ITS | Clinical Summary ---
Author Organization [facility] Address [address] [place] [address] Care Team Providers Care Field Hauler Name Role Phone Unavailable Primary Care Provider Unavailabl e Allergies No known active allergies Medications artificial tear, hypromellose, 0.5 % solutionIndica tions:dry eye Administer 1 Drop in right eye see administration instructions. 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 Oliguria 09/27/2013 SVT (supraventricular tachycardia) 09/27/2013 Resolved Problems Problem Noted Date Diagnosed [...] drink = 0.6 oz pur e alcohol) Rarely Comments No Sex and Gender Information Value Date Recorded Sex Assigned at Not on file Legal Sex Female 9:54 AM CDT Gender Identity Not on file Sexual Orientation Not on file Occupation Industry Job Start Date Job End Date Not on file Not on file Not on file Not on file Not on file Not on file Not on file Not on file Last Filed Vital Signs Vital Sign Reading Time Taken Comments Blood Pressure 162/78 12/13/2020 2:13 PM NATURAL RESOURCE SPECIALIST Pulse 80 12/13/2020 2:13 PM NATURAL RESOURCE SPECIALIST Temperature 36.4 C (97.6 F) 10/24/2017 2:51 PM NATURAL RESOURCE SPECIALIST Respiratory Rate 16 10/24/2017 4:00 PM NATURAL RESOURCE SPECIALIST Oxygen Saturation 100% 10/24/2017 4:00 PM NATURAL RESOURCE SPECIALIST Inhaled Oxygen Concentration - - Weight 59.9 kg (132 lb) 12/13/2020 2:13 PM NATURAL RESOURCE SPECIALIST Height 170.2 cm (5' 7 ) 12/13/2020 2:13 PM NATURAL RESOURCE SPECIALIST Body Mass Index 20.67 12/13/2020 2:13 PM NATURAL RESOURCE SPECIALIST Plan of Treatment Health Maintenance Due Date [...] series) 2026 Medical Devices Implanted Type Area Crew Mess Attendant Device Identifier Shelf Expiration Date Model / Serial / Lot Tube Vent Sanders Modified-T 1.32x4.80mm [id number] - [id number] Implanted:Qty: 1 on 03/19/2014 by Harpal Hills MD at [facility] Ear Right: Ear G[employer] 11/19/2022 [id number] / / [id number] Weight Gold Eyelid 1.2 Gm Gold-12 - Sna Implanted:Qty: 1 on 12/30/2013 by Harpal Hills MD at [facility] Eye Right: Eyelid [employer] 07/19/2017 GOLD-12 / NA / [id number] Description:upper eyelid Tube Feed Kangaroo 12fr 45in [id number] - [id number] Implanted:Qty: 1 on 09/23/2013 at [facility] Feeding Device COVIDIEN- RUP[employer] [place] [id number] / / [id number] 16 Fr Peter G Tube-10/04/2013 Implanted:10/04 by Ming Davila MD (Quantity not on file) Explanted:(Ezio tity not on file) Feeding Device N/A: Stomach [facility]IDY [facility] 07/04/2016 / / [id number] Dermamatrix Acelluar 4x7cm 98580 - [id number] Implanted:Qty: 1 on 12/08/2015 by Lon Barrgaan MD at [facility] Other Right: Face MUSCULOSKELETAL TRANSPLANT FOU 01/22/2016 [id number] / [id number] / N/A Description:free implant per rep. Plate Adaption Matrixmidface 503.316 - [id number] Implanted:Qty: 1 on 09/23/2013 by Harpal Hills MD at [facility] Plate Right: Mandible SYNTHES-STRATEC- MAXIFACIAL 503.316 / / [id number] Description:pricing per invo ice recd 09/28 Screw Matrixmidface Sd 8mm 503.228 - [id number] Implanted:Qty: 6 on 09/23/2013 by Harpal Hills MD at [facility] Screw Right: Mandible SYNTHES-STRATEC- MAXIFACIAL .503.228. [id number] Sealant Floseal W/ Adptr 10ml [id number] - [id number] Implanted:Qty: 1 on 11/13/2013 by Harpal Hills MD at [facility] Sealant Right: Nose PARNELL- BIOSCIENCE 12/19/2014 [id number] / / [id number] Tube Trach Cuf Lopre Sz 6 6dct - [id number] Implanted:Qty: 1 on 09/23/2013 at [facility] Trach Neck COVIDIEN- MALLINCKRODT CHEM 03/22/2018 6DCT / / [id number] Explanted Type Area Crew Mess Attendant Device Identifier Shelf Expiration Date Model / Serial / Lot Plate Box Matrixmidface 04.503.361 - [id number] Implanted:Qty: 1 on 09/23/2013 by Harpal Hills MD at [facility] Explanted:Qty: 1 on 10/24/2017 by Lon Barragan MD at [facility] Plate Right: Mandible SYNTHES-STRATEC - MAXIFACIAL 04.503.36 1 50 [id number] Screw Matrixmidface Sd 6mm 04503.226 - [id number] Explanted:Qty: 1 at [facility] Screw SYNTHES-STRATEC - MAXIFACIAL 503.22 6.01 / / Screw Matrixmidface Sd 6mm 503.226 - [id number] Implanted:Qty: 2 on 09/23/2013 by Harpal Hills MD at [facility] Explanted:Qty: 2 on 10/24/2017 by Lon Barragan MD at [facility] Screw Right: Mandible SYNTHES-STRATEC - MAXIFACIAL .503.22 6.01 / [id number] Insurance MEDICARE PART A AND B MEDICARE PART A AND B Advance Directives For more information, please contact: [phone] Documents on File Type Date Recorded Patient Stage Electrician Expl anation Advance Directive Living Will 10/23/2017 10:01 AM Advance Directive POA 10/23/2017 10:00 AM * Full Code (Latest Code Status on File) Date Activated Date Inactivated Comments 10/24/2017 1:24 PM 10/24/2017 6:43 PM * Full Code Date Activated Date Inactivated Comments 10/24/2017 1:23 PM 10/24/2017 1:24 PM * Full Code Date Activated Date Inactivated Comments 10/24/2017 1:12 PM 10/24/2017 1:23 PM * Full Code Date Activated Date Inactivated Comments 12/08/2015 12:36 PM 12/08/2015 6:50 PM * Full Code Date Activated Date Inactivated Comments 12/08/2015 10:01 AM 12/08/2015 12:36 PM
--- OUTSIDE RECORDS SUMMARY | 2025-05-24 13:07 | XMS_ITS | Data Portability ---
Author Organization [facility] [facility] Address [address] [place] [address] Care Team Providers Care Genetic Scientist Name Role Phone EVELINA BROWN Primary Care Provider Assessment No assessment recorded. Plan of Treatment Reminders Order Date Submit Date Provider Last Modified By Organization Details Last Modified Time Details Appointments None record ed. Lab None record ed. Referral None record ed. Procedures None record ed. Surgeries None record ed. Imaging None record ed. Medication Orders None record ed. Patient TargetsNo targets recorded. Patient Instructions Encounter Date Encounter Id Patient Instructions Last Modified By Organization Details Last Modified Time 06/18/2019 [id number] controlling your asthma: care instructions [email or web address] Not available 06/20/2019 22:31:25 learning about asthma vsalloum Not available 06/20/2019 22:31:25 Reason for Referral None Reported. Results Created Date Observation Date Name Description Value Unit Range Abnormal Flag Note LastModifiedBy Organization Detail LastModifiedTime 06/16/20 19 06/15/2019 CT, chest , w/ contr ast No observ ation record ed. [facility] [address] [place], [address], 06/18/2019 13:15:44 12/17/19 20 12/17/2019 CT, chest , w/ contr ast No observ ation record ed. [facility] [address] [place], [address], 01/05/2020 18:01:20 Result Notes None recorded. Problems Name Problem SNOMED Code Status Onset Date Resolution Date Notes Provider Name and Address Organization Details Recorded Time Hypertensive disorder 26056401 Active 2018 Nika freed [facility] 9 12:04:09 Problem Notes None recorded. Procedures Surgical History Date Name Laterality Status Provider Name and Address Organization Details Recorded Time 11/18/18 91 Carpal Tunnel Surgery completed Dustin Lara [place] [facility] 05/22/2019 22:17:30 Tonsillectomy completed Dustin [facility] 05/22/2019 22:17:17 Imaging Results None recorded. Procedure Notes None recorded. Medical Equipment None Reported. Allergies No known drug allergies Medications Name Sig Start Date Stop Date Status Note LastModified by Organization Details LastModified Time albuterol sulfate 2.5 mg/3 mL (0.083 %) solution for nebulization Inhale 3 mL every 6 hours by nebulizatio n route as needed for 30 days. 2018 active Not Available Not Available Not Avai lable hydrochlorot hiazide 25 mg tablet Take 1 tablet every day by oral route. active Not Available Not Available No t Available lisinopril 40 mg tablet Take 1 tablet every day by oral route. active Not Available Not Available No t Available Vitals Date Recorded Body height Body mass index (BMI) Body weight Respiratory rate Oxygen saturation Oxygen saturation in Arterial blood by Pulse oximetry Heart rate Systolic And Diastolic Provider Name and Address Organization Details Last Updated DateTime 0 162.56 cm 21.8 kg/m2 42092.2 3 g 16 /min 98 % 98 % 62 /min 154/89 mm[Hg] Margarita Osman [facility] 0 11:31:42 Date Recorded Body height Body mass index (BMI) Body weight Oxygen saturation Oxygen saturation in Arterial blood by Pulse oximetry Heart rate Systolic And Diastolic Provider Name and Address Organization Details Last Updated DateTime 9 162.56 cm 21.5 kg/m2 44812.0 5 g 100 % 100 % 64 /min 138/82 mm[Hg] Sharmila Womack [facility] [facility] 9 15:55:38 Date Recorded Oxygen saturation Oxygen saturation in Arterial blood by Pulse oximetry Oxygen saturation Oxygen saturation in Arterial blood by Pulse oximetry Oxygen saturation Oxygen saturation in Arterial blood by Pulse oximetry Provider Name and Address Organization Details Last Updated DateTime 9 99 % 99 % 93 % 93 % 99 % 99 % Dustin [facility] - [facility] 9 17:33:28 Date Recorded Body height Body mass index (BMI) Body weight Oxygen saturation Oxygen saturation in Arterial blood by Pulse oximetry Heart rate Systolic And Diastolic Provider Name and Address Organization Details Last Updated DateTime 9 162.56 cm 21.6 kg/m2 34224.5 6 g 98 % 98 % 56 /min 115/76 mm[Hg] Nika [facility] - [facility] 9 12:04:20 Social History Question Answer Notes LastModified by Organizat ion Details LastModified Time Tobacco Smoking Status Never Smoker [facility] - [facility] [place] 05/22/2019 22:17:38 What Was The Date Of Your Most Recent Tobacco Screening? 01/22/2020 [email or web address] Information not available 01/22/2020 Sex: Unknown Functional Status Question Answer Note LastModified by Organization D etails LastModified Time Are you currently employed? No Information not available 06/18/2019 What is your occupation? Retired Information not available 06/18/2019 Mental Status None recorded. Family History Relationship Description Onset Age of this Age Resolved Age Notes LastModified by Organization Details LastModified Time Mother Essential hypertension bestanya Not available 03/2019 22:18:16 Mother Arthritis rheuma toid bestanya Not available 05/22/2019 22:18:36 Father Essential hypertension bestanya Not available 03/2019 22:18:47 Father Heart disease bestanya Not available 2018 22:18:58 Paternal Grandfather Heart disease bestanya Not available 2018 22:19:17 Notes:Stroke-mother and fath er Medical History Condition Response Hypertension Y Gynecological HistoryNo gynecological history recorded. Obstetrics History GPAL:G 0 P 0 0 0 0 Immunizations Vaccine Type Date Status Note Provider Nam e and Address Organization Details Recorded Time Influenza, split virus, quadrivalent, preservative 8 completed [facility] - [facility] [place] 05/22/2019 22:19:41 Pneumococcal conjugate PCV 13 10/17/201 8 completed [facility] 05/22/2019 22:20:01 Past Encounters Encounter ID Performer Location Encounter Start Date Encounter Closed Date Diagnosis/Indication Diagnosis SNOMED-CT Code Diagnosis ICD10 Code Diagnosis Note [id number] Billy Piedra MD [facility] [address] [place] [phone] 06/01/2019 15:48:12 06/01/2019 17:12:48 Dyspnea on exertion 49781459 R06.09 This started 4 to 5 months ago. Cardiac evaluation was done and was unremarkab le. Spirometry was attempted at Dr. Brown's office. This was unsuccessf ul due to her prior jaw surgery. Chest x-ray from March 25 was reviewed. This was significan t for hyperinfla donnell lung field, blunting of the right costophren ic angle and pleural thickening . Her oxygen saturation was 100% today. Check exercise oximetry. Her dyspnea is of unclear etiology. Check CT of the chest. Cannot rule out increased stress as a contributi ng factor to her dyspnea. I will see her back after CT chest is completed. Abnormal f indings on diagnostic imaging of lung 608811419 R91.8 Chest x-ray from March 25 was reviewed. This was significan t for blunting of the right costophren ic angle and pleural thickening . Findings are of unclear etiology. Schedule CT of the chest. Essential hypertension 02855162 I10 She is taking lisinopril and hydrochlor othiazide. Her blood pressure is well controlled [id number] Billy Piedra MD [facility] [address] [place] [id number] 06/18/2019 11:56:47 06/18/2019 12:27:10 Dyspnea on exertion 59226119 R06.09 This started 4 to 5 months ago. Cardiac evaluation was done and was unremarkab le. Spirometry was attempted at Dr. Brown's office. This was unsuccessf ul due to her prior jaw surgery. Chest x-ray from March 25 was significan t for hyperinfla donnell lung field, blunting of the right costophren ic angle and pleural thickening . Her oxygen saturation was 98% today. Her dyspnea is of unclear etiology. Cannot rule out deconditio vernon, cannot rule out underlying reactive airway disease/as thma. I will order a nebulizer with albuterol breathing treatment. Daily exercises were recommende d Essential hypertension 49393245 I10 She is taking lisinopril and hydrochlor othiazide. Her blood pressure is well controlled Multiple n odules of lung 449384566 R91.8 CT chest from May 2019 was reviewed. This showed a 6 mm solid nodule in the left costophren ic angle with additional scattered 2 to 3 mm nodules in both upper lobes. The patient has a history of secondhand smoking. I will schedule a repeat CT chest in 6 months. Asthma 466811952 J45.90 9 order a nebulizer with albuterol breathing treatment. [id number] MIHIR Montemayor [facility] [address] [place] [address] 01/22/2020 11:17:13 01/22/2020 12:16:08 Dyspnea on exertion 62412622 R06.09 Spirometry was attempted in the past but was unsuccessf ul due to her prior jaw surgery. Chest x-ray from March 25 was significan t for hyperinfla donnell lung field, blunting of the right costophren ic angle and pleural thickening . Her oxygen saturation was 98% today. Cannot rule out deconditio vernon, cannot rule out underlying reactive airway disease/as thma. She did find benefit in using albuterol nebulizer medication . She is doing relatively well and has not needed the albuterol in several months. Essential hypertension 44112412 I10 She is taking lisinopril and hydrochlor othiazide. Her blood pressure is well controlled Multiple n odules of lung 229864782 R91.8 CT chest from May 2019 was reviewed. This showed a 6 mm solid nodule in the left costophren ic angle with additional scattered 2 to 3 mm nodules in both upper lobes. Repeat CT of the chest on December 17, 2019 shows stable pulmonary nodules many of which represent calcified granulomas and are benign. Consider additional follow-up CT at 18 to 24 months. No acute abnormalit y of the chest. I reviewed the results with the patient's today. The patient has a history of secondhand smoking. Asthma 723041320 J45.90 9 Continue as needed albuterol breathing treatment. Health Concerns Section Related Observation LastModified by Organization Fely ls LastModified Time None Recorded Concern Status LastModified by Organization Details LastModified Time None Recorded Advance Directives Directive None Recorded Payers Insurance Date Sequence Insurance Name Policy Number Policy Hayes Covered Member ID Hayes Member ID Guarantor Name 01/19/2020 1 [place] Mary Izquierdo [id number] Mary Izquierdo Notes Date Note Type Note Provider Name and Address Organization Details Recorded Time 06/01/2019 text/html Mrs. Izquierdo is a 68-year-old female patient with a past medical history significant for essential hypertension, history of ameloblastoma status post jaw surgery. Mrs. Izquierdo has no known history of pulmonary disease. While she never smoked, she has a history of secondhand smoking. Mrs. Izquierdo is here today for evaluation of her shortness of breath. Her shortness of breath started 4 to 5 months ago. It had no particular trigger. She has shortness of breath walking up the stairs. She also has trouble getting air in. Cardiac evaluation was done and was unremarkable. Her shortness of breath is worse in hot, humid weather. This is not associated to chronic cough, chest pain, wheezing, hemoptysis, orthopnea or swelling in her lower extremities. She has a prior history of DVT and PE in 2012. This occurred in a postoperative setting. She was prescribed an albuterol rescue inhaler. She was not able to afford it. Spirometry was attempted at Dr. Rivera's office. Due to her Jaw surgery, she was not able to perform the test. Mrs. Izquierdo has been under some increased stress at home lately. Chest x-ray from March 25 was significant for blunting of the right costophrenic angle and pleural thickening. [facility] 06/01/2019 17:33:31 06/18/2019 text/html Mrs. Izquierdo is a 69-year-old female patient with a past medical history significant for essential hypertension, history of ameloblastoma status post jaw surgery. Mrs. Izquierdo has no known history of pulmonary disease. While she never smoked, she has a history of secondhand smoking. I recently saw Mrs. Izquierdo for evaluation of her shortness of breath. Her shortness of breath started 4 to 5 months ago. It had no particular trigger. She has shortness of breath walking up the stairs and in hot weather. She also has trouble getting air in. Cardiac evaluation was done and was unremarkable. This is not associated to chronic cough, chest pain, wheezing, hemoptysis, orthopnea or swelling in her lower extremities. She has a prior history of DVT and PE in 2012. This occurred in a postoperative setting. She was prescribed an albuterol rescue inhaler. She was not able to afford it. Spirometry was attempted at Dr. Rivera's office. Due to her Jaw surgery, she was not able to perform the test. Mrs. Izquierdo has been under some increased stress at home lately. Chest x-ray from March 25 was significant for blunting of the right costophrenic angle and pleural thickening. CT chest was done Billy Piedra MD [address], [place], [address], [facility] - [facility] [place] 06/20/2019 22:31:29 01/22/2020 text/html Mrs. Izquierdo is a 69-year-old female patient with a past medical history significant for essential hypertension, history of ameloblastoma status post jaw surgery. Mrs. Izquierdo has no known history of pulmonary disease. While she never smoked, she has a history of secondhand smoking.. She has a prior history of DVT and PE in 2012 that occurred in a postoperative setting. She was prescribed an albuterol rescue inhaler. She was not able to afford it. Spirometry was attempted at Dr. Rivera's office. Due to her Jaw surgery, she was not able to perform the test. Chest x-ray from March 25 was significant for blunting of the right costophrenic angle and pleural thickening. CT chest was done showed a 6 mm solid nodule in the left costophrenic angle with additional scattered 2 to 3 mm nodules in both upper lobes. She had a repeat CT scan in November that revealed stable pulmonary nodules many of which represent calcified granulomas and are benign. No acute abnormality of the chest. At her last office visit she was prescribed a nebulizer with albuterol breathing treatments. She is here today for follow-up. She denies cough. She denies hemoptysis. She denies dyspnea at rest. She has some dyspnea with over exertion. She denies wheezing. She denies paroxysmal nocturnal dyspnea or orthopnea. She denies nasal congestion. She denies nocturnal symptoms. She denies chest pain or tightness. She denies fever or chills. She has not used the albuterol nebulizer medication for the past several months. Although when she does need it she finds it beneficial when she has shortness of breath. She denies new health issues, hospitalizations, or surgeries since her last office visit. [facility] 01/22/2020 12:14:01 OBGyn Episode No OBEpisode recorded.
--- NOTE | 2025-05-24 13:13 | XRR_ITS ---
PROCEDURE INFORMATION: Exam: XR Chest Exam date and time: 05/24/2025 1:31 PM Age: 74 years old Clinical indication: Cough and dyspnea; Fast heart rate; Additional info: Dyspnea/cough TECHNIQUE: Imaging protocol: Radiologic exam of the chest. Views: 1 view. COMPARISON: CR XR chest 1V portable [id number] 11/02/2024 9:24 AM FINDINGS: Tubes, catheters and devices: Overlying monitor leads. Postsurgical clips right neck. Lungs: Suggestion of hyperinflated lungs, as noted with prior exam. Minimal scarring. No infiltrate or consolidation. Pleural spaces: No significant pleural effusion. No pneumothorax. Heart/Mediastinum: Unremarkable. No cardiomegaly. Vasculature: Arteriosclerosis thoracic aorta. Bones/joints: Visualized osseous structures show no acute abnormality. Other findings: No significant change with prior exam. XR/XR chest 1V portable [id number] IMPRESSION: Suggestion of hyperinflated lungs, as noted with prior exam. No acute findings or significant change with prior exam.
--- NOTE | 2025-05-24 13:23 | W.ED.ARRPALP ---
HPI - Arrhythmia/Palpitations General: Chief Complaint: Arrhythmia/Palpitations Stated Complaint: fast hr, dizzy Time Seen by Provider: 05/24/25 13:13 History of Present Illness: 74-year-old female presents emergency room complaining of rapid heart rate for the last 2 days she been dizzy lightheaded shortness of breath with exertion she denies any chest pain. Patient has known history of atrial fibrillation and is on metoprolol for that she has taken all of her medications. She also on apixaban. Related Data Home Medications ?Medication ?Instructions ?Recorded ?Confirmed ascorbic acid (vitamin C) 500 mg 500 mg PO DAILY PRN when remembers 02/14/24 06/02/25 tablet (Vitamin C) Previous Rx's ?Medication ?Instructions ?Recorded apixaban 5 mg tablet (Eliquis) 5 mg PO BID #30 tabs 05/20/24 atorvastatin 40 mg tablet 40 mg PO BEDTIME #90 tabs 05/20/24 albuterol sulfate 90 mcg/actuation 1 inh inhalation QID PRN shortness 02/22/25 aerosol inhaler of breath or wheezing #8.5 grams aspirin 81 mg tablet,delayed 81 mg PO DAILY #30 tabs 06/01/25 release pantoprazole 40 mg tablet,delayed 40 mg PO DAILY #30 tabs 06/01/25 release amiodarone 200 mg tablet (Pacerone) 400 mg (2 x 200 mg) PO DAILY #180 06/02/25 tabs metoprolol tartrate 25 mg tablet 12.5 mg (1/2 x 25 mg) PO 06/02/25 BID@0900,2100 #45 tabs Allergies Allergy/AdvReac Type Severity Reaction Status Date / Time No Known Allergies Allergy Verified 06/02/25 16:12 Review of Systems Const: Denies: fever(s) or chills Card: Reports: palpitations, irregular heart rhythm and dyspnea on exertion; Denies: chest pain or swelling of feet/ankles Resp: Denies: dyspnea GI: Denies: abdominal pain : Denies: dysuria, urinary frequency or urinary urgency Musc: Denies: neck pain or back pain Skin/Breast: Denies: rash PFSH ED PFSH: Medical History Pulmonary hypertension History of echocardiogram 10/2024 EF68%, Mild MR, Mild AR, Trace TR, severe LAE, mild LORNE, normal RA, estimated PAP 40mmHg Difficult airway for intubation related to prior head and neck surgery 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 is yellowish in color due to muscle used in reconstruction Mild pulmonary hypertension with mild AR, mild MR History of pulmonary embolism 2012, post-operative from surgery for mandibular neoplasm and immobility related to surgery, had DVT as well Oropharyngeal dysphagia chronic, 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 from prior extensive right mandibular 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, primary difficulty is for water/thin liquids Essential hypertension Mixed dyslipidemia Longstanding persistent atrial fibrillation 1st identified in 01/2022, on eliquis and metoprolol Transient cerebral ischemia CVA (cerebral vascular accident) 01/2022 mild right hemiparesis and dysarthria Surgical History History of neck dissection related to mandibular neoplasm History of carpal tunnel surgery History of mandibular 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), treated with surgical removal, 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, muscle from left thigh used in reconstruction, multiple surgeries starting in 2012 History of tonsillectomy Family History Sister CAD (coronary artery disease) Other Cancer Social History Smoking and tobacco/nicotine status: never used tobacco/nicotine Alcohol intake: never Female Reproductive History: Spontaneous abortions: No Physical Exam Const: GENERAL APPEARANCE: cooperative ORIENTATION/CONSCIOUSNESS: Yes awake, Yes oriented to person, Yes oriented to place and Yes oriented to time HENMT: COMMON NORMALS: normocephalic, atraumatic and hearing grossly normal bilaterally HEAD & SCALP: normocephalic and atraumatic Resp: COMMON NORMALS: normal respiratory effort, No retractions, No use of accessory muscles and clear to auscultation bilaterally AUSCULTATION: clear to auscultation bilaterally Cardio: COMMON NORMALS: No murmurs present (Cardio) RATE: tachycardic RHYTHM: abnormal rhythm irregularly irregular GI: COMMON NORMALS: Soft to palpation and No hepatosplenomegaly present AUSCULTATION: Yes normoactive bowel sounds PALPATION: Yes Soft to palpation, No Tenderness to palpation present (GI), No Guarding due to palpation present (GI) and Yes No hepatosplenomegaly present Extremity: COMMON NORMALS: normal to inspection, capillary refill normal, no clubbing, cyanosis or edema, no calf tenderness and no pedal edema Neuro: SENSORIUM/ORIENTATION: Yes oriented to person, Yes oriented to place and Yes oriented to time Skin: COMMON NORMALS: no rashes or lesions noted GENERAL SKIN EXAM: no rashes or lesions noted Course Vital Signs: Vital signs: Vital Signs Temperature 97.7 F 05/25/25 11:55 Pulse Rate 62 05/25/25 14:11 Respiratory Rate 18 05/25/25 14:11 Blood Pressure 151/72 05/25/25 14:11 Pulse Oximetry 100 05/25/25 14:11 Oxygen Delivery Me thod Room Air 05/24/25 19:38 MDM - Arrhythmia/Palpitations Medical Decision Making Presents in A-fib with RVR. She is currently on anticoagulation. Started on diltiazem. Discussed with hospitalist orders written for admission Medical Records I reviewed the patient's medical records. Lab Data I reviewed the patient's lab results. 05/24/25 13:18 05/25/25 02:07 Radiology Impressions Chest X-Ray 05/24/25 13:13 IMPRESSION: Suggestion of hyperinflated lungs, as noted with prior exam. No acute findings or significant change with prior exam. Laboratory Results WBC 6.46 10^3/uL (3.29-11.43) 05/24/25 13:18 RBC 4.96 10^6/uL (3.85-5.65) 05/24/25 13:18 Hgb 13.80 g/dL (11.27-16.99) 05/24/25 13:18 Hct 44.1 % (36-47) 05/24/25 13:18 MCV 88.9 fl (85-98) 05/24/25 13:18 MCH 27.8 pg (27-33) 05/24/25 13:18 MCHC 31.3 g/dL (30-55) 05/24/25 13:18 RDW 14.6 % (12.1-15.1) 05/24/25 13:18 Plt Count 208 10^3/cmm (157-399) 05/24/25 13:18 MPV 10.6 fL (7.4-10.4) H 05/24/25 13:18 Neut % (Auto) 54.3 % 05/24/25 13:18 Lymph % (Auto) 30.7 % 05/24/25 13:18 [place] % (Auto) 12.8 % 05/24/25 13:18 Eos % (Auto) 1.5 % 05/24/25 13:18 Baso % (Auto) 0.5 % 05/24/25 13:18 Neut # (Auto) 3.51 10^3/uL (1.8-7.7) 05/24/25 13:18 Lymph # (Auto) 2.0 10^3/uL (0.8-4.8) 05/24/25 13:18 [place] # (Auto) 0.8 10^3/uL (0.2-0.9) 05/24/25 13:18 Eos # (Auto) 0.1 10^3/uL (0.0-0.8) 05/24/25 13:18 Baso # (Auto) 0.0 10^3/uL (0.0-0.1) 05/24/25 13:18 Nucleated RBC % (auto) 0 % 05/24/25 13:18 Nucleated RBCs # 0.0 /100WBC 05/24/25 13:18 Sodium 141 mmol/L (136-145) 05/24/25 13:18 Potassium 4.3 mmol/L (3.5-5.1) 05/24/25 13:18 Chloride 106 mmol/L (98-107) 05/24/25 13:18 Carbon Dioxide 25 mmol/L (22-29) 05/24/25 13:18 Anion Gap 14.3 (5-19) 05/24/25 13:18 BUN 17 mg/dL (8-23) 05/24/25 13:18 Creatinine 0.9 mg/dL (0.5-0.9) 05/24/25 13:18 GFR Calculation Not Reportable 05/24/25 13:18 Glucose 97 mg/dL (65-115) 05/24/25 13:18 Calculated Osmolality 293 mOsm/kg (285-295) 05/24/25 13:18 Calcium 9.4 mg/dL (8.5-10.5) 05/24/25 13:18 Total Bilirubin 1.1 mg/dL (0.15-1.2) 05/24/25 13:18 AST 26 U/L (0-32) 05/24/25 13:18 ALT 15 U/L (0-33) 05/24/25 13:18 Alkaline Phosphatase 116 U/L (35-105) H 05/24/25 13:18 Total Protein 7.7 g/dL (6.6-8.7) 05/24/25 13:18 Albumin 3.9 g/dL (3.5-5.2) 05/24/25 13:18 Globulin 3.8 g/dL (1.3-4.6) 05/24/25 13:18 Lipase 22 U/L (13-60) 05/24/25 13:18 All radiology interpretation(s) finalized by discharge Discharge Plan Discharge Patient Disposition: Admitted As Inpatient Admit Provider: Debra Beckett Clinical Impression: Atrial fibrillation with rapid ventricular response, Essential hypertension, Elevated liver enzymes, Chronic anticoagulation, History of mandibular surgery, History of benign ameloblastoma of mandible Condition: Stable Discharge Diet: Usual diet Discharge Activity: Resume usual activity Coding Level of Care Code ED German Tutor for Remi Paredes
[2025-05-24 13:27] LABS: Hematocrit 44.1 % (36-47); Hemoglobin 13.80 g/dL (11.27-16.99); Mean Corpuscular HGB Conc 31.3 g/dL (30-55); Mean Corpuscular Hemoglobin 27.8 pg (27-33); Mean Corpuscular Volume 88.9 fl (85-98); Nucleated Red Blood Cells % 0 %; Platelet Count 208 10^3/cmm (157-399); Red Blood Count 4.96 10^6/uL (3.85-5.65); White Blood Count 6.46 10^3/uL (3.29-11.43)
[2025-05-24] MEDS: dilTIAZem 5 mg/mL SDV 5 mL 20 MG IVP (13:27)
--- NOTE | 2025-05-24 13:39 | ECG_ITS ---
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 Measurements Intervals [place] Rate: 43 P: 88 GA: 165 QRS: 50 QRSD: 90 T: 48 QT: 427 QTc: 362 Interpretive Statements SINUS BRADYCARDIA POSSIBLE RIGHT VENTRICULAR CONDUCTION DELAY [RSR (QR) IN V1/V2] Compared to ECG 11/02/2024 15:13:03 Sinus rhythm no longer present First degree AV block no longer present ST (T wave) deviation no longer present Electronically Signed On 05-25-2025 08:37:45 CDT by Kurt Jimenes M.D. [email or web address]
[2025-05-24 13:44] LABS: Alanine Aminotransferase 15 U/L (0-33); Albumin Level 3.9 g/dL (3.5-5.2); Alkaline Phosphatase 116 U/L (35-105); Anion Gap 14.3 (5-19); Aspartate Amino Transferase 26 U/L (0-32); Blood Urea Nitrogen 17 mg/dL (8-23); Calcium 9.4 mg/dL (8.5-10.5); Carbon Dioxide 25 mmol/L (22-29); Chloride 106 mmol/L (98-107); Creatinine Clr Calc Pharmacy 51.9655; Globulin 3.8 g/dL (1.3-4.6); Glucose 97 mg/dL (65-115); Lipase 22 U/L (13-60); Osmolality Calculated 293 mOsm/kg (285-295); Potassium 4.3 mmol/L (3.5-5.1); Sodium 141 mmol/L (136-145); Total Protein 7.7 g/dL (6.6-8.7)
--- NOTE | 2025-05-24 14:25 | P.HP_ITS ---
Providers/Chief Complaint 2 Admitting Physician: Debra Beckett MD Primary Care Provider: Murali Ryan DO Chief Complaint: fast hr, dizzy History of Present Illness Mary Izquierdo is a 74 year old female who presented after noticing rapid heart rates beginning last night. She took a nap yesterday afternoon/evening, awakening around 9 p.m. She noted her heart rate was 175 bpm and proceeded to take her scheduled metoprolol tartrate 25 mg. She later went back to sleep and this morning, upon awakening at 5 a.m. noted her heart rate was still elevated, so took her morning dose of metoprolol early. She was having palpitations and a little bit of dizziness with persistent tachycardia so, per animal humane agent supervisor instructions, she self-administered an extra 25 mg metoprolol about an hour and a half later. Heart rates briefly declined but continued to fluctuate quite a bit along with variable blood pressures, prompting ED visit. On arrival in the ER her heart rate was noted to be in the 170s. She received one 20 mg push dose of IV Cardizem with resolution of tachycardia though noted to have bradycardia with heart rates into the 40s and 50s. When her heart rate was up she reported episodes of forceful heartbeat as noted but denies any chest pain. She experiences intermittent shortness of breath/tightness, often when blood pressure is low. She has chronic sinus drainage from the right side and a related cough. Additionally she has chronic dysphagia and dehydration risk due to vocal-cord paralysis and esophageal narrowing from prior extensive head neck surgery involving the right mandible in 2012. Ms. Leblanc reports water is hardest to swallow, requiring multiple swallows or use of a straw. She does better with milk or carbonated beverages. She notes some persistent balance issues since a stroke in 2021. She mows her yard and was outside for holiday activities but took breaks when she felt like she needed to. No fever, recent infection, or bleeding reported. She does have a history of paroxysmal atrial fibrillation originally diagnosed in 2021. She has on chronic anticoagulation in addition to beta-blockade and follows with Dr. Buckner regularly. Last hospitalization for atrial fibrillation was in October 2024 when beta-blockade dosing was changed from 12.5 mg daily of metoprolol succinate to 25 mg twice daily of metoprolol tartrate. She had been doing well on this dosing regimen until today. Review of Systems 2 General: Reports: Other (ROS as per HPI or as otherwise noted here) Const: Denies: fever(s) ENMT: Reports: nasal discharge and post nasal drip Card: Reports: palpitations, lightheadedness and dyspnea on exertion; Denies: chest pain Resp: Reports: productive cough and non-productive cough; Denies: wheezing, stridor, pain on inspiration or hemoptysis GI: Reports: dysphagia; Denies: change in bowel habits or hematochezia : Denies: difficulty voiding Musc: Denies: joint pain Skin/Breast: Reports: other (Has removed 2 ticks this summer); Denies: rash Neuro: Reports: difficulty walking and dizziness; Denies: frequent falls Placido/Lymph: Denies: easy bleeding Medications/Allergies Home Medications ?Medication ?Instructions ?Recorded ?Confirmed ?Last Taken ?Type ascorbic acid (vitamin C) 500 mg 500 mg PO DAILY PRN w hen remembers 02/14/24 05/24/25 11/01/24 History tablet (Vitamin C) apixaban 5 mg tablet (Eliquis) 5 mg PO BID #30 tabs 05/24/25 05/24/25 Rx atorvastatin 40 mg tablet 40 mg PO BEDTIME #90 tabs 05/24/25 05/23/25 Rx metoprolol tartrate 25 mg tablet 25 mg PO BID@0900,210 0 #60 tabs 11/09/24 05/24/25 05/24/25 Rx albuterol sulfate 90 mcg/actuation 1 inh inhalation QI D PRN shortness 02/22/25 05/24/25 Unknown Rx aerosol inhaler of breath or wheezing #8.5 g julius Allergies Allergy/AdvReac Type Severity Reaction Status Date / Time No Known Allergies Allergy Verified 05/24/25 13:11 PFSH Acute 2 PFSH: Medical History (Updated 05/24/25 @ 19:59 by Debra Beckett MD) Pulmonary hypertension History of echocardiogram 10/2024 EF68%, Mild MR, Mild AR, Trace TR, severe LAE, mild LORNE, normal RA, estimated PAP 40mmHg Difficult airway for intubation related to prior head and neck surgery 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 is yellowish in color due to muscle used in reconstruction Mild pulmonary hypertension with mild AR, mild MR History of pulmonary embolism 2012, post-operative from surgery for mandibular neoplasm and immobility related to surgery, had DVT as well Dysphagia chronic, 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 from prior extensive right mandibular 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, primary difficulty is for water/thin liquids Essential hypertension Mixed dyslipidemia Atrial fibrillation 1st identified in 01/2022, on eliquis and metoprolol Transient cerebral ischemia CVA (cerebral vascular accident) 01/2022 mild right hemiparesis and dysarthria Surgical History (Updated 05/24/25 @ 15:27 by Debra Beckett MD) History of neck dissection related to mandibular neoplasm History of carpal tunnel surgery History of mandibular 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), treated with surgical removal, 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, muscle from left thigh used in reconstruction, multiple surgeries starting in 2012 History of tonsillectomy Family History (Updated 05/24/25 @ 20:18 by Debra Beckett MD) Sister CAD (coronary artery disease) Other Cancer Social History Smoking and tobacco/nicotine status: never used tobacco/nicotine Alcohol intake: never Female Reproductive History: Spontaneous abortions: No Vitals/I&O/Wt Last Vital Signs Temp 97.3 F L 05/24/25 13:01 Pulse 45 L 05/24/25 14:19 BP 102/60 05/24/25 14:19 Pulse Ox 98 05/24/25 14:19 O2 Del Method Room Air 05/24/25 14:19 Weight last 48 hrs Weight 65.771 kg Physical Exam 2 Narrative: Patient is awake and alert. Able to provide history. She has chronic face and neck changes related to extensive surgery on the right mandibular area and right neck. Normocephalic otherwise. Extraocular movements are intact. Oropharynx with dry mucous membranes. The right cheek area is yellowish in color related to reconstruction. Lungs are clear without any rales rhonchi or wheezes noted. No upper airway noises appreciated. Cardiovascular exam currently reveals a regular bradycardic rhythm in the 40s. No murmurs or rubs. Abdomen is soft, nontender with positive bowel sounds. No pitting edema. Handgrip is equal bilaterally. Gait not currently assessed. Data 05/24/25 13:18 05/24/25 13:18 Other Labs: Radiology Impressions Chest X-Ray 05/24/25 13:13 IMPRESSION: Suggestion of hyperinflated lungs, as noted with prior exam. No acute findings or significant change with prior exam. Laboratory Results WBC 6.46 10^3/uL (3.29-11.43) 05/24/25 13:18 RBC 4.96 10^6/uL (3.85-5.65) 05/24/25 13:18 Hgb 13.80 g/dL (11.27-16.99) 05/24/25 13:18 Hct 44.1 % (36-47) 05/24/25 13:18 MCV 88.9 fl (85-98) 05/24/25 13:18 MCH 27.8 pg (27-33) 05/24/25 13:18 MCHC 31.3 g/dL (30-55) 05/24/25 13:18 RDW 14.6 % (12.1-15.1) 05/24/25 13:18 Plt Count 208 10^3/cmm (157-399) 05/24/25 13:18 MPV 10.6 fL (7.4-10.4) H 05/24/25 13:18 Neut % (Auto) 54.3 % 05/24/25 13:18 Lymph % (Auto) 30.7 % 05/24/25 13:18 [place] % (Auto) 12.8 % 05/24/25 13:18 Eos % (Auto) 1.5 % 05/24/25 13:18 Baso % (Auto) 0.5 % 05/24/25 13:18 Neut # (Auto) 3.51 10^3/uL (1.8-7.7) 05/24/25 13:18 Lymph # (Auto) 2.0 10^3/uL (0.8-4.8) 05/24/25 13:18 [place] # (Auto) 0.8 10^3/uL (0.2-0.9) 05/24/25 13:18 Eos # (Auto) 0.1 10^3/uL (0.0-0.8) 05/24/25 13:18 Baso # (Auto) 0.0 10^3/uL (0.0-0.1) 05/24/25 13:18 Nucleated RBC % (auto) 0 % 05/24/25 13:18 Nucleated RBCs # 0.0 /100WBC 05/24/25 13:18 Sodium 141 mmol/L (136-145) 05/24/25 13:18 Potassium 4.3 mmol/L (3.5-5.1) 05/24/25 13:18 Chloride 106 mmol/L (98-107) 05/24/25 13:18 Carbon Dioxide 25 mmol/L (22-29) 05/24/25 13:18 Anion Gap 14.3 (5-19) 05/24/25 13:18 BUN 17 mg/dL (8-23) 05/24/25 13:18 Creatinine 0.9 mg/dL (0.5-0.9) 05/24/25 13:18 GFR Calculation Not Reportable 05/24/25 13:18 Glucose 97 mg/dL (65-115) 05/24/25 13:18 Calculated Osmolality 293 mOsm/kg (285-295) 05/24/25 13:18 Calcium 9.4 mg/dL (8.5-10.5) 05/24/25 13:18 Total Bilirubin 1.1 mg/dL (0.15-1.2) 05/24/25 13:18 AST 26 U/L (0-32) 05/24/25 13:18 ALT 15 U/L (0-33) 05/24/25 13:18 Alkaline Phosphatase 116 U/L (35-105) H 05/24/25 13:18 Total Protein 7.7 g/dL (6.6-8.7) 05/24/25 13:18 Albumin 3.9 g/dL (3.5-5.2) 05/24/25 13:18 Globulin 3.8 g/dL (1.3-4.6) 05/24/25 13:18 Lipase 22 U/L (13-60) 05/24/25 13:18 Other data: PRIOR Laboratory Tests 11/03/24 03:40 Triglycerides 49 Cholesterol 115 HDL Cholesterol 42 L 11/02/24 10:50 TSH 2.22 A&P Assessment and plan (1) Atrial fibrillation with rapid ventricular response: Recurrent symptomatic AFib with HR up to 175 bpm last night, only minimally responsive to extra metoprolol taken at home but after Cardizem administered in the emergency room has developed bradycardia, though not currently symptomatic bradycardia. Not known to have tachybrady syndrome. Initial episode of atrial fibrillation identified in 2021. Had a 3-day event monitor in fall 2023 but no other cardiac testing beyond echo that I have discerned or determined from history. Has a sister who has had intervention (stents) for coronary artery disease. Has a remote history of DVT and PE but has been on full anticoagulation with Eliquis because of her history of atrial fibrillation. Has dyspnea at times and has used an inhaler rarely. Has chronic nasal/sinus drainage on the right side and both vocal cord paralysis and esophageal issues that could be contributing factors to shortness of breath. - Admit to telemetry overnight for continuous rhythm and rate monitoring - Will hydrate - Continue home oral metoprolol 25 mg BID if blood pressure and heart rate will allow; parameters for holding provided - Continue Eliquis for stroke prophylaxis - Will do limited echo to discern if any changes in ejection fraction from prior and check cardiac enzymes - Had lipid panel with low HDL checked and TSH that was normal in October 2024 when hospitalized with similar presentation - Consult/touch base with Dr. Buckner (her animal humane agent supervisor); she has follow-up with him already scheduled 16 of this month - No medication changes planned at this time unless recurrent RVR, symptomatic bradycardia or other findings identified that would warrant such (2) Dysphagia: Dysphagia secondary to postoperative oropharyngeal structural changes and vocal cord paralysis . Has chronic difficulty swallowing water and some solids; risk of dehydration and aspiration and known difficult intubation. She describes her swallowing being easier in the morning than in the afternoon though other neurological changes do not follow the same pattern. I do wonder if dysphagia and potential silent aspiration are not contributors to development of A-fib with RVR. - Speech therapy evaluation while inpatient for swallowing evaluation - Will provide a soft mechanical diet and try slightly thickened liquids along with straw for all beverages unless otherwise directed by speech therapy - Problem list updated to include known difficult intubation - Briefly reviewed aspiration precautions and hydration strategies with patient - Follows in [place] for her postoperative changes related to ameloblastoma of the mandible. May benefit from consideration for EGD with esophageal dilatation which she plans to discuss with them at her next follow-up. (3) Essential hypertension: Chronically on beta-blockade. Has widely fluctuating blood pressures at times and tends to feel more short of breath, symptomatic when pressures are on the lower side. Looking at echocardiogram done in October of this year she had elevated pulmonary artery pressures estimated around 40 mmHg along with some left atrial enlargement. Some degree of pulmonary hypertension contributing. May be from pulmonary effects of her previous extensive mandible and neck surgery impacting oral pharyngeal airway. On full anticoagulation and does not describe recent changes in chronic respiratory symptoms or new pulmonary findings that might suggest embolic etiology for this finding though it is within the differential. - Currently continuing usual beta-blockade dosing - Monitor blood pressures for need to adjust medication management - Might consider addition of loraine inhibitor though will need follow up labs (4) Mixed dyslipidemia: Chronically on atorvastatin that was initiated around the time she had a stroke back in 2021. - Continue home dosing of atorvastatin (5) Chronic anticoagulation: Chronically on Eliquis due to history of atrial fibrillation. Has a remote history of DVT/PE in 2012 that was secondary to prolonged surgical procedure and immobility at that time. Describes dyspnea on exertion but no hemoptysis, pleuritic chest pain, lower extremity edema or hypoxemia. Compliant with anticoagulation. - Continue Eliquis Plan Observation admission for now VTE prophylaxis: on eliquis Antibiotics: none Pending studies: Telemetry: ordered due to afib with rvr and subsequent bradycardia Johnson: not currently indicated Line(s): peripheral IVs Disposition plan: Home with outpatient follow up to PCP anticipated. Has an already scheduled appointment with Dr. Buckner on June 02 at 3:15 PM. May benefit from thickened liquids/dysphagia diet. Code Status: Full Code Supportive care otherwise Findings, concerns and plans were discussed with patient and she was given an opportunity to ask questions PDMP PDMP Reviewed: Not Reviewed Attestations 2 Medical Necessity Statement*: Currently anticipate a stay less than two midnights in this patient with a history of atrial fibrillation presented with atrial fibrillation with rapid ventricular response. She developed bradycardia after medication administration in the emergency room in the setting of having had 2 doses of rate controlling agents at home. She was symptomatic with initial presentation of tachycardia though improved with the bradycardia. She has had quite variable blood pressures and heart rates in the last 24 hours or so as evidence from record that she brought from home showing systolic pressures from 70s to 170s. Here her systolic pressures have ranged from 100s to 170s and heart rate has been 40s to 170s. Comorbid conditions as outlined above may be contributing to episodes of atrial fibrillation with rapid ventricular response but the lability of heart rate and blood pressure today merit at least overnight monitoring, described management and limited additional evaluation as noted primarily to evaluate a bit further for potentially reversible causes of current presentation. Coding Level of Care Code 55976 High Time for a total of 80 minutes, includes reviewing past or interval history, examining/interviewing patient, placing orders, discussing plan of care with staff and documenting encounter Diagnoses Atrial fibrillation with rapid ventricular response I48.91 Oropharyngeal dysphagia R13.12 Dysphagia type: oropharyngeal phase Essential hypertension I10 Mixed dyslipidemia E78.2 Chronic anticoagulation Z79.01
--- NOTE | 2025-05-24 20:14 | USCV_ITS ---
Mary Izquierdo Age: 74 Gender: F : 1950 Exam Date: 05/24/2025 22:14 Ordering Phys: Debra Beckett MD Technologist: LAURI Exam Location: [facility] [place] Indication: tachybrady, afib, sob, Want to know if EF reduced from last echo in 10/2024 BP: 155 / 95 HR: Rhythm: Sinus Technical Quality: Adequate MEASUREMENTS (Male / Female) Normal Values 2D ECHO LV Diastolic Diameter PLAX 3.6 cm 4.2 - 5.9 / 3.9 - 5.3 cm IVS Diastolic Thickness 1.2 cm 0.6 - 1.0 / 0.6 - 0.9 cm IVS Systolic Thickness 1.5 cm LVPW Diastolic Thickness 1.2 cm 0.6 - 1.0 / 0.6 - 0.9 cm LVPW Systolic Thickness 1.4 cm LV Ejection Fraction 2D Teich 66.6 % LV Ejection Fraction MOD 4C 64.1 % LV Ejection Fraction MOD 2C 56.5 % LV Ejection Fraction 2C AL 57.8 % FINDINGS Left Ventricle Normal left ventricular size and systolic function, EF 66%.no regional wall motion abnormalities. Right Ventricle Normal right ventricular size and systolic function. Right Atrium Mildly increased right atrial size. Left Atrium Moderately increased left atrial size. Mitral Valve No gross abnormalities noted Aortic Valve No gross abnormalities noted Tricuspid Valve Structurally normal tricuspid valve. Pulmonic Valve Pulmonic valve not well visualized. Pericardium No pericardial effusion. Aorta Normal aortic annulus size. IVC Inferior vena cava not visualized. CONCLUSIONS Normal left ventricular size and systolic function, EF 66%.no regional wall motion abnormalities. Mildly increased right atrial size. Moderately increased left atrial size. No gross valvular abnormalities. There is no pericardial effusion. There are no intracardiac masses. Compared to the study from 11/03/2024, there may not be any significant change in the 2D findings Revised copy of the report from 05/24/2025 Dr Cb Clark MD [facility] (Electronically Signed) Final Date: 26 May 2025 00:10 Amended: 26 May 2025 00:12 C
[2025-05-24] MEDS: sodium chlor 0.9% + KCl 20 mEq 20 MEQ/1,000 ML BAG 75 MEQ IV (20:35)
[2025-05-24 21:53] LABS: Troponin(5th) Baseline 10 ng/L (0-10)
--- NOTE | 2025-05-24 21:53 | ECG_ITS ---
[facility] Test Date: 2025-05-24 Pat Name: Mary Izquierdo Department: Room: 111 Gender: Female Load Builder: : 1950 Requested By: Debra Beckett Order Number: [id number] Haroon MD: Kurt Jimenes M.D. Measurements Intervals [place] Rate: 54 P: 75 DE: 164 QRS: 76 QRSD: 100 T: 53 QT: 463 QTc: 441 Interpretive Statements SINUS BRADYCARDIA POSSIBLE RIGHT VENTRICULAR CONDUCTION DELAY [RSR (QR) IN V1/V2] MODERATE ST DEPRESSION [0.05+ mV ST DEPRESSION] Compared to ECG 05/24/2025 13:39:52 ST (T wave) deviation now present Electronically Signed On 05-25-2025 08:23:56 CDT by Kurt Jimenes M.D. [email or web address]
[2025-05-25] VITALS (7 sets, daily range): BP systolic 126–151; BP diastolic 68–73; PULSE 49–68; RESP 14–18; TEMP 36.4–36.7; O2SAT 96–100
[2025-05-25 00:30] LABS: Troponin 5 2HR 12.92 ng/L (0-10); Troponin 5 2HR Delta 2.92 ABS# (0-10)
[2025-05-25 03:12] LABS: Troponin 5 6HR 13.83 ng/L (0-10); Troponin 5 6HR Delta 3.83 ng/L (0-12)
[2025-05-25 03:15] LABS: Magnesium 2.2 mg/dL (1.7-2.3)
[2025-05-25 03:17] LABS: Anion Gap 14.0 (5-19); Blood Urea Nitrogen 19 mg/dL (8-23); Calcium 8.7 mg/dL (8.5-10.5); Carbon Dioxide 23 mmol/L (22-29); Chloride 111 mmol/L (98-107); Creatinine Clr Calc Pharmacy 58.4612; Glucose 77 mg/dL (65-115); Osmolality Calculated 299 mOsm/kg (285-295); Potassium 4.0 mmol/L (3.5-5.1); Sodium 144 mmol/L (136-145)
[2025-05-25] MEDS: sodium chlor 0.9% + KCl 20 mEq 20 MEQ/1,000 ML BAG 75 MEQ IV (08:39)
--- NOTE | 2025-05-25 10:00 | ECG_ITS ---
[facility] Date: 2025-05-25 Pat Name: Mary Izquierdo Department: Room: 108 Gender: Female Casting Sorter: : 1950 Requested By: Debra Beckett Order Number: [id number] Haroon MD: Cb Clark M.D. Measurements Intervals [place] Rate: 55 P: 76 [place]: 148 QRS: 38 QRSD: 93 T: 38 QT: 458 QTc: 442 Interpretive Statements SINUS BRADYCARDIA Compared to ECG 05/24/2025 21:53:14 ST (T wave) deviation no longer present Electronically Signed On 05-25-2025 17:20:28 CDT by Cb Clark M.D. [email or web address]
--- NOTE | 2025-05-25 10:16 | PC.CHAP ---
Pastoral Care Encounter/Spiritual Assessment Type of Contact [] Declined cycle touring guide visit [] Patient/Family/Request visit [] Outpatient visit [] Follow-up visit [] Physician referral [] Code/Alert [x] Routine visit [] Staff referral [] Actively dying [] Patient sleeping [] Family support [] [] Out of room [] Palliative care [] [] Receiving care in room [] Pre-surgical visit [] Trauma [] Long length of stay [] ICU visit [] Other: Relational/Emotional Strength [x] Patient feels connected with others/family/visitors/staff [] Distress [] Loneliness/isolation [] Abandonment Spirituality of Patient [x] Person of Anat [] Attends Pentecostal of their Anat [x] Believes in Prayer [] Reads Bible or Church materials [] There are Spiritual issues to be addressed Insurance Attorney Interventions [x] Prayer [x] Active listening [] Non-anxious presence [x] Spiritual/emotional support [] Crisis/trauma care [] Spiritual counseling [] Bereavement support [] Provided bereavement packet [] Provided Bible/devotional materials [] Provided toy/stuffed animal, coloring book to patient or family member [] Provided Communion [] Anointing/[place] [] Salvation [x] Completed spiritual assessment [] Other: Impact on Illness or Injury [] Angry [] Fearful [] Anxious [] Often cries [] Exhaustion [] Unable to work [] Unable to attend rastafarian [] Unable to walk/stand [] Unable to read [] Unable to drive [] Unable to eat/drink [] Unable to sleep [] Unable to be with family [] Patient intubated [] Other: Summary Time spent with patient 5 min
--- NOTE | 2025-05-25 12:50 | PM.DCS ---
Discharge Providers Date of Admission: 05/24/25 14:44 Date of Discharge: May 25, 2025 Attending Provider at Admission: Debra Beckett MD Attending Provider at Discharge: Debra Beckett MD Primary Care Provider: Murali Ryan DO Diagnoses at Discharge Discharge Diagnosis 1. Atrial fibrillation with rapid ventricular response: 2. Oropharyngeal dysphagia: 3. Essential hypertension: 4. Mixed dyslipidemia: 5. Chronic anticoagulation: Reason for Visit Reason for Visit: fast hr, dizzy Brief History: Mary Izquierdo is a 74 year old female who presented after noticing rapid heart rates beginning last night. She took a nap yesterday afternoon/evening, awakening around 9 p.m. She noted her heart rate was 175 bpm and proceeded to take her scheduled metoprolol tartrate 25 mg. She later went back to sleep and this morning, upon awakening at 5 a.m. noted her heart rate was still elevated, so took her morning dose of metoprolol early. She was having palpitations and a little bit of dizziness with persistent tachycardia so, per airset molder instructions, she self-administered an extra 25 mg metoprolol about an hour and a half later. Heart rates briefly declined but continued to fluctuate quite a bit along with variable blood pressures, prompting ED visit. On arrival in the ER her heart rate was noted to be in the 170s. She received one 20 mg push dose of IV Cardizem with resolution of tachycardia though noted to have bradycardia with heart rates into the 40s and 50s. When her heart rate was up she reported episodes of forceful heartbeat as noted but denies any chest pain. She experiences intermittent shortness of breath/tightness, often when blood pressure is low. She has chronic sinus drainage from the right side and a related cough. Additionally she has chronic dysphagia and dehydration risk due to vocal-cord paralysis and esophageal narrowing from prior extensive head neck surgery involving the right mandible in 2012. Ms. Leblanc reports water is hardest to swallow, requiring multiple swallows or use of a straw. She does better with milk or carbonated beverages. She notes some persistent balance issues since a stroke in 2021. She mows her yard and was outside for holiday activities but took breaks when she felt like she needed to. No fever, recent infection, or bleeding reported. She does have a history of paroxysmal atrial fibrillation originally diagnosed in 2021. She has on chronic anticoagulation in addition to beta-blockade and follows with Dr. Buckner regularly. Last hospitalization for atrial fibrillation was in October 2024 when beta-blockade dosing was changed from 12.5 mg daily of metoprolol succinate to 25 mg twice daily of metoprolol tartrate. She had been doing well on this dosing regimen until today. Hospital Course Hospital Course Patient was admitted overnight. She did not require further dosing of medications for rate control of A-fib with RVR. She maintained sinus bradycardia in the 40s to 50s through the evening hours. Heart rate did improve to upper 50s to low 60s and she was administered metoprolol 12.5 mg the morning after admission. She has thus far tolerated this dosing with stable blood pressures and sinus bradycardia in the mid 50s to low 60s predominantly. Serial cardiac enzymes were checked and there was no significant troponin delta. She does have a sister who has known coronary artery disease with stents and a history of atrial fibrillation. No reports of any chest pain or EKG changes beyond rhythm abnormalities. Limited echocardiogram to evaluate for change in ejection fraction was completed but not read at the time of disposition. I did review the case with patient's airset molder, Dr. Buckner. My concern is that she may be developing tachybradycardia syndrome given variable blood pressures and heart rates recorded by her prior to admission as well as those seen here. She had a 3-day Holter monitor back in the fall but with findings noted would benefit from a longer study to help determine next steps in overall management. Considerations include medication management as well as possibility of pacemaker. I have reviewed these possibilities with patient and family and gave them an opportunity to ask questions. She herself hopes that she does not have to have a pacemaker as her sister had a challenging time when she had to get one. Discussed that everyone's experience can be different and that the ultimate goal is to be able to safely prescribe medications to manage her heart rate without impacting her blood pressure or contributing to development of bradycardia which she does understand. For now we will decrease metoprolol to 12.5 twice daily at home and have her keep a log to take to follow-up visits. With her chronic dysphagia particularly for liquids and known partial vocal cord paralysis related to her extensive postsurgical changes, I do wonder about the possibility of silent aspiration or even paroxysms of coughing from aspiration as a potential contributor to both episodes of atrial fibrillation with rapid ventricular response as well as mild pulmonary hypertension previously noted. Order placed for outpatient speech therapy evaluation. She did not have subjective improvement with thickening of thin liquids during hospital stay. Discharge Data Studies Completed and Pending Completed Studies During Hospitalization Category Date Time Status XR chest 1V portable [id number] Stat Exams 05/24/25 13:13 Completed Pending at discharge Category Date Time Status CV. echo limited 16524 Routine Ultrasound 05/24/25 20:14 Taken, REPORT PENDING Radiology Impressions Chest X-Ray 05/24/25 13:13 IMPRESSION: Suggestion of hyperinflated lungs, as noted with prior exam. No acute findings or significant change with prior exam. Laboratory Results WBC 6.46 10^3/uL (3.29-11.43) 05/24/25 13:18 RBC 4.96 10^6/uL (3.85-5.65) 05/24/25 13:18 Hgb 13.80 g/dL (11.27-16.99) 05/24/25 13:18 Hct 44.1 % (36-47) 05/24/25 13:18 MCV 88.9 fl (85-98) 05/24/25 13:18 MCH 27.8 pg (27-33) 05/24/25 13:18 MCHC 31.3 g/dL (30-55) 05/24/25 13:18 RDW 14.6 % (12.1-15.1) 05/24/25 13:18 Plt Count 208 10^3/cmm (157-399) 05/24/25 13:18 MPV 10.6 fL (7.4-10.4) H 05/24/25 13:18 Neut % (Auto) 54.3 % 05/24/25 13:18 Lymph % (Auto) 30.7 % 05/24/25 13:18 [place] % (Auto) 12.8 % 05/24/25 13:18 Eos % (Auto) 1.5 % 05/24/25 13:18 Baso % (Auto) 0.5 % 05/24/25 13:18 Neut # (Auto) 3.51 10^3/uL (1.8-7.7) 05/24/25 13:18 Lymph # (Auto) 2.0 10^3/uL (0.8-4.8) 05/24/25 13:18 [place] # (Auto) 0.8 10^3/uL (0.2-0.9) 05/24/25 13:18 Eos # (Auto) 0.1 10^3/uL (0.0-0.8) 05/24/25 13:18 Baso # (Auto) 0.0 10^3/uL (0.0-0.1) 05/24/25 13:18 Nucleated RBC % (auto) 0 % 05/24/25 13:18 Nucleated RBCs # 0.0 /100WBC 05/24/25 13:18 D-Dimer 0.29 ug/mLFEU (0-0.59) 05/25/25 02:07 Sodium 144 mmol/L (136-145) 05/25/25 02:07 Potassium 4.0 mmol/L (3.5-5.1) 05/25/25 02:07 Chloride 111 mmol/L (98-107) H 05/25/25 02:07 Carbon Dioxide 23 mmol/L (22-29) 05/25/25 02:07 Anion Gap 14.0 (5-19) 05/25/25 02:07 BUN 19 mg/dL (8-23) 05/25/25 02:07 Creatinine 0.7 mg/dL (0.5-0.9) 05/25/25 02:07 GFR Calculation Not Reportable 05/25/25 02:07 Glucose 77 mg/dL (65-115) 05/25/25 02:07 Calculated Osmolality 299 mOsm/kg (285-295) H 05/25/25 02:07 Calcium 8.7 mg/dL (8.5-10.5) 05/25/25 02:07 Magnesium 2.2 mg/dL (1.7-2.3) 05/25/25 02:07 Total Bilirubin 1.1 mg/dL (0.15-1.2) 05/24/25 13:18 AST 26 U/L (0-32) 05/24/25 13:18 ALT 15 U/L (0-33) 05/24/25 13:18 Alkaline Phosphatase 116 U/L (35-105) H 05/24/25 13:18 Troponin T Baseline 10 ng/L (0-10) 05/24/25 21:15 Troponin T 120 Minute 12.92 ng/L (0-10) H 05/25/25 00:00 Delta Troponin T 2.92 ABS# (0-10) 05/25/25 00:00 Troponin T Hi Sens 6Hr 13.83 ng/L (0-10) H 05/25/25 02:07 Troponin T Hi Sens 6Hr Delta 3.83 ng/L (0-12) 05/25/25 02:07 Total Protein 7.7 g/dL (6.6-8.7) 05/24/25 13:18 Albumin 3.9 g/dL (3.5-5.2) 05/24/25 13:18 Globulin 3.8 g/dL (1.3-4.6) 05/24/25 13:18 Lipase 22 U/L (13-60) 05/24/25 13:18 Vitals Last Vital Signs Temp 97.7 F 05/25/25 11:55 Pulse 56 L 05/25/25 11:55 Resp 18 05/25/25 11:55 BP 151/72 05/25/25 11:55 Pulse Ox 96 05/25/25 11:55 O2 Del Method Room Air 05/24/25 19:38 Discharge Plan Discharge Patient Disposition: Home Condition: Stable Prescriptions: New metoprolol tartrate 25 mg Tablet 12.5 mg PO BID@0900,2100 Qty: 0 0RF Rx Instructions: Take half of a 25mg tablet (12.5mg) twice per day 12 hours apart until otherwise directed Continued Eliquis 5 mg tablet 5 mg PO BID Qty: 30 11RF atorvastatin 40 mg tablet 40 mg PO BEDTIME Qty: 90 3RF albuterol sulfate 90 mcg/actuation HFA aerosol inhaler 1 inh inhalation QID PRN (Reason: shortness of breath or wheezing) Qty: 8.5 1RF ascorbic acid (vitamin C) [Vitamin C] 500 mg Tablet 500 mg PO DAILY PRN (Reason: when remembers) Patient Comments: does not consistently take Discontinued metoprolol tartrate 25 mg tablet 25 mg PO BID@0900,2100 Qty: 60 5RF Discharge Order = DC NOW: Discharge Order (Routine); Ordered 05/25/25 Ordered By: Debra Beckett Other Ambulatory Orders: Speech Language Pathology Eval and Treat Outpatient (Order) Timeframe: 2 Weeks Facility: [facility] - Location: [facility] [employer] Ordered By: Debra Beckett MCT/Event Monitor 30 Days (Routine) Timeframe: 20250525 Facility: [facility] - Location: Radiology Ordered By: Debra Beckett Referrals: Murali Ryan DO [Primary Care Provider, [facility]] - 06/01/25 10:15 am Discharge Diet: Usual diet Discharge Activity: Resume usual activity Patient Instructions: Opioid Safety, Patient Portal & John Instructions Patient's Health Concerns: Palpitations/low and high heart rates Low and high blood pressures Shortness of breath Difficulty swallowing Assessment: Atrial fibrillation with RVR upon admission (peak 170s) Sinus bradycardia upon resolution of afib with RVR (40s-50s) Variable blood pressures (70s-170s systolic) in patient with high blood pressure Chronic dysphagia and 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 Chronic anticoagulation with apixaban Plan of Treatment: 30 day event monitor has been ordered Decrease metoprolol tartrate to 12.5mg twice per day for now Continue to monitor blood pressure and heart rate, bring log with you to clinic Echo report will need to be followed up Outpatient speech evaluation ordered given increasing issues with swallowing Keep usual follow up with post-ameloblastoma management specialists in [place] Keep follow up with Dr Buckner as scheduled (he is aware of plans) Keep follow up with Dr Ryan as scheduled Goals: 1) For heart rate and blood pressure to return to normal without major intervention or frequent medication changes needed 2) Improved swallowing, hydration Discharge Attestations Time Spent in Discharge Care*: greater than 30 min Specific Discharge Activities: educating patient, educating and/or supporting family/caregiver, discussing with pcp/other providers, documenting/other paperwork and evaluating patient/reviewing data Status at Discharge: Cognitive status at discharge: cognitively intact, Behavioral status at discharge: cooperative, Functional status at discharge: independent ambulation, Overall status at discharge: patient is not back to baseline Quality Metrics Clinical Quality Measures [ No reported AMI, CVA or VTE this stay] Coding Level of Care Code 80811 Total time (in minutes) for Discharge: 65 Diagnoses Atrial fibrillation with rapid ventricular response I48.91 Oropharyngeal dysphagia R13.12 Dysphagia type: oropharyngeal phase Essential hypertension I10 Mixed dyslipidemia E78.2 Chronic anticoagulation Z79.01
--- NOTE | 2025-05-25 14:37 | PC.NURSE ---
event monitor placed and instructions given.pt verb understanding of instructions
--- NOTE | 2025-05-25 14:55 | PC.NURSE ---
discharge instructions given and explained.pt verb understanding of instructions
== END 2025-05-25 14:56 | disposition home or self-care (01) ==
LOC: ER 13:49 → ER IP 14:44 → CSU 18:14
PROVIDERS: Admitting Provider Hospitalist; Emergency Provider Family Medicine; PCP Family Medicine; Visit Provider Hospitalist
DX: I48.91 Unspecified atrial fibrillation (principal); R13.12 Dysphagia, oropharyngeal phase; I10 Essential (primary) hypertension; E78.2 Mixed hyperlipidemia; Z79.01 Long term (current) use of anticoagulants; Z86.73 Personal history of transient ischemic attack (TIA), and cerebral infarction without residual deficits
CPT/HCPCS: 36415; 71045; 80048; 80053; 83690; 83735; 84484; 85025; 85378; 93005; 93308; 96361; 96365; 96366; 96375; 99285; G0378; J3480; J3490; J9999

== ENCOUNTER 2025-05-26 11:03 | Emergency (ER) | payer MEDICARE, SELFPAY ==
--- OUTSIDE RECORDS SUMMARY | 2025-05-26 11:08 | XMS_ITS | Clinical Summary ---
Author Organization [facility] Address [address] [place] [address] Care Team Providers Care Counter Stitcher Name Role Phone Unavailable Primary Care Provider [...] Comments Blood Pressure 162/78 12/13/2020 2:13 PM HOUSE CLEANER Pulse 80 12/13/2020 2:13 PM HOUSE CLEANER Temperature 36.4 C (97.6 F) 10/24/2017 2:51 PM HOUSE CLEANER Respiratory Rate 16 10/24/2017 4:00 PM HOUSE CLEANER Oxygen Saturation 100% 10/24/2017 4:00 PM HOUSE CLEANER Inhaled Oxygen Concentration - - Weight 59.9 kg (132 lb) 12/13/2020 2:13 PM HOUSE CLEANER Height 170.2 cm (5' 7 ) 12/13/2020 2:13 PM HOUSE CLEANER Body Mass Index 20.67 12/13/2020 2:13 PM HOUSE CLEANER Plan of Treatment Health Maintenance Due Date [...] series) 2026 Medical Devices Implanted Type Area Color Paste Mixer Device Identifier Shelf Expiration Date Model / Serial / Lot Tube Vent Sanders Modified-T 1.32x4.80mm [id number] - [id number] Implanted:Qty: 1 on 03/19/2014 by Harpal Hills MD at [facility] Ear Right: Ear [employer] 11/19/2022 [id number] / / [id number] Weight Gold Eyelid 1.2 Gm Gold-12 - Sna Implanted:Qty: 1 on 12/30/2013 by Harpal Hills MD at [facility] Eye Right: Eyelid [employer] 07/19/2017 GOLD-12 / NA / [id number] Description:upper eyelid Tube Feed Kangaroo 12fr 45in [id number] - [id number] Implanted:Qty: 1 on 09/23/2013 at [facility] Feeding Device COVIDIEN- [employer] [id number] / / [id number] 16 Fr Peter G Tube-10/04/2013 Implanted:10/04 by Ming Davila MD (Quantity not on file) Explanted:(Ezio tity not on file) Feeding Device N/A: Stomach [facility]IDY [facility] 07/04/2016 / / [id number] Dermamatrix Acelluar 4x7cm 22752 - [id number] Implanted:Qty: 1 on 12/08/2015 by Lon Barragan MD at [facility] Other Right: Face MUSCULOSKELETAL TRANSPLANT FOU 01/22/2016 [id number] / [id number] / N/A Description:free implant per rep. Plate Adaption Matrixmidface 503.316 - [id number] Implanted:Qty: 1 on 09/23/2013 by Harpal Hills MD at [facility] Plate Right: Mandible SYNTHES-STRATEC- MAXIFACIAL 503.316 / / [id number] Description:pricing per invo ice recd 09/28 Screw Matrixmidface Sd 8mm 503.228 - [id number] Implanted:Qty: 6 on 09/23/2013 by Harpal Hills MD at [facility] Screw Right: Mandible SYNTHES-STRATEC- MAXIFACIAL .503.228. [id number] Sealant Floseal W/ Adptr 10ml [id number] - [id number] Implanted:Qty: 1 on 11/13/2013 by Harpal Hills MD at [facility] Sealant Right: Nose PARNELL- BIOSCIENCE 12/19/2014 [id number] / / [id number] Tube Trach Cuf Lopre Sz 6 6dct - [id number] Implanted:Qty: 1 on 09/23/2013 at [facility] Trach Neck COVIDIEN- MALLINCKRODT CHEM 03/22/2018 6DCT / / [id number] Explanted Type Area Color Paste Mixer Device Identifier Shelf Expiration Date Model / Serial / Lot Plate Box Matrixmidface 04.503.361 - [id number] Implanted:Qty: 1 on 09/23/2013 by Harpal Hills MD at [facility] Explanted:Qty: 1 on 10/24/2017 by Lon Barragan MD at [facility] Plate Right: Mandible SYNTHES-STRATEC - MAXIFACIAL 04.503.36 1 50 [id number] Screw Matrixmidface Sd 6mm 04503.226 - [id number] Explanted:Qty: 1 at [facility] Screw SYNTHES-STRATEC - MAXIFACIAL 503.22 6.01 / / Screw Matrixmidface Sd 6mm 503.226 - [id number] Implanted:Qty: 2 on 09/23/2013 by Harpal Hills MD at [facility] Explanted:Qty: 2 on 10/24/2017 by Lon Barragan MD at [facility] Screw Right: Mandible SYNTHES-STRATEC - MAXIFACIAL .503.22 6.01 / 50 [id number] Insurance MEDICARE PART A AND B MEDICARE PART A AND B Advance Directives For more information, please contact: [phone] Documents on File Type Date Recorded Patient Dragline Operator Expl anation Advance Directive Living Will 10/23/2017 [...]
--- OUTSIDE RECORDS SUMMARY | 2025-05-26 11:08 | XMS_ITS | Clinical Summary ---
Author Organization [facility] Address [address] Pretty: Epic Prelude ADT ENDY STRONG [address] Care Team Providers Care Interior Decorator Paperhanging Name Role Phone Unavailable Primary Care Provider [...] on file Legal Sex Female 1:00 AM COOLER SERVICE SUPERVISOR Gender Identity Not on file Sexual Orientation Not on file Last Filed Vital Signs Vital Sign Reading Time Taken Comments Blood Pressure 112/70 08/15/2023 10:53 AM CDT Pulse 60 08/15/2023 10:53 AM CDT Temperature 36.4 C (97.6 F) 10/24/2017 2:51 PM COOLER SERVICE SUPERVISOR Respiratory Rate 16 10/24/2017 4:00 PM COOLER SERVICE SUPERVISOR Oxygen Saturation 99% 08/15/2023 10:53 AM CDT [...] series) 2026 Medical Devices Implanted Type Area Clipping Marker Device Identifier Shelf Expiration Date Model / Serial / Lot Tube Vent Sanders Modified-T 1.32x4.80mm [id number] - [id number] Implanted:Qty: 1 on 03/19/2014 by Harpal Hills MD Ear Right: Ear GYRUS E[employer] 11/19/2022 [id number] / / [id number] Weight Gold Eyelid 1.2 Gm Gold-12 - Sna Implanted:Qty: 1 on 12/30/2013 by Harpal Hills MD Eye Right: Eyelid IOP [employer] 07/19/2017 GOLD-12 / NA / [id number] Description:upper eyelid Tube Feed Kangaroo 12fr 45in [id number] - [id number] Implanted:Qty: 1 on 09/23/2013 Feeding Device [employer] [id number] / / [id number] 16 Fr Peter G Tube-10/04/2013 Implanted:10/04 by Ming Davila MD (Quantity not on file) Feeding Device N/A: Stomach LEIDY TRISTAN [facility] 07/04/2016 / / [id number] Dermamatrix Acelluar 4x7cm 47537 - [id number] Implanted:Qty: 1 on 12/08/2015 by Lon Barragan MD Other Right: Face MUSCULOSKELETAL TRANSPLANT FOU 01/22/2016 [id number] / [id number] / N/A Description:free implant per rep. Plate Adaption Matrixmidface .503.316 - [id number] Implanted:Qty: 1 on 09/23/2013 by Harpal Hills MD Plate Right: Mandible SYNTHES-STRATEC- MAXIFACIAL 04.503.316 / / [id number] Description:pricing per invo ice recd 09/28 Screw Matrixmidface Sd 8mm .503.228 - [id number] Implanted:Qty: 6 on 09/23/2013 by Harpal Hills MD Screw Right: Mandible SYNTHES-STRATEC- MAXIFACIAL 04.503.228. 01 / / [id number] Sealant Floseal W/ Adptr 10ml [id number] - [id number] Implanted:Qty: 1 on 11/13/2013 by Harpal Hills MD Sealant Right: Nose PARNELL- BIOSCIENCE 12/19/2014 [id number] / / [id number] Tube Trach Cuf Lopre Sz 6 6dct - [id number] Implanted:Qty: 1 on 09/23/2013 Trach Neck COVIDIEN- MALLINCKRODT CHEM 03/22/2018 6DCT / / [id number] Explanted Type Area Clipping Marker Device Identifier Shelf Expiration Date Model / Serial / Lot Plate Box Matrixmidface .503.361 - [id number] Implanted:Qty: 1 on 09/23/2013 by Harpal Hills MD Explanted:Qty: 1 on 10/24/2017 by Lon Barragan MD Plate Right: Mandible SYNTHES-STRATEC - MAXIFACIAL 04.503.36 50 [id number] Screw Matrixmidface Sd 6mm 04503. - [id number] Explanted:Qty: 1 Screw SYNTHES-STRATEC - MAXIFACIAL .503.22 6.01 / Screw Matrixmidface Sd 6mm [id number] - [id number] Implanted:Qty: 2 on 09/23/2013 by Harpal Hills MD Explanted:Qty: 2 on 10/24/2017 by Lon Barragan MD Screw Right: Mandible SYNTHES-STRATEC - MAXIFACIAL .503.22 6.50 27400 Insurance MEDICARE PART A AND B Advance Directives For more information, please contact: [phone] Documents on File Type Date Recorded Patient Document Control Supervisor Expl anation Advance Directive POA 09/23/2013 6:03 AM
--- OUTSIDE RECORDS SUMMARY | 2025-05-26 11:08 | XMS_ITS | Encounter Summary ---
Author Organization [facility] Address [address] [place] [address] Care Team Providers Care Telesales Supervisor Name Role Phone Najma, Kaleigh Uziel BURGOS Primary Care Provider [phone] Reason for Referral * Outpatient Services (Routine) - Closed Specialty Diagnoses / Procedures Referred By Contac t Referred To Contact Diagnoses Mass of mandible Procedures MRI SOFT TISSUE NECK W WO CONTRAST Harpal Hills MD NO ADDRESS ON FILE JDLab Lynd [address] [facility] [address] [place] [address] Phone: tel: fax: Referral ID Status Reason Start Date Expiration Date V isits Requested Visits Authorized [id number] Closed NHN View CTS to Schedule (SGF) 09/07/2013 10/08/2014 1 1 Encounter Details Date Type Department Care Team (Late st Contact Info) Description 09/07/2013 Ancillary Orders JDLab Lynd [address] [facility] [address] [place] [address] Harpal Hills MD NO ADDRESS [...] mass is again seen in the right small piece cutter space noted to be both medial and [...] unremarkable. Impression: Heterogeneous mass involving the right small piece cutter space and mandible. The appearance suggests that the lesion is slow growing. A plexiform neurofibroma is a strong consideration. Schwannoma should also be considered. This does not have the appearance typical appearance of lymphoma. A lymphangioma/hemangioma lesion would be unlikely in a patient of this age. PHYLICIA/yolanda - uploaded from [employer] - Narrative Procedure Note Levy Dodge MD [...] mass is again seen in the right small piece cutter space noted to be both medial and [...] unremarkable. Impression: Heterogeneous mass involving the right small piece cutter space and mandible. The appearance suggests that the lesion is slow growing. A plexiform neurofibroma is a strong consideration. Schwannoma should also be considered. This does not have the appearance typical appearance of lymphoma. A lymphangioma/hemangioma lesion would be unlikely in a patient of this age. PHYLICIA/yolanda - uploaded from [employer] - us Harpal Hills MD MR ORDERABLES Final R esult documented in this encounter Visit Diagnoses Diagnosis Mass of mandible- Primary Swelling, mass, or lump in head and neck Mass of mandible Swelling, mass, or lump in head and neck documented in this encounter Care Teams Telesales Supervisor Relationship Specialty Start Date End Date Kaleigh Yao DO [address] [place] [address] PCP - General Family Practice 1/16/14 10/9/19 documented as of this encounter
--- OUTSIDE RECORDS SUMMARY | 2025-05-26 11:09 | XMS_ITS | Data Portability ---
Author Organization [facility] Address [address] [place] [address] Care Team Providers Care Parts Designer Name Role Phone EVELINA BROWN Primary Care Provider [phone] Assessment No assessment recorded. Plan of Treatment [...] By Organization Details Last Modified Time 06/18/2019 61136 controlling your asthma: care instructions [email or web address] Not available 06/20/2019 22:31:25 learning about asthma [email or web address] Not available 06/20/2019 22:31:25 Reason for Referral None Reported. Results Created Date Observation Date Name Description Value Unit Range Abnormal Flag Note LastModifiedBy Organization Detail LastModifiedTime 06/16/20 19 06/15/2019 CT, chest , w/ contr ast No observ ation record ed. [facility] [address] [place], [address], 06/18/2019 13:15:44 12/17/19 20 12/17/2019 CT, chest , w/ contr ast No observ ation record ed. [facility] [address] [place], [address], 01/05/2020 18:01:20 Result Notes None recorded. Problems Name Problem SNOMED Code Status Onset Date Resolution Date Notes Provider Name and Address Organization Details Recorded Time Hypertensive disorder 48058489 Active 2018 Nika freed [place] [facility] [place] 9 12:04:09 Problem Notes None recorded. Procedures Surgical History Date Name Laterality Status Provider Name and Address Organization Details Recorded Time 11/18/18 91 Carpal Tunnel Surgery completed Dustin Lara [place] [facility] 05/22/2019 22:17:30 Tonsillectomy completed Dustin [facility] - [facility] [place] 05/22/2019 22:17:17 Imaging Results None recorded. Procedure [...] Updated DateTime 0 162.56 cm 21.8 kg/m2 16696.2 3 g 16 /min 98 % 98 % 62 /min 154/89 mm[Hg] Margarita Osman [facility] 0 11:31:42 Date Recorded Body height Body mass index (BMI) Body weight Oxygen saturation Oxygen saturation in Arterial blood by Pulse oximetry Heart rate Systolic And Diastolic Provider Name and Address Organization Details Last Updated DateTime 9 162.56 cm 21.5 kg/m2 86827.0 5 g 100 % 100 % 64 /min 138/82 mm[Hg] Sharmila Womack [facility] [place] 9 15:55:38 Date Recorded Oxygen saturation Oxygen saturation in Arterial blood by Pulse oximetry Oxygen saturation Oxygen saturation in Arterial blood by Pulse oximetry Oxygen saturation Oxygen saturation in Arterial blood by Pulse oximetry Provider Name and Address Organization Details Last Updated DateTime 9 99 % 99 % 93 % 93 % 99 % 99 % Dustin [facility] - [facility] [place] 9 17:33:28 Date Recorded Body height Body mass index (BMI) Body weight Oxygen saturation Oxygen saturation in Arterial blood by Pulse oximetry Heart rate Systolic And Diastolic Provider Name and Address Organization Details Last Updated DateTime 9 162.56 cm 21.6 kg/m2 98946.5 6 g 98 % 98 % 56 /min 115/76 mm[Hg] Nika [facility] - [facility] [place] 9 12:04:20 Social History Question Answer Notes LastModified by Organizat ion Details LastModified Time Tobacco Smoking Status Never Smoker [facility] - [facility] [place] 05/22/2019 22:17:38 What Was The Date Of Your Most Recent Tobacco Screening? 01/22/2020 [email or web address] Information not available 01/22/2020 Sex: Unknown Functional Status Question Answer Note LastModified by Organization D etails LastModified Time Are you currently employed? 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 Retired [email or web address] Information not available 06/18/2019 Mental Status None [...] [facility] [place] 05/22/2019 22:19:41 Pneumococcal conjugate PCV 13 10/17/201 8 completed AMY [facility] - [facility] 05/22/2019 22:20:01 Past Encounters Encounter ID Performer Location Encounter Start Date Encounter Closed Date Diagnosis/Indication Diagnosis SNOMED-CT Code Diagnosis ICD10 Code Diagnosis Note [id number] Billy Piedra MD [facility] [address] [place] [address] 06/01/2019 15:48:12 06/01/2019 17:12:48 Dyspnea on exertion 73106702 R06.09 This started 4 to 5 months [...] f indings on diagnostic imaging of lung 139497073 R91.8 Chest x-ray from March 25 was reviewed. This was significan t for blunting of the right costophren ic angle and pleural thickening . Findings are of unclear etiology. Schedule CT of the chest. Essential hypertension 05977864 I10 She is taking lisinopril and hydrochlor othiazide. Her blood pressure is well controlled [id number] Billy Piedra MD [facility] [address] [place] [id number] 06/18/2019 11:56:47 06/18/2019 12:27:10 Dyspnea on exertion 97325452 R06.09 This started 4 to 5 months [...] Daily exercises were recommende d Essential hypertension 81434664 I10 She is taking lisinopril and hydrochlor othiazide. Her blood pressure is well controlled Multiple n odules of lung 309408684 R91.8 CT chest from May 2019 was reviewed. This showed a 6 mm solid nodule in the left costophren ic angle with additional scattered 2 to 3 mm nodules in both upper lobes. The patient has a history of secondhand smoking. I will schedule a repeat CT chest in 6 months. Asthma 911023193 J45.90 9 order a nebulizer with albuterol breathing treatment. [id number] MIHIR Montemayor [facility] [address] [place] [address] 01/22/2020 11:17:13 01/22/2020 12:16:08 Dyspnea on exertion 20441385 R06.09 Spirometry was attempted in the past [...] the albuterol in several months. Essential hypertension 58915913 I10 She is taking lisinopril and hydrochlor othiazide. Her blood pressure is well controlled Multiple n odules of lung 669911486 R91.8 CT chest from May 2019 was [...] has a history of secondhand smoking. Asthma 122406522 J45.90 9 Continue as needed albuterol breathing treatment. Health Concerns Section Related Observation LastModified by Organization Fely ls LastModified Time None Recorded Concern Status LastModified by Organization Details LastModified Time None Recorded Advance Directives Directive None Recorded Payers Insurance Date Sequence Insurance Name Policy Number Policy Hayes Covered Member ID Hayes Member ID Guarantor Name 01/19/2020 1 [place] Mary Izquierdo [id number] Mary Izquierdo Notes Date Note Type [...] CT chest was done Billy Piedra MD [address], [place], [address], [facility] [place] - [facility] 06/20/2019 22:31:29 01/22/2020 text/html Mrs. Izquierdo is [...]
[2025-05-26 11:10] VITALS: BP 152/108; PULSE 113; RESP 18; TEMP 36.8; O2SAT 98; BMI 24.9
--- NOTE | 2025-05-26 11:18 | ECG_ITS ---
[facility] Test Date: 2025-05-26 Pat Name: Mary Izquierdo Department: Room: Gender: Female Entry Driver Operator: : 1950 Requested By: Renay Pimentel Order Number: [id number] Haroon MD: Cb Clark M.D. Measurements Intervals [place] Rate: 118 P: 154 GA: 158 QRS: 29 QRSD: 86 T: 34 QT: 312 QTc: 437 Interpretive Statements SINUS TACHYCARDIA ABNORMAL RHYTHM ECG Compared to ECG 05/25/2025 09:46:00 Sinus bradycardia no longer present Electronically Signed On 05-26-2025 20:01:57 CDT by Cb Clark M.D. [email or web address]
--- NOTE | 2025-05-26 11:19 | W.ED.ARRPALP ---
HPI - Arrhythmia/Palpitations General: Chief Complaint: Arrhythmia/Palpitations Stated Complaint: high hr Time Seen by Provider: 05/26/25 11:07 Source: patient Mode of arrival: ambulatory Limitations: no limitations History of Present Illness: 74-year-old female with history of A-fib she had recently been admitted and was discharged yesterday. She is on metoprolol states that she started having some tachycardia overnight and today her heart rate here is 110 she denies any chest pain denies any shortness of breath. She denies any worse improving factors. Associated symptoms: Deny nausea or vomiting Related Data Home Medications ?Medication ?Instructions ?Recorded ?Confirmed ascorbic acid (vitamin C) 500 mg 500 mg PO DAILY PRN when remembers 02/14/24 05/24/25 tablet (Vitamin C) Previous Rx's ?Medication ?Instructions ?Recorded apixaban 5 mg tablet (Eliquis) 5 mg PO BID #30 tabs 05/20/24 atorvastatin 40 mg tablet 40 mg PO BEDTIME #90 tabs 05/20/24 albuterol sulfate 90 mcg/actuation 1 inh inhalation QID PRN shortness 02/22/25 aerosol inhaler of breath or wheezing #8.5 grams metoprolol tartrate 25 mg tablet 12.5 mg (1/2 x 25 mg) PO 05/25/25 BID@0900,2100 #0 tabs Allergies Allergy/AdvReac Type Severity Reaction Status Date / Time No Known Allergies Allergy Verified 05/24/25 13:11 Review of Systems Const: Denies: fever(s), chills, body aches or change in appetite ENMT: Denies: throat pain or dental pain Card: Reports: palpitations and irregular heart rhythm; Denies: chest pain Resp: Denies: dyspnea GI: Denies: abdominal pain, nausea, vomiting or diarrhea Musc: Denies: neck pain or back pain Skin/Breast: Denies: rash Neuro: Denies: headache(s) PFSH ED PFSH: Medical History Pulmonary hypertension History of echocardiogram 10/2024 EF68%, Mild MR, Mild AR, Trace TR, severe LAE, mild LORNE, normal RA, estimated PAP 40mmHg Difficult airway for intubation related to prior head and neck surgery 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 is yellowish in color due to muscle used in reconstruction Mild pulmonary hypertension with mild AR, mild MR History of pulmonary embolism 2012, post-operative from surgery for mandibular neoplasm and immobility related to surgery, had DVT as well Oropharyngeal dysphagia chronic, 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 from prior extensive right mandibular 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, primary difficulty is for water/thin liquids Essential hypertension Mixed dyslipidemia Atrial fibrillation 1st identified in 01/2022, on eliquis and metoprolol Transient cerebral ischemia CVA (cerebral vascular accident) 01/2022 mild right hemiparesis and dysarthria Surgical History History of neck dissection related to mandibular neoplasm History of carpal tunnel surgery History of mandibular 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), treated with surgical removal, 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, muscle from left thigh used in reconstruction, multiple surgeries starting in 2012 History of tonsillectomy Family History (Updated 05/24/25 @ 20:19 by Debra Beckett MD) Sister CAD (coronary artery disease) Other Cancer Social History Smoking and tobacco/nicotine status: never used tobacco/nicotine Alcohol intake: never Female Reproductive History: Spontaneous abortions: No Physical Exam Const: COMMON NORMALS: no acute distress, patient oriented x3 and healthy appearing HENMT: COMMON NORMALS: normocephalic and atraumatic HEAD & SCALP: normocephalic and atraumatic Eye: COMMON NORMALS: conjunctivae normal CONJUNCTIVA: Yes conjunctivae normal Neck/C-Spine: COMMON NORMALS: full ROM and supple Chest: COMMONS NORMALS: normal inspection of the chest Resp: COMMON NORMALS: normal respiratory effort Cardio: COMMON NORMALS: No murmurs present (Cardio) RATE: tachycardic GI: COMMON NORMALS: Normal to inspection, nondistended, normoactive bowel sounds present, Soft to palpation, non-tender and no masses PALPATION: Yes Soft to palpation Extremity: COMMON NORMALS: normal to inspection and full ROM Neuro: COMMON NORMALS: patient oriented x3, moves all extremities and no focal motor deficits Psych: COMMON NORMALS: mental status grossly normal, Normal thought process present and cooperative THOUGHT PROCESS: Normal thought process present Skin: COMMON NORMALS: no rashes or lesions noted and no wounds GENERAL SKIN EXAM: no rashes or lesions noted Course Vital Signs: Vital signs: Vital Signs Temperature 98.2 F 05/26/25 11:10 Pulse Rate 62 05/26/25 12:30 Respiratory Rate 16 05/26/25 12:30 Blood Pressure 114/68 05/26/25 12:30 Pulse Oximetry 94 05/26/25 12:30 Oxygen Delivery Me thod Room Air 05/26/25 12:12 MDM - Arrhythmia/Palpitations Medical Decision Making Patient presents here with A-fib heart rates much improved after Cardizem heart rates now in the 70s patient stable for discharge follow-up PCP return if worsening. Medical Records I reviewed the patient's medical records. Lab Data I reviewed the patient's lab results. 05/26/25 11:38 05/26/25 11:38 Laboratory Results WBC 5.57 10^3/uL (3.29-11.43) 05/26/25 11:38 Corrected WBC Cancelled 05/26/25 11:18 RBC 4.55 10^6/uL (3.85-5.65) 05/26/25 11:38 Hgb 12.60 g/dL (11.27-16.99) 05/26/25 11:38 Hct 40.4 % (36-47) 05/26/25 11:38 MCV 88.8 fl (85-98) 05/26/25 11:38 MCH 27.7 pg (27-33) 05/26/25 11:38 MCHC 31.2 g/dL (30-55) 05/26/25 11:38 RDW 14.7 % (12.1-15.1) 05/26/25 11:38 Plt Count 190 10^3/cmm (157-399) 05/26/25 11:38 MPV 10.6 fL (7.4-10.4) H 05/26/25 11:38 Gran % Cancelled 05/26/25 11:18 Neut % (Auto) 63.3 % 05/26/25 11:38 Lymph % (Auto) 23.0 % 05/26/25 11:38 Yuba % (Auto) 10.8 % 05/26/25 11:38 Eos % (Auto) 2.0 % 05/26/25 11:38 Baso % (Auto) 0.7 % 05/26/25 11:38 Neut # (Auto) 3.53 10^3/uL (1.8-7.7) 05/26/25 11:38 Lymph # (Auto) 1.3 10^3/uL (0.8-4.8) 05/26/25 11:38 Yuba # (Auto) 0.6 10^3/uL (0.2-0.9) 05/26/25 11:38 Eos # (Auto) 0.1 10^3/uL (0.0-0.8) 05/26/25 11:38 Baso # (Auto) 0.0 10^3/uL (0.0-0.1) 05/26/25 11:38 Absolute Gran (auto) Cancelled 05/26/25 11:18 Nucleated RBC % (auto) 0 % 05/26/25 11:38 Nucleated RBCs # 0.0 /100WBC 05/26/25 11:38 Sodium 140 mmol/L (136-145) 05/26/25 11:38 Potassium 4.0 mmol/L (3.5-5.1) 05/26/25 11:38 Chloride 107 mmol/L (98-107) 05/26/25 11:38 Carbon Dioxide 20 mmol/L (22-29) L 05/26/25 11:38 Anion Gap 17.0 (5-19) 05/26/25 11:38 BUN 18 mg/dL (8-23) 05/26/25 11:38 Creatinine 0.8 mg/dL (0.5-0.9) 05/26/25 11:38 GFR Calculation Not Reportable 05/26/25 11:38 Glucose 91 mg/dL (65-115) 05/26/25 11:38 Calculated Osmolality 291 mOsm/kg (285-295) 05/26/25 11:38 Calcium 9.1 mg/dL (8.5-10.5) 05/26/25 11:38 Total Bilirubin 1.1 mg/dL (0.15-1.2) 05/26/25 11:38 AST 30 U/L (0-32) 05/26/25 11:38 ALT 15 U/L (0-33) 05/26/25 11:38 Alkaline Phosphatase 108 U/L (35-105) H 05/26/25 11:38 Total Protein 7.1 g/dL (6.6-8.7) 05/26/25 11:38 Albumin 3.8 g/dL (3.5-5.2) 05/26/25 11:38 Globulin 3.3 g/dL (1.3-4.6) 05/26/25 11:38 TSH 2.61 uIU/mL (0.27-4.20) 05/26/25 11:38 No radiology studies performed this visit Discharge Plan Discharge Patient Disposition: Home Clinical Impression: Atrial fibrillation Qualifiers: Atrial fibrillation type: longstanding persistent Qualified Code(s): I48.11 - Longstanding persistent atrial fibrillation Condition: Stable Prescriptions: No Action Eliquis 5 mg tablet 5 mg PO BID Qty: 30 11RF atorvastatin 40 mg tablet 40 mg PO BEDTIME Qty: 90 3RF albuterol sulfate 90 mcg/actuation HFA aerosol inhaler 1 inh inhalation QID PRN (Reason: shortness of breath or wheezing) Qty: 8.5 1RF ascorbic acid (vitamin C) [Vitamin C] 500 mg Tablet 500 mg PO DAILY PRN (Reason: when remembers) Patient Comments: does not consistently take metoprolol tartrate 25 mg Tablet 12.5 mg PO BID@0900,2100 Qty: 0 0RF Rx Instructions: Take half of a 25mg tablet (12.5mg) twice per day 12 hours apart until otherwise directed Discharge Orders: Discharge ED (Routine); Ordered 05/26/25 Ordered By: Renay Pimentel Referrals: Murali Ryan DO [Primary Care Provider, [facility]] Discharge Diet: Advance as tolerated Discharge Activity: Resume usual activity Patient Instructions: A-fib (Atrial Fibrillation) (ED) Print Language: Persian Coding Level of Care Code ED Handyperson for Remi Paredes
[2025-05-26 11:42] VITALS: BP 104/67; PULSE 90; O2SAT 95
[2025-05-26] MEDS: dilTIAZem 5 mg/mL SDV 5 mL 15 MG IVP (11:42)
[2025-05-26 11:54] LABS: Hematocrit 40.4 % (36-47); Hemoglobin 12.60 g/dL (11.27-16.99); Mean Corpuscular HGB Conc 31.2 g/dL (30-55); Mean Corpuscular Hemoglobin 27.7 pg (27-33); Mean Corpuscular Volume 88.8 fl (85-98); Nucleated Red Blood Cells % 0 %; Platelet Count 190 10^3/cmm (157-399); Red Blood Count 4.55 10^6/uL (3.85-5.65); White Blood Count 5.57 10^3/uL (3.29-11.43)
[2025-05-26 12:12] VITALS: PULSE 77; RESP 16; O2SAT 94
[2025-05-26 12:22] LABS: Alanine Aminotransferase 15 U/L (0-33); Albumin Level 3.8 g/dL (3.5-5.2); Alkaline Phosphatase 108 U/L (35-105); Anion Gap 17.0 (5-19); Aspartate Amino Transferase 30 U/L (0-32); Blood Urea Nitrogen 18 mg/dL (8-23); Calcium 9.1 mg/dL (8.5-10.5); Carbon Dioxide 20 mmol/L (22-29); Chloride 107 mmol/L (98-107); Creatinine Clr Calc Pharmacy 58.4612; Globulin 3.3 g/dL (1.3-4.6); Glucose 91 mg/dL (65-115); Osmolality Calculated 291 mOsm/kg (285-295); Potassium 4.0 mmol/L (3.5-5.1); Sodium 140 mmol/L (136-145); Thyroid Stimulating Hormone 2.61 uIU/mL (0.27-4.20); Total Protein 7.1 g/dL (6.6-8.7)
[2025-05-26 12:30] VITALS: BP 114/68; PULSE 62; RESP 16; O2SAT 94
== END 2025-05-26 12:38 | disposition home or self-care (01) ==
PROVIDERS: Emergency Provider Emergency Medicine; PCP Family Medicine
DX: I48.11 Longstanding persistent atrial fibrillation (principal); Z79.01 Long term (current) use of anticoagulants; I10 Essential (primary) hypertension; Z86.73 Personal history of transient ischemic attack (TIA), and cerebral infarction without residual deficits
CPT/HCPCS: 36415; 80053; 84443; 85025; 93005; 96374; 99284; J3490

== ENCOUNTER 2025-05-27 20:49 | Inpatient (IN) | payer MEDICARE, SELFPAY ==
[2025-05-27] VITALS (17 sets, daily range): BP systolic 128–147; BP diastolic 76–108; PULSE 105–127; RESP 14–20; TEMP 36.6; O2SAT 97–100; BMI 24.9
--- OUTSIDE RECORDS SUMMARY | 2025-05-27 21:12 | XMS_ITS | Clinical Summary ---
Author Organization [facility] Address [address] 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 SPEAKING INSTRUCTOR Gender Identity Not on file Sexual Orientation Not on file Last Filed Vital Signs Vital Sign Reading Time Taken Comments Blood Pressure 112/70 08/15/2023 10:53 AM CDT Pulse 60 08/15/2023 10:53 AM CDT Temperature 36.4 C (97.6 F) 10/24/2017 2:51 PM PUBLIC SPEAKING INSTRUCTOR Respiratory Rate 16 10/24/2017 4:00 PM PUBLIC SPEAKING INSTRUCTOR Oxygen Saturation 99% 08/15/2023 10:53 AM CDT [...] series) 2026 Medical Devices Implanted Type Area Test Fixture Designer Device Identifier Shelf Expiration Date Model / Serial / Lot Tube Vent Sanders Modified-T 1.32x4.80mm [id number] - [id number] Implanted:Qty: 1 on 03/19/2014 by Harpal Hills MD Ear Right: Ear GYRUS ENT 11/19/2022 [id number] / / [id number] Weight Gold Eyelid 1.2 Gm Gold-12 - Sna Implanted:Qty: 1 on 12/30/2013 by Harpal Hills MD Eye Right: Eyelid IOP INC 07/19/2017 GOLD-12 / NA / [id number] Description:upper eyelid Tube Feed Kangaroo 12fr 45in [id number] - [id number] Implanted:Qty: 1 on 09/23/2013 Feeding Device [employer] [id number] / / [id number] 16 Fr Peter G Tube-10/04/2013 Implanted:10/04 by Ming Davila MD (Quantity not on file) Feeding Device N/A: Stomach LEIDY [facility]STAN [facility] 07/04/2016 / / [id number] Dermamatrix Acelluar 4x7cm 38534 - [id number] Implanted:Qty: 1 on 12/08/2015 by Lon Barragan MD Other Right: Face MUSCULOSKELETAL TRANSPLANT FOU 01/22/2016 [id number] / [id number] / N/A Description:free implant per rep. Plate Adaption Matrixmidface .503.316 - [id number] Implanted:Qty: 1 on 09/23/2013 by Harpal Hills MD Plate Right: Mandible SYNTHES-STRATEC- MAXIFACIAL 04.503.316 / / [id number] Description:pricing per invo ice recd 09/28 Screw Matrixmidface Sd 8mm .503.228 - [id number] Implanted:Qty: 6 on 09/23/2013 by Harpal Hills MD Screw Right: Mandible SYNTHES-STRATEC- MAXIFACIAL 04.503.228. 01 / / [id number] Sealant Floseal W/ Adptr 10ml 0662491 - [id number] Implanted:Qty: 1 on 11/13/2013 by Harpal Hills MD Sealant Right: Nose PARNELL- BIOSCIENCE 12/19/2014 [id number] / / [id number] Tube Trach Cuf Lopre Sz 6 6dct - [id number] Implanted:Qty: 1 on 09/23/2013 Trach Neck COVIDIEN- MALLINCKRODT CHEM 03/22/2018 6DCT / / [id number] Explanted Type Area Test Fixture Designer Device Identifier Shelf Expiration Date Model / Serial / Lot Plate Box Matrixmidface .503.361 - [id number] Implanted:Qty: 1 on 09/23/2013 by Harpal Hills MD Explanted:Qty: 1 on 10/24/2017 by Lon Barragan MD Plate Right: Mandible SYNTHES-STRATEC - MAXIFACIAL 04.503.36 50 [id number] Screw Matrixmidface Sd 6mm 04503. - [id number] Explanted:Qty: 1 Screw SYNTHES-STRATEC - MAXIFACIAL .503.22 6.01 / Screw Matrixmidface Sd 6mm [id number] - [id number] Implanted:Qty: 2 on 09/23/2013 by Harpal Hills MD Explanted:Qty: 2 on 10/24/2017 by Lon Barragan MD Screw Right: Mandible SYNTHES-STRATEC - MAXIFACIAL .503.22 6.50 10333 Insurance MEDICARE PART A AND B Advance Directives For more information, please contact: [phone] Documents on File Type Date Recorded Patient Pharmacy Buyer Expl anation Advance Directive POA 09/23/2013 6:03 AM
--- OUTSIDE RECORDS SUMMARY | 2025-05-27 21:12 | XMS_ITS | Encounter Summary ---
Author Organization [facility] Address [address] [place] [address] Care Team Providers Care Parking Lot Chauffeur Name Role Phone Najma, Kaleigh Uziel BURGOS Primary Care Provider [phone] Reason for Referral * Outpatient Services (Routine) - Closed Specialty Diagnoses / Procedures Referred By Contac t Referred To Contact Diagnoses Mass of mandible Procedures MRI SOFT TISSUE NECK W WO CONTRAST Harpal Hills MD NO ADDRESS ON FILE [employer] [employer] [facility] [address] [facility] [place] [address] Phone: tel: fax: Referral ID Status Reason Start Date Expiration Date V isits Requested Visits Authorized [id number] Closed NJN View CTS to Schedule (SGF) 09/07/2013 10/08/2014 1 1 Encounter Details Date Type Department Care Team (Late st Contact Info) Description 09/07/2013 Ancillary Orders [facility] [address] [facility] [address] [place] [address] Harpal Hills MD NO ADDRESS [...] mass is again seen in the right packaging mechanic space noted to be both medial and [...] unremarkable. Impression: Heterogeneous mass involving the right packaging mechanic space and mandible. The appearance suggests that the lesion is slow growing. A plexiform neurofibroma is a strong consideration. Schwannoma should also be considered. This does not have the appearance typical appearance of lymphoma. A lymphangioma/hemangioma lesion would be unlikely in a patient of this age. PHYLICIA/yolanda - uploaded from [employer] - Narrative Procedure Note Levy Dodge MD [...] mass is again seen in the right packaging mechanic space noted to be both medial and [...] unremarkable. Impression: Heterogeneous mass involving the right packaging mechanic space and mandible. The appearance suggests that the lesion is slow growing. A plexiform neurofibroma is a strong consideration. Schwannoma should also be considered. This does not have the appearance typical appearance of lymphoma. A lymphangioma/hemangioma lesion would be unlikely in a patient of this age. PHYLICIA/yolanda - uploaded from [employer] - us Harpal Hills MD MR ORDERABLES Final R esult documented in this encounter Visit Diagnoses Diagnosis Mass of mandible- Primary Swelling, mass, or lump in head and neck Mass of mandible Swelling, mass, or lump in head and neck documented in this encounter Care Teams Parking Lot Chauffeur Relationship Specialty Start Date End Date Kaleigh Yao DO [address] [place] [address] PCP - General Family Practice 1/16/14 10/9/19 documented as of this encounter
--- OUTSIDE RECORDS SUMMARY | 2025-05-27 21:12 | XMS_ITS | Data Portability ---
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 Results Created Date Observation Date Name Description Value Unit Range Abnormal Flag Note LastModifiedBy Organization Detail LastModifiedTime 06/16/20 19 06/15/2019 CT, chest , w/ contr ast No observ ation record ed. [facility] [address] [place], [address], 06/18/2019 13:15:44 12/17/19 20 12/17/2019 CT, chest , w/ contr ast No observ ation record ed. [facility] [address] [place], [address], 01/05/2020 18:01:20 Result Notes None recorded. Problems Name Problem SNOMED Code Status Onset Date Resolution Date Notes Provider Name and Address Organization Details Recorded Time Hypertensive disorder 04085396 Active 2018 Nika freed [place] [facility] [place] 9 12:04:09 Problem Notes None recorded. Procedures Surgical History Date Name Laterality Status Provider Name and Address Organization Details Recorded Time 11/18/18 91 Carpal Tunnel Surgery completed Dustin Lara [place] - [facility] [place] 05/22/2019 22:17:30 Tonsillectomy completed Dustin [facility] - [facility] [place] 05/22/2019 22:17:17 Imaging Results None recorded. Procedure [...] Updated DateTime 0 162.56 cm 21.8 kg/m2 26445.2 3 g 16 /min 98 % 98 % 62 /min 154/89 mm[Hg] Margarita Osman [place] - [facility] [place] 0 11:31:42 Date Recorded Body height Body mass index (BMI) Body weight Oxygen saturation Oxygen saturation in Arterial blood by Pulse oximetry Heart rate Systolic And Diastolic Provider Name and Address Organization Details Last Updated DateTime 9 162.56 cm 21.5 kg/m2 72290.0 5 g 100 % 100 % 64 /min 138/82 mm[Hg] Sharmila Womack [place] - [facility] [place] 9 15:55:38 Date Recorded Oxygen saturation Oxygen saturation in Arterial blood by Pulse oximetry Oxygen saturation Oxygen saturation in Arterial blood by Pulse oximetry Oxygen saturation Oxygen saturation in Arterial blood by Pulse oximetry Provider Name and Address Organization Details Last Updated DateTime 9 99 % 99 % 93 % 93 % 99 % 99 % Dustin [facility] - [facility] [place] 9 17:33:28 Date Recorded Body height Body mass index (BMI) Body weight Oxygen saturation Oxygen saturation in Arterial blood by Pulse oximetry Heart rate Systolic And Diastolic Provider Name and Address Organization Details Last Updated DateTime 9 162.56 cm 21.6 kg/m2 40010.5 6 g 98 % 98 % 56 /min 115/76 mm[Hg] Nika [facility] - [facility] [place] 9 12:04:20 Social History Question Answer Notes LastModified by Organizat ion Details LastModified Time Tobacco Smoking Status Never Smoker AMY [facility] - [facility] [place] 05/22/2019 22:17:38 What Was The Date Of Your Most Recent Tobacco Screening? 01/22/2020 [email or web address] Information not available 01/22/2020 Sex: Unknown Functional Status Question Answer Note LastModified by Organization D etails LastModified Time Are you currently employed? No [email or web address] Information not available 06/18/2019 What is your occupation? Retired [email or web address] Information not available 06/18/2019 Mental Status None [...] AMY [facility] - [facility] [place] 05/22/2019 22:19:41 Pneumococcal conjugate PCV 13 10/17/201 8 completed AMY [facility] - [facility] 05/22/2019 22:20:01 Past Encounters Encounter ID Performer Location Encounter Start Date Encounter Closed Date Diagnosis/Indication Diagnosis SNOMED-CT Code Diagnosis ICD10 Code Diagnosis Note [id number] Billy Piedra MD [place] [facility] [address] [place] [address] 06/01/2019 15:48:12 06/01/2019 17:12:48 Dyspnea on exertion 44638542 R06.09 This started 4 to 5 months [...] f indings on diagnostic imaging of lung 390177446 R91.8 Chest x-ray from March 25 was reviewed. This was significan t for blunting of the right costophren ic angle and pleural thickening . Findings are of unclear etiology. Schedule CT of the chest. Essential hypertension 82157189 I10 She is taking lisinopril and hydrochlor othiazide. Her blood pressure is well controlled [id number] Billy Piedra MD [place] [facility] [address] [place] [phone] 3 06/18/2019 11:56:47 06/18/2019 12:27:10 Dyspnea on exertion 14348761 R06.09 This started 4 to 5 months [...] Daily exercises were recommende d Essential hypertension 65365307 I10 She is taking lisinopril and hydrochlor othiazide. Her blood pressure is well controlled Multiple n odules of lung 451417863 R91.8 CT chest from May 2019 was reviewed. This showed a 6 mm solid nodule in the left costophren ic angle with additional scattered 2 to 3 mm nodules in both upper lobes. The patient has a history of secondhand smoking. I will schedule a repeat CT chest in 6 months. Asthma 065658142 J45.90 9 order a nebulizer with albuterol breathing treatment. [id number] MI[address]IR [facility] [place] [facility] [address] [place] [address] 01/22/2020 11:17:13 01/22/2020 12:16:08 Dyspnea on exertion 85230385 R06.09 Spirometry was attempted in the past [...] the albuterol in several months. Essential hypertension 96030540 I10 She is taking lisinopril and hydrochlor othiazide. Her blood pressure is well controlled Multiple n odules of lung 207165185 R91.8 CT chest from May 2019 was [...] has a history of secondhand smoking. Asthma 470103092 J45.90 9 Continue as needed albuterol breathing treatment. Health Concerns Section Related Observation LastModified by Organization Fely ls LastModified Time None Recorded Concern Status LastModified by Organization Details LastModified Time None Recorded Advance Directives Directive None Recorded Payers Insurance Date Sequence Insurance Name Policy Number Policy Hayes Covered Member ID Hayes Member ID Guarantor Name 01/19/2020 1 [place] Mary Izquierdo [id number] Mary Izquierdo Notes Date Note Type [...] CT chest was done Billy Piedra MD [address], [place], [address], [facility] - [facility] [place] 06/20/2019 22:31:29 01/22/2020 text/html Mrs. Izquierdo is [...]
--- OUTSIDE RECORDS SUMMARY | 2025-05-27 21:12 | XMS_ITS | Clinical Summary ---
Author Organization [facility] Address [address] [place] [address] Care Team Providers Care Sign Maintenance Name Role Phone Unavailable Primary Care Provider [...] Comments Blood Pressure 162/78 12/13/2020 2:13 PM ESCROW AGENT Pulse 80 12/13/2020 2:13 PM ESCROW AGENT Temperature 36.4 C (97.6 F) 10/24/2017 2:51 PM ESCROW AGENT Respiratory Rate 16 10/24/2017 4:00 PM ESCROW AGENT Oxygen Saturation 100% 10/24/2017 4:00 PM ESCROW AGENT Inhaled Oxygen Concentration - - Weight 59.9 kg (132 lb) 12/13/2020 2:13 PM ESCROW AGENT Height 170.2 cm (5' 7 ) 12/13/2020 2:13 PM ESCROW AGENT Body Mass Index 20.67 12/13/2020 2:13 PM ESCROW AGENT Plan of Treatment Health Maintenance Due Date [...] series) 2026 Medical Devices Implanted Type Area Tabulating Supervisor Device Identifier Shelf Expiration Date Model / Serial / Lot Tube Vent Asnders Modified-T 1.32x4.80mm [id number] - [id number] Implanted:Qty: 1 on 03/19/2014 by Harpal Hills MD at [facility] Ear Right: Ear GYRUS ENT 11/19/2022 750909 / / [id number] Weight Gold Eyelid 1.2 Gm Gold-12 - Sna Implanted:Qty: 1 on 12/30/2013 by Harpal Hills MD at [facility] Eye Right: Eyelid IOP INC 07/19/2017 GOLD-12 / NA / [id number] Description:upper eyelid Tube Feed Kangaroo 12fr 45in [id number] - [id number] Implanted:Qty: 1 on 09/23/[address] [facility] Feeding Device COVIDIEN- [employer]UP[employer] CO [id number] / / [id number] 16 Fr Peter G Tube-10/04/2013 Implanted:10/04 by Ming Davila MD (Quantity not on file) Explanted:(Ezio tity not on file) Feeding Device N/A: Stomach LEIDY TRISTAN [facility] 07/04/2016 / / [id number] Dermamatrix Acelluar 4x7cm 10461 - [id number] Implanted:Qty: 1 on 12/08/2015 by Lon Barragan MD at [facility] Other Right: Face MUSCULOSKELETAL TRANSPLANT FOU 01/22/2016 485094 / [id number] 018 / N/A Description:free implant per rep. Plate Adaption Matrixmidface 503.316 - [id number] Implanted:Qty: 1 on 09/23/2013 by Harpal Hills MD at [facility] Plate Right: Mandible SYNTHES-STRATEC- MAXIFACIAL 503.316 / / [id number] Description:pricing per invo ice recd 09/28 Screw Matrixmidface Sd 8mm 503.228 - [id number] Implanted:Qty: 6 on 09/23/2013 by Harapl Hills MD at [facility] Screw Right: Mandible SYNTHES-STRATEC- MAXIFACIAL .503.228. [id number] Sealant Floseal W/ Adptr 10ml 7691829 - [id number] Implanted:Qty: 1 on 11/13/2013 by Harpal Hills MD at [facility] Sealant Right: Nose PARNELL- BIOSCIENCE 12/19/2014 [id number] / / [id number] Tube Trach Cuf Lopre Sz 6 6dct - [id number] Implanted:Qty: 1 on 09/23/[address] [facility] Trach Neck COVIDIEN- MALLINCKRODT CHEM 03/22/2018 6DCT / / [id number] Explanted Type Area Tabulating Supervisor Device Identifier Shelf Expiration Date Model / Serial / Lot Plate Box Matrixmidface 04.503.361 - [id number] Implanted:Qty: 1 on 09/23/2013 by Harpal Hills MD at [facility] Explanted:Qty: 1 on 10/24/2017 by Lon Barragan MD at [facility] Plate Right: Mandible SYNTHES-STRATEC - MAXIFACIAL 04.503.36 1 50 [id number] Screw Matrixmidface Sd 6mm 04503.226 - [id number] Explanted:Qty: [address] [facility] Screw SYNTHES-STRATEC - MAXIFACIAL 503.22 6.01 / / Screw Matrixmidface Sd 6mm 503.226 - [id number] Implanted:Qty: 2 on 09/23/2013 by Harpal Hills MD at 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
--- NOTE | 2025-05-27 21:14 | ECG_ITS ---
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 Measurements Intervals [place] Rate: 127 P: 0 [place]: 0 QRS: 15 QRSD: 82 T: 95 QT: 196 QTc: 285 Interpretive Statements ATRIAL FLUTTER/TACHYCARDIA WITH RAPID VENTRICULAR RESPONSE NONSPECIFIC ST & T-WAVE ABNORMALITY Compared to ECG 05/26/2025 11:18:27 T-wave abnormality now present Sinus tachycardia no longer present Electronically Signed On 05-28-2025 15:19:54 CDT by Cb Clark M.D. [email or web address]
--- NOTE | 2025-05-27 21:44 | W.ED.ARRPALP ---
Documented by User: MIHIR Keene 05/28/25 00:27 HPI - Arrhythmia/Palpitations General: Chief Complaint: Arrhythmia/Palpitations Stated Complaint: heart is racing Time Seen by Provider: 05/27/25 21:12 History of Present Illness: Patient is a 74-year-old female that has history of A-fib RVR, recently admitted to the hospital, and released, under care of cardiology, that comes in with palpitations. She has been in our ER 3 times, and admitted once this week. She was placed on Cardizem IV drip. She was sent home with metoprolol. She is currently on a event monitor. She is currently compliant to her metoprolol, 12.5 mg p.o., and Eliquis. No recent cold, fever, flu, dysuria. Echocardiogram on 05/24 indicates EF preserved at 66% without valvular abnormalities Associated symptoms: Deny anxiety, nausea or vomiting Related Data Home Medications ?Medication ?Instructions ?Recorded ?Confirmed ascorbic acid (vitamin C) 500 mg 500 mg PO DAILY PRN when remembers 02/14/24 05/27/25 tablet (Vitamin C) Previous Rx's ?Medication ?Instructions ?Recorded apixaban 5 mg tablet (Eliquis) 5 mg PO BID #30 tabs 05/20/24 atorvastatin 40 mg tablet 40 mg PO BEDTIME #90 tabs 05/20/24 albuterol sulfate 90 mcg/actuation 1 inh inhalation QID PRN shortness 02/22/25 aerosol inhaler of breath or wheezing #8.5 grams metoprolol tartrate 25 mg tablet 12.5 mg (1/2 x 25 mg) PO 05/25/25 BID@0900,2100 #0 tabs Allergies Allergy/AdvReac Type Severity Reaction Status Date / Time No Known Allergies Allergy Verified 05/24/25 13:11 Review of Systems Const: Denies: fever(s), chills, change in weight or fatigue Eyes: Denies: change in vision or blurry vision ENMT: Denies: throat pain or nasal congestion Card: Reports: palpitations; Denies: chest pain Resp: Reports: dyspnea; Denies: non-productive cough GI: Denies: abdominal pain, nausea or vomiting : Denies: flank pain or difficulty voiding Musc: Denies: neck pain, back pain or extremity pain Skin/Breast: Denies: rash or pruritus Neuro: Denies: headache(s) or numbness in extremities Psych: Denies: anxiety or depression Endo: Denies: polyuria or polydipsia Placido/Lymph: Denies: easy bruising or easy bleeding PFSH ED PFSH: Medical History (Updated 05/27/25 @ 22:51 by MIHIR Keene) Pulmonary hypertension History of echocardiogram 10/2024 EF68%, Mild MR, Mild AR, Trace TR, severe LAE, mild LORNE, normal RA, estimated PAP 40mmHg Difficult airway for intubation related to prior head and neck surgery 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 is yellowish in color due to muscle used in reconstruction Mild pulmonary hypertension with mild AR, mild MR History of pulmonary embolism 2012, post-operative from surgery for mandibular neoplasm and immobility related to surgery, had DVT as well Oropharyngeal dysphagia chronic, 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 from prior extensive right mandibular 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, primary difficulty is for water/thin liquids Essential hypertension Mixed dyslipidemia Atrial fibrillation 1st identified in 01/2022, on eliquis and metoprolol Transient cerebral ischemia CVA (cerebral vascular accident) 01/2022 mild right hemiparesis and dysarthria Surgical History History of neck dissection related to mandibular neoplasm History of carpal tunnel surgery History of mandibular 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), treated with surgical removal, 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, muscle from left thigh used in reconstruction, multiple surgeries starting in 2012 History of tonsillectomy Family History (Updated 05/24/25 @ 20:19 by Debra Beckett MD) Sister CAD (coronary artery disease) Other Cancer Social History Smoking and tobacco/nicotine status: never used tobacco/nicotine Alcohol intake: never Female Reproductive History: Spontaneous abortions: No Physical Exam Const: COMMON NORMALS: no acute distress, average body habitus and patient oriented x3 HENMT: COMMON NORMALS: normocephalic and atraumatic HEAD & SCALP: normocephalic and atraumatic FACE & SINUS: normal facial exam Neck/C-Spine: COMMON NORMALS: full ROM and no lymphadenopathy Lymph: LYMPHATIC: no lymphadenopathy noted Chest: COMMONS NORMALS: normal inspection of the chest and normal palpation of entire chest wall Resp: COMMON NORMALS: normal respiratory effort and No retractions EFFORT & INSPECTION: Yes able to speak in complete sentences Cardio: COMMON NORMALS: regular rate and regular rhythm RATE: regular rate RHYTHM: regular rhythm GI: COMMON NORMALS: Normal to inspection, nondistended, normoactive bowel sounds present, Soft to palpation and non-tender PALPATION: Yes Soft to palpation : COMMON NORMALS: Yes no CVA tenderness BLADDER/KIDNEY EXAM: Yes no CVA tenderness Back/Pelvis: COMMON NORMALS: no CVA tenderness Extremity: COMMON NORMALS: normal to inspection, full ROM and capillary refill normal Neuro: COMMON NORMALS: patient oriented x3 Psych: COMMON NORMALS: mental status grossly normal and Normal thought process present THOUGHT PROCESS: Normal thought process present Course Consultations: Consultation #1: Discussed with Dr. Clark. Agrees with amiodarone. He will consult in AM. Further discussion with hospitalist next. Consultation #2: d/w Dg, will accept to sdu/inpt Vital Signs: Vital signs: Vital Signs Temperature 97.8 F 05/27/25 20:50 Pulse Rate 114 H 05/28/25 00:05 Respiratory Rate 14 05/28/25 00:05 Blood Pressure 150/106 05/28/25 00:05 Pulse Oximetry 100 05/28/25 00:05 Oxygen Delivery Me thod Room Air 05/27/25 22:20 MDM - Arrhythmia/Palpitations Medical Decision Making Patient with concerns of atrial fibrillation with rapid ventricular response ongoing with third visit to the ER and once admitted this week. Previously admitted, with Cardizem titration drip. Patient initially presented with a rate in the 120s?140s, and after amiodarone load and drip, is a rate of 102. Discussed the case with computational geneticist, and hospitalist that accepted the admission. TSH is slightly elevated at 4.5, however will defer following this after amiodarone to hospitalist/outpatient physician. All patient's questions were answered to her satisfaction Lab Data 05/27/25 21:40 05/27/25 21:40 Laboratory Results WBC 6.05 10^3/uL (3.29-11.43) 05/27/25 21:40 RBC 4.57 10^6/uL (3.85-5.65) 05/27/25 21:40 Hgb 12.90 g/dL (11.27-16.99) 05/27/25 21:40 Hct 41.2 % (36-47) 05/27/25 21:40 MCV 90.2 fl (85-98) 05/27/25 21:40 MCH 28.2 pg (27-33) 05/27/25 21:40 MCHC 31.3 g/dL (30-55) 05/27/25 21:40 RDW 14.6 % (12.1-15.1) 05/27/25 21:40 Plt Count 178 10^3/cmm (157-399) 05/27/25 21: MPV 10.7 fL (7.4-10.4) H 05/27/25 21:40 Neut % (Auto) 56.7 % 05/27/25 21:40 Lymph % (Auto) 27.3 % 05/27/25 21:40 [place] % (Auto) 12.6 % 05/27/25:40 Eos % (Auto) 2.5 % 05/27/25:40 Baso % (Auto) 0.7 % 05/27/25:40 Neut # (Auto) 3.44 10^3/uL (1.8-7.7) 05/27/25:40 Lymph # (Auto) 1.7 10^3/uL (0.8-4.8) 05/27/25:40 [place] # (Auto) 0.8 10^3/uL (0.2-0.9) 05/27/25:40 Eos # (Auto) 0.2 10^3/uL (0.0-0.8) 05/27/25:40 Baso # (Auto) 0.0 10^3/uL (0.0-0.1) 05/27/25:40 Nucleated RBC % (auto) 0 % 05/27/25: Nucleated RBCs # 0.0 /100WBC 05/27/25 21:40 Sodium 140 mmol/L (136-145) 05/27/25 21:40 Potassium 4.1 mmol/L (3.5-5.1) 05/27/25:40 Chloride 107 mmol/L (98-107) 05/27/25 21:40 Carbon Dioxide 21 mmol/L (22-29) L 05/27/25 21:40 Anion Gap 16.1 (5-19) 05/27/25 21:40 BUN 20 mg/dL (8-23) 05/27/25 21:40 Creatinine 0.9 mg/dL (0.5-0.9) 05/27/25 21:40 GFR Calculation Not Reportable 05/27/25 21:40 Glucose 88 mg/dL (65-115) 05/27/25 21:40 Calculated Osmolality 292 mOsm/kg (285-295) 05/27/25 21:40 Calcium 9.2 mg/dL (8.5-10.5) 05/27/25 21:40 Magnesium 2.1 mg/dL (1.7-2.3) 05/27/25 21:40 Total Bilirubin 1.3 mg/dL (0.15-1.2) H 05/27/25 21:40 AST 28 U/L (0-32) 05/27/25 21:40 ALT 14 U/L (0-33) 05/27/25 21:40 Alkaline Phosphatase 111 U/L (35-105) H 05/27/25 21:40 Troponin T Baseline 16 ng/L (0-10) H 05/27/25 21:40 Troponin T 120 Minute 15.34 ng/L (0-10) H 05/27/25 23:44 Delta Troponin T -0.66 ABS# (0-10) L 05/27/25 23:44 NT-Pro-B Natriuret Pep 3139 pg/mL (0-125) H 05/27/25 21:40 Total Protein 6.9 g/dL (6.6-8.7) 05/27/25 21:40 Albumin 3.9 g/dL (3.5-5.2) 05/27/25 21:40 Globulin 3.0 g/dL (1.3-4.6) 05/27/25 21:40 TSH 4.53 uIU/mL (0.27-4.20) H 05/27/25 21:40 Discharge Plan Discharge Patient Disposition: Admitted As Inpatient Clinical Impression: Atrial fibrillation with rapid ventricular response Condition: Stable Discharge Diet: Low Salt Coding Level of Care Code ED Dictating Transcribing Machine Servicer for Chg Fwd Documented by User: Phoenix Nino, 05/27/25 23:46 HPI - Arrhythmia/Palpitations General: Chief Complaint: Arrhythmia/Palpitations Stated Complaint: heart is racing Time Seen by Provider: 05/27/25 21:12 Related Data Home Medications ?Medication ?Instructions ?Recorded ?Confirmed ascorbic acid (vitamin C) 500 mg 500 mg PO DAILY PRN when remembers 02/14/24 05/27/25 tablet (Vitamin C) Previous Rx's ?Medication ?Instructions ?Recorded apixaban 5 mg tablet (Eliquis) 5 mg PO BID #30 tabs 05/20/24 atorvastatin 40 mg tablet 40 mg PO BEDTIME #90 tabs 05/20/24 albuterol sulfate 90 mcg/actuation 1 inh inhalation QID PRN shortness 02/22/25 aerosol inhaler of breath or wheezing #8.5 grams metoprolol tartrate 25 mg tablet 12.5 mg (1/2 x 25 mg) PO 05/25/25 BID@0900,2100 #0 tabs Allergies Allergy/AdvReac Type Severity Reaction Status Date / Time No Known Allergies Allergy Verified 05/24/25 13:11 [facility] ED PFS: Medical History (Updated 05/27/25 @ 22:51 by MIHIR Keene) Pulmonary hypertension History of echocardiogram 10/2024 EF68%, Mild MR, Mild AR, Trace TR, severe LAE, mild LORNE, normal RA, estimated PAP 40mmHg Difficult airway for intubation related to prior head and neck surgery 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 is yellowish in color due to muscle used in reconstruction Mild pulmonary hypertension with mild AR, mild MR History of pulmonary embolism 2012, post-operative from surgery for mandibular neoplasm and immobility related to surgery, had DVT as well Oropharyngeal dysphagia chronic, 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 from prior extensive right mandibular 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, primary difficulty is for water/thin liquids Essential hypertension Mixed dyslipidemia Atrial fibrillation 1st identified in 01/2022, on eliquis and metoprolol Transient cerebral ischemia CVA (cerebral vascular accident) 01/2022 mild right hemiparesis and dysarthria Surgical History History of neck dissection related to mandibular neoplasm History of carpal tunnel surgery History of mandibular 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), treated with surgical removal, 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, muscle from left thigh used in reconstruction, multiple surgeries starting in 2012 History of tonsillectomy Family History (Updated 05/24/25 @ 20:19 by Debra Beckett MD) Sister CAD (coronary artery disease) Other Cancer Social History Smoking and tobacco/nicotine status: never used tobacco/nicotine Alcohol intake: never Course Vital Signs: Vital signs: Vital Signs Temperature 97.8 F 05/27/25 20:50 Pulse Rate 114 H 05/28/25 00:05 Respiratory Rate 14 05/28/25 00:05 Blood Pressure 150/106 05/28/25 00:05 Pulse Oximetry 100 05/28/25 00:05 Oxygen Delivery Me thod Room Air 05/27/25 22:20 MDM - Arrhythmia/Palpitations Medical Decision Making Patient with concerns of atrial fibrillation with rapid ventricular response Lab Data 05/27/25 21:40 05/27/25 21:40 Laboratory Results WBC 6.05 10^3/uL (3.29-11.43) 05/27/25 21:40 RBC 4.57 10^6/uL (3.85-5.65) 05/27/25 21:40 Hgb 12.90 g/dL (11.27-16.99) 05/27/25 21:40 Hct 41.2 % (36-47) 05/27/25 21:40 MCV 90.2 fl (85-98) 05/27/25 21:40 MCH 28.2 pg (27-33) 05/27/25 21:40 MCHC 31.3 g/dL (30-55) 05/27/25 21:40 RDW 14.6 % (12.1-15.1) 05/27/25 21:40 Plt Count 178 10^3/cmm (157-399) 05/27/25 21:40 MPV 10.7 fL (7.4-10.4) H 05/27/25 21:40 Neut % (Auto) 56.7 % 05/27/25 21:40 Lymph % (Auto) 27.3 % 05/27/25 21:40 [place] % (Auto) 12.6 % 05/27/25 21:40 Eos % (Auto) 2.5 % 05/27/25 21:40 Baso % (Auto) 0.7 % 05/27/25 21:40 Neut # (Auto) 3.44 10^3/uL (1.8-7.7) 05/27/25 21:40 Lymph # (Auto) 1.7 10^3/uL (0.8-4.8) 05/27/25 21:40 [place] # (Auto) 0.8 10^3/uL (0.2-0.9) 05/27/25 21:40 Eos # (Auto) 0.2 10^3/uL (0.0-0.8) 05/27/25 21:40 Baso # (Auto) 0.0 10^3/uL (0.0-0.1) 05/27/25 21:40 Nucleated RBC % (auto) 0 % 05/27/25 21:40 Nucleated RBCs # 0.0 /100WBC 05/27/25 21:40 Sodium 140 mmol/L (136-145) 05/27/25 21:40 Potassium 4.1 mmol/L (3.5-5.1) 05/27/25 21:40 Chloride 107 mmol/L (98-107) 05/27/25 21:40 Carbon Dioxide 21 mmol/L (22-29) L 05/27/25 21:40 Anion Gap 16.1 (5-19) 05/27/25 21:40 BUN 20 mg/dL (8-23) 05/27/25 21:40 Creatinine 0.9 mg/dL (0.5-0.9) 05/27/25 21:40 GFR Calculation Not Reportable 05/27/25 21:40 Glucose 88 mg/dL (65-115) 05/27/25 21:40 Calculated Osmolality 292 mOsm/kg (285-295) 05/27/25 21:40 Calcium 9.2 mg/dL (8.5-10.5) 05/27/25 21:40 Magnesium 2.1 mg/dL (1.7-2.3) 05/27/25 21:40 Total Bilirubin 1.3 mg/dL (0.15-1.2) H 05/27/25 21:40 AST 28 U/L (0-32) 05/27/25 21:40 ALT 14 U/L (0-33) 05/27/25 21:40 Alkaline Phosphatase 111 U/L (35-105) H 05/27/25 21:40 Troponin T Baseline 16 ng/L (0-10) H 05/27/25 21:40 Troponin T 120 Minute 15.34 ng/L (0-10) H 05/27/25 23:44 Delta Troponin T -0.66 ABS# (0-10) L 05/27/25 23:44 NT-Pro-B Natriuret Pep 3139 pg/mL (0-125) H 05/27/25 21:40 Total Protein 6.9 g/dL (6.6-8.7) 05/27/25 21:40 Albumin 3.9 g/dL (3.5-5.2) 05/27/25 21:40 Globulin 3.0 g/dL (1.3-4.6) 05/27/25 21:40 TSH 4.53 uIU/mL (0.27-4.20) H 05/27/25 21:40 XR interpretation done by ED provider, pending radiology final review Other Data Discussed the case with the hospitalist who is agreeable to admitting and placing orders. Discharge Plan Discharge Patient Disposition: Admitted As Inpatient Clinical Impression: Atrial fibrillation with rapid ventricular response Condition: Stable Discharge Diet: Low Salt Coding Level of Care Code ED Dictating Transcribing Machine Servicer for Chg Lena
[2025-05-27 21:51] LABS: Hematocrit 41.2 % (36-47); Hemoglobin 12.90 g/dL (11.27-16.99); Mean Corpuscular HGB Conc 31.3 g/dL (30-55); Mean Corpuscular Hemoglobin 28.2 pg (27-33); Mean Corpuscular Volume 90.2 fl (85-98); Nucleated Red Blood Cells % 0 %; Platelet Count 178 10^3/cmm (157-399); Red Blood Count 4.57 10^6/uL (3.85-5.65); White Blood Count 6.05 10^3/uL (3.29-11.43)
[2025-05-27 22:10] LABS: Troponin(5th) Baseline 16 ng/L (0-10)
[2025-05-27] MEDS: amiodarone 50 mg/mL SDV 3 mL 150 MG IVP (22:18)
[2025-05-27 22:20] LABS: Alanine Aminotransferase 14 U/L (0-33); Albumin Level 3.9 g/dL (3.5-5.2); Alkaline Phosphatase 111 U/L (35-105); Anion Gap 16.1 (5-19); Aspartate Amino Transferase 28 U/L (0-32); Blood Urea Nitrogen 20 mg/dL (8-23); Calcium 9.2 mg/dL (8.5-10.5); Carbon Dioxide 21 mmol/L (22-29); Chloride 107 mmol/L (98-107); Creatinine Clr Calc Pharmacy 51.9655; Globulin 3.0 g/dL (1.3-4.6); Glucose 88 mg/dL (65-115); Magnesium 2.1 mg/dL (1.7-2.3); NT Pro B Type Natriuretic Pept 3139 pg/mL (0-125); Osmolality Calculated 292 mOsm/kg (285-295); Potassium 4.1 mmol/L (3.5-5.1); Sodium 140 mmol/L (136-145); Thyroid Stimulating Hormone 4.53 uIU/mL (0.27-4.20); Total Protein 6.9 g/dL (6.6-8.7)
--- NOTE | 2025-05-27 23:14 | ECG_ITS ---
[facility] Test Date: 2025-05-27 Pat Name: Mary Izquierdo Department: Room: Gender: Female Application Development Project Manager: : 1950 Requested By: Yvette Garcia Order Number: [id number] Haroon MD: Cb Clark M.D. Measurements Intervals [place] Rate: 102 P: 70 [place]: 281 QRS: 29 QRSD: 97 T: 47 QT: 369 QTc: 482 Interpretive Statements atrial flutter with variable block MODERATE ST DEPRESSION [0.05+ mV ST DEPRESSION] Compared to ECG 05/27/2025 20:53:28 First degree AV block now present ST (T wave) deviation now present Atrial flutter no longer present T-wave abnormality no longer present Electronically Signed On 05-28-2025 15:31:56 CDT by Cb Clark M.D. [email or web address]
--- NOTE | 2025-05-27 23:50 | PM.HP ---
Providers/Chief Complaint Admitting Physician: Lor Conte MD Primary Care Provider: Murali Ryan DO Chief Complaint: heart is racing History of Present Illness Mary Izquierdo is a 74 year old female with a known history of atrial fibrillation for the past 3 years who was recently admitted to the hospital between May 24 to May 25, 2025 after presenting here for A-fib with RVR. On that visit she received a 20 mg push of IV Cardizem with resolution of her tachycardia however then became bradycardic with heart rate in the 40s and 50s. Patient is typically on metoprolol 25 mg p.o. daily, this dose was reduced to 12.5 mg p.o. on the recent admission due to sinus bradycardia in the mid 50s to 60s predominantly. Case was discussed with patient's outpatient regulatory coordinator at the time and an event monitor was recommended. Patient left here with the event monitor at discharge. She was in the emergency room again on May 26, 2025 with A-fib with RVR her heart rate was predominantly around 110-120. She states there has been fluctuation at home. She received a push of IV Cardizem which converted her heart rate in the 70s. Metoprolol was increased to 12.5 mg p.o. twice daily. Since discharge she states that her heart rate has continued to fluctuate between 70-1 20s. She feels some palpitations but is not significantly short of breath as she was when her heart rate is in 160s to 170s. She was found to be in A fib RVR with HR 120s-130s. she has taken additional doses of metoprolol today. She has been started on amiodarone infusion in the emergency room today after having received 150 mg bolus. Echocardiogram on May 24 had indicated an EF of 66% without obvious valvular abnormalities. Her Holter monitor has been reviewed which has shown heart rate up to 175 bpm on May 26, 2025. Per personal interpretation on May 25, 2025 at 2338, there is noted to be an episode of ventricular tachycardia lasting 5.6 seconds. She denies any fever chills nausea or vomiting. Review of Systems General: Reports: 10 or more systems reviewed and unremarkable except in HPI and below Const: Denies: fever(s), chills or body aches Eyes: Denies: change in vision, blurry vision or photophobia ENMT: Reports: hoarseness; Denies: throat pain, enlarged tonsils, odynophagia or nasal congestion Card: Denies: chest pain, palpitations, irregular heart rhythm, edema, swelling of feet/ankles, lightheadedness, pre-syncope, dyspnea on exertion or orthopnea Resp: Denies: dyspnea, productive cough, non-productive cough, wheezing, stridor, pain on inspiration, change in phlegm color, hemoptysis or chest congestion GI: Denies: abdominal pain, nausea, vomiting, hematemesis, coffee ground emesis, dysphagia, heartburn, diarrhea, constipation, GI cramping, change in stool character, hematochezia or melena : Denies: flank pain, difficulty voiding, dysuria, urinary frequency, urinary urgency, urinary hesitancy or hematuria Musc: Denies: neck pain, back pain, extremity pain, joint swelling, joint warmth or deformity Neuro: Denies: headache(s), numbness in extremities, weakness in extremities, sensory changes, difficulty walking, frequent falls, dizziness, vertigo, behavioral changes, Slurred speech present or seizure-like activity Psych: Denies: anxiety, depression, suicidal ideation or homicidal ideation Endo: Denies: polyuria, polydipsia, tired all the time, cold intolerance or hot flashes Placido/Lymph: Denies: easy bruising or easy bleeding Medications/Allergies Home Medications ?Medication ?Instructions ?Recorded ?Confirmed ?Last Taken ?Type ascorbic acid (vitamin C) 500 mg 500 mg PO DAILY PRN when remembers 02/14/24 05/27/25 11/01/24 History tablet (Vitamin C) apixaban 5 mg tablet (Eliquis) 5 mg PO BID #30 tabs 05/20/24 05/27/25 05/24/25 Rx atorvastatin 40 mg tablet 40 mg PO BEDTIME #90 tabs 05/20/24 05/27/25 05/23/25 Rx albuterol sulfate 90 mcg/actuation 1 inh inhalation QID PRN shortness 02/22/25 05/27/25 Unknown Rx aerosol inhaler of breath or wheezing #8.5 grams metoprolol tartrate 25 mg tablet 12.5 mg (1/2 x 25 mg) PO 05/25/25 05/27/25 Unknown Rx BID@0900,2100 #0 tabs Allergies Allergy/AdvReac Type Severity Reaction Status Date / Time No Known Allergies Allergy Verified 05/24/25 13:11 PFSH Acute PFSH: Medical History Pulmonary hypertension History of echocardiogram 10/2024 EF68%, Mild MR, Mild AR, Trace TR, severe LAE, mild LORNE, normal RA, estimated PAP 40mmHg Difficult airway for intubation related to prior head and neck surgery 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 is yellowish in color due to muscle used in reconstruction Mild pulmonary hypertension with mild AR, mild MR History of pulmonary embolism 2012, post-operative from surgery for mandibular neoplasm and immobility related to surgery, had DVT as well Oropharyngeal dysphagia chronic, 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 from prior extensive right mandibular 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, primary difficulty is for water/thin liquids Essential hypertension Mixed dyslipidemia Atrial fibrillation 1st identified in 01/2022, on eliquis and metoprolol Transient cerebral ischemia CVA (cerebral vascular accident) 01/2022 mild right hemiparesis and dysarthria Surgical History History of neck dissection related to mandibular neoplasm History of carpal tunnel surgery History of mandibular 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), treated with surgical removal, 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, muscle from left thigh used in reconstruction, multiple surgeries starting in 2012 History of tonsillectomy Family History Sister CAD (coronary artery disease) Other Cancer Social History Smoking and tobacco/nicotine status: never used tobacco/nicotine Alcohol intake: never Female Reproductive History: Spontaneous abortions: No Vitals/I&O/Wt Last Vital Signs Temp 97.8 F 05/27/25 20:50 Pulse 114 H 05/27/25 23:30 Resp 19 H 05/27/25 23:30 BP 143/101 05/27/25 23:30 Pulse Ox 99 05/27/25 23:30 O2 Del Method Room Air 05/27/25 22:20 Weight last 48 hrs Weight 65.771 kg Physical Exam Narrative: General: No acute distress, AO x3 HEENT: PERRLA, facial assymetry related to prior surgery of the face for mandibular cancer Chest: Normal vesicular breath sounds, no added sounds, equal good air entry bilaterally CVS: S1-S2 regular, no murmurs, no tachycardia, no gallops, no rubs Abdomen: Soft, nontender, no organomegaly, bowel sounds present Neuro: No focal deficits, no facial deformity, AO x3, power 5/5 in all limbs Data 05/27/25 21:40 05/27/25 21:40 Other Labs: Laboratory Results WBC 6.05 10^3/uL (3.29-11.43) 05/27/25 21:40 RBC 4.57 10^6/uL (3.85-5.65) 05/27/25 21:40 Hgb 12.90 g/dL (11.27-16.99) 05/27/25 21:40 Hct 41.2 % (36-47) 05/27/25 21:40 MCV 90.2 fl (85-98) 05/27/25 21:40 MCH 28.2 pg (27-33) 05/27/25 21:40 MCHC 31.3 g/dL (30-55) 05/27/25 21:40 RDW 14.6 % (12.1-15.1) 05/27/25 21:40 Plt Count 178 10^3/cmm (157-399) 05/27/25 21:40 MPV 10.7 fL (7.4-10.4) H 05/27/25 21:40 Neut % (Auto) 56.7 % 05/27/25 21:40 Lymph % (Auto) 27.3 % 05/27/25 21:40 [place] % (Auto) 12.6 % 05/27/25 21:40 Eos % (Auto) 2.5 % 05/27/25 21:40 Baso % (Auto) 0.7 % 05/27/25 21:40 Neut # (Auto) 3.44 10^3/uL (1.8-7.7) 05/27/25 21:40 Lymph # (Auto) 1.7 10^3/uL (0.8-4.8) 05/27/25 21:40 [place] # (Auto) 0.8 10^3/uL (0.2-0.9) 05/27/25 21:40 Eos # (Auto) 0.2 10^3/uL (0.0-0.8) 05/27/25 21:40 Baso # (Auto) 0.0 10^3/uL (0.0-0.1) 05/27/25 21:40 Nucleated RBC % (auto) 0 % 05/27/25 21:40 Nucleated RBCs # 0.0 /100WBC 05/27/25 21:40 Sodium 140 mmol/L (136-145) 05/27/25 21:40 Potassium 4.1 mmol/L (3.5-5.1) 05/27/25 21:40 Chloride 107 mmol/L (98-107) 05/27/25 21:40 Carbon Dioxide 21 mmol/L (22-29) L 05/27/25 21:40 Anion Gap 16.1 (5-19) 05/27/25 21:40 BUN 20 mg/dL (8-23) 05/27/25 21:40 Creatinine 0.9 mg/dL (0.5-0.9) 05/27/25 21:40 GFR Calculation Not Reportable 05/27/25 21:40 Glucose 88 mg/dL (65-115) 05/27/25 21:40 Calculated Osmolality 292 mOsm/kg (285-295) 05/27/25 21:40 Calcium 9.2 mg/dL (8.5-10.5) 05/27/25 21:40 Magnesium 2.1 mg/dL (1.7-2.3) 05/27/25 21:40 Total Bilirubin 1.3 mg/dL (0.15-1.2) H 05/27/25 21:40 AST 28 U/L (0-32) 05/27/25 21:40 ALT 14 U/L (0-33) 05/27/25 21:40 Alkaline Phosphatase 111 U/L (35-105) H 05/27/25 21:40 Troponin T Baseline 16 ng/L (0-10) H 05/27/25 21:40 Troponin T 120 Minute 15.34 ng/L (0-10) H 05/27/25 23:44 Delta Troponin T -0.66 ABS# (0-10) L 05/27/25 23:44 NT-Pro-B Natriuret Pep 3139 pg/mL (0-125) H 05/27/25 21:40 Total Protein 6.9 g/dL (6.6-8.7) 05/27/25 21:40 Albumin 3.9 g/dL (3.5-5.2) 05/27/25 21:40 Globulin 3.0 g/dL (1.3-4.6) 05/27/25 21:40 TSH 4.53 uIU/mL (0.27-4.20) H 05/27/25 21:40 Urine Color Yellow (Yellow) 05/28/25 00:38 Urine Appearance Cloudy (CLEAR) A 05/28/25 00:38 Urine pH 5.5 (5-7) 05/28/25 00:38 Ur Specific [place] 1.012 (1.005-1.030) 05/28/25 00:38 Urine Protein Negative (Negative) 05/28/25 00:38 Urine Glucose (UA) Negative (Normal) 05/28/25 00:38 Urine Ketones Negative (Negative) 05/28/25 00:38 Urine Blood 2+ (Negative) A 05/28/25 00:38 Urine Nitrate Positive (Negative) A 05/28/25 00:38 Urine Bilirubin Negative (Negative) 05/28/25 00:38 Urine Urobilinogen 0.2 mg/dL (Negative) 05/28/25 00:38 Ur Leukocyte Esterase 1+ (Negative) A 05/28/25 00:38 Urine RBC 6-10 /hpf (0-2) 05/28/25 00:38 Urine WBC 21-50 /hpf (0-5) H 05/28/25 00:38 Ur Squamous Epith Cells 0-5 /hpf (0-5) 05/28/25 00:38 Amorphous Sediment Not Reportable 05/28/25 00:38 Urine Bacteria 4+ /hpf (NONE) H 05/28/25 00:38 Hyaline Casts 0-4 /lpf H 05/28/25 00:38 Urine Opiates Screen Negative ng/mL (Negative) 05/28/25 00:38 Ur Barbiturates Screen Negative ng/mL (Negative) 05/28/25 00:38 Ur Phencyclidine Scrn Negative ng/mL (Negative) 05/28/25 00:38 Ur Amphetamines Screen Negative ng/mL (Negative) 05/28/25 00:38 U Benzodiazepines Scrn Negative ng/mL (Negative) 05/28/25 00:38 Urine Cocaine Screen Negative ng/mL (Negative) 05/28/25 00:38 U Marijuana (THC) Screen Negative ng/mL (Negative) 05/28/25 00:38 Other data: Date of Service: 05/24/25 Procedure(s): CV. echo limited [id number] CONCLUSIONS Normal left ventricular size and systolic function, EF 66%.no regional wall motion abnormalities. Mildly increased right atrial size. Moderately increased left atrial size. No gross valvular abnormalities. There is no pericardial effusion. There are no intracardiac masses. Compared to the study from 11/03/2024, there may not be any significant change in the 2D findings A&P Assessment and plan 1. Atrial fibrillation with rapid ventricular response: Recurrent symptomatic AFib with RVR as noted above Event monitor in place since discharge noting episodes of RVR and also one episode of V tach She has been started on amiodarone infusion at this time in the ER Whicch has been continued for now. It appears calcium channel blockers wre being avoided due to bradycardia with previous use. Metoprolol at 12.5mg BID has not led to improvemnt in symptoms Will increase dose to 25 mg BId for now Consult cardiology in view of persisting A fib. Trop series without significant elevation or delta Continue Eliquis for stroke prophylaxis Echo recently completed on 05/24/25 Continue home dose of statins Plan: dvt ppx: Eliquis Full code PDMP PDMP Reviewed: Not Reviewed Attestations Medical Necessity Statement*: > 2 midnight stay is anticipated Coding Level of Care Code Acute Code for Chg Fwd High MDM includes number and complexity of problems actively addressed during encounter, amount and/or complexity of data reviewed/ordered and described risk of complication, morbidity or mortality of management as documented Diagnoses Atrial fibrillation with rapid ventricular response I48.91
[2025-05-28] VITALS (10 sets, daily range): BP systolic 96–150; BP diastolic 67–107; PULSE 87–116; RESP 14–28; TEMP 36.5–36.9; O2SAT 99–100; BMI 24.3
[2025-05-28 00:18] LABS: Troponin 5 2HR 15.34 ng/L (0-10)
[2025-05-28 00:19] LABS: Troponin 5 2HR Delta -0.66 ABS# (0-10)
[2025-05-28 00:51] LABS: Glucose Urine UA Negative (Normal); Nitrate Urine Positive (Negative); Specific Gravity, Urine 1.012 (1.005-1.030)
[2025-05-28 00:53] LABS: Add Urine Microscopic? YES
[2025-05-28 00:58] LABS: PCP Screen Urine Negative (Negative)
[2025-05-28 04:26] LABS: Troponin 5 6HR 15.13 ng/L (0-10); Troponin 5 6HR Delta -0.87 ng/L (0-12)
[2025-05-28 04:30] LABS: Alanine Aminotransferase 15 U/L (0-33); Albumin Level 3.7 g/dL (3.5-5.2); Alkaline Phosphatase 104 U/L (35-105); Blood Urea Nitrogen 20 mg/dL (8-23); Calcium 8.9 mg/dL (8.5-10.5); Carbon Dioxide 20 mmol/L (22-29); Chloride 108 mmol/L (98-107); Creatinine Clr Calc Pharmacy 46.2665; Globulin 2.8 g/dL (1.3-4.6); Glucose 120 mg/dL (65-115); Osmolality Calculated 296 mOsm/kg (285-295); Sodium 141 mmol/L (136-145); Total Protein 6.5 g/dL (6.6-8.7)
[2025-05-28 04:32] LABS: Anion Gap 16.7 (5-19); Aspartate Amino Transferase 30 U/L (0-32); Potassium 3.7 mmol/L (3.5-5.1)
[2025-05-28 04:57] LABS: Free T4 Free Thyroxine 1.10 ng/dL (0.82-1.77)
[2025-05-28 05:11] LABS: Hematocrit 39.8 % (36-47); Hemoglobin 12.60 g/dL (11.27-16.99); Mean Corpuscular HGB Conc 31.7 g/dL (30-55); Mean Corpuscular Hemoglobin 28.4 pg (27-33); Mean Corpuscular Volume 89.6 fl (85-98); Nucleated Red Blood Cells % 0 %; Platelet Count 169 10^3/cmm (157-399); Red Blood Count 4.44 10^6/uL (3.85-5.65); White Blood Count 5.91 10^3/uL (3.29-11.43)
--- NOTE | 2025-05-28 05:48 | ECG_ITS ---
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 Measurements Intervals [place] Rate: 70 P: 0 ID: 0 QRS: 35 QRSD: 112 T: 49 QT: 406 QTc: 441 Interpretive Statements ATRIAL FIBRILLATION with a controlled ventricular response rate MODERATE INTRAVENTRICULAR CONDUCTION DELAY [110+ ms QRS DURATION] MODERATE ST DEPRESSION [0.05+ mV ST DEPRESSION] Compared to ECG 05/27/2025 23:20:07 Intraventricular conduction delay now present Sinus tachycardia no longer present First degree AV block no longer present ST (T wave) deviation still present Electronically Signed On 05-28-2025 15:31:18 CDT by Cb Clark M.D. [email or web address]
--- NOTE | 2025-05-28 08:21 | PM.CONSULT ---
Providers/Reason For Consult Consulting Physician/Specialty*: ARIEL Clark MD/cardiology Reason for Consult*: Patient with atrial fibrillation and rapid ventricular rate Requesting Physician: Dr Susy Conte Attending Physician: Lor Conte MD Primary Care Provider: Murali Ryan DO History of Present Illness History of Present Illness Mary Izquierdo is a 74 year old female with a history of hypertension, dyslipidemia, is known to have intermittent atrial fibrillation over the last 3 years or so. She was recently discharged in the hospital where she was admitted with atrial fibrillation with rapid ventricular rate. She was treated with AV charmaine blocking agents and the rhythm spontaneously converted to sinus. She was staying in the sinus bradycardia with a heart rate in the upper 40s and low 50s. She was placed on a small dose of metoprolol 12.5 mg p.o. twice daily. She was sent home with an event monitor. She went back into atrial fibrillation yesterday. She was having some palpitations. For this reason, she came to the emergency room. She did not have any dizziness or syncopal episodes. According to the patient, she usually get dizzy or lightheaded, when the heart rate goes into the 160s and 170s. So she was started on IV amiodarone in the emergency room and was admitted to the hospital for further evaluation management. Patient continues to be in atrial fibrillation but mostly with a controlled ventricular response rate. Cardiology consult is requested for further cardiac evaluation and recommendations. This patient has been taking the medications as prescribed. She is on long-term oral anticoagulation. She has not had any bleeding complications. This patient has a history of ameloblastoma involving the jaw bones. She had mandibulectomy on the right side and extensive neck surgery in the past. She has difficulty in swallowing. She apparently never had any ischemic cardiac workup. She denies any chest pain or chest tightness. No unusual shortness of breath. The EKG with a rapid ventricular rate, occasionally shows significant ST depressions. Review of Systems Narrative: CONSTITUTIONAL: No fever or chills. EYES: No blurring of vision or other visual disturbances lately. ENT: No hoarseness of voice, auditory disturbances or sore throat. CARDIOVASCULAR: As mentioned above. RESPIRATORY: No significant cough. GASTROINTESTINAL: No hematemesis or melena. GENITOURINARY: No dysuria or hematuria. INTEGUMENTARY: No skin rashes or history of skin cancer. NEURO: No transient ischemic attacks or amaurosis. PSYCHIATRIC: No history of psychosis or major depression. HEMATOLOGIC: No bleeding disorders or significant anemia. ENDOCRINE: No history of polyuria or polydipsia. MUSCULOSKELETAL: No recent joint pain or swelling. ALLERGY/IMMUNOLOGY: As mentioned above. Medications/Allergies Home Medications ?Medication ?Instructions ?Recorded ?Confirmed ?Last Taken ?Type ascorbic acid (vitamin C) 500 mg 500 mg PO DAILY PRN when remembers 02/14/24 05/27/25 11/01/24 History tablet (Vitamin C) apixaban 5 mg tablet (Eliquis) 5 mg PO BID #30 tabs 05/20/24 05/27/25 05/24/25 Rx atorvastatin 40 mg tablet 40 mg PO BEDTIME #90 tabs 05/20/24 05/27/25 05/23/25 Rx albuterol sulfate 90 mcg/actuation 1 inh inhalation QID PRN shortness 02/22/25 05/27/25 Unknown Rx aerosol inhaler of breath or wheezing #8.5 grams metoprolol tartrate 25 mg tablet 12.5 mg (1/2 x 25 mg) PO 05/25/25 05/27/25 Unknown Rx BID@0900,2100 #0 tabs Allergies Allergy/AdvReac Type Severity Reaction Status Date / Time No Known Allergies Allergy Verified 05/24/25 13:11 Current Medications Generic Name Dose Route Start Last Admin Trade Name Freq PRN Reason Stop Dose Admin Amiodarone HCl/Dextrose 360 mg in 200 mls @ 0 mls/hr 05/27/25 21:47 05/28/25 04:55 Nexterone IV 0.5 mg/min .Q0M ERIC 16.67 mls/hr Protocol Administration Per Protocol PFSH Acute PFSH: Medical History Pulmonary hypertension History of echocardiogram 10/2024 EF68%, Mild MR, Mild AR, Trace TR, severe LAE, mild LORNE, normal RA, estimated PAP 40mmHg Difficult airway for intubation related to prior head and neck surgery 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 is yellowish in color due to muscle used in reconstruction Mild pulmonary hypertension with mild AR, mild MR History of pulmonary embolism 2012, post-operative from surgery for mandibular neoplasm and immobility related to surgery, had DVT as well Oropharyngeal dysphagia chronic, 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 from prior extensive right mandibular 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, primary difficulty is for water/thin liquids Essential hypertension Mixed dyslipidemia Longstanding persistent atrial fibrillation 1st identified in 01/2022, on eliquis and metoprolol Transient cerebral ischemia CVA (cerebral vascular accident) 01/2022 mild right hemiparesis and dysarthria Surgical History History of neck dissection related to mandibular neoplasm History of carpal tunnel surgery History of mandibular 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), treated with surgical removal, 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, muscle from left thigh used in reconstruction, multiple surgeries starting in 2012 History of tonsillectomy Family History Sister CAD (coronary artery disease) Other Cancer Social History Smoking and tobacco/nicotine status: never used tobacco/nicotine Alcohol intake: never Female Reproductive History: Spontaneous abortions: No Vitals/I&O/Wt Last Vital Signs Temp 97.8 F 05/28/25 07:40 Pulse 102 H 05/28/25 07:40 Resp 24 H 05/28/25 07:40 BP 99/84 05/28/25 07:40 Pulse Ox 99 05/28/25 07:40 O2 Del Method Room Air 05/28/25 07:40 05/27/25 05/28/25 05/28/25 22:59 06:59 14:59 Intake Total 200 / 200 Balance 200 / 200 Weight last 48 hrs Weight 141 lb 8 oz Weight 145 lb Physical Exam Narrative: GENERAL: The patient is alert and oriented times three. Not in any acute distress. HEENT: No significant pallor, icterus or lymphadenopathy.Oral cavity: There are no mucous membrane lesions. NECK: Trachea appears to be central. No masses noted. No JVD or thyromegaly appreciated. RESPIRATORY: Chest is symmetrical. No intercostals muscle retraction or any accessory muscle activation. There is no chest wall tenderness. Breath sounds are heard bilaterally. No rales or rhonchi heard. No evidence of any consolidation. BREASTS: Deferred. HEART: The heart sounds are normal. No S3 or S4. No significant murmurs. No pericardial rub ABDOMEN: No vessel pulsations or distention. No tenderness. No organomegaly appreciated. Bowel sounds are normally heard. : Deferred. RECTAL: Deferred. LYMPHATIC: No lymphadenopathy noted in the neck. EXTREMITIES: No edema or cyanosis. No clubbing. MUSCULOSKELETAL: No acute joint deformities or swelling SKIN: There are no significant rashes or ecchymosis NEUROPSYCHIATRIC: The patient is alert and oriented x3. Appears to be in a good mood. No tremors or rigidity noted. Data 05/28/25 04:53 05/28/25 03:28 Other Labs: Laboratory Last Values WBC 5.91 10^3/uL (3.29-11.43) 05/28/25 04:53 Corrected WBC Cancelled 05/28/25 03:28 RBC 4.44 10^6/uL (3.85-5.65) 05/28/25 04:53 Hgb 12.60 g/dL (11.27-16.99) 05/28/25 04:53 Hct 39.8 % (36-47) 05/28/25 04:53 MCV 89.6 fl (85-98) 05/28/25 04:53 MCH 28.4 pg (27-33) 05/28/25 04:53 MCHC 31.7 g/dL (30-55) 05/28/25 04:53 RDW 14.5 % (12.1-15.1) 05/28/25 04:53 Plt Count 169 10^3/cmm (157-399) 05/28/25 04:53 MPV 10.3 fL (7.4-10.4) 05/28/25 04:53 Gran % Cancelled 05/28/25 03:28 Neut % (Auto) 56.7 % 05/28/25 04:53 Lymph % (Auto) 28.4 % 05/28/25 04:53 [place] % (Auto) 12.2 % 05/28/25 04:53 Eos % (Auto) 2.0 % 05/28/25 04:53 Baso % (Auto) 0.5 % 05/28/25 04:53 Neut # (Auto) 3.35 10^3/uL (1.8-7.7) 05/28/25 04:53 Lymph # (Auto) 1.7 10^3/uL (0.8-4.8) 05/28/25 04:53 [place] # (Auto) 0.7 10^3/uL (0.2-0.9) 05/28/25 04:53 Eos # (Auto) 0.1 10^3/uL (0.0-0.8) 05/28/25 04:53 Baso # (Auto) 0.0 10^3/uL (0.0-0.1) 05/28/25 04:53 Absolute Gran (auto) Cancelled 05/28/25 03:28 Nucleated RBC % (auto) 0 % 05/28/25 04:53 Nucleated RBCs # 0.0 /100WBC 05/28/25 04:53 Sodium 141 mmol/L (136-145) 05/28/25 03:28 Potassium 3.7 mmol/L (3.5-5.1) 05/28/25 03:28 Chloride 108 mmol/L (98-107) H 05/28/25 03:28 Carbon Dioxide 20 mmol/L (22-29) L 05/28/25 03:28 Anion Gap 16.7 (5-19) 05/28/25 03:28 BUN 20 mg/dL (8-23) 05/28/25 03:28 Creatinine 1.0 mg/dL (0.5-0.9) H 05/28/25 03:28 GFR Calculation Not Reportable 05/28/25 03:28 Glucose 120 mg/dL (65-115) H 05/28/25 03:28 Calculated Osmolality 296 mOsm/kg (285-295) H 05/28/25 03:28 Calcium 8.9 mg/dL (8.5-10.5) 05/28/25 03:28 Magnesium 2.1 mg/dL (1.7-2.3) 05/27/25 21:40 Total Bilirubin 1.1 mg/dL (0.15-1.2) 05/28/25 03:28 AST 30 U/L (0-32) 05/28/25 03:28 ALT 15 U/L (0-33) 05/28/25 03:28 Alkaline Phosphatase 104 U/L (35-105) 05/28/25 03:28 Troponin T Baseline 16 ng/L (0-10) H 05/27/25 21:40 Troponin T 120 Minute 15.34 ng/L (0-10) H 05/27/25 23:44 Delta Troponin T -0.66 ABS# (0-10) L 05/27/25 23:44 Troponin T Hi Sens 6Hr 15.13 ng/L (0-10) H 05/28/25 03:28 Troponin T Hi Sens 6Hr Delta -0.87 ng/L (0-12) L 05/28/25 03:28 NT-Pro-B Natriuret Pep 3139 pg/mL (0-125) H 05/27/25 21:40 Total Protein 6.5 g/dL (6.6-8.7) L 05/28/25 03:28 Albumin 3.7 g/dL (3.5-5.2) 05/28/25 03:28 Globulin 2.8 g/dL (1.3-4.6) 05/28/25 03:28 TSH 4.53 uIU/mL (0.27-4.20) H 05/27/25 21:40 Free T4 1.10 ng/dL (0.82-1.77) 05/28/25 03:28 Free T3 2.2 PG/ML (2.0-4.4) 05/28/25 03:28 Urine Color Yellow (Yellow) 05/28/25 00:38 Urine Appearance Cloudy (CLEAR) A 05/28/25 00:38 Urine pH 5.5 (5-7) 05/28/25 00:38 Ur Specific [place] 1.012 (1.005-1.030) 05/28/25 00:38 Urine Protein Negative (Negative) 05/28/25 00:38 Urine Glucose (UA) Negative (Normal) 05/28/25 00:38 Urine Ketones Negative (Negative) 05/28/25 00:38 Urine Blood 2+ (Negative) A 05/28/25 00:38 Urine Nitrate Positive (Negative) A 05/28/25 00:38 Urine Bilirubin Negative (Negative) 05/28/25 00:38 Urine Urobilinogen 0.2 mg/dL (Negative) 05/28/25 00:38 Ur Leukocyte Esterase 1+ (Negative) A 05/28/25 00:38 Urine RBC 6-10 /hpf (0-2) 05/28/25 00:38 Urine WBC 21-50 /hpf (0-5) H 05/28/25 00:38 Ur Squamous Epith Cells 0-5 /hpf (0-5) 05/28/25 00:38 Amorphous Sediment Not Reportable 05/28/25 00:38 Urine Bacteria 4+ /hpf (NONE) H 05/28/25 00:38 Hyaline Casts 0-4 /lpf H 05/28/25 00:38 Urine Opiates Screen Negative ng/mL (Negative) 05/28/25 00:38 Ur Barbiturates Screen Negative ng/mL (Negative) 05/28/25 00:38 Ur Phencyclidine Scrn Negative ng/mL (Negative) 05/28/25 00:38 Ur Amphetamines Screen Negative ng/mL (Negative) 05/28/25 00:38 U Benzodiazepines Scrn Negative ng/mL (Negative) 05/28/25 00:38 Urine Cocaine Screen Negative ng/mL (Negative) 05/28/25 00:38 U Marijuana (THC) Screen Negative ng/mL (Negative) 05/28/25 00:38 Other data: The EKG from today revealed atrial fibrillation with controlled medical response rate of around 75 bpm. Nonspecific IVCD. Diffuse nonspecific ST-T changes. Review of the mobile cardiac telemetry(MCT) revealed episodes of atrial fibrillation rapid ventricular rate. An episode of wide-complex tachycardia of 28 beats was noted at the rate of 180 bpm. It appears to be an Eliecer phenomenon. Echocardiogram from 05/24/2025 Normal left ventricular size and systolic function, EF 66%.no regional wall motion abnormalities. Mildly increased right atrial size. Moderately increased left atrial size. No gross valvular abnormalities. There is no pericardial effusion. There are no intracardiac masses. Compared to the study from 11/03/2024, there may not be any significant change in the 2D findings A&P Assessment and plan 1. Longstanding persistent atrial fibrillation: Patient was started on IV amiodarone yesterday in the emergency room. Her heart rate seems to be under control. However she remains in atrial fibrillation. 2. Wide-complex tachycardia: The episode of wide-complex tachycardia appears to be an Eliecer phenomenon. At this point, she may not require any specific intervention for this. 3. Essential hypertension: Her blood pressure is in the low normal side. The current medication may be continued. 4. Mixed dyslipidemia: May continue on the current management 5. Bradycardia: She had seems to have asymptomatic bradycardia. May continue on the current medication. The heart rate need to be closely monitored. Looks like she may have sinus node dysfunction. At this point, she may not require any specific intervention. Plan: Based on the clinical progress, further recommendations will be made. Patient requires ischemia workup. Myocardial perfusion imaging would be reasonable. Because of the wide-complex tachycardia, and cardiac catheterization also might be appropriate. Patient may hold off on Eliquis at this time. She will be treated with subcu Lovenox. Based on the clinical progress, further recommendations will be made. Thank you for the opportunity to evaluate this patient and make these recommendations PDMP PDMP Reviewed: Not Reviewed Consult Attestations Medical Necessity Statement: Patient requires continued hospital stay for close monitoring and further management Coding Level of Care Code Acute Code for Chg Fwd Diagnoses Longstanding persistent atrial fibrillation I48.11 Atrial fibrillation type: longstanding persistent Wide-complex tachycardia R00.0 Essential hypertension I10 Mixed dyslipidemia E78.2 Bradycardia R00.1
--- NOTE | 2025-05-28 09:20 | PC.SOCIAL ---
IMM Update pg 2 of IMM Updated and reviewed w/ patient. Copy provided and copy dated, initialed and placed in chart.
--- NOTE | 2025-05-28 12:14 | P.PN_ITS ---
Subjective 2 Subjective: Admitted overnight. Today morning seen on amiodarone 0.5. Remains with heart rate of more than 110. Denies any difficulty in breathing. Concerned about persistent tachycardia. Vitals/I&O/Wt Last Vital Signs Temp 98.4 F 05/28/25 12:00 Pulse 99 05/28/25 12:00 Resp 15 05/28/25 12:00 BP 124/83 05/28/25 12:00 Pulse Ox 100 05/28/25 12:00 O2 Del Method Room Air 05/28/25 12:00 05/27/25 05/28/25 05/28/25 22:59 06:59 14:59 Intake Total 200 / 200 240 / 240 Balance 200 / 200 240 / 240 Weight last 48 hrs Weight 64.183 kg Weight 65.771 kg Physical Exam 2 Narrative: General: No acute distress, AO x3 HEENT: PERRLA, facial assymetry related to prior surgery of the face for mandibular cancer Chest: Normal vesicular breath sounds, no added sounds, equal good air entry bilaterally CVS: S1-S2 regular, no murmurs, no tachycardia, no gallops, no rubs Abdomen: Soft, nontender, no organomegaly, bowel sounds present Neuro: No focal deficits, no facial deformity, AO x3, power 5/5 in all limbs Data 05/28/25 04:53 05/28/25 03:28 A&P Assessment and plan 1. Atrial fibrillation with rapid ventricular response: Recurrent symptoms. Has event monitor in place. Continue with amiodarone drip as per protocol. Start on 200 mg twice daily from evening. Continue with metoprolol 12.5 mg twice daily. If needed will uptitrate if blood pressure allows. Switch from Eliquis to full dose Lovenox 1 mg/kg body weight every 12 hourly. Appreciate recent echocardiogram from 05/24 which showed an EF of 66%, mildly increased RV size, moderately increased LA size. Appreciate cardiology recommendations. 2. Wide-complex tachycardia: Seen on event monitor. Concern for V. tach. Appreciate cardiology recommendations. Concerns for Eliecer phenomenon. Patient requires ACS workup for further management. Will discuss about possible cardiac angiogram versus cardiac stress test. Patient would like to remain in the hospital for cardiac workup rather than being done as an outpatient due to recurrent presentation to the ER and recurrent admissions. Discussed it being the weekend but only possibility of stress test would be Shlomo. Discussed about possible need for cardiac angiogram. She is agreeable as that would help her get back home sooner. Will discuss with cardiology. Tentatively put n.p.o. after midnight. Aspirin 325 mg one-time followed by 81 mg daily. Check A1c, lipid panel. 3. Essential hypertension: Goal blood pressure less than 140/90 mmHg. Continue to monitor. 4. Pulmonary hypertension: Oral Lasix 20 mg one-time. Plan: Full dose Lovenox will be sufficient for DVT prophylaxis Protonix for PUD PPx Full code PDMP PDMP Reviewed: Not Reviewed Attestations 2 Medical Necessity Statement*: Requires further hospitalization for management of atrial fibrillation with rapid ventricular response with concerns of wide-complex tachycardia as patient requires ACS workup Diagnoses Atrial fibrillation with rapid ventricular response I48.91 Wide-complex tachycardia R00.0 Essential hypertension I10 Pulmonary hypertension I27.20
[2025-05-28 12:56] LABS: Estmated Average Glucose 111; Hemoglobin A1C 5.5 % (4.0-6.0)
[2025-05-28 13:22] LABS: Iron 84 ug/dL (37-145); Total Iron Binding Capacity 359 mcg/dl; Unsaturated Iron Binding 275 ug/dL (112-347); Vitamin B12 292 pg/mL (232-1245)
[2025-05-28] MEDS: digoxin 250 mcg/ml INJ 2 mL IVP (22:44)
[2025-05-29] VITALS (7 sets, daily range): BP systolic 97–125; BP diastolic 65–87; PULSE 92–112; RESP 15–18; TEMP 36.4–36.6; O2SAT 97–100
[2025-05-29] MEDS: digoxin 250 mcg/ml INJ 2 mL 125 MCG IVP ×2 (04:12→10:27)
[2025-05-29 04:17] LABS: Hematocrit 39.4 % (36-47); Hemoglobin 12.70 g/dL (11.27-16.99); Mean Corpuscular HGB Conc 32.2 g/dL (30-55); Mean Corpuscular Hemoglobin 27.8 pg (27-33); Mean Corpuscular Volume 86.2 fl (85-98); Nucleated Red Blood Cells % 0 %; Platelet Count 189 10^3/cmm (157-399); Red Blood Count 4.57 10^6/uL (3.85-5.65); White Blood Count 6.71 10^3/uL (3.29-11.43)
[2025-05-29 04:36] LABS: Cholesterol 111 mg/dL (0-200); HDL Cholesterol 39 mg/dL (60-100); Magnesium 2.1 mg/dL (1.7-2.3); Triglycerides 59 mg/dL (0-150); VLDL Cholestrol Calculation 12 mg/dL (0-30)
[2025-05-29 04:45] LABS: Alanine Aminotransferase 15 U/L (0-33); Albumin Level 3.7 g/dL (3.5-5.2); Alkaline Phosphatase 105 U/L (35-105); Anion Gap 16.8 (5-19); Aspartate Amino Transferase 28 U/L (0-32); Blood Urea Nitrogen 24 mg/dL (8-23); Calcium 8.7 mg/dL (8.5-10.5); Carbon Dioxide 22 mmol/L (22-29); Chloride 107 mmol/L (98-107); Creatinine Clr Calc Pharmacy 46.6541; Globulin 3.0 g/dL (1.3-4.6); Glucose 92 mg/dL (65-115); Osmolality Calculated 298 mOsm/kg (285-295); Potassium 3.8 mmol/L (3.5-5.1); Sodium 142 mmol/L (136-145); Total Protein 6.7 g/dL (6.6-8.7)
--- NOTE | 2025-05-29 10:04 | P.PN_ITS ---
Subjective 2 Subjective: Patient's heart rate is still uncontrolled. Has been started on digoxin. Vitals/I&O/Wt Last Vital Signs Temp 97.7 F 05/29/25 08:00 Pulse 112 H 05/29/25 08:00 Resp 18 05/29/25 08:00 BP 103/74 05/29/25 08:00 Pulse Ox 100 05/29/25 08:00 O2 Del Method Room Air 05/29/25 04:00 05/28/25 05/29/25 05/29/25 22:59 06:59 14:59 Intake Total 550.038 / 910.038 198.929 / 1108.967 240 / 240 Balance 550.038 / 910.038 198.929 / 1108.967 240 / 240 Weight last 48 hrs Weight 144 lb 3.2 oz Weight 141 lb 8 oz Weight 145 lb Physical Exam 2 Narrative: GENERAL: Patient is alert, awake and oriented x3. [] NECK: No jugular vein distension. [] HEENT: No cyanosis. No icterus. No pallor. [] HEART: Irregularly irregular, tachycardic. LUNGS: Clear to auscultate bilaterally. [] CENTRAL NERVOUS SYSTEM: Grossly nonfocal. [] EXTREMITIES: Lower extremities with no edema bilaterally. Data 05/30/25 02:28 05/30/25 02:28 Micro: Microbiology 05/28/25 00:38 Urine Culture - Preliminary Urine,Clean Catch Gram Negative Rods A&P Assessment and plan 1. Atrial fibrillation with rapid ventricular response: 2. Wide-complex tachycardia: 3. Essential hypertension: 4. Pulmonary hypertension: Plan: Patient needs ischemic workup. She is now willing to have stress testing done. However she is not rate controlled yet. Digoxin has been started. Uptitrate amiodarone. If heart rate is not controlled over the next 1 to 2 days, will consider cardioversion Continue lovenox for anticoagulation Thank you for involving us with care of this patient. Please call with questions. PDMP PDMP Reviewed: Not Reviewed Attestations 2 Medical Necessity Statement*: Care expected to cross 2 midnights. Coding Level of Care Code Acute Code for [facility] Fwd Diagnoses Atrial fibrillation with rapid ventricular response I48.91 Wide-complex tachycardia R00.0 Essential hypertension I10 Pulmonary hypertension I27.20
--- NOTE | 2025-05-29 12:29 | PC.CHAP ---
Pastoral Care Encounter/Spiritual Assessment Type of Contact [] Declined prefabricated houses trimmer visit [] Patient/Family/Request visit [] Outpatient visit [] Follow-up visit [] Physician referral [] Code/Alert [x] Routine visit [] Staff referral [] Actively dying [] Patient sleeping [] Family support [] [] Out of room [] Palliative care [] [x] Receiving care in room [] Pre-surgical visit [] Trauma [] Long length of stay [] ICU visit [] Other: Relational/Emotional Strength [] Patient feels connected with others/family/visitors/staff [] Distress [] Loneliness/isolation [] Abandonment Spirituality of Patient [] Person of Anat [] Attends Religion of their Anat [] Believes in Prayer [] Reads Bible or Mandaen materials [] There are Spiritual issues to be addressed Traveling Passenger Agent Interventions [] Prayer [] Active listening [] Non-anxious presence [] Spiritual/emotional support [] Crisis/trauma care [] Spiritual counseling [] Bereavement support [] Provided bereavement packet [] Provided Bible/devotional materials [] Provided toy/stuffed animal, coloring book to patient or family member [] Provided Communion [] Anointing/Shedd [] Salvation [] Completed spiritual assessment [] Other: Impact on Illness or Injury [] Angry [] Fearful [] Anxious [] Often cries [] Exhaustion [] Unable to work [] Unable to attend judaism [] Unable to walk/stand [] Unable to read [] Unable to drive [] Unable to eat/drink [] Unable to sleep [] Unable to be with family [] Patient intubated [] Other: Summary Time spent with patient
--- NOTE | 2025-05-29 13:16 | P.PN_ITS ---
Subjective 2 Subjective: No acute events overnight. Patient remains on amiodarone drip. Heart rate persistently over 100. Seen with family at bedside. Patient denies any difficulty in breathing or chest pain. Remains on room air. Vitals/I&O/Wt Last Vital Signs Temp 97.7 F 05/29/25 08:00 Pulse 112 H 05/29/25 08:00 Resp 18 05/29/25 08:00 BP 103/74 05/29/25 08:00 Pulse Ox 100 05/29/25 08:00 O2 Del Method Room Air 05/29/25 04:00 05/28/25 05/29/25 05/29/25 22:59 06:59 14:59 Intake Total 550.038 / 910.038 198.929 / 1108.967 240 / 240 Balance 550.038 / 910.038 198.929 / 1108.967 240 / 240 Weight last 48 hrs Weight 65.408 kg Weight 64.183 kg Weight 65.771 kg Physical Exam 2 Narrative: General: No acute distress, AO x3 HEENT: PERRLA, facial assymetry related to prior surgery of the face for mandibular cancer Chest: Normal vesicular breath sounds, no added sounds, equal good air entry bilaterally CVS: S1-S2 regular, no murmurs, no tachycardia, no gallops, no rubs Abdomen: Soft, nontender, no organomegaly, bowel sounds present Neuro: No focal deficits, no facial deformity, AO x3, power 5/5 in all limbs Data 05/29/25 02:25 05/29/25 02:25 Micro: Microbiology 05/28/25 00:38 Urine Culture - Preliminary Urine,Clean Catch Gram Negative Rods A&P Assessment and plan 1. Atrial fibrillation with rapid ventricular response: Recurrent symptoms. Has event monitor in place. Continue with amiodarone drip. Increase amiodarone to 400 mg twice daily. Received digoxin load completed today morning with to 50 mcg one-time followed by 125 mcg every 6 hours for 2 doses. Continue with metoprolol 12.5 mg twice daily. Appreciate cardiology recommendations. Will discuss about further modalities of treatment with possible cardioversion. Continue with full dose Lovenox 1 mg/kg body weight every 12 hourly. Appreciate recent echocardiogram from 05/24 which showed an EF of 66%, mildly increased RV size, moderately increased LA size. Appreciate cardiology recommendations. 2. Wide-complex tachycardia: Seen on event monitor. Concern for V. tach. Appreciate cardiology recommendations. Concerns for Eliecer phenomenon. Patient requires ACS workup for further management. Appreciate cardiology recommendations. Possible awaiting cardiac stress test. Continue with 81 mg daily. Appreciate A1c, lipid panel. 3. Essential hypertension: Goal blood pressure less than 140/90 mmHg. Continue to monitor. 4. Pulmonary hypertension: Oxygen supplementation keeping saturation over 88%. Fluid restriction to less than 1500 cc. Plan: Full dose Lovenox will be sufficient for DVT prophylaxis Protonix for PUD PPx Full code PDMP PDMP Reviewed: Not Reviewed Attestations 2 Medical Necessity Statement*: Requires further hospitalization for management of persistent atrial fibrillation with rapid ventricular response with management of wide-complex tachycardia as patient requires ACS workup Diagnoses Atrial fibrillation with rapid ventricular response I48.91 Wide-complex tachycardia R00.0 Essential hypertension I10 Pulmonary hypertension I27.20
[2025-05-30] VITALS (10 sets, daily range): BP systolic 113–141; BP diastolic 76–94; PULSE 74–110; RESP 15–20; TEMP 36.4–36.8; O2SAT 98–99
[2025-05-30 02:56] LABS: Hematocrit 40.2 % (36-47); Hemoglobin 12.70 g/dL (11.27-16.99); Mean Corpuscular HGB Conc 31.6 g/dL (30-55); Mean Corpuscular Hemoglobin 27.9 pg (27-33); Mean Corpuscular Volume 88.2 fl (85-98); Nucleated Red Blood Cells % 0 %; Platelet Count 161 10^3/cmm (157-399); Red Blood Count 4.56 10^6/uL (3.85-5.65); White Blood Count 5.95 10^3/uL (3.29-11.43)
[2025-05-30 03:19] LABS: Magnesium 2.1 mg/dL (1.7-2.3)
[2025-05-30 03:21] LABS: Alanine Aminotransferase 14 U/L (0-33); Albumin Level 3.6 g/dL (3.5-5.2); Alkaline Phosphatase 99 U/L (35-105); Anion Gap 15.7 (5-19); Aspartate Amino Transferase 26 U/L (0-32); Blood Urea Nitrogen 21 mg/dL (8-23); Calcium 8.7 mg/dL (8.5-10.5); Carbon Dioxide 24 mmol/L (22-29); Chloride 107 mmol/L (98-107); Creatinine Clr Calc Pharmacy 46.6541; Globulin 2.7 g/dL (1.3-4.6); Glucose 91 mg/dL (65-115); Osmolality Calculated 299 mOsm/kg (285-295); Potassium 3.7 mmol/L (3.5-5.1); Sodium 143 mmol/L (136-145); Total Protein 6.3 g/dL (6.6-8.7)
--- NOTE | 2025-05-30 09:41 | P.PN_ITS ---
Subjective 2 Subjective: Patient doing well. Heart rate is better controlled today. Vitals/I&O/Wt Last Vital Signs Temp 98.2 F 05/30/25 07:35 Pulse 110 H 05/30/25 09:22 Resp 16 05/30/25 07:35 BP 113/76 05/30/25 07:35 Pulse Ox 98 05/30/25 07:35 O2 Del Method Room Air 05/30/25 07:35 05/29/25 05/30/25 05/30/25 22:59 06:59 14:59 Intake Total 560 / 1160 199.762 / 1359.762 160.012 / 160.012 Output Total Balance 560 / 1160 198.762 / 1358.762 160.012 / 160.012 Weight last 48 hrs Weight 142 lb 9.6 oz Weight 144 lb 3.2 oz Physical Exam 2 Narrative: GENERAL: Patient is alert, awake and oriented x3. [] NECK: No jugular vein distension. [] HEENT: No cyanosis. No icterus. No pallor. [] HEART: Irregularly irregular, tachycardic. LUNGS: Clear to auscultate bilaterally. [] CENTRAL NERVOUS SYSTEM: Grossly nonfocal. [] EXTREMITIES: Lower extremities with no edema bilaterally. Data 05/30/25 02:28 05/30/25 02:28 Micro: Microbiology 05/28/25 00:38 Urine Culture - Preliminary Urine,Clean Catch Gram Negative Rods A&P Assessment and plan 1. Atrial fibrillation with rapid ventricular response: 2. Wide-complex tachycardia: 3. Essential hypertension: 4. Pulmonary hypertension: Plan: Heart rates are better controlled today. Continue digoxin, amiodarone and uptitrating metoprolol. Stress testing is not available tomorrow. Patient does not want to undergo stress test and wants coronary angiogram. She had wide- complex tachycardia.We will proceed with coronary angiogram with possible PCI. Risks and benefits discussed. Continue lovenox for anticoagulation Thank you for involving us with care of this patient. Please call with questions. PDMP PDMP Reviewed: Not Reviewed Attestations 2 Medical Necessity Statement*: Care expected to cross 2 midnights. Coding Level of Care Code Acute Code for [facility] Diagnoses Atrial fibrillation with rapid ventricular response I48.91 Wide-complex tachycardia R00.0 Essential hypertension I10 Pulmonary hypertension I27.20
--- NOTE | 2025-05-30 10:22 | PC.NURSE ---
Dr Jimenes ordered to change patients metoprolol to 25mg BID. Give the additional 12.5mg now. Plan for recyclable products sorter tomorrow.
--- NOTE | 2025-05-30 11:17 | P.PN_ITS ---
Subjective 2 Subjective: No acute events overnight. Patient's heart rate better controlled mostly running in high 80s to mid 90s now. Occasionally going up to 110. Otherwise patient has remained hemodynamically stable. Remains on room air. 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 Atrial fibrillation with rapid ventricular response: Recurrent symptoms. Has event monitor in place. Continue with amiodarone drip. Increase amiodarone to 400 mg twice daily. Received digoxin load completed today morning with to 50 mcg one-time followed by 125 mcg every 6 hours for 2 doses. Continue with metoprolol 12.5 mg twice daily. Appreciate cardiology recommendations. Will discuss about further modalities of treatment with possible cardioversion. Continue with full dose Lovenox 1 mg/kg body weight every 12 hourly. Appreciate recent echocardiogram from 05/24 which showed an EF of 66%, mildly increased RV size, moderately increased LA size. Appreciate cardiology recommendations. 2. Wide-complex tachycardia: Seen on event monitor. Concern for V. tach. Appreciate cardiology recommendations. Concerns for Eliecer phenomenon. Patient requires ACS workup for further management. Appreciate cardiology recommendations. Possible awaiting cardiac stress test. Continue with 81 mg daily. Appreciate A1c, lipid panel. 3. Essential hypertension: Goal blood pressure less than 140/90 mmHg. Continue to monitor. 4. Pulmonary hypertension: Oxygen supplementation keeping saturation over 88%. Fluid restriction to less than 1500 cc. Plan: Full dose Lovenox will be sufficient for DVT prophylaxis Protonix for PUD PPx Full code Plan for the day: Continue with amiodarone 400 mg twice daily. Stop amiodarone drip. Received digoxin loading yesterday. Start on 250 mcg daily for now. Continue with metoprolol. Increase to 25 mg twice daily. Further ACS workup as per cardiology team. Possible cardiac angiogram in next 24 hours. Continue with full dose Lovenox for now. Will transition back to home dose of Eliquis on discharge. PDMP PDMP Reviewed: Not Reviewed Attestations 2 Medical Necessity Statement*: Requires further hospitalization for management of persistent A-fib with RVR as patient requires further ACS workup given concerns for occasional wide-complex tachycardia and heart rate is better controlled. Diagnoses Atrial fibrillation with rapid ventricular response I48.91 Wide-complex tachycardia R00.0 Essential hypertension I10 Pulmonary hypertension I27.20
[2025-05-31] VITALS (7 sets, daily range): BP systolic 93–132; BP diastolic 68–75; PULSE 74–104; RESP 15–20; TEMP 36.1–36.8; O2SAT 98–100
[2025-05-31 02:14] LABS: Hematocrit 39.0 % (36-47); Hemoglobin 12.30 g/dL (11.27-16.99); Mean Corpuscular HGB Conc 31.5 g/dL (30-55); Mean Corpuscular Hemoglobin 27.6 pg (27-33); Mean Corpuscular Volume 87.4 fl (85-98); Nucleated Red Blood Cells % 0 %; Platelet Count 174 10^3/cmm (157-399); Red Blood Count 4.46 10^6/uL (3.85-5.65); White Blood Count 5.50 10^3/uL (3.29-11.43)
[2025-05-31 02:33] LABS: Magnesium 2.1 mg/dL (1.7-2.3)
[2025-05-31 02:48] LABS: Alanine Aminotransferase 18 U/L (0-33); Albumin Level 3.7 g/dL (3.5-5.2); Alkaline Phosphatase 101 U/L (35-105); Anion Gap 15.1 (5-19); Aspartate Amino Transferase 32 U/L (0-32); Blood Urea Nitrogen 23 mg/dL (8-23); Calcium 9.0 mg/dL (8.5-10.5); Carbon Dioxide 23 mmol/L (22-29); Chloride 106 mmol/L (98-107); Creatinine Clr Calc Pharmacy 51.5826; Globulin 2.8 g/dL (1.3-4.6); Glucose 84 mg/dL (65-115); Osmolality Calculated 293 mOsm/kg (285-295); Potassium 4.1 mmol/L (3.5-5.1); Sodium 140 mmol/L (136-145); Total Protein 6.5 g/dL (6.6-8.7)
--- NOTE | 2025-05-31 06:17 | XACV_ITS ---
Exam Room: 2 Ht: 163 cm Wt: 64 kg BSA: 1.71 m2 Gender: Female : 1950 Any Known Allergies: No known allergies Exam Priority: Routine Procedure(s): Procedure Description: Diagnostic procedure Procedure Description: Left Heart Catheterization Procedure Description: Left ventriculography Procedure Description: Coronary Angiography Diagnostic Cath Status: Urgent Diagnostic Findings * INDICATION: Ventricular tachycardia/wide complex tachycardia. * No significant disease noted in the Left Main, Left Anterior Descending, Right, or Circumflex coronary arteries. * Coronary angiography shows right dominance. Conclusions 1. No significant disease noted in the Left Main, Left Anterior Descending, Right, or Circumflex coronary arteries. 2. Hyperdynamic left ventricular systolic function. Ejection fraction of 70%. Recommendations * Aggressive medical therapy. * Outpatient cardiology follow up in 2 weeks. Interventional RX Recommendation: medical therapy and/or counseling Diagnostic RX Recommendation: medical therapy and/or counseling Anticoagulation: Heparin Ventriculography Ejection Fraction: 70.0 % Pressures Phase:Rest AO : 131 / 84 ( 101 ) @ 8:30:00 AM 147 / 70 ( 101 ) @ 8:36:00 AM 148 / 70 ( 101 ) @ 8:36:00 AM LV : 146 / -16 / 5 @ 8:35:00 AM 144 / -16 / 6 @ 8:36:00 AM 145 / -17 / 10 @ 8:36:00 AM Valves Phase:DefaultPhase AV : 0.0 @ 7:40:42 AM 0.0 @ 7:40:42 AM AV Mean Gradient: 0.0 @ 7:40:42 AM 0.0 @ 7:40:42 AM Clinical Evaluation EBL: 5mL-10mL Procedural Details Procedure Consent Obtained. Pre-Procedure Time Out. Identified patient by full name and date of as verbalized by the patient/guarantor. Does the consent match the physician's order: Yes. Accurate & Complete Informed Consent: Yes. Inpatient/Outpatient History & Physical on Chart: No. If H&P is completed, is and addenduem needed: No. Visualize and Verify Site with Patient/Guarantor: N/A. Relevant Radiology Images available: Yes. The risks, benefits, and alternatives of sedation and/or procedure were discussed by physician. The patient agrees to continue. Procedure started. [facility] Clinical Fraility Score: 3: Managing Well. Rn Referral Indications: Cardiac Arrhythmia/Vtach. Chest Pain Symptom Assessment: Atypical Angina. Cardiovascular Instability: Yes, if yes, Ventricular Arrhythmias. Correct patient, site and procedure confirmed by cath team. PERRLA. Strong, equal hand delivery and installation subcontractor bilaterally. Lungs clear x 5 lobes. IV Site on Arrival: 22 gauge in the left wrist. IV Fluids: 0.9% NaCl at KVO. 0 mL infused prior to worm farm laborer. Pre Procedural Pulses: bilateral dorsalis pedis was Doppled. Pre Procedural Pulses: bilateral posterior tibial was Doppled. Pre Procedural Pulses: right radial was 3+. Oxygen started at 2liters/min via nasal canula. right groin was prepped with chloroprep then draped in the usual sterile fashion. right radial was prepped with chloroprep then draped in the usual sterile fashion. Baseline sample Acquired. HR: 90 BPM. Physician notified. Patient's family unavailable. The patient would like Dr. Wildeahim to update her daughter, Monika, at at the completion of the procedure. Equipment: 6F - Radial. Cardiac Cath Pack. ACIST Manifold Kit Model BT 2000. Heparinized Saline (2 units/mL), 1000 mL bag. Physician arrived. Physician scrubbed in. Immediate Pre-Procedure Time Out. Correct Patient: Yes; Correct Procedure: Yes; Correct Site: Yes; Correct Patient Position: Yes; Correct Supplies: Yes; Dried Flammable Prep: Yes; Blood Products Available: N/A;. Lidocaine 1% infiltrated to the right radial. Arterial access obtained. A 5 serbian TIG catheter in over the exchange J wire. Multiple views taken of left coronary artery. Catheter redirected to the RCA. Multiple views taken of right coronary artery. Catheter removed over the exchange J wire. A 5 serbian Angled Pig catheter in over the exchange J wire. EDP Sample taken: LV 146/-17,5; HR: 96 BPM; SpO2: 100%. LV gram performed in AUG[place]IN @ 10 mL/second for a total of 30 mL. EDP Sample taken: LV 144/-17,6; HR: 98 BPM; SpO2: 100%. Pullback taken: LV 145/-18,10; AO 147/70(101); Mean: 0mmHg, Peak to Peak: 0mmHg, SEP: 23sec/min; HR: 94 BPM; SpO2: 100%. Catheter removed over the exchange J wire. Physician scrubbed out. A TR Band was successful obtaining hemostatsis at the Right Radial artery insertion site. Post Procedure: Pulses reassessed and unchanged. PERRLA. Strong, equal hand delivery and installation subcontractor bilaterally. No VTE prophylaxis required. Medication's Wasted: Lidocaine 1% = 18 mL. Medication's Wasted: Nitro = 49.8 mg. Medication's Wasted: Heparin = 1000 units. Medication's Wasted: Other = Versed 1 mg. Medication's Wasted: Other = Fentanyl 75 mcg. Total IV fluids: 22 mL. Post-op diagnosis: Non-obstructive CAD. Complications: none. Estimated blood loss: 5mL-10mL. Responsiveness - Normal response to verbal stimuli; alert and oriented, PERRLA. Airway - Unaffected, no intervention required; spontaneous ventilation. Circulation: W/N/L, pulses unchanged. Nausea/Vomiting: No. Procedure completed. Patient transferred by bed to 1st floor. Vital chart was stopped. Access Site Site: Right Radial artery Sheath Size: 6 Fr Hemostasis Method: TR Band Hemostasis Success: Successful Procedure Medications Start: 7:19 AM Stop: 7:19 AM Medication: Benadryl Amount: 25 mg Route: I.V. Start: 7:24 AM Stop: 7:24 AM Medication: Versed Amount: 1 mg Route: I.V. Start: 7:24 AM Stop: 7:24 AM Medication: Fentanyl Amount: 25 mcg Route: I.V. Start: 7:27 AM Stop: 7:27 AM Medication: Nitrogylcerin Amount: 200 mcg Route: I.A. Start: 7:29 AM Stop: 7:29 AM Medication: Heparin Amount: 5000 units Route: I.V. I, the attending physician, have reviewed and verified all procedure medications. Yes, all medications given per verbal order History/Risk Factors Hypertension: Yes Dyslipidemia: Yes Peripheral Arterial Disease (PAD): No Myocardial Infarction (FL): No Obesity: No Renal Disease: No Tobacco Use: Never Prior Interventions PCI: No CABG: No Valve Surgery: No Report Signatures Finalized by Kurt Jimenes MD on 05/31/2025 07:49 AM
--- NOTE | 2025-05-31 07:20 | W.PM.OPSUD ---
Surgery/Procedure H&P Update DATE OF PROCEDURE: May 31, 2025 DATE H&P PERFORMED: 05/28/25 H&P UPDATE INFORMATION: I have reviewed H&P completed within last 30 days, I have examined patient prior to procedure and No changes to prior documentation PREOP DIAGNOSIS: Wide-complex tachycardia/ ventricular tachycardia PRIMARY INDICATION FOR PROCEDURE: Wide-complex tachycardia/ventricular tachycardia PLANNED PROCEDURE: Left heart cath with possible percutaneous coronary intervention PATIENT REASSESSED PRIOR TO SEDATION, WITH NO CHANGE NOTED: Yes PHYSICAL EXAM: alert, oriented x 3 and clear to auscultation bilaterally OTHER PERTINENT EXAM FINDINGS: Irregularly irregular heart rhythm AIRWAY EVAL/ANESTHESIA PLAN: normal airway, ASA III, Local Anesthesia, Risks, benefits & alternatives of sedation and/or procedure discussed and Patient agrees to continue as planned ADDITIONAL INFORMATION: Moderate sedation
--- NOTE | 2025-05-31 07:37 | PC.NURSE ---
Patient left CSU for shellfish processing laborer at 0650.
--- NOTE | 2025-05-31 07:57 | PC.NURSE ---
Patient returned from fish farm laborer to CSU with a right radial TR-Band at 0750.
--- NOTE | 2025-05-31 09:54 | PC.CHAP ---
Pastoral Care Encounter/Spiritual Assessment Type of Contact [] Declined dance hall host/hostess visit [] Patient/Family/Request visit [] Outpatient visit [] Follow-up visit [] Physician referral [] Code/Alert [x] Routine visit [] Staff referral [] Actively dying [] Patient sleeping [] Family support [] [] Out of room [] Palliative care [] [] Receiving care in room [] Pre-surgical visit [] Trauma [] Long length of stay [] ICU visit [] Other: Relational/Emotional Strength [x] Patient feels connected with others/family/visitors/staff [] Distress [] Loneliness/isolation [] Abandonment Spirituality of Patient [x] Person of Anat [] Attends Spiritism of their Anat [x] Believes in Prayer [] Reads Bible or Lutheran materials [] There are Spiritual issues to be addressed Newspaper Editor Interventions [x] Prayer [x] Active listening [x] Non-anxious presence [x] Spiritual/emotional support [] Crisis/trauma care [] Spiritual counseling [] Bereavement support [] Provided bereavement packet [] Provided Bible/devotional materials [] Provided toy/stuffed animal, coloring book to patient or family member [] Provided Communion [] Anointing/[place] [] Salvation [x] Completed spiritual assessment [] Other: Impact on Illness or Injury [] Angry [] Fearful [] Anxious [] Often cries [] Exhaustion [] Unable to work [] Unable to attend mandaen [] Unable to walk/stand [] Unable to read [] Unable to drive [] Unable to eat/drink [] Unable to sleep [] Unable to be with family [] Patient intubated [] Other: Summary Time spent with patient 5 min
--- NOTE | 2025-05-31 12:24 | P.PN_ITS ---
Subjective 2 Subjective: seen this am pt is s/p cath has TR band in place eating breakfast at this time still in Afib. 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 Atrial fibrillation with rapid ventricular response: Recurrent symptoms. Has event monitor in place. Continue with amiodarone drip. Increase amiodarone to 400 mg twice daily. Received digoxin load completed today morning with to 50 mcg one-time followed by 125 mcg every 6 hours for 2 doses. Continue with metoprolol 12.5 mg twice daily. Appreciate cardiology recommendations. Will discuss about further modalities of treatment with possible cardioversion. Continue with full dose Lovenox 1 mg/kg body weight every 12 hourly. Appreciate recent echocardiogram from 05/24 which showed an EF of 66%, mildly increased RV size, moderately increased LA size. Appreciate cardiology recommendations. 2. Wide-complex tachycardia: Seen on event monitor. Concern for V. tach. Appreciate cardiology recommendations. Concerns for Eliecer phenomenon. Patient requires ACS workup for further management. Appreciate cardiology recommendations. Possible awaiting cardiac stress test. Continue with 81 mg daily. Appreciate A1c, lipid panel. 3. Essential hypertension: Goal blood pressure less than 140/90 mmHg. Continue to monitor. 4. Pulmonary hypertension: Oxygen supplementation keeping saturation over 88%. Fluid restriction to less than 1500 cc. Plan: Full dose Lovenox will be sufficient for DVT prophylaxis Protonix for PUD PPx Full code Plan for the day: Continue with amiodarone 400 mg twice daily. Stop amiodarone drip. Received digoxin loading yesterday. Start on 250 mcg daily for now. Continue with metoprolol. Increase to 25 mg twice daily. Further ACS workup as per cardiology team. Possible cardiac angiogram in next 24 hours. Continue with full dose Lovenox for now. Will transition back to home dose of Eliquis on discharge. 05/31/2025 continue amiodarone continue digoxin daily continue metoprolol 25 bid pt s/p cath transition to home eliquis on dc possible plan for ablation in AM per patient. will confirm with cardiology PDMP PDMP Reviewed: Not Reviewed Attestations 2 Medical Necessity Statement*: Requires further hospitalization for management of persistent A-fib with RVR as patient requires further ACS workup given concerns for occasional wide-complex tachycardia and heart rate is better controlled. Diagnoses Atrial fibrillation with rapid ventricular response I48.91 Wide-complex tachycardia R00.0 Essential hypertension I10 Pulmonary hypertension I27.20
--- NOTE | 2025-05-31 15:38 | P.PN_ITS ---
<Statement entered by Kurt Jimenes M.D - 05/31/25 16:37> Patient was cared for in conjunction with an advanced practice practitioner.? I reviewed the chart and all pertinent data including imaging, telemetry, and laboratory results.? I discussed the patient in detail with the advanced practice practitioner.? Please see their note for complete progress note, testing results and agreed upon plan of care for the patient. Subjective 2 Subjective: Underwent coronary angiogram this morning, finding no significant disease in the left main, LAD, RCA or circumflex coronary arteries. She remains in atrial fibrillation this afternoon. Will plan for ELIZ guided cardioversion tomorrow morning if she is still in atrial fibrillation. Currently rate is controlled, she feels woozy . Vitals/I&O/Wt Last Vital Signs Temp 97.6 F 05/31/25 12:00 Pulse 74 05/31/25 12:00 Resp 16 05/31/25 12:00 BP 93/75 05/31/25 12:00 Pulse Ox 99 05/31/25 12:00 O2 Del Method Room Air 05/31/25 12:00 05/31/25 05/31/25 05/31/25 06:59 14:59 22:59 Intake Total 360 / 360 Balance 360 / 360 Weight last 48 hrs Weight 141 lb 9.6 oz Weight 142 lb 9.6 oz Physical Exam 2 Const: COMMON NORMALS: no acute distress and patient oriented x3 Chest: COMMONS NORMALS: normal inspection of the chest and normal palpation of entire chest wall CHEST: Yes Symmetrical chest wall rise Resp: COMMON NORMALS: normal respiratory effort, No retractions, No use of accessory muscles and clear to auscultation bilaterally EFFORT & INSPECTION: Yes symmetric chest movement AUSCULTATION: clear to auscultation bilaterally Cardio: COMMON NORMALS: S1 normal heart sound present, S2 normal heart sound present, No gallops present (Cardio), No clicks present (Cardio), No murmurs present (Cardio) and No rub (Cardio) RHYTHM: abnormal rhythm irregularly irregular HEART SOUNDS: S1 normal heart sound present and S2 normal heart sound present PERIPHERAL PULSES: radial pulses present, posterior tibial pulses present and dorsalis pedis present Neuro: COMMON NORMALS: patient oriented x3 and moves all extremities Psych: COMMON NORMALS: mental status grossly normal and cooperative Data 05/31/25 01:50 05/31/25 01:50 Micro: Microbiology 05/28/25 00:38 Urine Culture - Final Urine,Clean Catch Escherichia coli A&P Assessment and plan 1. Longstanding persistent atrial fibrillation: 2. Essential hypertension: 3. Chronic anticoagulation: 4. Wide-complex tachycardia: Plan: No significant stenosis present on coronary angiogram this morning. Right radial cath site looks good. Discontinuing Lovenox and restarting Eliquis this evening. Plan for ELIZ guided cardioversion tomorrow. PDMP PDMP Reviewed: Not Reviewed Attestations 2 Medical Necessity Statement*: Poorly tolerated atrial fibrillation, planned cardioversion Coding Level of Care Code Acute Code for [facility] Diagnoses Longstanding persistent atrial fibrillation I48.11 Atrial fibrillation type: longstanding persistent Essential hypertension I10 Chronic anticoagulation Z79.01 Wide-complex tachycardia R00.0
--- NOTE | 2025-05-31 15:56 | PC.NURSE ---
Patient's right radial TR-band; air is removed slowly 2ml's at a time. A 2nd TR-Band did have to be applied due to patient getting a small hematoma above the original TR-band. Both TR-bands are removed after air was removed. A dressing is applied of 2x2 and tegaderm. Patient tolerated well. Patient is reeducated that she can not use her right hand/wrist for 24 hours. Patient states understanding.
--- NOTE | 2025-05-31 16:10 | PC.SOCIAL ---
IMM updated IMM dated and initialed, Copy placed in chart and copy given to patient
[2025-06-01] VITALS (9 sets, daily range): BP systolic 100–131; BP diastolic 61–97; PULSE 82–110; RESP 11–20; TEMP 36.6–36.7; O2SAT 97–99
[2025-06-01 04:10] LABS: Hematocrit 42.5 % (36-47); Hemoglobin 13.40 g/dL (11.27-16.99); Mean Corpuscular HGB Conc 31.5 g/dL (30-55); Mean Corpuscular Hemoglobin 27.6 pg (27-33); Mean Corpuscular Volume 87.6 fl (85-98); Nucleated Red Blood Cells % 0 %; Platelet Count 179 10^3/cmm (157-399); Red Blood Count 4.85 10^6/uL (3.85-5.65); White Blood Count 5.49 10^3/uL (3.29-11.43)
[2025-06-01 04:32] LABS: Blood Urea Nitrogen 24 mg/dL (8-23); Calcium 9.3 mg/dL (8.5-10.5); Carbon Dioxide 26 mmol/L (22-29); Chloride 103 mmol/L (98-107); Creatinine Clr Calc Pharmacy 42.0605; Glucose 81 mg/dL (65-115); Magnesium 2.2 mg/dL (1.7-2.3); Osmolality Calculated 291 mOsm/kg (285-295); Sodium 139 mmol/L (136-145)
[2025-06-01 04:33] LABS: Anion Gap 14.5 (5-19); Potassium 4.5 mmol/L (3.5-5.1)
--- NOTE | 2025-06-01 07:38 | ANES.PREANE2 ---
Pre-Anesthetic Assessment Height/Weight: Height 5 ft 4 in Weight 141 lb 8 oz Temp Pulse Resp BP Pulse Ox O2 Del Method 97.8 F 82 18 104/71 99 Room Air 06/01/25 03:59 06/01/25 03:59 06/01/25 03:59 06/01/25 03:59 06/01/25 03:59 06/01/25 03:59 Preop Diagnosis: Wide-complex tachycardia/ ventricular tachycardia Operation Date: 05/31/25 07:00 Proposed Procedures p Cardiac Catheterization(Not Applicable) - Kurt Jimenes M.D Was Beta John taken within 24 hours: Yes Was Clonidine taken within 24 hours: N/A Social No alcohol and No tobacco Exam alert and oriented x 3 Airway Mallampati: Class I Comments: Comments: Edentulous, right swelling over right mandibular region that was removed. Good mouth opening, Mallampati 1 Anesthetic Plan ASA status: 4 Anesthesia: MAC Other: Patient initially admitted 05/27/2025 for A-fib with RVR. 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 Echo May 24 showing EF of 66% Chronic apixaban, last taken 05/27/2025 Labs reviewed from today and acceptable for procedure Plan for MAC anesthesia Medications/Allergies Home Medications ?Medication ?Instructions ?Recorded ?Confirmed ?Last Taken ?Type ascorbic acid (vitamin C) 500 mg 500 mg PO DAILY PRN when remembers 02/14/24 05/28/25 11/01/24 History tablet (Vitamin C) apixaban 5 mg tablet (Eliquis) 5 mg PO BID #30 tabs 05/20/24 05/28/25 05/27/25 07:00 Rx atorvastatin 40 mg tablet 40 mg PO BEDTIME #90 tabs 05/20/24 05/28/25 05/26/25 20:00 Rx albuterol sulfate 90 mcg/actuation 1 inh inhalation QID PRN shortness 02/22/25 05/28/25 Unknown Rx aerosol inhaler of breath or wheezing #8.5 grams metoprolol tartrate 25 mg tablet 12.5 mg (1/2 x 25 mg) PO 05/25/25 05/28/25 05/27/25 08:00 Rx BID@0900,2100 #0 tabs Allergies Allergy/AdvReac Type Severity Reaction Status Date / Time No Known Allergies Allergy Verified 05/24/25 13:11 Current Medications Generic Name Dose Route Start Last Admin Trade Name Edgard PRN Reason Stop Dose Admin Amiodarone HCl 400 mg 05/29/25 18:00 05/31/25 17:33 Amiodarone 200 Mg Tablet PO 400 mg BID ERIC Administration Apixaban 5 mg 05/31/25 21:00 05/31/25 21:44 Apixaban 5 Mg Tablet PO 5 mg BID@0900,2100 ERIC Administration Aspirin 81 mg 05/29/25 09:00 05/31/25 08:54 Aspirin 81 Mg Ec Tablet PO 81 mg DAILY ERIC Administration Atorvastatin Calcium 40 mg 05/28/25 21:00 05/31/25 21:45 Atorvastatin 40 Mg Tablet PO 40 mg BEDTIME ERIC Administration Digoxin 250 mcg 05/30/25 09:05 05/31/25 08:55 Digoxin 250 Mcg Tablet PO 250 mcg DAILY ERIC Administration Metoprolol Tartrate 25 mg 05/30/25 21:00 05/31/25 21:44 Metoprolol Tartrate 25 Mg Tablet PO 25 mg BID@0900,2100 ERIC Administration Pantoprazole Sodium 40 mg 05/28/25 09:00 05/31/25 08:[address] 40 Mg Tablet PO 40 mg DAILY ERIC Administration [facility] Anesthesia Medical History Pulmonary hypertension History of echocardiogram 10/2024 EF68%, Mild MR, Mild AR, Trace TR, severe LAE, mild LORNE, normal RA, estimated PAP 40mmHg Difficult airway for intubation related to prior head and neck surgery 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 is yellowish in color due to muscle used in reconstruction Mild pulmonary hypertension with mild AR, mild MR History of pulmonary embolism 2012, post-operative from surgery for mandibular neoplasm and immobility related to surgery, had DVT as well Oropharyngeal dysphagia chronic, 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 from prior extensive right mandibular 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, primary difficulty is for water/thin liquids Essential hypertension Mixed dyslipidemia Longstanding persistent atrial fibrillation 1st identified in 01/2022, on eliquis and metoprolol Transient cerebral ischemia CVA (cerebral vascular accident) 01/2022 mild right hemiparesis and dysarthria Surgical History History of neck dissection related to mandibular neoplasm History of carpal tunnel surgery History of mandibular 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), treated with surgical removal, 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, muscle from left thigh used in reconstruction, multiple surgeries starting in 2012 History of tonsillectomy Family History Sister CAD (coronary artery disease) Other Cancer Social History Smoking and tobacco/nicotine status: never used tobacco/nicotine Alcohol intake: never Female Reproductive History Spontaneous abortions: No Data Anesthesia 06/01/25 03:59 06/01/25 03:59 Short CBC 05/31/25 06/01/25 Range/Units 01:50 03:59 WBC 5.50 5.49 (3.29-11.43) 10^3/uL Hgb 12.30 13.40 (11.27-16.99) g/dL Hct 39.0 42.5 (36-47) % MCV 87.4 87.6 (85-98) fl Plt Count 174 179 (157-399) 10^3/cmm Neut % (Auto) 54.9 56.3 % Neut # (Auto) 3.02 3.09 (1.8-7.7) 10^3/uL BMP 05/31/25 06/01/25 01:50 03:59 Sodium 140 139 Potassium 4.1 4.5 Chloride 106 103 Carbon Dioxide 23 26 BUN 23 24 H Creatinine 0.9 1.1 H Glucose 84 81 Calcium 9.0 9.3 Liver Function 05/31/25 Range/Units 01:50 Total Bilirubin 1.2 (0.15-1.2) mg/dL AST 32 (0-32) U/L ALT 18 (0-33) U/L Alkaline Phosphatase 101 (35-105) U/L Albumin 3.7 (3.5-5.2) g/dL Cardiac Studies: Echocardiogram 11/03/24 Echocardiogram Limited Views 05/24/25 Holter Monitor 09/07/24
--- NOTE | 2025-06-01 08:27 | ECG_ITS ---
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 Measurements Intervals Maynard Rate: 103 P: 0 ID: 0 QRS: -50 QRSD: 97 T: -11 QT: 373 QTc: 490 Interpretive Statements ATRIAL FLUTTER WITH RAPID VENTRICULAR RESPONSE LEFT ANTERIOR FASCICULAR BLOCK [QRS AXIS <= -45, QR IN I, RS IN II] MODERATE ST DEPRESSION [0.05+ mV ST DEPRESSION] Compared to ECG 05/28/2025 05:48:42 Left anterior fascicular block now present Atrial fibrillation no longer present Intraventricular conduction delay no longer present ST (T wave) deviation still present Electronically Signed On 06-01-2025 15:01:08 CDT by Kurt Jimenes M.D. [email or web address]
--- NOTE | 2025-06-01 08:34 | W.PM.OPSUD ---
Surgery/Procedure H&P Update DATE OF PROCEDURE: June 01, 2025 DATE H&P PERFORMED: 05/28/25 H&P UPDATE INFORMATION: I have reviewed H&P completed within last 30 days, I have examined patient prior to procedure and No changes to prior documentation CHANGES TO PREVIOUS DOCUMENTATION: Patient not a good candidate for ELIZ. Had several surgeries and has also been told of throat problems before. Had vocal cord issues. She has been compliant with her anticoagulation. PREOP DIAGNOSIS: Atrial fibrillation with RVR PRIMARY INDICATION FOR PROCEDURE: Atrial fibrillation with RVR PLANNED PROCEDURE: Cardioversion Anesthesia team available for cardioversion
--- NOTE | 2025-06-01 08:37 | P.PCN_ITS ---
Procedure Note: Date of procedure: 06/01/25 Pre-procedure diagnosis: Atrial fibrillation with RVR Post-procedure diagnosis: other (Normal sinus rhythm) Procedure: Cardioversion: After anesthesia team sedated patient, we proceeded with cardioversion. 1 synchornized shock was delivered at 50 J. Patient converted successfully to sinus rhythm Performing Provider: Kurt Jimenes Complications: None Condition: stable Disposition: no change Coding Level of Care Code Acute Code for [facility] Lena
--- NOTE | 2025-06-01 10:00 | P.PN_ITS ---
<Statement entered by Kurt Jimenes M.D - 06/03/25 12:31> Patient was cared for in conjunction with an advanced practice practitioner.? I reviewed the chart and all pertinent data including imaging, telemetry, and laboratory results.? I discussed the patient in detail with the advanced practice practitioner.? Please see?their note for progress note, testing results and agreed upon plan of care for the patient. Subjective 2 Subjective: Patient underwent cardioversion this morning, it was decided not to perform ELIZ due to history of vocal cord surgery and prior right mandible resection due to oropharyngeal cancer, considered high risk for intubation. She had not missed more than 1 dose of Eliquis in several years, risk of atrial thrombus was low but was discussed with patient prior to procedure. She was agreeable to proceed. Cardioversion with 50 J x 1 shock converted patient to sinus rhythm, however she reverted back to atrial fibrillation shortly thereafter. Vitals/I&O/Wt Last Vital Signs Temp 98.1 F 06/01/25 14:50 Pulse 87 06/01/25 14:50 Resp 17 06/01/25 14:50 BP 107/68 06/01/25 14:50 Pulse Ox 99 06/01/25 14:50 O2 Del Method Room Air 06/01/25 03:59 06/01/25 06/01/25 06/01/25 06:59 14:59 22:59 Intake Total 480 / 480 Balance 480 / 480 Weight last 48 hrs Weight 141 lb 8 oz Weight 141 lb 9.6 oz Physical Exam 2 Const: COMMON NORMALS: no acute distress and patient oriented x3 Chest: COMMONS NORMALS: normal inspection of the chest and normal palpation of entire chest wall CHEST: Yes Symmetrical chest wall rise Resp: COMMON NORMALS: normal respiratory effort, No retractions, No use of accessory muscles and clear to auscultation bilaterally EFFORT & INSPECTION: Yes symmetric chest movement AUSCULTATION: clear to auscultation bilaterally Cardio: COMMON NORMALS: S1 normal heart sound present, S2 normal heart sound present, No gallops present (Cardio), No clicks present (Cardio), No murmurs present (Cardio) and No rub (Cardio) RHYTHM: abnormal rhythm irregularly irregular HEART SOUNDS: S1 normal heart sound present and S2 normal heart sound present PERIPHERAL PULSES: radial pulses present, posterior tibial pulses present and dorsalis pedis present Neuro: COMMON NORMALS: patient oriented x3 and moves all extremities Psych: COMMON NORMALS: mental status grossly normal and cooperative Data 06/01/25 03:59 06/01/25 03:59 A&P Assessment and plan 1. Longstanding persistent atrial fibrillation: 2. Essential hypertension: 3. Dyspnea on exertion: 4. Chronic anticoagulation: 5. Wide-complex tachycardia: Plan: Will continue medical management for atrial fibrillation, maximizing doses as tolerated. Currently she has good ventricular rate control. She is on amiodarone which she should continue with appropriate taper. Will uptitrate metoprolol to tartrate 37.5 mg twice a day. Blood pressure has been soft, recommend careful observation. Will refer her to electrophysiology, Dr. Mariano at [facility], per patient preference. She should continue to wear event monitor that is currently in place. PDMP PDMP Reviewed: Not Reviewed Attestations 2 Medical Necessity Statement*: plan for discharge today Coding Level of Care Code Acute Code for Chg Fwd Diagnoses Longstanding persistent atrial fibrillation I48.11 Atrial fibrillation type: longstanding persistent Essential hypertension I10 Dyspnea on exertion R06.09 Chronic anticoagulation Z79.01 Wide-complex tachycardia R00.0
--- NOTE | 2025-06-01 12:02 | P.PN_ITS ---
Subjective 2 Subjective: seen today Vitals/I&O/Wt Last Vital Signs Temp 98.0 F 06/01/25 07:41 Pulse 82 06/01/25 12:00 Resp 20 H 06/01/25 12:00 BP 131/97 06/01/25 12:00 Pulse Ox 98 06/01/25 12:00 O2 Del Method Room Air 06/01/25 03:59 05/31/25 06/01/25 06/01/25 22:59 06:59 14:59 Intake Total 220 / 580 Output Total 0 / 0 Balance 220 / 580 Weight last 48 hrs Weight 64.183 kg Weight 64.229 kg Data 06/01/25 03:59 06/01/25 03:59 A&P PDMP PDMP Reviewed: Not Reviewed Coding Level of Care Code Acute Code for Chg Lena
--- NOTE | 2025-06-01 12:15 | P.DS_ITS ---
Discharge Providers Date of Admission: 05/28/25 00:20 Date of Discharge: June 01, 2025 Attending Provider at Admission: Lor Conte MD Attending Provider at Discharge: Olivia Irene MD Primary Care Provider: Murali Ryan DO Diagnoses at Discharge Discharge Diagnosis 1. Longstanding persistent atrial fibrillation: 2. Essential hypertension: 3. Chronic anticoagulation: 4. Wide-complex tachycardia: Reason for Visit Reason for Visit: heart is racing Hospital Course Hospital Course 74-year-old female with history of persistent atrial fibrillation admitted for A-fib with RVR along with episodes of wide-complex tachycardia seen on event monitor. Cardiology was consulted. Patient was optimized on amiodarone apixaban, metoprolol tartrate, digoxin. She underwent cardioversion during hospitalization however it failed. She will be needing a ablation going forward. Referral will be placed to Dr. Mariano at [place] [facility]. She is rate controlled however still in A-fib. She will be discharged home in stable condition at this time. Patient did undergo coronary angiogram which showed no significant disease. Physical Exam Narrative: General: No acute distress, AO x3 HEENT: PERRLA, facial assymetry related to prior surgery of the face for mandibular cancer Chest: Normal vesicular breath sounds, no added sounds, equal good air entry bilaterally CVS: S1-S2 regular, no murmurs, no tachycardia, no gallops, no rubs Abdomen: Soft, nontender, bowel sounds present Neuro: No focal deficits, no facial deformity, AO x 3 Discharge Data Studies Completed and Pending Completed Studies During Hospitalization Category Date Time Status [employer] request for service Routine Exams 05/31/25 06:17 Completed Laboratory Results WBC 5.49 10^3/uL (3.29-11.43) 06/01/25 03:59 Corrected WBC Cancelled 05/28/25 03:28 RBC 4.85 10^6/uL (3.85-5.65) 06/01/25 03:59 Hgb 13.40 g/dL (11.27-16.99) 06/01/25 03:59 Hct 42.5 % (36-47) 06/01/25 03:59 MCV 87.6 fl (85-98) 06/01/25 03:59 MCH 27.6 pg (27-33) 06/01/25 03:59 MCHC 31.5 g/dL (30-55) 06/01/25 03:59 RDW 14.6 % (12.1-15.1) 06/01/25 03:59 Plt Count 179 10^3/cmm (157-399) 06/01/25 03:59 MPV 10.9 fL (7.4-10.4) H 06/01/25 03:59 Gran % Cancelled 05/28/25 03:28 Neut % (Auto) 56.3 % 06/01/25 03:59 Lymph % (Auto) 28.4 % 06/01/25 03:59 [place] % (Auto) 11.3 % 06/01/25 03:59 Eos % (Auto) 2.9 % 06/01/25 03:59 Baso % (Auto) 0.7 % 06/01/25 03:59 Neut # (Auto) 3.09 10^3/uL (1.8-7.7) 06/01/25 03:59 Lymph # (Auto) 1.6 10^3/uL (0.8-4.8) 06/01/25 03:59 [place] # (Auto) 0.6 10^3/uL (0.2-0.9) 06/01/25 03:59 Eos # (Auto) 0.2 10^3/uL (0.0-0.8) 06/01/25 03:59 Baso # (Auto) 0.0 10^3/uL (0.0-0.1) 06/01/25 03:59 Absolute Gran (auto) Cancelled 05/28/25 03:28 Nucleated RBC % (auto) 0 % 06/01/25 03:59 Nucleated RBCs # 0.0 /100WBC 06/01/25 03:59 Sodium 139 mmol/L (136-145) 06/01/25 03:59 Potassium 4.5 mmol/L (3.5-5.1) 06/01/25 03:59 Chloride 103 mmol/L (98-107) 06/01/25 03:59 Carbon Dioxide 26 mmol/L (22-29) 06/01/25 03:59 Anion Gap 14.5 (5-19) 06/01/25 03:59 BUN 24 mg/dL (8-23) H 06/01/25 03:59 Creatinine 1.1 mg/dL (0.5-0.9) H 06/01/25 03:59 GFR Calculation Not Reportable 06/01/25 03:59 Glucose 81 mg/dL (65-115) 06/01/25 03:59 Estimat Average Glucose 111 05/28/25 04:53 Hemoglobin A1c 5.5 % (4.0-6.0) 05/28/25 04:53 Calculated Osmolality 291 mOsm/kg (285-295) 06/01/25 03:59 Calcium 9.3 mg/dL (8.5-10.5) 06/01/25 03:59 Magnesium 2.2 mg/dL (1.7-2.3) 06/01/25 03:59 Iron 84 ug/dL (37-145) 05/28/25 04:53 TIBC 359 mcg/dl 05/28/25 04:53 % Saturation 23.3 % (20-50) 05/28/25 04:53 Unsat Iron Binding 275 ug/dL (112-347) 05/28/25 04:53 Total Bilirubin 1.2 mg/dL (0.15-1.2) 05/31/25 01:50 AST 32 U/L (0-32) 05/31/25 01:50 ALT 18 U/L (0-33) 05/31/25 01:50 Alkaline Phosphatase 101 U/L (35-105) 05/31/25 01:50 Troponin T Baseline 16 ng/L (0-10) H 05/27/25 21:40 Troponin T 120 Minute 15.34 ng/L (0-10) H 05/27/25 23:44 Delta Troponin T -0.66 ABS# (0-10) L 05/27/25 23:44 Troponin T Hi Sens 6Hr 15.13 ng/L (0-10) H 05/28/25 03:28 Troponin T Hi Sens 6Hr Delta -0.87 ng/L (0-12) L 05/28/25 03:28 NT-Pro-B Natriuret Pep 3139 pg/mL (0-125) H 05/27/25 21:40 Total Protein 6.5 g/dL (6.6-8.7) L 05/31/25 01:50 Albumin 3.7 g/dL (3.5-5.2) 05/31/25 01:50 Globulin 2.8 g/dL (1.3-4.6) 05/31/25 01:50 Triglycerides 59 mg/dL (0-150) 05/29/25 02:25 Cholesterol 111 mg/dL (0-200) 05/29/25 02:25 LDL Cholesterol, Calc 60 mg/dL (50-129) 05/29/25 02:25 Total VLDL Cholesterol 12 mg/dL (0-30) 05/29/25 02:25 HDL Cholesterol 39 mg/dL (60-100) L 05/29/25 02:25 Cholesterol/HDL Ratio 2.85 mg/dL (0.0-4.40) 05/29/25 02:25 Vitamin B12 292 pg/mL (232-1245) 05/28/25 04:53 Folate 14.5 ng/mL (4.8-37.3) 05/29/25 02:25 TSH 4.53 uIU/mL (0.27-4.20) H 05/27/25 21:40 Free T4 1.10 ng/dL (0.82-1.77) 05/28/25 03:28 Free T3 2.2 PG/ML (2.0-4.4) 05/28/25 03:28 Urine Color Yellow (Yellow) 05/28/25 00:38 Urine Appearance Cloudy (CLEAR) A 05/28/25 00:38 Urine pH 5.5 (5-7) 05/28/25 00:38 Ur Specific [place] 1.012 (1.005-1.030) 05/28/25 00:38 Urine Protein Negative (Negative) 05/28/25 00:38 Urine Glucose (UA) Negative (Normal) 05/28/25 00:38 Urine Ketones Negative (Negative) 05/28/25 00:38 Urine Blood 2+ (Negative) A 05/28/25 00:38 Urine Nitrate Positive (Negative) A 05/28/25 00:38 Urine Bilirubin Negative (Negative) 05/28/25 00:38 Urine Urobilinogen 0.2 mg/dL (Negative) 05/28/25 00:38 Ur Leukocyte Esterase 1+ (Negative) A 05/28/25 00:38 Urine RBC 6-10 /hpf (0-2) 05/28/25 00:38 Urine WBC 21-50 /hpf (0-5) H 05/28/25 00:38 Ur Squamous Epith Cells 0-5 /hpf (0-5) 05/28/25 00:38 Amorphous Sediment Not Reportable 05/28/25 00:38 Urine Bacteria 4+ /hpf (NONE) H 05/28/25 00:38 Hyaline Casts 0-4 /lpf H 05/28/25 00:38 Urine Opiates Screen Negative ng/mL (Negative) 05/28/25 00:38 Ur Barbiturates Screen Negative ng/mL (Negative) 05/28/25 00:38 Ur Phencyclidine Scrn Negative ng/mL (Negative) 05/28/25 00:38 Ur Amphetamines Screen Negative ng/mL (Negative) 05/28/25 00:38 U Benzodiazepines Scrn Negative ng/mL (Negative) 05/28/25 00:38 Urine Cocaine Screen Negative ng/mL (Negative) 05/28/25 00:38 U Marijuana (THC) Screen Negative ng/mL (Negative) 05/28/25 00:38 Vitals Last Vital Signs Temp 98.0 F 06/01/25 07:41 Pulse 82 06/01/25 12:00 Resp 20 H 06/01/25 12:00 BP 131/97 06/01/25 12:00 Pulse Ox 98 06/01/25 12:00 O2 Del Method Room Air 06/01/25 03:59 Discharge Plan Discharge Patient Disposition: Home Condition: Stable Prescriptions: New aspirin 81 mg Tablet,Delayed Release (Dr/Ec) 81 mg PO DAILY Qty: 30 0RF pantoprazole 40 mg Tablet,Delayed Release (Dr/Ec) 40 mg PO DAILY Qty: 30 0RF Continued Eliquis 5 mg tablet 5 mg PO BID Qty: 30 11RF atorvastatin 40 mg tablet 40 mg PO BEDTIME Qty: 90 3RF albuterol sulfate 90 mcg/actuation HFA aerosol inhaler 1 inh inhalation QID PRN (Reason: shortness of breath or wheezing) Qty: 8.5 1RF ascorbic acid (vitamin C) [Vitamin C] 500 mg Tablet 500 mg PO DAILY PRN (Reason: when remembers) Patient Comments: does not consistently take Discontinued metoprolol tartrate 25 mg Tablet 12.5 mg PO BID@0900,2100 Qty: 0 0RF Rx Instructions: Take half of a 25mg tablet (12.5mg) twice per day 12 hours apart until otherwise directed No Action amiodarone [Pacerone] 200 mg tablet 400 mg PO DAILY Qty: 180 3RF metoprolol tartrate 25 mg tablet 12.5 mg PO BID@0900,2100 Qty: 45 3RF Discharge Order = DC NOW: Discharge Order (Routine); Ordered 06/01/25 Ordered By: Olivia Irene Referrals: Murali Ryan DO [Primary Care Provider, Family Practice] - 06/08/25 10:00 am Racheal Hoyt NP [Nurse Practitioner, Cardiology] - 4-7 days Referral Note: We have notified your physician's clinic of the need for a follow-up appointment to be scheduled. If you have not heard from them within the next 2 business days, please call them directly. Sekou Hwang MD [Referring, Electrophysiology] - 1-3 days Referral Note: We have notified your physician's clinic of the need for a fol low-up appointment to be scheduled. If you have not heard from them within the next 2 business days, please call them directly. Kurt Jimenes M.D [Physician, Cardiology] - 1 month Referral Note: We have notified your physician's clinic of the need for a follow-up appointment to be scheduled. If you have not heard from them within the next 2 business days, please call them directly. Discharge Diet: Cardiac Discharge Activity: Resume usual activity Patient Instructions: Opioid Safety, Patient Portal & John Instructions Discharge Attestations Time Spent in Discharge Care*: less than 30 min Status at Discharge: Cognitive status at discharge: cognitively intact , Behavioral status at discharge: cooperative , Quality Metrics Clinical Quality Measures [ No reported AMI, CVA or VTE this stay] Coding Level of Care Code Acute Code for Chg Fwd Diagnoses Longstanding persistent atrial fibrillation I48.11 Atrial fibrillation type: longstanding persistent Essential hypertension I10 Chronic anticoagulation Z79.01 Wide-complex tachycardia R00.0
--- NOTE | 2025-06-01 14:47 | PC.NURSE ---
1345 Spoke with patient about discharge, she has several questions about going to [place], or cardiac services appointment. Call into Dr. Irene and meds to beds. 1430 Spoke with Maria Victoria, answered patients question, and meds in process to bed.
--- NOTE | 2025-06-01 15:39 | PC.NURSE ---
1160 Discharged patient, she dressed herself, all belongings with patient, out via w/c to family truck. No c\o's. Patient to reapply heart monitor at home where her supplies are.
== END 2025-06-01 15:30 | disposition home or self-care (01) | DRG 287 ==
LOC: ER 05-28 → CSU 05-28 00:21
PROVIDERS: Internal Medicine; Student in an Organized Health Care Education/Training Program; Admitting Provider Student in an Organized Health Care Education/Training Program; Emergency Provider Physician Assistant; PCP Family Medicine; Visit Provider Internal Medicine
PROC: 4A023N7 Measurement of Cardiac Sampling and Pressure, Left Heart, Percutaneous Approach (ICD-10-PCS; principal; 2025-05-31 07:00)
DX: I48.11 Longstanding persistent atrial fibrillation (principal); I10 Essential (primary) hypertension; E78.2 Mixed hyperlipidemia; I27.20 Pulmonary hypertension, unspecified; Z79.01 Long term (current) use of anticoagulants; Z86.73 Personal history of transient ischemic attack (TIA), and cerebral infarction without residual deficits; Z86.711 Personal history of pulmonary embolism; Z85.830 Personal history of malignant neoplasm of bone
CPT/HCPCS: 36415; 80048; 80053; 80061; 80306; 81001; 82607; 82746; 83036; 83540; 83550; 83735; 83880; 84439; 84443; 84481; 84484; 85025; 85378; 87077; 87086; 87186; 93005; 93458; 96365; 96366; 96372; 96376; 99152; 99153; 99285; A9270; C1769; C1887; C1894; G0378; J0282; J0283; J0330; J1160; J1200; J1644; J1650; J2250; J2704; J3010; J3480; J3490; J7030; J9999; Q9967

== ENCOUNTER → 2025-06-02 16:32 | Outpatient (BNVA) | payer MEDICARE, SELFPAY | PROVIDERS: PCP Family Medicine; Visit Provider Internal Medicine Cardiovascular Disease | DX: I48.20 Chronic atrial fibrillation, unspecified (principal); Z79.01 Long term (current) use of anticoagulants; Z79.82 Long term (current) use of aspirin; I10 Essential (primary) hypertension; E78.2 Mixed hyperlipidemia; R07.9 Chest pain, unspecified | CPT/HCPCS: 93005; 99214 ==

== ENCOUNTER → 2025-06-09 10:31 | Outpatient (BNVA) | payer MEDICARE, SELFPAY | PROVIDERS: PCP Family Medicine; Visit Provider Nurse Practitioner Family | DX: I48.11 Longstanding persistent atrial fibrillation (principal); I48.20 Chronic atrial fibrillation, unspecified; Z79.01 Long term (current) use of anticoagulants; Z79.82 Long term (current) use of aspirin; I10 Essential (primary) hypertension; R00.1 Bradycardia, unspecified; Z86.73 Personal history of transient ischemic attack (TIA), and cerebral infarction without residual deficits | CPT/HCPCS: 99213 ==

== ENCOUNTER → 2025-08-02 12:38 | Outpatient (BNVA) | payer MEDICARE, SELFPAY | PROVIDERS: PCP Family Medicine; Visit Provider Family Medicine | DX: I10 Essential (primary) hypertension (principal); I48.91 Unspecified atrial fibrillation; R79.89 Other specified abnormal findings of blood chemistry | CPT/HCPCS: 80053; 84439; 84443 ==

== ENCOUNTER → 2025-08-11 14:20 | Outpatient (BNVA) | payer MEDICARE, SELFPAY | PROVIDERS: PCP Family Medicine; Visit Provider Internal Medicine Cardiovascular Disease | DX: I48.11 Longstanding persistent atrial fibrillation (principal); Z79.01 Long term (current) use of anticoagulants | CPT/HCPCS: 99214 ==